=== PATIENT | male | born 1955 | race Caucasian/White ===

== ENCOUNTER 2020-11-08 10:17 | Inpatient (IN) | payer OTHER, SELFPAY ==
[2020-11-08] VITALS (14 sets, daily range): BP systolic 139–180; BP diastolic 88–128; PULSE 15–156; RESP 18–48; TEMP 36.2–36.9; O2SAT 95–97; BMI 33.9
--- NOTE | ~2020-11-08 | XR_ITS ---
EXAMINATION: XR ANKLE, LEFT CLINICAL INFORMATION: Unable to ambulate. COMPARISON: None TECHNIQUE: AP, lateral, and mortise views of the left ankle. FINDINGS: The ankle joint and mortise are intact. There is no acute fracture or dislocation. Tiny corticated osseous densities are seen subjacent to the lateral malleolus. There is mild soft tissue swelling. XR/XR ankle LT 2V IMPRESSION: Mild soft tissue swelling without acute fracture or significant degenerative changes. Tiny osseous density subjacent to the lateral malleolus does not appear acute and could be degenerative in nature or could represent ossification centers.
--- NOTE | ~2020-11-08 | XR_ITS ---
EXAMINATION: XR CHEST CLINICAL INFORMATION: Shortness of breath COMPARISON: None TECHNIQUE: Frontal view of the chest was obtained. FINDINGS: The cardiac silhouette is enlarged. There is pulmonary venous redistribution and increased perihilar markings. Findings are questionable for mild CHF. The lungs are otherwise clear. There is no significant pleural effusion. There is no pneumothorax. There are degenerative changes of the spine. XR/XR chest 1V IMPRESSION: Enlarged cardiac silhouette and question mild CHF.
--- NOTE | 2020-11-08 10:36 | ECG_ITS ---
Test Reason : SOB Blood Pressure : / mmHG Vent. Rate : 148 BPM Atrial Rate : 187 BPM P-R Int : 000 ms QRS Dur : 128 ms QT Int : 352 ms P-R-T Axes : 000 -64 088 degrees QTc Int : 552 ms Atrial fibrillation with rapid ventricular response Left axis deviation Right bundle branch block Minimal voltage criteria for LVH, may be normal variant Abnormal ECG No previous ECGs available Referred By: Leia Melgar Electronically Signed By:FRANSICO BABCOCK
[2020-11-08] MEDS: dilTIAZem HCL 50 MG/10 ML VIAL 10 MG IVPUSH ×2 (10:48→11:26)
--- NOTE | 2020-11-08 10:54 | ED.GENADULT ---
HPI - General Adult General Chief complaint: Dyspnea Stated complaint: DIFF BREATHING HEART ISSUES Time Seen by Provider: 11/08/20 10:35 Source: patient Mode of arrival: ambulatory Limitations: no limitations History of Present Illness HPI narrative: 65-year-old male is coming here today for shortness of breath. Patient reports that he started 1 week ago feeling short of breath and his symptoms worsen. 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 His symptoms were getting worse and he went to urgent care on Sunday. He was given Lasix and Z-Anthony. Patient was encouraged to go seek emergency care, however he chose not to as he thought that he had infection in his lungs. He was not aware that he had anything wrong with his heart however he was told that his heart is enlarged. Patient used to take medication for blood pressure, however due to insurance he stopped taking that. Patient reports that he took dose of Lasix and had no changes. Patient reports SOB with and without exertion, PND. He reports that he does not feel any palpitations, no chest pain. Reports edema in bilateral lower extremities. Patient denies syncope or presyncope. Onset (ago): day(s) Location: chest Related Data Home Medications Medication Instructions Recorded Confirmed azithromycin 250 mg tablet 250 mg PO DAILY 11/08/20 11/08/20 furosemide 20 mg tablet 1 tab PO BID 11/08/20 11/08/20 Allergies Allergy/AdvReac Type Severity Reaction Status Date / Time No Known Allergies Allergy Verified 11/08/20 10:36 Review of Systems Review of Systems: Constitutional : No Weight loss, No Fever, No Chills, No Night Sweats, No Fatigue, No Malaise ENT/Mouth : No Hearing loss, No Ear Pain, No Nasal Congestion, No Sinus Pain, No Hoarseness, No sore throat, No Rhinorrhea, No Swallowing Difficulty Eyes: No Eye Pain, No Swelling, No Redness, No Foreign Body, No Discharge, No Vision Changes Cardiovascular : No Chest Pain, SOB, Dyspnea on Exertion, No Orthopnea, No Edema, Palpitations Respiratory : Cough, No Sputum, No Wheezing, No Smoke Exposure, Dyspnea Gastrointestinal : No Nausea, No Vomiting, No Diarrhea, No Constipation, No abdominal Pain, No Hematochezia, No Melena Genitourinary : no irregular bleeding, No Dysuria, No Urinary Frequency, No Hematuria, No Urinary Incontinence, No Urgency, No Flank Pain, No Urinary Flow Changes, No Hesitancy Musculoskeletal : No joint pain, No Myalgias, No Joint Swelling Skin : No Skin Lesions, No rash Neuro : No Weakness, No Numbness, No Paresthesias, No Loss of Consciousness, No Dizziness, No Headache Psych : No Anxiety/Panic, No Depression, No SI/HI/AH/VH, No Social Issues, Heme/Lymph: No Bruising, No Bleeding,No Lymphadenopathy Endocrine : No Polyuria, No Polydipsia, No Temperature Intolerance Yes all other systems are reviewed and are negative [facility] Past Medical History Medical History HTN (hypertension) Social History Social History Alcohol intake: current Alcohol intake frequency: a few times a month Patient Tobacco Use Status: Never used Tobacco Use of substances other than those prescribed or required for medical reasons: No Advance Directives: No Advance Directives Information Provided: No Physical Exam Vital Signs: Vital Signs: Last Vital Signs Temp 98.4 F 11/08/20 15:55 Pulse 95 11/08/20 15:55 Resp 20 11/08/20 15:55 BP 159/99 H 11/08/20 15:55 Pulse Ox 97 11/08/20 15:55 Body Mass Index 33.9 Const: General: healthy appearing, no acute distress and well developed Nutritional Appearance: well nourished Orientation/consciousness: patient oriented x3 HENMT: Head: Yes normal to inspection, Yes normocephalic and Yes atraumatic Ears: hearing grossly normal bilaterally General nose exam: Normal external nose present Face and sinus: Yes normal facial exam Mouth: Normal oral and palatal mucosa present Throat: Yes posterior oropharynx normal Eyes: General: appearance normal, both eyes and all related structures Neck: Neck: Yes normal visual inspection, Yes full ROM and Yes trachea midline Thyroid: Thyroid normal Resp: Auscultation: clear to auscultation bilaterally Cardio: Jugular venous distension: JVD Rate: Other (Irregular) Rhythm: abnormal rhythm (AFib with RVR) GI: Inspection: Yes normal to inspection and No distended Palpation (GI): No hepatosplenomegaly present Auscultation: normal bowel sounds Skin: General skin exam: elasticity normal, turgor normal and dry skin Neuro: General: patient oriented x3 Course Course Course Narrative: 65-year-old male with previous history of hypertension. Patient was taking antihypertensive medication for sometimes, however due to insurance stop taking it. Patient does not currently have primary care provider as his provider retired. He works full-time 12 hour shifts at night. Denies smoking or alcohol. His symptoms started Sunday and progressively got worse to the point that on Sunday he went to urgent care. He was told to seek emergency services, however he thought that he had pneumonia and was going to recover. His symptoms are shortness of breath with or without exertion, PND, bilateral lower extremity swelling. Denies chest pain, presyncope or syncope. He was given dose of Lasix for 3 days. Patient reports that he had no change in symptoms. Upon exam patient is in a fib with RVR rate 130-155. Will order CBC BMP, troponin, BNP. Will give him diltiazem. Reevaluation(s) Reevaluation #1: Troponin 37.8. Patient's heart rate 120-138 occasionally up to 150. Will give him 2nd dose of diltiazem, awaiting BNP, patient might need to get dose of Lasix if his blood pressure is stable Reevaluation #2: BNP 3919, will medicate him with Lasix 40 mg IV. Consult to Cardiology. Reevaluation #3: Patient continues to be in AFib with RVR heart rate 120-140. Will give him digoxin to dig. load , pressures continue to be high 160/110: will start hydralazine and nitro paste that will help him decrease the blood pressure and diurese him. Cardiology is aware. Additional Reevaluation(s): Hospitalist aware of admission. Patient diuresed 2 L. [place] [facility] [place] Decision Making Lab Data Result diagrams: 11/08/20 10:51 11/08/20 10:51 Labs: Lab Results 11/08/20 11/08/20 11/08/20 Range/Units 10:51 10:51 10:51 WBC 5.8 (4.8-10.8) X10*3/uL RBC 4.52 L (4.60-5.80) X10*6/uL Hgb 14.1 (14.0-18.0) g/dl Hct 43.1 (42-52) % MCV 95.4 (80-98) fL MCH 31.2 (27.0-33.0) pg MCHC 32.7 (31.0-36.0) g/dl RDW 15.5 (11.0-16.0) % Plt Count 189 (160-400) X10*3/uL MPV 11.9 (9.4-12.4) fL Immature Gran % (Auto) 0.2 (0.0-0.4) % Neut % (Auto) 60.9 (45-73) % Lymph % (Auto) 30.1 (20-40) % [place] % (Auto) 7.4 (2-11) % Eos % (Auto) 0.7 (0-4) % Baso % (Auto) 0.7 (0-2) % Lymph # (Auto) 1.8 (1.2-4.9) X10*3/uL [place] # (Auto) 0.4 (0.1-1.2) X10*3/uL Eos # (Auto) 0.0 (0.0-0.4) X10*3/uL Baso # (Auto) 0.0 (0.0-0.2) X10*3/uL Abs Immat Gran (auto) 0.01 (0.00-0.03) X10*3/uL Absolute Neuts (auto) 3.6 (2.0-8.3) X10*3/uL Absolute Nucleated RBC 0.000 (0.0-0.012) X10*3/uL Nucleated RBC % (auto) 0.0 (0.0-0.2) /100WBC PT (9.9-13.0) SEC INR (0.9-1.1) Sodium 142 (135-145) mmol/L Potassium 4.7 (3.3-5.1) mmol/L Chloride 108 (96-108) mmol/L Carbon Dioxide 22 (22-29) mmol/L Anion Gap 17 (12-20) BUN 20 H (9-16) mg/dL Creatinine 1.35 (0.5-1.4) mg/dL Estim Creat Clear Calc 71.8 Estimated GFR 53 Random Glucose 119 H (60-115) mg/dL Calcium 8.7 (8.4-10.2) mg/dL Total Bilirubin 1.5 H (0.0-1.0) mg/dL Direct Bilirubin 0.4 (0.0-0.5) mg/dL AST 56 H (5-37) U/L ALT 55 H (0-40) U/L Alkaline Phosphatase 69 (39-117) U/L Troponin I High Sens 37.8 H* (<3.5-35.0) ng/L B-Natriuretic Peptide 3919 H (<100) pg/mL Total Protein 6.3 L (6.5-8.0) g/dL Albumin 3.8 (3.5-5.0) g/dL Coronavirus (PCR) (Negative) Influenza Type A (PCR) (Negative) Influenza Type B (PCR) (Negative) RSV RNA Qual (PCR) (Negative) 11/08/20 11/08/20 Range/Units 10:56 10:56 WBC (4.8-10.8) X10*3/uL RBC (4.60-5.80) X10*6/uL Hgb (14.0-18.0) g/dl Hct (42-52) % MCV (80-98) fL MCH (27.0-33.0) pg MCHC (31.0-36.0) g/dl RDW (11.0-16.0) % Plt Count (160-400) X10*3/uL MPV (9.4-12.4) fL Immature Gran % (Auto) (0.0-0.4) % Neut % (Auto) (45-73) % Lymph % (Auto) (20-40) % [place] % (Auto) (2-11) % Eos % (Auto) (0-4) % Baso % (Auto) (0-2) % Lymph # (Auto) (1.2-4.9) X10*3/uL [place] # (Auto) (0.1-1.2) X10*3/uL Eos # (Auto) (0.0-0.4) X10*3/uL Baso # (Auto) (0.0-0.2) X10*3/uL Abs Immat Gran (auto) (0.00-0.03) X10*3/uL Absolute Neuts (auto) (2.0-8.3) X10*3/uL Absolute Nucleated RBC (0.0-0.012) X10*3/uL Nucleated RBC % (auto) (0.0-0.2) /100WBC PT 13.8 H (9.9-13.0) SEC INR 1.2 H (0.9-1.1) Sodium (135-145) mmol/L Potassium (3.3-5.1) mmol/L Chloride (96-108) mmol/L Carbon Dioxide (22-29) mmol/L Anion Gap (12-20) BUN (9-16) mg/dL Creatinine (0.5-1.4) mg/dL Estim Creat Clear Calc Estimated GFR Random Glucose (60-115) mg/dL Calcium (8.4-10.2) mg/dL Total Bilirubin (0.0-1.0) mg/dL Direct Bilirubin (0.0-0.5) mg/dL AST (5-37) U/L ALT (0-40) U/L Alkaline Phosphatase (39-117) U/L Troponin I High Sens (<3.5-35.0) ng/L B-Natriuretic Peptide (<100) pg/mL Total Protein (6.5-8.0) g/dL Albumin (3.5-5.0) g/dL Coronavirus (PCR) NEGATIVE (Negative) Influenza Type A (PCR) NEGATIVE (Negative) Influenza Type B (PCR) NEGATIVE (Negative) RSV RNA Qual (PCR) NEGATIVE (Negative) Discharge Plan Discharge Clinical Impression: Atrial fibrillation with RVR, Elevated troponin, Shortness of breath at rest Congestive heart failure Qualifiers: Heart failure type: unspecified Heart failure chronicity: acute Qualified Code(s): I50.9 - Heart failure, unspecified Patient Disposition: Admitted As Inpatient
[2020-11-08 10:56] LABS: MANUAL DIFF FLAG NO
[2020-11-08 11:02] LABS: Basophils Percent Auto 0.7 % (0-2); Eosinophils Percent Auto 0.7 % (0-4); Hematocrit 43.1 % (42-52); Hemoglobin 14.1 g/dl (14.0-18.0); Imm Gran Abs Auto 0.01 X10*3/uL (0.00-0.03); Imm Gran Pct Auto 0.2 % (0.0-0.4); Lymphocytes Absolute Auto 1.8 X10*3/uL (1.2-4.9); Lymphocytes Percent Auto 30.1 % (20-40); Mean Corpuscular HGB Conc 32.7 g/dl (31.0-36.0); Mean Corpuscular Hemoglobin 31.2 pg (27.0-33.0); Mean Corpuscular Volume 95.4 fL (80-98); Mean Platelet Volume 11.9 fL (9.4-12.4); Monocytes Absolute Auto 0.4 X10*3/uL (0.1-1.2); Monocytes Percent Auto 7.4 % (2-11); Neutrophils Absolute Auto 3.6 X10*3/uL (2.0-8.3); Neutrophils Percent Auto 60.9 % (45-73); Platelet Count 189 X10*3/uL (160-400); Red Blood Count 4.52 X10*6/uL (4.60-5.80); Red Cell Distribution Width 15.5 % (11.0-16.0); White Blood Count 5.8 X10*3/uL (4.8-10.8)
[2020-11-08 11:07] LABS: INTERNATIONAL NORM RATIO 1.2 (0.9-1.1); Prothrombin Time 13.8 SEC (9.9-13.0)
[2020-11-08 11:16] LABS: Anion Gap 17 (12-20); Blood Urea Nitrogen 20 mg/dL (9-16); Calcium 8.7 mg/dL (8.4-10.2); Carbon Dioxide 22 mmol/L (22-29); Chloride 108 mmol/L (96-108); Creatinine Clr Calc Pharmacy 71.8; Estimated Glomerular Filt Rate 53; Glucose Random 119 mg/dL (60-115); Potassium 4.7 mmol/L (3.3-5.1); Sodium 142 mmol/L (135-145)
[2020-11-08 11:26] LABS: B Type Natriuretic Peptide 3919 pg/mL (<100); Troponin-I High Sensitivity 37.8 ng/L (<3.5-35.0)
[2020-11-08] MEDS: dilTIAZem HCL 125 MG in 0.9 % Sodium Chloride 100 ML 10 MG IVCONT (11:55)
[2020-11-08] MEDS: Furosemide 40 MG/4 ML VIAL IVPUSH (11:56)
--- NOTE | 2020-11-08 11:59 | PC.NURSE ---
HR remains elevated even after 2 boluses cardizwm. Cardizen drip started and IV lasix given. Pt educated on urination after lasix. Urinal provided. BP remains strong. Continuous monitoring of BP taking place at this time.
[2020-11-08 12:30] LABS: Influenza A PCR NEGATIVE (Negative); Influenza B PCR NEGATIVE (Negative); Resp Syncy Virus RNA Qual PCR NEGATIVE (Negative); SARS COV2 PCR INHOUSE NEGATIVE (Negative)
[2020-11-08 12:33] LABS: Alanine Aminotransferase 55 U/L (0-40); Albumin Level 3.8 g/dL (3.5-5.0); Alkaline Phosphatase 69 U/L (39-117); Aspartate Amino Transferase 56 U/L (5-37); Bilirubin Direct 0.4 mg/dL (0.0-0.5); Bilirubin Total 1.5 mg/dL (0.0-1.0); Total Protein 6.3 g/dL (6.5-8.0)
--- NOTE | 2020-11-08 13:09 | PC.NURSE ---
HR remains elevated in 120s a-fib on monitor. Drip titrated to 12.5mg/hr. BP remains stable. Pt diuresed 1 liter after 40mg of lasix.
--- NOTE | 2020-11-08 13:24 | PM.CNCAR ---
History of Present Illness History of Present Illness Date of Service: 11/08/20 Requesting physician: Leia Melgar Consult reason: atrial fibrillation and congestive heart failure Chief complaint: DIFF BREATHING HEART ISSUES Narrative: I was requested to see Michael in cardiology consultation today for progressive shortness of breath. He is a 65-year-old man with prior history of hypertension, not been taking his antihypertensive for at least 1 year because of insurance issues. He said he was in usual state of health till last Sunday. 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 On Sunday continued to feel worse and felt that he was getting pneumonia. Also notice increasing leg swelling. He went to urgent care on Sunday and he had a chest x-ray there was told that he did not have pneumonia however on his request was given antibiotics, he did not improve and but continued to get progressively short of breath. He also complains of symptoms of orthopnea that he could not lay flat and would get very short of breath. He had to sit up. He did not notice any irregular or rapid heart rate or palpitations. Did not notice any chest pain. No lightheadedness, loss of consciousness. He decided to come to the emergency room because he had not improved. In the Emergency was noted to be in heart failure along with atrial fibrillation rapid ventricular response and marked hypertension. He has been given IV Lasix appropriately and has had about a L of urine output but still says that he short of breath. He is also persistently hypertensive and tachycardic. He is currently on IV Cardizem drip at 10 mg an hour. Review of Systems Constitutional: Constitutional: Denies chills, Denies fever(s) and Reports lethargy Eyes: Eyes: Reports no additional eye complaints ENT: Reports system reviewed and no additional complaints, except as documented Cardiovascular: Cardiovascular: Denies chest pain, Denies syncope, Denies rapid heart rate, Reports leg edema, Denies lightheadedness, Denies Loss of Consciousness, Denies palpitations, Reports dyspnea, Reports dyspnea on exertion and Reports orthopnea Respiratory: Respiratory: Reports no additional respiratory complaints, Reports dyspnea and Reports dyspnea on exertion Gastrointestinal: Gastrointestinal: Reports no additional gastrointestinal complaints Genitourinary: Genitourinary: Reports no additional male genitourinary complaints Musculoskeletal: Musculoskeletal: Reports no additional musculoskeletal complaints Integumentary/Breasts: Skin/Breast: Reports system reviewed and no additional complaints, except as docu Neurologic: Reports system reviewed and no additional complaints, except as documented and Denies syncope Psychiatric: Psychiatric: Reports no additional psychiatric complaints Endocrine: Endocrine: Reports no additional endocrine complaints and Denies palpitations Allergic/Immunologic: Allergic/Immunologic: Reports no additional allergic/immunologic complaints [facility] Past Medical History Medical History HTN (hypertension) Social History Social History Alcohol intake: current Alcohol intake frequency: a few times a month Patient Tobacco Use Status: Never used Tobacco Use of substances other than those prescribed or required for medical reasons: No Advance Directives: No Advance Directives Information Provided: No Meds Allergies Allergy/AdvReac Type Severity Reaction Status Date / Time No Known Allergies Allergy Verified 11/08/20 10:36 Active Medications: Current Medications Generic Name Dose Route Start Last Admin Trade Name Freq PRN Reason Stop Dose Admin Diltiazem HCl 125 mg/ Sodium 125 mls @ 0 mls/hr 11/08/20 12:00 11/08/20 13:07 Chloride IVCONT 12.5 mg/hr .Q0M NAZ 12.5 mls/hr Titration Protocol Per Protocol Physical Exam Vital Signs: Vital Signs: Last Vital Signs Temp 98.1 F 11/08/20 10:38 Pulse 112 H 11/08/20 13:08 Resp 18 11/08/20 13:08 BP 169/118 H 11/08/20 13:08 Pulse Ox 95 11/08/20 13:08 Body Mass Index 33.9 Const: General: cooperative, comfortable, alert, awake and in distress moderate and respiratory Nutritional Appearance: obese Orientation/consciousness: patient oriented x3 HENMT: Head: Yes normocephalic and Yes atraumatic Neck: Neck: Yes trachea midline, Yes supple and Yes JVD Resp: Effort & Inspection: normal respiratory effort Auscultation: rales bilateral at the base and no wheezes Cardio: Jugular venous distension: JVD Palpation: abnormal PMI displaced PMI Rate: tachycardic Rhythm: abnormal rhythm irregularly irregular Heart sounds: S1 normal heart sound present, S2 normal heart sound present, no click, no gallops, no murmurs and no rubs GI: Auscultation: normal bowel sounds Skin: General skin exam: no rashes or lesions noted Neuro: General: patient oriented x3 and no focal motor deficits Extrem: General: No clubbing, No cyanosis and Yes edema Psych: Appearance: grossly normal Results Labs and Meds Result diagrams: 11/08/20 10:51 11/08/20 10:51 Lab results: Laboratory Results - last 24 hr 11/08/20 11/08/20 11/08/20 10:51 10:51 10:51 WBC 5.8 RBC 4.52 L Hgb 14.1 Hct 43.1 MCV 95.4 MCH 31.2 MCHC 32.7 RDW 15.5 Plt Count 189 MPV 11.9 Immature Gran % (Auto) 0.2 Neut % (Auto) 60.9 Lymph % (Auto) 30.1 [place] % (Auto) 7.4 Eos % (Auto) 0.7 Baso % (Auto) 0.7 Lymph # (Auto) 1.8 [place] # (Auto) 0.4 Eos # (Auto) 0.0 Baso # (Auto) 0.0 Abs Immat Gran (auto) 0.01 Absolute Neuts (auto) 3.6 Absolute Nucleated RBC 0.000 Nucleated RBC % (auto) 0.0 PT INR Sodium 142 Potassium 4.7 Chloride 108 Carbon Dioxide 22 Anion Gap 17 BUN 20 H Creatinine 1.35 Estim Creat Clear Calc 71.8 Estimated GFR 53 Random Glucose 119 H Calcium 8.7 Total Bilirubin 1.5 H Direct Bilirubin 0.4 AST 56 H ALT 55 H Alkaline Phosphatase 69 Troponin I High Sens 37.8 H* B-Natriuretic Peptide 3919 H Total Protein 6.3 L Albumin 3.8 Coronavirus (PCR) Influenza Type A (PCR) Influenza Type B (PCR) RSV RNA Qual (PCR) 11/08/20 11/08/20 10:56 10:56 WBC RBC Hgb Hct MCV MCH MCHC RDW Plt Count MPV Immature Gran % (Auto) Neut % (Auto) Lymph % (Auto) [place] % (Auto) Eos % (Auto) Baso % (Auto) Lymph # (Auto) [place] # (Auto) Eos # (Auto) Baso # (Auto) Abs Immat Gran (auto) Absolute Neuts (auto) Absolute Nucleated RBC Nucleated RBC % (auto) PT 13.8 H INR 1.2 H Sodium Potassium Chloride Carbon Dioxide Anion Gap BUN Creatinine Estim Creat Clear Calc Estimated GFR Random Glucose Calcium Total Bilirubin Direct Bilirubin AST ALT Alkaline Phosphatase Troponin I High Sens B-Natriuretic Peptide Total Protein Albumin Coronavirus (PCR) NEGATIVE Influenza Type A (PCR) NEGATIVE Influenza Type B (PCR) NEGATIVE RSV RNA Qual (PCR) NEGATIVE EKG shows atrial fibrillation rapid ventricular response with right bundle-branch block and left axis deviation Imaging Radiologist's impression: Impressions Chest X-Ray 11/08/20 10:36 IMPRESSION: Enlarged cardiac silhouette and question mild CHF. 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 Continue IV diuresis. Start him on Lasix drip at 5 mg an hour. Strict intake and output chart needs to be pursued. Continue to trend electrolytes and BMP. Heart failure management and diagnosis was discussed. Will need an echocardiogram to evaluate LV systolic and diastolic function eventually better control of atrial fibrillation. This was discussed with him. He understands agrees. Importance of controlling blood pressure was also discussed. Start him on Diovan 40 mg b.i.d.. Rate control as below. Also p.r.n. hydralazine 10 mg as needed for systolic blood pressure greater than 160. Also start him on nitro paste 2 in q.6 hours for better blood pressure control. Depending on his LV ejection fraction, will further optimize his treatment (2) Atrial fibrillation with RVR: Status: Acute Atrial fibrillation rapid ventricular response of unknown duration. There is likelihood of underlying on LV systolic dysfunction, however remains tachycardic. Currently on IV Cardizem drip, will continue for short term for better rate control. Also digitalize him with 0.25 mg IV push Q 6 hours x3 doses. Once his fluid status is improved, started on oral metoprolol therapy. Also start him on full anticoagulation, can start with Lovenox 1 milligram/kg subQ q.12 hours. Echocardiogram as above. Eventually may need rhythm control once his heart failure syndrome is better controlled. If his heart rate remains difficult control may require CHRIS guided cardioversion. (3) Hypertensive urgency: Status: Acute Hypertensive urgency, with longstanding hypertension currently not on any home treatment due to insurance issues. Management as above. Start Diovan 40 mg b.i.d.. P.r.n. hydralazine. Start him on nitro paste. Further treatment optimization based on his response. May have underlying sleep apnea and probably pursue sleep study as outpatient. Importance of compliance with medication and follow-up was discussed. He understands agrees. Will continue to follow with the patient. Procedures Date of Service Date of Service: 11/08/20
--- NOTE | 2020-11-08 14:21 | P.HPHOSP_ITS ---
History of Present Illness Date of Service: 11/08/20 Chief Complaint: Shortness of breath 65-year-old male with a history of hypertension has been off his medications for about 1 year due to insurance issues. Presented with shortness of breath. Patient states the symptoms started 1 week prior to presentation. 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 then began to have sob, worse on exertion, orthopnea, lower extremity edema. came to ED, found to be in rapid afib, CXR with pulmonary edema. Review of Systems Review of Systems: Constitutional: Denies fever, denies Chills Eyes: denies blurry vision ENT: denies sore throat CVS: denies chest pain Respiratory:dyspnea GI: no abdominal pain : denies dysuria MSK: denies neck pain Skin: denies rash Neuro: denies specific motor weakness Psych: denies suicidal ideation Endocrine: denies heat/cold intolerance Hematologic: denies easy bleeding Allergy: denies hives [facility] Medical History HTN (hypertension) Family history: reviewed and not pertinent Social History Alcohol intake: current Alcohol intake frequency: a few times a month Patient Tobacco Use Status: Never used Tobacco Use of substances other than those prescribed or required for medical reasons: No Advance Directives: No Advance Directives Information Provided: No Meds Allergies Allergy/AdvReac Type Severity Reaction Status Date / Time No Known Allergies Allergy Verified 11/08/20 10:36 Active Medications: Current Medications Generic Name Dose Route Start Last Admin Trade Name Freq PRN Reason Stop Dose Admin Digoxin 0.25 mg 11/08/20 20:00 Digoxin 0.5 Mg/2 Ml Ampul IVPUSH 11/09/20 02:01 Q6H NAZ Enoxaparin Sodium 115 mg 11/08/20 14:30 Enoxaparin Sodium 100 Mg/Ml Syringe 1 mg/kg (115 mg) SUBCUT Q12H NAZ Hydralazine HCl 10 mg 11/08/20 14:18 Hydralazine Hcl 20 Mg/Ml Vial IVPUSH Q4H PRN SBP > 160 Protocol Diltiazem HCl 125 mg/ Sodium 125 mls @ 0 mls/hr 11/08/20 12:00 11/08/20 13:07 Chloride IVCONT 12.5 mg/hr .Q0M NAZ 12.5 mls/hr Titration Protocol Per Protocol Furosemide 200 mg/ Sodium 100 mls @ 2.5 mls/hr 11/08/20 14:30 Chloride IVCONT .Q24H NAZ 5 MG/HR Nitroglycerin 1 inch 11/08/20 14:16 Nitroglycerin 2 % Oint 1 Gm Packet TRANSDERMA 11/08/20 14:17 ONCE ONE Valsartan 40 mg 11/08/20 21:00 Valsartan 40 Mg Tablet PO BID NAZ Protocol Physical Exam Vital Signs and Narrative: Vital Signs: Last Vital Signs Temp 98.1 F 11/08/20 10:38 Pulse 112 H 11/08/20 13:08 Resp 18 11/08/20 13:08 BP 169/118 H 11/08/20 13:08 Pulse Ox 95 11/08/20 13:08 Body Mass Index 33.9 General: no acute distress HEENT: atraumatic Neck: normal to visual inspection CVS: S1, S2, Rapid irregular Resp: Crackles Chest: non tender GI: soft, non tender, non distended : no CVA tenderness Skin: no rashes Extremities: 2-3+ edema Neuro: Oriented X3, grossly intact Psych: cooperative Results Labs CBC and Chem 7: 11/08/20 10:51 11/08/20 10:51 Labs: Laboratory Results - last 24 hr 11/08/20 11/08/20 11/08/20 10:51 10:51 10:51 MCV 95.4 MCH 31.2 MCHC 32.7 RDW 15.5 Plt Count 189 MPV 11.9 Immature Gran % (Auto) 0.2 Neut % (Auto) 60.9 Lymph % (Auto) 30.1 [place] % (Auto) 7.4 Eos % (Auto) 0.7 Baso % (Auto) 0.7 Lymph # (Auto) 1.8 [place] # (Auto) 0.4 Eos # (Auto) 0.0 Baso # (Auto) 0.0 Abs Immat Gran (auto) 0.01 Absolute Neuts (auto) 3.6 Absolute Nucleated RBC 0.000 Nucleated RBC % (auto) 0.0 PT INR Anion Gap 17 Estim Creat Clear Calc 71.8 Estimated GFR 53 Random Glucose 119 H Calcium 8.7 Total Bilirubin 1.5 H Direct Bilirubin 0.4 AST 56 H ALT 55 H Alkaline Phosphatase 69 Troponin I High Sens 37.8 H* B-Natriuretic Peptide 3919 H Total Protein 6.3 L Albumin 3.8 Coronavirus (PCR) Influenza Type A (PCR) Influenza Type B (PCR) RSV RNA Qual (PCR) 11/08/20 11/08/20 10:56 10:56 MCV MCH MCHC RDW Plt Count MPV Immature Gran % (Auto) Neut % (Auto) Lymph % (Auto) [place] % (Auto) Eos % (Auto) Baso % (Auto) Lymph # (Auto) [place] # (Auto) Eos # (Auto) Baso # (Auto) Abs Immat Gran (auto) Absolute Neuts (auto) Absolute Nucleated RBC Nucleated RBC % (auto) PT 13.8 H INR 1.2 H Anion Gap Estim Creat Clear Calc Estimated GFR Random Glucose Calcium Total Bilirubin Direct Bilirubin AST ALT Alkaline Phosphatase Troponin I High Sens B-Natriuretic Peptide Total Protein Albumin Coronavirus (PCR) NEGATIVE Influenza Type A (PCR) NEGATIVE Influenza Type B (PCR) NEGATIVE RSV RNA Qual (PCR) NEGATIVE Imaging Radiologist's Impressions: Impressions Chest X-Ray 11/08/20 10:36 IMPRESSION: Enlarged cardiac silhouette and question mild CHF. Assessment and Plan (1) Hypertensive urgency: Status: Acute (2) Acute congestive heart failure: Status: Acute (3) Congestive heart failure: Qualifiers: Heart failure chronicity: acute Heart failure type: unspecified Qualified Code(s): I50.9 - Heart failure, unspecified Status: Acute (4) Atrial fibrillation with RVR: Status: Acute (5) Elevated troponin: Status: Acute (6) Shortness of breath at rest: Status: Acute 65M presented with sob Acute CHF unspecified Lasix 5 milligrams/hour Monitor ins and outs Monitor electrolytes Check echo Hypertensive urgency Diovan Hydralazine Nitropaste Atrial fibrillation with rapid ventricular response Cardizem infusion NPO after midnight for possible cardioversion Therapeutic Lovenox Morbid obesity Weight loss Transaminases Suspect nonalcoholic fatty liver Check A1c, lipids, viral hepatitis panel Quality Stroke Does the patient have a stroke diagnosis?: No VTE Prior VTE?: No VTE Risk Level:: Medical - moderate - high VTE Device Contraindication: Treatment Not Indicated VTE Drug Contraindication: N/A - Med Ordered
[2020-11-08] MEDS: Nitroglycerin 2 % Oint 1 GM Packet 1 INCH TRANSDERMA (14:52)
[2020-11-08] MEDS: hydrALAZINE HCl 20 MG/ML VIAL 10 MG IVPUSH (14:56)
[2020-11-08] MEDS: Digoxin 0.5 MG/2 ML AMPUL 0.25 MG IVPUSH ×2 (14:58→20:30)
--- NOTE | 2020-11-08 15:03 | PC.NURSE ---
Nitro paste, IV hydralizine, and iv digoxin given.Pt remains on cdz gtt at 12.5mg/hr. Will continue to monitor BP before po admin of valsartin.
[2020-11-08] MEDS: Furosemide 200 MG in 0.9 % Sodium Chloride 80 ML IVCONT (15:34)
[2020-11-08] MEDS: Enoxaparin Sodium 100 MG/ML SYRINGE 115 MG SUBCUT (15:36)
[2020-11-08] MEDS: Valsartan 40 MG TABLET PO ×2 (15:44→21:34)
[2020-11-08] MEDS: 0.9 % Sodium Chloride Flush 3 ML SYRINGE IVFLUSH (15:45)
[2020-11-08 16:07] LABS: Glucose Urine UA NEG (NEG); Leukocyte Esterase Urine NEG (NEG); Nitrite Urine NEG (NEG); PH 6.5 (5.0-8.0); Urine Blood NEG (NEG); Urine Ketones NEG (NEG); Urine Protein NEG (NEG-TRACE)
[2020-11-08 16:08] LABS: Appearance Urine CLEAR; Color Urine STRAW
--- NOTE | 2020-11-08 18:38 | PC.NURSE ---
Pt's HR mostly remaining 90s-1teens. At times in 130s but very brief. BP 150s-160s up to 180s at times- also very labile. Cardizem drip increased to 15mg/hr. Pt remains on lasix gtt. Diuresing well. Output documented in chart.
--- NOTE | 2020-11-08 20:29 | PC.NURSE ---
assumed care of pt. pt resting in stretcher awaiting for room assignment. Pt alert and watching tv. Pt remains on monitor in NAD. VS obtained.
[2020-11-08] MEDS: dilTIAZem HCL 125 MG in 0.9 % Sodium Chloride 100 ML 15 MG IVCONT (21:25)
--- NOTE | 2020-11-08 23:53 | PC.NURSE ---
icu unable to take report will return call.
[2020-11-09] VITALS (11 sets, daily range): BP systolic 126–169; BP diastolic 68–102; PULSE 94–120; RESP 16–33; TEMP 36.1–36.8; O2SAT 90–95; BMI 33.0
[2020-11-09] MEDS: Enoxaparin Sodium 100 MG/ML SYRINGE 115 MG SUBCUT ×2 (02:21→14:35)
[2020-11-09] MEDS: Digoxin 0.5 MG/2 ML AMPUL 0.25 MG IVPUSH (02:21)
[2020-11-09] MEDS: dilTIAZem HCL 125 MG in 0.9 % Sodium Chloride 100 ML 10 MG IVCONT (04:30)
--- NOTE | 2020-11-09 04:57 | PC.NURSE ---
ADMIT TO 261-1 C OVERFLOW....ALERT..ORIENTED X3...MONITOR ATRIAL FIB RBBB...CARDIZEM DRIP 15 MG/HR & LASIX 5 MG/HR...REPORTS INCREASED SOB/ORTHOPNEA/LEG SWELLING/APPROX 30LB WEIGHT GAIN OVER PAST WEEK....VOIDING LARGE AMOUNTS YELLOW URINE...INITIALLY WITH ORTHOPNEA..REQUIRED HOB 40-60 DEGREES...OVERNIGHT ABLE TO SLEEP HOB 30 DEGREES....IV DIGOXIN PER MAY & LOVENOX...O2 3 L/M...SAO2 92-94% AT REST..DENIES/OFFERS NO COMPLAINTS...NPO AFTER MIDNIGHT PER CPOE...DENIES PAIN
[2020-11-09 05:29] LABS: Hematocrit 40.9 % (42-52); Hemoglobin 13.5 g/dl (14.0-18.0); Mean Corpuscular Volume 93.8 fL (80-98); Mean Platelet Volume 11.2 fL (9.4-12.4); Platelet Count 167 X10*3/uL (160-400); Red Blood Count 4.36 X10*6/uL (4.60-5.80)
[2020-11-09 05:54] LABS: Anion Gap 15 (12-20); Blood Urea Nitrogen 20 mg/dL (9-16); Calcium 8.6 mg/dL (8.4-10.2); Carbon Dioxide 27 mmol/L (22-29); Chloride 104 mmol/L (96-108); Cholesterol 137 mg/dL; Estimated Glomerular Filt Rate > 60; Glucose Fasting 96 mg/dL (60-99); HDL Cholesterol 28 mg/dL; LDL Cholesterol Calculated 92 mg/dl; Magnesium 1.7 mg/dL (1.6-2.6); Potassium 3.2 mmol/L (3.3-5.1); Sodium 143 mmol/L (135-145); Triglycerides 86 mg/dL
[2020-11-09 05:55] LABS: Estimated Average Glucose 91 mg/dL; Hemoglobin A1c % 4.8 %
[2020-11-09 06:11] LABS: HBS Num1 0.39 mIU/mL (0-7.99); ~HepC Num1 0.13 S/CO (0.00-0.79); ~Hepatitis B Surface Antibody NONREACTIVE (Nonreactive); ~Hepatitis C Antibody Nonreactive (Nonreactive)
[2020-11-09 06:20] LABS: HBc Num1 0.08 S/CO (0.00-0.79); HBsAGNum1 0.24 S/CO (0.00-0.99); Hepatitis B Core Antibody Nonreactive (Nonreactive); Hepatitis B Surface Antigen Negative (Negative)
--- NOTE | 2020-11-09 08:02 | P.PNIM_ITS ---
Subjective Subjective Date of Service: 11/09/20 Interval History: chf , afib Review of Systems Heart rate running around 100-110 range, shortness of breath seems improving Denies any chest pain or abdominal pain or fever chills Physical Exam Vital Signs: Vital Signs: Last Vital Signs Temp 97.8 F 11/09/20 00:00 Pulse 97 11/09/20 04:00 Resp 28 H 11/09/20 04:00 BP 157/79 H 11/09/20 04:00 Pulse Ox 93 11/09/20 04:00 Body Mass Index 33.0 Physical exam: Cvs: rrr, [id number] , no murmur res: Grossly air entry improving, slightly diminished at bases, no rales. abd: no rebound or guarding ,nt, bs present. ext pulses present , no cyanosis neuro: axo3 , nonfocal. Objective Data Active Medications Enoxaparin Sodium (Enoxaparin Sodium 100 Mg/Ml Syringe) 115 mg 1 mg/kg (115 mg) SUBCUT Q12H [facility] Last Admin: 11/09/20 02:21 Dose: 115 mg Documented by: MARY Hydralazine HCl (Hydralazine Hcl 20 Mg/Ml Vial) 10 mg IVPUSH Q4H PRN; Protocol PRN Reason: SBP > 160 Diltiazem HCl 125 mg/ Sodium (Chloride) 125 mls @ 0 mls/hr IVCONT .Q0M NAZ; Protocol Last Admin: 11/09/20 04:30 Dose: 10 mg/hr, 10 mls/hr Documented by: MARY Furosemide 200 mg/ Sodium (Chloride) 100 mls @ 2.5 mls/hr IVCONT .Q24H NAZ Last Admin: 11/08/20 15:34 Dose: 5 mg/hr, 2.5 mls/hr Documented by: PATRICIA Sodium Chloride (0.9 % Sodium Chloride Flush 3 Ml Syringe) 3 ml IVFLUSH QSHIFT [facility] Last Admin: 11/09/20 01:03 Dose: Not Given Documented by: MARY Non-Admin Reason: IV Running Valsartan (Valsartan 40 Mg Tablet) 40 mg PO BID [facility]; Protocol Last Admin: 11/08/20 21:34 Dose: 40 mg Documented by: JJ Labs CBC & Chem 7: 11/09/20 05:10 11/09/20 05:10 Labs: Laboratory Results - last 24 hr 11/08/20 11/08/20 11/08/20 10:51 10:51 10:51 MCV 95.4 MCH 31.2 MCHC 32.7 RDW 15.5 Plt Count 189 MPV 11.9 Immature Gran % (Auto) 0.2 Neut % (Auto) 60.9 Lymph % (Auto) 30.1 [place] % (Auto) 7.4 Eos % (Auto) 0.7 Baso % (Auto) 0.7 Lymph # (Auto) 1.8 [place] # (Auto) 0.4 Eos # (Auto) 0.0 Baso # (Auto) 0.0 Abs Immat Gran (auto) 0.01 Absolute Neuts (auto) 3.6 Absolute Nucleated RBC 0.000 Nucleated RBC % (auto) 0.0 PT INR Anion Gap 17 Estim Creat Clear Calc 71.8 Estimated GFR 53 Random Glucose 119 H Fasting Glucose Estimat Average Glucose Hemoglobin A1c % Calcium 8.7 Magnesium Total Bilirubin 1.5 H Direct Bilirubin 0.4 AST 56 H ALT 55 H Alkaline Phosphatase 69 Troponin I High Sens 37.8 H* B-Natriuretic Peptide 3919 H Total Protein 6.3 L Albumin 3.8 Triglycerides Cholesterol LDL Cholesterol, Calc HDL Cholesterol Urine Color Urine Appearance Urine pH Ur Specific [place] Urine Protein Urine Glucose (UA) Urine Ketones Urine Blood Urine Nitrite Ur Leukocyte Esterase Coronavirus (PCR) Hep Bs Antigen Hep Bs Antibody Hep B Core Total Ab Hepatitis C Ab (EIA) Influenza Type A (PCR) Influenza Type B (PCR) RSV RNA Qual (PCR) 11/08/20 11/08/20 11/08/20 10:56 10:56 15:11 MCV MCH MCHC RDW Plt Count MPV Immature Gran % (Auto) Neut % (Auto) Lymph % (Auto) [place] % (Auto) Eos % (Auto) Baso % (Auto) Lymph # (Auto) [place] # (Auto) Eos # (Auto) Baso # (Auto) Abs Immat Gran (auto) Absolute Neuts (auto) Absolute Nucleated RBC Nucleated RBC % (auto) PT 13.8 H INR 1.2 H Anion Gap Estim Creat Clear Calc Estimated GFR Random Glucose Fasting Glucose Estimat Average Glucose Hemoglobin A1c % Calcium Magnesium Total Bilirubin Direct Bilirubin AST ALT Alkaline Phosphatase Troponin I High Sens 41.0 H* B-Natriuretic Peptide Total Protein Albumin Triglycerides Cholesterol LDL Cholesterol, Calc HDL Cholesterol Urine Color Urine Appearance Urine pH Ur Specific [place] Urine Protein Urine Glucose (UA) Urine Ketones Urine Blood Urine Nitrite Ur Leukocyte Esterase Coronavirus (PCR) NEGATIVE Hep Bs Antigen Hep Bs Antibody Hep B Core Total Ab Hepatitis C Ab (EIA) Influenza Type A (PCR) NEGATIVE Influenza Type B (PCR) NEGATIVE RSV RNA Qual (PCR) NEGATIVE 11/08/20 11/09/20 11/09/20 15:54 05:10 05:10 MCV 93.8 MCH 31.0 MCHC 33.0 RDW 15.0 Plt Count 167 MPV 11.2 Immature Gran % (Auto) Neut % (Auto) Lymph % (Auto) [place] % (Auto) Eos % (Auto) Baso % (Auto) Lymph # (Auto) [place] # (Auto) Eos # (Auto) Baso # (Auto) Abs Immat Gran (auto) Absolute Neuts (auto) Absolute Nucleated RBC 0.000 Nucleated RBC % (auto) 0.0 PT INR Anion Gap 15 Estim Creat Clear Calc 84.0 Estimated GFR > 60 Random Glucose Fasting Glucose 96 Estimat Average Glucose Hemoglobin A1c % Calcium 8.6 Magnesium 1.7 Total Bilirubin Direct Bilirubin AST ALT Alkaline Phosphatase Troponin I High Sens B-Natriuretic Peptide Total Protein Albumin Triglycerides 86 Cholesterol 137 LDL Cholesterol, Calc 92 HDL Cholesterol 28 Urine Color STRAW Urine Appearance CLEAR Urine pH 6.5 Ur Specific [place] 1.010 Urine Protein NEG Urine Glucose (UA) NEG Urine Ketones NEG Urine Blood NEG Urine Nitrite NEG Ur Leukocyte Esterase NEG Coronavirus (PCR) Hep Bs Antigen Hep Bs Antibody Hep B Core Total Ab Hepatitis C Ab (EIA) Influenza Type A (PCR) Influenza Type B (PCR) RSV RNA Qual (PCR) 11/09/20 11/09/20 05:10 05:10 MCV MCH MCHC RDW Plt Count MPV Immature Gran % (Auto) Neut % (Auto) Lymph % (Auto) [place] % (Auto) Eos % (Auto) Baso % (Auto) Lymph # (Auto) [place] # (Auto) Eos # (Auto) Baso # (Auto) Abs Immat Gran (auto) Absolute Neuts (auto) Absolute Nucleated RBC Nucleated RBC % (auto) PT INR Anion Gap Estim Creat Clear Calc Estimated GFR Random Glucose Fasting Glucose Estimat Average Glucose 91 Hemoglobin A1c % 4.8 Calcium Magnesium Total Bilirubin Direct Bilirubin AST ALT Alkaline Phosphatase Troponin I High Sens B-Natriuretic Peptide Total Protein Albumin Triglycerides Cholesterol LDL Cholesterol, Calc HDL Cholesterol Urine Color Urine Appearance Urine pH Ur Specific [place] Urine Protein Urine Glucose (UA) Urine Ketones Urine Blood Urine Nitrite Ur Leukocyte Esterase Coronavirus (PCR) Hep Bs Antigen Negative Hep Bs Antibody NONREACTIVE Hep B Core Total Ab Nonreactive Hepatitis C Ab (EIA) Nonreactive Influenza Type A (PCR) Influenza Type B (PCR) RSV RNA Qual (PCR) Assessment and Plan (1) Congestive heart failure: Status: Acute (2) Atrial fibrillation with RVR: Status: Acute Assessment and Plan: 65M presented with sob 1. Acute CHF unspecified Lasix 5 milligrams/hour-diuresed well almost 8 L Will hold Lasix drip, monitor and if needed start IV Lasix in the morning. Echo pending. Monitor ins and outs Monitor electrolytes Cardio evaluation noted-off Lasix drip, taper down Cardizem for AFib. Hypertensive urgency Diovan Hydralazine Nitropaste Atrial fibrillation with rapid ventricular response Cardizem infusion-taper down. Therapeutic Lovenox Morbid obesity Weight loss Transaminases Suspect nonalcoholic fatty liver Check A1c, lipids, viral hepatitis panel Quality Stroke Does the patient have a stroke diagnosis?: No VTE Prior VTE?: No VTE Risk Level:: Medical - moderate - high VTE Device Contraindication: Treatment Not Indicated VTE Drug Contraindication: N/A - Med Ordered
[2020-11-09 08:25] LABS: Alanine Aminotransferase 48 U/L (0-40); Albumin Level 3.6 g/dL (3.5-5.0); Alkaline Phosphatase 73 U/L (39-117); Aspartate Amino Transferase 44 U/L (5-37); Bilirubin Direct 0.6 mg/dL (0.0-0.5); Bilirubin Total 1.3 mg/dL (0.0-1.0); Total Protein 5.8 g/dL (6.5-8.0)
[2020-11-09 08:37] LABS: B Type Natriuretic Peptide 1850 pg/mL (<100)
--- NOTE | 2020-11-09 10:52 | P.PNCA_ITS ---
Subjective Subjective Date of Service: 11/09/20 Interval history: He states that he feels okay. Shortness of breath is improved. Review of Systems Review of Systems Yes all other systems are reviewed and are negative Cardiovascular: Reports as per HPI, Reports no additional cardiovascular complaints, Denies acrocyanosis, Denies cool extremities, Denies painful fingertips, Denies chest pain, Denies chest pain at rest, Denies diaphoresis, Denies syncope, Denies irregular heart rhythm, Denies claudication, Denies leg edema, Denies lightheadedness, Denies palpitations and Reports dyspnea Respiratory: Reports dyspnea Denies syncope Endocrine: Denies palpitations Physical Exam Vital Signs: Last Vital Signs Temp 97.6 F 11/09/20 08:00 Pulse 107 H 11/09/20 08:00 Resp 16 11/09/20 08:00 BP 126/68 11/09/20 08:00 Pulse Ox 90 L 11/09/20 08:00 Body Mass Index 33.0 Results Labs and Meds Result diagrams: 11/09/20 05:10 11/09/20 05:10 Lab results: Laboratory Results - last 24 hr 11/08/20 11/08/20 11/08/20 10:51 10:51 10:51 WBC 5.8 RBC 4.52 L Hgb 14.1 Hct 43.1 MCV 95.4 MCH 31.2 MCHC 32.7 RDW 15.5 Plt Count 189 MPV 11.9 Immature Gran % (Auto) 0.2 Neut % (Auto) 60.9 Lymph % (Auto) 30.1 [place] % (Auto) 7.4 Eos % (Auto) 0.7 Baso % (Auto) 0.7 Lymph # (Auto) 1.8 [place] # (Auto) 0.4 Eos # (Auto) 0.0 Baso # (Auto) 0.0 Abs Immat Gran (auto) 0.01 Absolute Neuts (auto) 3.6 Absolute Nucleated RBC 0.000 Nucleated RBC % (auto) 0.0 PT INR Sodium 142 Potassium 4.7 Chloride 108 Carbon Dioxide 22 Anion Gap 17 BUN 20 H Creatinine 1.35 Estim Creat Clear Calc 71.8 Estimated GFR 53 Random Glucose 119 H Fasting Glucose Estimat Average Glucose Hemoglobin A1c % Calcium 8.7 Magnesium Total Bilirubin 1.5 H Direct Bilirubin 0.4 AST 56 H ALT 55 H Alkaline Phosphatase 69 Troponin I High Sens 37.8 H* B-Natriuretic Peptide 3919 H Total Protein 6.3 L Albumin 3.8 Triglycerides Cholesterol LDL Cholesterol, Calc HDL Cholesterol Urine Color Urine Appearance Urine pH Ur Specific [place] Urine Protein Urine Glucose (UA) Urine Ketones Urine Blood Urine Nitrite Ur Leukocyte Esterase Coronavirus (PCR) Hep Bs Antigen Hep Bs Antibody Hep B Core Total Ab Hepatitis C Ab (EIA) Influenza Type A (PCR) Influenza Type B (PCR) RSV RNA Qual (PCR) 11/08/20 11/08/20 11/08/20 10:56 10:56 15:11 WBC RBC Hgb Hct MCV MCH MCHC RDW Plt Count MPV Immature Gran % (Auto) Neut % (Auto) Lymph % (Auto) [place] % (Auto) Eos % (Auto) Baso % (Auto) Lymph # (Auto) [place] # (Auto) Eos # (Auto) Baso # (Auto) Abs Immat Gran (auto) Absolute Neuts (auto) Absolute Nucleated RBC Nucleated RBC % (auto) PT 13.8 H INR 1.2 H Sodium Potassium Chloride Carbon Dioxide Anion Gap BUN Creatinine Estim Creat Clear Calc Estimated GFR Random Glucose Fasting Glucose Estimat Average Glucose Hemoglobin A1c % Calcium Magnesium Total Bilirubin Direct Bilirubin AST ALT Alkaline Phosphatase Troponin I High Sens 41.0 H* B-Natriuretic Peptide Total Protein Albumin Triglycerides Cholesterol LDL Cholesterol, Calc HDL Cholesterol Urine Color Urine Appearance Urine pH Ur Specific [place] Urine Protein Urine Glucose (UA) Urine Ketones Urine Blood Urine Nitrite Ur Leukocyte Esterase Coronavirus (PCR) NEGATIVE Hep Bs Antigen Hep Bs Antibody Hep B Core Total Ab Hepatitis C Ab (EIA) Influenza Type A (PCR) NEGATIVE Influenza Type B (PCR) NEGATIVE RSV RNA Qual (PCR) NEGATIVE 11/08/20 11/09/20 11/09/20 15:54 05:10 05:10 WBC 5.0 RBC 4.36 L Hgb 13.5 L Hct 40.9 L MCV 93.8 MCH 31.0 MCHC 33.0 RDW 15.0 Plt Count 167 MPV 11.2 Immature Gran % (Auto) Neut % (Auto) Lymph % (Auto) [place] % (Auto) Eos % (Auto) Baso % (Auto) Lymph # (Auto) [place] # (Auto) Eos # (Auto) Baso # (Auto) Abs Immat Gran (auto) Absolute Neuts (auto) Absolute Nucleated RBC 0.000 Nucleated RBC % (auto) 0.0 PT INR Sodium 143 Potassium 3.2 L D Chloride 104 Carbon Dioxide 27 Anion Gap 15 BUN 20 H Creatinine 1.14 Estim Creat Clear Calc 84.0 Estimated GFR > 60 Random Glucose Fasting Glucose 96 Estimat Average Glucose Hemoglobin A1c % Calcium 8.6 Magnesium 1.7 Total Bilirubin 1.3 H Direct Bilirubin 0.6 H AST 44 H ALT 48 H Alkaline Phosphatase 73 Troponin I High Sens B-Natriuretic Peptide Total Protein 5.8 L Albumin 3.6 Triglycerides 86 Cholesterol 137 LDL Cholesterol, Calc 92 HDL Cholesterol 28 Urine Color STRAW Urine Appearance CLEAR Urine pH 6.5 Ur Specific [place] 1.010 Urine Protein NEG Urine Glucose (UA) NEG Urine Ketones NEG Urine Blood NEG Urine Nitrite NEG Ur Leukocyte Esterase NEG Coronavirus (PCR) Hep Bs Antigen Hep Bs Antibody Hep B Core Total Ab Hepatitis C Ab (EIA) Influenza Type A (PCR) Influenza Type B (PCR) RSV RNA Qual (PCR) 11/09/20 11/09/20 11/09/20 05:10 05:10 05:10 WBC RBC Hgb Hct MCV MCH MCHC RDW Plt Count MPV Immature Gran % (Auto) Neut % (Auto) Lymph % (Auto) [place] % (Auto) Eos % (Auto) Baso % (Auto) Lymph # (Auto) [place] # (Auto) Eos # (Auto) Baso # (Auto) Abs Immat Gran (auto) Absolute Neuts (auto) Absolute Nucleated RBC Nucleated RBC % (auto) PT INR Sodium Potassium Chloride Carbon Dioxide Anion Gap BUN Creatinine Estim Creat Clear Calc Estimated GFR Random Glucose Fasting Glucose Estimat Average Glucose 91 Hemoglobin A1c % 4.8 Calcium Magnesium Total Bilirubin Direct Bilirubin AST ALT Alkaline Phosphatase Troponin I High Sens B-Natriuretic Peptide 1850 H Total Protein Albumin Triglycerides Cholesterol LDL Cholesterol, Calc HDL Cholesterol Urine Color Urine Appearance Urine pH Ur Specific [place] Urine Protein Urine Glucose (UA) Urine Ketones Urine Blood Urine Nitrite Ur Leukocyte Esterase Coronavirus (PCR) Hep Bs Antigen Negative Hep Bs Antibody NONREACTIVE Hep B Core Total Ab Nonreactive Hepatitis C Ab (EIA) Nonreactive Influenza Type A (PCR) Influenza Type B (PCR) RSV RNA Qual (PCR) ECG Interpretation: Telemetry shows atrial fibrillation with rate of about 100/Min. Imaging Radiologist's impression: Impressions Chest X-Ray 11/08/20 10:36 IMPRESSION: Enlarged cardiac silhouette and question mild CHF. Progress Note: A&P Assessment and plan (1) Acute congestive heart failure: Status: Acute (2) Hypertensive urgency: Status: Acute (3) Atrial fibrillation with RVR: Status: Acute Assessment and Plan: Possibly acute congestive heart failure due to uncontrolled atrial fibrillation of uncertain duration; hypertension may also have played a role as he does not take meds. Still on Cardizem drip. May add some beta blockers. As he is diuresed more than 8 L, will stop the Lasix drip and probably start him on IV Lasix from tomorrow. Continue with Lovenox that has been started for anticoagulation. Coumadin versus directly acting agents to be decided based on insurance coverage and what he can afford. On valsartan for blood pressure. Will follow up with you. Fall Risk Details Current Medications: Current Medications Generic Name Dose Route Start Last Admin Trade Name Freq PRN Reason Stop Dose Admin Enoxaparin Sodium 115 mg 11/08/20 14:30 11/09/20 02:21 Enoxaparin Sodium 100 Mg/Ml Syringe 1 mg/kg (115 mg) 115 mg SUBCUT Administration Q12H NAZ Hydralazine HCl 10 mg 11/08/20 14:18 Hydralazine Hcl 20 Mg/Ml Vial IVPUSH Q4H PRN SBP > 160 Protocol Diltiazem HCl 125 mg/ Sodium 125 mls @ 0 mls/hr 11/08/20 12:00 11/09/20 04:30 Chloride IVCONT 10 mg/hr .Q0M NAZ 10 mls/hr Administration Protocol Per Protocol Furosemide 200 mg/ Sodium 100 mls @ 2.5 mls/hr 11/08/20 14:30 11/08/20 15:34 Chloride IVCONT 5 mg/hr .Q24H NAZ 2.5 mls/hr Administration 5 MG/HR Sodium Chloride 3 ml 11/08/20 16:00 11/09/20 01:03 0.9 % Sodium Chloride Flush 3 Ml Syringe IVFLUSH Not Given QSHIFT NAZ Valsartan 40 mg 11/08/20 21:00 11/08/20 21:34 Valsartan 40 Mg Tablet PO 40 mg BID NAZ Administration Protocol Time Spent With Patient Time: Total time spent is greater than 50% in coordination of care (as documented) at patient's floor/unit and/or counseling patient: Time with patient: less than 15 minutes Progress Note: Quality Stroke Does the patient have a stroke diagnosis?: No Procedures Date of Service Date of Service: 11/09/20
[2020-11-09] MEDS: Potassium Chloride Packet 20 MEQ PACKET 40 MEQ PO (11:02)
[2020-11-09] MEDS: Valsartan 40 MG TABLET PO ×2 (11:02→20:19)
[2020-11-09] MEDS: Metoprolol Succinate ER 50 MG TAB.ER.24H PO ×2 (11:12→16:56)
--- NOTE | 2020-11-09 13:34 | CA_ITS ---
Transthoracic Echocardiogram Patient (Last, First, Middle): Michael Mccullough, Gender: Male Date of : 1955 Age: 65 Procedure Date: 11/09/2020 Procedure Type: Transthoracic Echocardiogram Location: ICU Height: 182.88 cm Weight: 110.22 kg BSA: 2.31 m2 Heart Rate: bpm BP: 169 / 99 mmHg Scenery Builder: Referring MD: Antoine Rowley MD Symptoms: CHF, atrial fibrillation Study Quality: Fair ECG Rhythm: Atrial Fibrillation Conclusions: - The left ventricular systolic function is severely decreased. The calculated ejection fraction is 30% by biplane method. - Moderately increased right ventricular cavity size. - Moderate biatrial enlargement. - There is mild mitral valve regurgitation. - There is mild dilatation of the sino tubular ridge measuring 4.20 cm and mild dilatation of the ascending aorta measuring 4.10 cm. Findings Procedure Information Contrast agent, definity, is being given per protocol with complications as noted. Left Ventricle Normal left ventricular cavity size. There is severely increased left ventricular wall thickness. The left ventricular systolic function is severely decreased. The calculated ejection fraction is 30% by biplane method. Diastolic function is indeterminate on the basis of available data. E/E prime ratio is between 8 and 15 consistent with indeterminate filling pressures. Right Ventricle Moderately increased right ventricular cavity size. There is low normal right ventricular systolic function. RV basal diameter 4.9cm. TAPSE 1.75cm. Atria Moderate biatrial enlargement. Interatrial shunt cannot be excluded. Aortic Valve There is a normal trileaflet aortic valve. There is no aortic valve stenosis. There is no aortic valve regurgitation. Mitral Valve The mitral valve appears normal. There is mild mitral valve regurgitation. There is no mitral valve stenosis. Pulmonic Valve The pulmonic valve was not well visualized. There is mild pulmonic valve regurgitation. Tricuspid Valve There is trace tricuspid valve regurgitation. The pulmonary artery systolic pressure is normal. Great Vessels There is mild dilatation of the sino tubular ridge measuring 4.20 cm and mild dilatation of the ascending aorta measuring 4.10 cm. Venous The inferior vena cava is mildly dilated and collapses greater than 50% with inspiration. Pericardium/Pleural There is a trivial pericardial effusion. Prior Study Comparison No prior study available for comparison. Measurements 2D Linear Measurements IVSd: 1.92 0.6-0.9/0.6-1.0 cm LVIDd: 4.78 3.9-5.3/4.2-5.9 cm LVIDd Index: 2.07 2.4-3.2/2.2-3.1 cm/m2 LVIDs: 4.04 2.0-3.6 cm LVPWd: 1.71 0.7-1.1 cm Ao Root: 4.20 2.1-3.5 cm LA Diam: 5.70 2.7-3.8/3.0-4.0 cm LAIDs Index: 2.47 1.5-2.3 cm/m2 LV Mass: 505.03 67-162/88-224 g LV Mass Index: 218.63 43-95/49-115 g/m2 LVOT Diam: 2.70 3.0+(-)1.3 cm 2D Systolic Function EF 4C: 6.21 >55% EF 2C: 41.20 >55% EF BiP: 29.60 >55% Mitral Valve MV Pk E: 1.08 MV Decel Time: 197.00 E'Lateral: 10.80 E'Medial: 6.74 E/E' Med: 16.00 E/E' Lat: 10.00 PHT: 58.00 MVA PHT: 3.79 Decel [place]: 5.49 Aortic Valve AoV Pk Lukasz: 1.17 AoV Mn Lukasz: 0.69 AoV VTI: 0.19 AoV Pk Grad: 5.00 Aov Mn Grad: 2.00 SMITA Cont.VTI: 5.51 LVOT LVOT Pk Lukasz: 0.92 LVOT Mn Lukasz: 0.59 LVOT VTI: 0.18 LVOT Pk Grad: 3.00 LVOT Mn Grad: 2.00 LVOT Diam: 2.70 LVOT Area: 5.73 Diastolic Function MV Pk E: 1.08 E'Medial: 6.74 E/E' Med: 16.00 E' Laterial: 10.80 E/E' Lat: 10.00 Right Ventricle TAPSE (mm): 17.00 TVS' Lukasz: 12.00 Tricuspid Valve TR Pk Lukasz: 2.32 TR Pk Grad: 22.00 RA Press: 8.00 Great Vessels Aorta Ao Root-2D: 4.20 2.0-3.[address] Ridge: 4.20 1.7-3.4 cm Ao Asc: 4.10 2.1-3.4 cm Pulmonary Valve PV Pk Lukasz: 0.76 Peak PV Grad: 2.00 Updated in Other Vendor System with Status of Final David Walker MD electronically signed on 11/09/2020 4:37:11 PM with status of Final
--- NOTE | 2020-11-09 15:38 | PC.NURSE ---
Lasix drip off at 1100 per cardiology, pt is -8L fluid deficit, K 3.2 replaced 40mEq PO. 50mg PO lopressor given, diltiazem titrated off at 1525. HR AFIB 88-112bpm. BP stable. Echo completed, results pending. Pt continues to be NPO until decision to cardiovert is made, on lovenox 115mg.
--- NOTE | 2020-11-09 15:43 | MHC.CM.PN ---
Met with pt to discuss d/c planning: Pt is bilingual - Portuguese and Upper Sorbian: resides alone in an apt: works, has a friend who assists with transportation. Pt notes that his new PCP is Dr. Montiel from [facility] in [place]. He uses a cane on occassion but has no services. Pt will call his neighbor for a ride home: HCP completion offered but declined: pt has a working cell phone in room - no other needs identified at this time.
[2020-11-10] VITALS (12 sets, daily range): BP systolic 124–185; BP diastolic 79–111; PULSE 80–135; RESP 16–24; TEMP 36.4–37.3; O2SAT 94–98
[2020-11-10] MEDS: Enoxaparin Sodium 100 MG/ML SYRINGE 115 MG SUBCUT ×2 (03:48→17:01)
[2020-11-10] MEDS: hydrALAZINE HCl 20 MG/ML VIAL 10 MG IVPUSH ×2 (04:30→22:31)
[2020-11-10 07:02] LABS: Anion Gap 14 (12-20); Blood Urea Nitrogen 20 mg/dL (9-16); Calcium 8.6 mg/dL (8.4-10.2); Carbon Dioxide 28 mmol/L (22-29); Chloride 105 mmol/L (96-108); Creatinine Clr Calc Pharmacy 84.8; Estimated Glomerular Filt Rate > 60; Glucose Random 100 mg/dL (60-115); Potassium 3.7 mmol/L (3.3-5.1); Sodium 143 mmol/L (135-145)
[2020-11-10] MEDS: Valsartan 40 MG TABLET PO ×2 (09:37→22:31)
[2020-11-10] MEDS: Lidocaine 4 % Patch ADH..PATCH 1 PATCH TRANSDERMA (09:37)
[2020-11-10] MEDS: 0.9 % Sodium Chloride Flush 3 ML SYRINGE IVFLUSH ×3 (09:37→22:32)
[2020-11-10] MEDS: Metoprolol Succinate ER 50 MG TAB.ER.24H PO ×2 (09:37→17:00)
[2020-11-10] MEDS: Digoxin 0.5 MG/2 ML AMPUL 0.25 MG IVPUSH (11:51)
[2020-11-10] MEDS: Omeprazole 20 MG CAPSULE.DR PO (11:52)
[2020-11-10] MEDS: predniSONE 20 MG TABLET PO (11:52)
--- NOTE | 2020-11-10 12:01 | P.PNCA_ITS ---
Subjective Subjective Date of Service: 11/10/20 Interval history: Shortness of breath improved. Left foot discomfort. Review of Systems Review of Systems Yes all other systems are reviewed and are negative Cardiovascular: Reports as per HPI, Reports no additional cardiovascular complaints, Denies acrocyanosis, Denies cool extremities, Denies painful fingertips, Denies chest pain, Denies chest pain at rest, Denies diaphoresis, Denies syncope, Denies irregular heart rhythm, Denies claudication, Denies leg edema, Denies lightheadedness, Denies palpitations and Reports dyspnea Respiratory: Reports dyspnea Comments: left foot pain Denies syncope Endocrine: Denies palpitations Physical Exam Vital Signs: Last Vital Signs Temp 97.9 F 11/10/20 11:23 Pulse 132 H 11/10/20 11:23 Resp 18 11/10/20 11:23 BP 124/79 11/10/20 11:23 Pulse Ox 98 11/10/20 11:23 Body Mass Index 33.0 Const General: cooperative and no acute distress [place] Other: Unremarkable Neck Neck: Yes normal visual inspection Chest Chest palpation & inspection: normal inspection of the chest Resp Auscultation: clear to auscultation bilaterally, no crackles and no wheezes Cardio Jugular venous distension: no JVD Palpation: normal PMI Heart sounds: S1 normal heart sound present, S2 normal heart sound present, no gallops, no murmurs and no rubs GI Palpation (GI): Soft to palpation Back/Spine/Pelvis Other: unremarkable Skin General skin exam: no rashes or lesions noted Neuro Cranial nerves: Yes Other cranial nerve findings present Extrem Other: b/l 1+ edema Psych Mental Status: other Results Labs and Meds Result diagrams: 11/09/20 05:10 11/10/20 05:46 Lab results: Laboratory Results - last 24 hr 11/10/20 05:46 Sodium 143 Potassium 3.7 Chloride 105 Carbon Dioxide 28 Anion Gap 14 BUN 20 H Creatinine 1.13 Estim Creat Clear Calc 84.8 Estimated GFR > 60 Random Glucose 100 Calcium 8.6 Imaging Radiologist's impression: Impressions Ankle X-Ray 11/09/20 20:59 IMPRESSION: Mild soft tissue swelling without acute fracture or significant degenerative changes. Tiny osseous density subjacent to the lateral malleolus does not appear acute and could be degenerative in nature or could represent ossification centers. Progress Note: A&P Assessment and plan (1) Acute congestive heart failure: Status: Acute (2) Hypertensive urgency: Status: Acute (3) Atrial fibrillation with RVR: Status: Acute Assessment and Plan: Acute congestive heart failure due to uncontrolled atrial fibrillation of uncertain duration; hypertension may also have played a role as he does not take meds. Uptitrate beta blockers; digoxin load; gentle diuresis due to possibility of gout; check with case management about his insurance; possible CHRIS/CV sunday. Fall Risk Details Current Medications: Current Medications Generic Name Dose Route Start Last Admin Trade Name Freq PRN Reason Stop Dose Admin Acetaminophen 650 mg 11/09/20 21:39 Acetaminophen 325 Mg Tablet PO Q6H PRN Pain, Mild (Pain Scale 1-3) Enoxaparin Sodium 115 mg 11/08/20 14:30 11/10/20 03:48 Enoxaparin Sodium 100 Mg/Ml Syringe 1 mg/kg (115 mg) 115 mg SUBCUT Administration Q12H [facility] Furosemide 20 mg 11/10/20 18:00 Furosemide 20 Mg/2 Ml Vial IVPUSH BID@0900,1800 [facility] Protocol Hydralazine HCl 10 mg 11/08/20 14:18 11/10/20 04:30 Hydralazine Hcl 20 Mg/Ml Vial IVPUSH 10 mg Q4H PRN Administration SBP > 160 Protocol Diltiazem HCl 125 mg/ Sodium 125 mls @ 0 mls/hr 11/08/20 12:00 11/09/20 15:25 Chloride IVCONT 0 mg/hr .Q0M [facility] 0 mls/hr Titration Protocol Per Protocol Lidocaine 1 patch 11/10/20 09:00 11/10/20 09:37 Lidocaine 4 % Patch Adh..Patch TRANSDERMA 1 patch DAILY NAZ Administration Metoprolol Succinate 50 mg 11/09/20 17:00 11/10/20 09:37 Metoprolol Succinate Er 50 Mg Tab.Er.24h PO 50 mg BID@0800,1700 [facility] Administration Protocol Omeprazole 20 mg 11/10/20 10:30 11/10/20 11:52 Omeprazole 20 Mg Capsule.Dr PO 20 mg DAILY@0630 [facility] Administration Oxycodone HCl 5 mg 11/10/20 10:23 Oxycodone Hcl Immed Release 5 Mg Tablet PO Q6H PRN ankle pain Prednisone 20 mg 11/10/20 10:30 11/10/20 11:52 Prednisone 20 Mg Tablet PO 20 mg DAILY NAZ Administration Sodium Chloride 3 ml 11/08/20 16:00 11/10/20 09:37 0.9 % Sodium Chloride Flush 3 Ml Syringe IVFLUSH 3 ml QSHIFT NAZ Administration Valsartan 40 mg 11/08/20 21:00 11/10/20 09:37 Valsartan 40 Mg Tablet PO 40 mg BID NAZ Administration Protocol Time Spent With Patient Time: Total time spent is greater than 50% in coordination of care (as documented) at patient's floor/unit and/or counseling patient: Time with patient: less than 15 minutes Progress Note: Quality Stroke Does the patient have a stroke diagnosis?: No Procedures Date of Service Date of Service: 11/10/20
--- NOTE | 2020-11-10 13:09 | MHC.CM.PN ---
Male 65 DX HF AFIB DP home no services private transportation. Pt not ready to discharge. At discharge the patient will need AC therapy. A coupon for Eliquis will be provided. CM will follow.
--- NOTE | 2020-11-10 16:47 | P.PNIM_ITS ---
Subjective Subjective Date of Service: 11/10/20 Interval History: chf, afib , uncontrolled htn. Review of Systems Patient shortness of breath seems to be improving as well as heart rate is improving, has left ankle pain. Of Cardizem drip Denies any new complaint of chest pain or abdominal pain or fever or chills or nausea or vomiting Denies any cough Denies any weakness or numbness. Physical Exam Vital Signs: Vital Signs: Last Vital Signs Temp 97.6 F 11/10/20 15:15 Pulse 80 11/10/20 15:15 Resp 20 11/10/20 15:15 BP 165/111 H 11/10/20 15:15 Pulse Ox 96 11/10/20 15:15 Body Mass Index 33.0 Physical exam: Cvs: irregular rhythm, [id number] , no murmur res: Fair air entry, slightly diminished at bases. abd: no rebound or guarding ,nt, bs present. ext pulses present , no cyanosis Left ankle pain , no swelling neuro: axo3 , nonfocal. Objective Data Active Medications Acetaminophen (Acetaminophen 325 Mg Tablet) 650 mg PO Q6H PRN PRN Reason: Pain, Mild (Pain Scale 1-3) Enoxaparin Sodium (Enoxaparin Sodium 100 Mg/Ml Syringe) 115 mg 1 mg/kg (115 mg) SUBCUT Q12H [facility] Last Admin: 11/10/20 03:48 Dose: 115 mg Documented by: LAKISHA Furosemide (Furosemide 20 Mg/2 Ml Vial) 20 mg IVPUSH BID@0900,1800 [facility]; Protocol Hydralazine HCl (Hydralazine Hcl 20 Mg/Ml Vial) 10 mg IVPUSH Q4H PRN; Protocol PRN Reason: SBP > 160 Last Admin: 11/10/20 04:30 Dose: 10 mg Documented by: LAKISHA Lidocaine (Lidocaine 4 % Patch Adh..Patch) 1 patch TRANSDERMA DAILY [facility] Last Admin: 11/10/20 09:37 Dose: 1 patch Documented by: SAUL Metoprolol Succinate (Metoprolol Succinate Er 50 Mg Tab.Er.24h) 50 mg PO BID@0800,1700 [facility]; Protocol Last Admin: 11/10/20 09:37 Dose: 50 mg Documented by: SAUL Omeprazole (Omeprazole 20 Mg Capsule.) 20 mg PO DAILY@0630 [facility] Last Admin: 11/10/20 11:52 Dose: 20 mg Documented by: SAUL Oxycodone HCl (Oxycodone Hcl Immed Release 5 Mg Tablet) 5 mg PO Q6H PRN PRN Reason: ankle pain Prednisone (Prednisone 20 Mg Tablet) 20 mg PO DAILY [facility] Last Admin: 11/10/20 11:52 Dose: 20 mg Documented by: SAUL Sodium Chloride (0.9 % Sodium Chloride Flush 3 Ml Syringe) 3 ml IVFLUSH QSHIFT [facility] Last Admin: 11/10/20 09:37 Dose: 3 ml Documented by: SAUL Valsartan (Valsartan 40 Mg Tablet) 40 mg PO BID [facility]; Protocol Last Admin: 11/10/20 09:37 Dose: 40 mg Documented by: SAUL Labs CBC & Chem 7: 11/09/20 05:10 11/10/20 05:46 Labs: Laboratory Results - last 24 hr 11/10/20 05:46 Anion Gap 14 Estim Creat Clear Calc 84.8 Estimated GFR > 60 Random Glucose 100 Calcium 8.6 Assessment and Plan (1) Acute congestive heart failure: Status: Acute (2) Atrial fibrillation with RVR: Status: Acute Assessment and Plan: 65M presented with sob 1. Acute CHF unspecified Lasix 5 milligrams/hour-diuresed well almost 8 L Will hold Lasix drip, monitor and if needed start IV Lasix in the morning.? Echo: The left ventricular systolic function is severely decreased.? The calculated ejection fraction is 30% by biplane method. ? ? ? - Moderately increased right ventricular cavity size.? - Moderate biatrial enlargement. ? - There is mild mitral valve regurgitation.?. Monitor ins and outs Monitor electrolytes Cardio evaluation noted-off Lasix drip, taper down Cardizem for AFib. 2.Hypertensive uncontrolled continue Diovan, metoprolol dosing is adjusted 50 mg q.6, hydralazine p.r.n. 3.Atrial fibrillation with rapid ventricular response: Seems heart rate controlled Of Cardizem , completed digoxin load(3 doses in past 2 days and in addition another dose today given), continue metoprolol as above. Therapeutic Lovenox 4.Morbid obesity Weight loss 5.Transaminases Suspect nonalcoholic fatty liver, repeat LFTs pending Check A1c: 4.8, lipids total chol 137, ldl:92, hdl:28, viral hepatitis panel- nonrecative 6. possible gout of left ankle: emperic prednisone will check uric acid levels Quality Stroke Does the patient have a stroke diagnosis?: No VTE Prior VTE?: No VTE Risk Level:: Medical - moderate - high VTE Device Contraindication: Treatment Not Indicated VTE Drug Contraindication: N/A - Med Ordered
[2020-11-10] MEDS: Furosemide 20 MG/2 ML VIAL IVPUSH (17:01)
[2020-11-10 18:06] LABS: Alanine Aminotransferase 38 U/L (0-40); Albumin Level 3.6 g/dL (3.5-5.0); Alkaline Phosphatase 70 U/L (39-117); Aspartate Amino Transferase 36 U/L (5-37); Bilirubin Direct 0.5 mg/dL (0.0-0.5); Bilirubin Total 1.4 mg/dL (0.0-1.0); Total Protein 5.8 g/dL (6.5-8.0); Uric Acid 11.7 mg/dL (3.4-7.0)
[2020-11-11] VITALS (15 sets, daily range): BP systolic 110–172; BP diastolic 55–116; PULSE 73–97; RESP 14–18; TEMP 36.1–37.1; O2SAT 95–100; BMI 31.6
[2020-11-11] MEDS: hydrALAZINE HCl 20 MG/ML VIAL 10 MG IVPUSH (04:26)
[2020-11-11] MEDS: Enoxaparin Sodium 100 MG/ML SYRINGE 115 MG SUBCUT (04:27)
[2020-11-11] MEDS: Omeprazole 20 MG CAPSULE.DR PO (05:27)
[2020-11-11] MEDS: oxyCODONE HCl Immed Release 5 MG TABLET PO (05:27)
[2020-11-11 07:21] LABS: Anion Gap 15 (12-20); Blood Urea Nitrogen 21 mg/dL (9-16); Calcium 9.1 mg/dL (8.4-10.2); Carbon Dioxide 26 mmol/L (22-29); Chloride 105 mmol/L (96-108); Creatinine Clr Calc Pharmacy 83.8; Estimated Glomerular Filt Rate > 60; Glucose Random 107 mg/dL (60-115); Potassium 3.4 mmol/L (3.3-5.1); Sodium 143 mmol/L (135-145)
[2020-11-11] MEDS: Furosemide 20 MG/2 ML VIAL IVPUSH ×2 (08:07→16:58)
[2020-11-11] MEDS: 0.9 % Sodium Chloride Flush 3 ML SYRINGE IVFLUSH ×3 (08:07→21:04)
[2020-11-11] MEDS: Lidocaine 4 % Patch ADH..PATCH 1 PATCH TRANSDERMA (08:07)
[2020-11-11] MEDS: Valsartan 40 MG TABLET PO ×2 (08:07→21:06)
[2020-11-11] MEDS: predniSONE 20 MG TABLET PO ×2 (08:07→10:17)
[2020-11-11] MEDS: Potassium Chloride Packet 20 MEQ PACKET PO ×2 (08:07→21:02)
[2020-11-11] MEDS: amLODIPine Besylate 2.5 MG TABLET PO ×2 (08:08→16:57)
[2020-11-11] MEDS: Metoprolol Succinate ER 50 MG TAB.ER.24H PO (08:08)
[2020-11-11] MEDS: Morphine Sulfate 2 MG/ML CARTRIDGE 1 MG IVPUSH (10:18)
--- NOTE | 2020-11-11 10:55 | PM.PNCARD ---
Subjective Subjective Date of Service: 11/11/20 Interval history: Feels about the same. Rates are still fast. Left foot pain, possibly from gout. Review of Systems Review of Systems Yes all other systems are reviewed and are negative Cardiovascular: Reports as per HPI, Reports no additional cardiovascular complaints, Denies acrocyanosis, Denies cool extremities, Denies painful fingertips, Denies chest pain, Denies chest pain at rest, Denies diaphoresis, Denies syncope, Denies irregular heart rhythm, Denies claudication, Denies leg edema, Denies lightheadedness, Denies palpitations and Reports dyspnea Respiratory: Reports dyspnea Denies syncope Endocrine: Denies palpitations Physical Exam Vital Signs: Last Vital Signs Temp 97.0 F 11/11/20 08:00 Pulse 79 11/11/20 08:08 Resp 18 11/11/20 08:00 BP 152/78 H 11/11/20 08:08 Pulse Ox 97 11/11/20 08:00 Body Mass Index 31.6 Const General: cooperative and no acute distress [facility] Other: Unremarkable Neck Neck: Yes normal visual inspection Chest Chest palpation & inspection: normal inspection of the chest Resp Auscultation: clear to auscultation bilaterally, no crackles and no wheezes Cardio Jugular venous distension: no JVD Palpation: normal PMI Heart sounds: S1 normal heart sound present, S2 normal heart sound present, no gallops, no murmurs and no rubs GI Palpation (GI): Soft to palpation Back/Spine/Pelvis Other: unremarkable Skin General skin exam: no rashes or lesions noted Neuro Cranial nerves: Yes Other cranial nerve findings present Extrem Other: b/l 1+ edema Psych Mental Status: other Results Labs and Meds Result diagrams: 11/09/20 05:10 11/11/20 05:38 Lab results: Laboratory Results - last 24 hr 11/10/20 11/11/20 05:46 05:38 Sodium 143 Potassium 3.4 Chloride 105 Carbon Dioxide 26 Anion Gap 15 BUN 21 H Creatinine 1.12 Estim Creat Clear Calc 83.8 Estimated GFR > 60 Random Glucose 107 Uric Acid 11.7 H Calcium 9.1 Total Bilirubin 1.4 H Direct Bilirubin 0.5 AST 36 ALT 38 Alkaline Phosphatase 70 Total Protein 5.8 L Albumin 3.6 Progress Note: A&P Assessment and plan (1) Acute congestive heart failure: Status: Acute (2) Hypertensive urgency: Status: Acute (3) Atrial fibrillation with RVR: Status: Acute Assessment and Plan: Due to difficulty in controlling atrial fibrillation, we will plan on CHRIS/cardioversion tomorrow. Discussed about this with the patient and he understands and agrees. Post cardioversion, possibly amiodarone. Stop Lovenox and start Eliquis. Continue beta blockers. Will follow. Fall Risk Details Current Medications: Current Medications Generic Name Dose Route Start Last Admin Trade Name Baljeet PRN Reason Stop Dose Admin Acetaminophen 650 mg 11/09/20 21:39 Acetaminophen 325 Mg Tablet PO Q6H PRN Pain, Mild (Pain Scale 1-3) Enoxaparin Sodium 115 mg 11/08/20 14:30 11/11/20 04:27 Enoxaparin Sodium 100 Mg/Ml Syringe 1 mg/kg (115 mg) 115 mg SUBCUT Administration Q12H [facility] Furosemide 20 mg 11/10/20 18:00 11/11/20 08:07 Furosemide 20 Mg/2 Ml Vial IVPUSH 20 mg BID@0900,1800 [facility] Administration Protocol Hydralazine HCl 10 mg 11/08/20 14:18 11/11/20 04:26 Hydralazine Hcl 20 Mg/Ml Vial IVPUSH 10 mg Q4H PRN Administration SBP > 160 Protocol Lidocaine 1 patch 11/10/20 09:00 11/11/20 08:07 Lidocaine 4 % Patch Adh..Patch TRANSDERMA 1 patch DAILY [facility] Administration Metoprolol Tartrate 50 mg 11/11/20 09:15 11/11/20 09:41 Metoprolol Tartrate 50 Mg Tablet PO Not Given QID [facility] Protocol Morphine Sulfate 1 mg 11/11/20 08:35 11/11/20 10:18 Morphine Sulfate 2 Mg/Ml Cartridge IVPUSH 1 mg Q4H PRN Administration Pain, Moderate (Pain Scale 4-6 Protocol Omeprazole 20 mg 11/10/20 10:30 11/11/20 05:27 Omeprazole 20 Mg Capsule.Dr PO 20 mg DAILY@0630 [facility] Administration Oxycodone HCl 5 mg 11/10/20 10:23 11/11/20 05:27 Oxycodone Hcl Immed Release 5 Mg Tablet PO 5 mg Q6H PRN Administration ankle pain Prednisone 40 mg 11/11/20 09:00 11/11/20 10:17 Prednisone 20 Mg Tablet PO Not Given DAILY NAZ Sodium Chloride 3 ml 11/08/20 16:00 11/11/20 08:07 0.9 % Sodium Chloride Flush 3 Ml Syringe IVFLUSH 3 ml QSHIFT NAZ Administration Valsartan 40 mg 11/08/20 21:00 11/11/20 08:07 Valsartan 40 Mg Tablet PO 40 mg BID NAZ Administration Protocol Time Spent With Patient Time: Total time spent is greater than 50% in coordination of care (as documented) at patient's floor/unit and/or counseling patient: Time with patient: 15 - 24 minutes Progress Note: Quality Stroke Does the patient have a stroke diagnosis?: No Procedures Date of Service Date of Service: 11/11/20
--- NOTE | 2020-11-11 11:02 | P.CDIC_ITS ---
CDI Concurrent Query Documentation Clarification: PHYSICIAN'S DOCUMENTATION REQUEST Date of Query: 11/11/20 1103 Patient Name: Michael Mccullough Admit Date: 11/08/20 Dear Doctor, A review of the medical record indicates additional documentation may be needed. Clinical Indicators: Risk Factors/Clinical Indicators/Treatments MD HERNANDEZ 11/10/20: Acute CHF unspecified. jacky Sahu. ECHO completed, left ventricular systolic function is severely decreased Please provide further specificity regarding the most likely type and acuity of CHF you are evaluating, treating, or monitoring. Examples include: Type: * Systolic * Diastolic * Combined Systolic/Diastolic * Other ? please specify * Unable to determine Acuity: * Acute * Chronic * Acute on chronic * Unable to determine Use of terms such as suspected, likely, concern for, or probable (associated with a specific diagnosis that is being evaluated, monitored, or treated as if it exists) are acceptable and can be coded in the inpatient setting, when documented at the time of discharge. Thank you, Yancy Bautista RN Extension: [phone] Please use your independent medical judgment in providing your response. THIS QUERY IS PART OF THE PERMANENT MEDICAL RECORD Provider Response: Other Other Diagnosis: acute systolic chf
[2020-11-11] MEDS: Apixaban 5 MG TABLET PO ×2 (13:02→21:03)
[2020-11-11] MEDS: Metoprolol Tartrate 50 MG TABLET PO ×3 (13:03→21:07)
--- NOTE | 2020-11-11 15:19 | P.PNIM_ITS ---
Subjective Subjective Date of Service: 11/11/20 Interval History: acute chf Review of Systems Denies any new complaint of chest pain or abdominal pain or fever or chills or nausea or vomiting sob seems to be improved Denies any cough Denies any weakness or numbness. has left ankle pain Physical Exam Vital Signs: Vital Signs: Last Vital Signs Temp 98.8 F 11/11/20 11:05 Pulse 86 11/11/20 13:03 Resp 17 11/11/20 11:05 BP 155/116 H 11/11/20 13:03 Pulse Ox 98 11/11/20 11:05 Body Mass Index 31.6 Cvs:? irregular rhythm, [id number] , no murmur res:? Fair air entry, slightly diminished at bases. abd: no rebound or guarding ,nt, bs present. ext pulses present , no cyanosis Left ankle pain , no swelling neuro: axo3 , nonfocal. Objective Data Active Medications Acetaminophen (Acetaminophen 325 Mg Tablet) 650 mg PO Q6H PRN PRN Reason: Pain, Mild (Pain Scale 1-3) Apixaban (Apixaban 5 Mg Tablet) 5 mg PO BID [facility] Last Admin: 11/11/20 13:02 Dose: 5 mg Documented by: SAUL Furosemide (Furosemide 20 Mg/2 Ml Vial) 20 mg IVPUSH BID@0900,1800 [facility]; Protocol Last Admin: 11/11/20 08:07 Dose: 20 mg Documented by: SAUL Hydralazine HCl (Hydralazine Hcl 20 Mg/Ml Vial) 10 mg IVPUSH Q4H PRN; Protocol PRN Reason: SBP > 160 Last Admin: 11/11/20 04:26 Dose: 10 mg Documented by: DOC Lidocaine (Lidocaine 4 % Patch Adh..Patch) 1 patch TRANSDERMA DAILY [facility] Last Admin: 11/11/20 08:07 Dose: 1 patch Documented by: SAUL Metoprolol Tartrate (Metoprolol Tartrate 50 Mg Tablet) 50 mg PO QID [facility]; Protocol Last Admin: 11/11/20 13:03 Dose: 50 mg Documented by: SAUL Morphine Sulfate (Morphine Sulfate 2 Mg/Ml Cartridge) 1 mg IVPUSH Q4H PRN; Protocol PRN Reason: Pain, Moderate (Pain Scale 4-6 Last Admin: 11/11/20 10:18 Dose: 1 mg Documented by: SAUL Omeprazole (Omeprazole 20 Mg Capsule.Dr) 20 mg PO DAILY@0630 [facility] Last Admin: 11/11/20 05:27 Dose: 20 mg Documented by: DOC Oxycodone HCl (Oxycodone Hcl Immed Release 5 Mg Tablet) 5 mg PO Q6H PRN PRN Reason: ankle pain Last Admin: 11/11/20 05:27 Dose: 5 mg Documented by: DOC Prednisone (Prednisone 20 Mg Tablet) 40 mg PO DAILY [facility] Last Admin: 11/11/20 10:17 Dose: Not Given Documented by: SAUL Non-Admin Reason: Duplicate Order Sodium Chloride (0.9 % Sodium Chloride Flush 3 Ml Syringe) 3 ml IVFLUSH QSHIFT [facility] Last Admin: 11/11/20 08:07 Dose: 3 ml Documented by: SAUL Valsartan (Valsartan 40 Mg Tablet) 40 mg PO BID [facility]; Protocol Last Admin: 11/11/20 08:07 Dose: 40 mg Documented by: SAUL Labs CBC & Chem 7: 11/09/20 05:10 11/11/20 05:38 Labs: Laboratory Results - last 24 hr 11/10/20 11/11/20 05:46 05:38 Anion Gap 15 Estim Creat Clear Calc 83.8 Estimated GFR > 60 Random Glucose 107 Uric Acid 11.7 H Calcium 9.1 Total Bilirubin 1.4 H Direct Bilirubin 0.5 AST 36 ALT 38 Alkaline Phosphatase 70 Total Protein 5.8 L Albumin 3.6 Assessment and Plan (1) Acute congestive heart failure: Status: Acute (2) Atrial fibrillation with RVR: Status: Acute Assessment and Plan: 65M presented with sob 1. Acute CHF probable systolic ? Echo: The left ventricular systolic function is severely decreased.? The calculated ejection fraction is 30% by biplane method. ? ? ? - Moderately increased right ventricular cavity size.? - Moderate biatrial enlargement. ? - There is mild mitral valve regurgitation.?. ntially Lasix 5 milligrams/hour-diuresed well off Lasix drip, monitor and if needed start IV Lasix . around 11liter diursed. Monitor ins and outs Monitor electrolytes Cardio evaluation noted-off Lasix drip, taper down Cardizem for AFib. 2.Hypertensive uncontrolled continue Diovan, metoprolol dosing is adjusted 50 mg q.6, will add amlodpine if blood pessure still not controlled,hydralazine p.r.n. 3.Atrial fibrillation with rapid ventricular response:? hr still flactuating Of Cardizem , completed digoxin load(3 doses in past 2 days and in addition another dose today given), continue metoprolol as above. switched to Eliquis npo past midnight in anticipation of cardioversion in am. 4.Morbid obesity Weight loss 5.Transaminases Suspect nonalcoholic fatty liver, repeat LFTs pending Check A1c: 4.8, lipids total chol 137, ldl:92, hdl:28, viral hepatitis panel- nonrecative 6. possible gout of left ankle: Uric acid elevated 11 Continue prednisone, added morphine for pain control. Quality Stroke Does the patient have a stroke diagnosis?: No VTE Prior VTE?: No VTE Risk Level:: Medical - moderate - high VTE Device Contraindication: Treatment Not Indicated VTE Drug Contraindication: N/A - Med Ordered
[2020-11-12] VITALS (16 sets, daily range): BP systolic 135–160; BP diastolic 77–98; PULSE 56–117; RESP 16–21; TEMP 35.8–36.8; O2SAT 96–100
[2020-11-12] MEDS: Omeprazole 20 MG CAPSULE.DR PO (05:14)
[2020-11-12 07:43] LABS: Anion Gap 15 (12-20); Blood Urea Nitrogen 38 mg/dL (9-16); Calcium 9.9 mg/dL (8.4-10.2); Carbon Dioxide 23 mmol/L (22-29); Chloride 107 mmol/L (96-108); Creatinine Clr Calc Pharmacy 73.3; Estimated Glomerular Filt Rate 57; Glucose Random 102 mg/dL (60-115); Potassium 4.2 mmol/L (3.3-5.1); Sodium 141 mmol/L (135-145)
[2020-11-12] MEDS: Apixaban 5 MG TABLET PO ×2 (09:41→21:11)
[2020-11-12] MEDS: 0.9 % Sodium Chloride Flush 3 ML SYRINGE IVFLUSH ×3 (09:41→21:22)
[2020-11-12] MEDS: Valsartan 40 MG TABLET PO ×2 (09:41→21:10)
[2020-11-12] MEDS: Metoprolol Tartrate 50 MG TABLET PO ×2 (09:42→21:21)
[2020-11-12] MEDS: predniSONE 20 MG TABLET 40 MG PO (09:42)
[2020-11-12] MEDS: Furosemide 20 MG/2 ML VIAL IVPUSH (09:42)
--- NOTE | 2020-11-12 10:37 | CA_ITS ---
Transesophageal Echocardiogram Patient (Last, First, Middle): Michael Mccullough, Gender: Male Date of : 1955 Age: 65 Procedure Date: 11/12/2020 Procedure Type: Transesophageal Echocardiogram [place] [facility] [place]: 182.88 cm Weight: 105.69 kg BSA: 2.27 m2 Heart Rate: bpm Chief Mechanical Engineer: KELLIE Referring MD: David Walker MD Symptoms: Atrial fibrillation Conclusion: ??? The left ventricular systolic function is severely decreased. The visually estimated ejection fraction is between 25-30%. ??? There is no evidence of a thrombus in the left atrial appendage. Findings Procedure Information Consent was obtained prior to the procedure. The adult 3D probe was passed with no difficulty. This was a technically good study. Atrial fibrillation noted at rest. Left Ventricle Normal left ventricular cavity size. The left ventricular systolic function is severely decreased. The visually estimated ejection fraction is between 25-30%. There is severe global hypokinesis. Right Ventricle Moderately increased right ventricular cavity size. Right ventricular systolic function appears diminished. Atria The left atrial appendage is normal in size and flow. There is no evidence of a thrombus in the left atrial appendage. There is no evidence of interatrial shunt by color Doppler. Aortic Valve There is a normal trileaflet aortic valve. There is no aortic valve stenosis. There is trace (trivial) aortic valve regurgitation. Mitral Valve The mitral valve appears normal. There is mild to moderate mitral valve regurgitation. There is no mitral valve stenosis. Pulmonic Valve The pulmonic valve was not well visualized. Tricuspid Valve Normal tricuspid valve structure. There is mild tricuspid valve regurgitation. Great Vessels The aortic annulus, sinuses of valsalva, and asc aorta are normal in size. Small plaque is seen in the arch. Pericardium/Pleural There is no evidence of pericardial effusion. Prior Study Comparison No significant change compared to prior study dated: 11/09/2020. Updated by David Walker on 03:21 PM with Status of Final David Walker MD electronically signed on 11/12/2020 3:21:16 PM with status of Final
--- NOTE | 2020-11-12 10:41 | HO.ANESPROP2 ---
HPI - Anesthesia Eval Consult details Narrative: Atrial Fibrillation [facility] Active Problems Active Problems: All Active Problems (Updated 11/08/20 @ 13:31 by Antoine Rowley MD) Hypertensive urgency (Acute) Acute congestive heart failure (Acute) Congestive heart failure (Acute) Atrial fibrillation with RVR (Acute) Elevated troponin (Acute) Shortness of breath at rest (Acute) Past Medical History Medical History HTN (hypertension) Family History Family history of problems with anesthesia: No Surgical History History of Problems with Anesthesia: No Social History Social History Household Members: None Housing: Apartment Do you presently have visiting nurse or other home services: No Alcohol intake: current Alcohol intake frequency: holidays/special occasions only Patient Tobacco Use Status: Never used Tobacco Use of substances other than those prescribed or required for medical reasons: No Currently Displaying Signs/Symptoms of Drug Intoxication Withdrawal: No Have you been hit, kicked, punched, or otherwise hurt by someone within the past year? If so, by whom?: No Do you feel safe in your current relationship?: Yes Is there a partner from a previous relationship who is making you feel unsafe now?: No Are you made to feel afraid or neglected: No Are you DNR?: No Advance Directives: No Advance Directives Information Provided: No Do you have thoughts of harming others: None Do you have a plan to hurt others: No Plan Recently lost weight without trying: No Nutrition Risks: No Nutritional Risk service: No Current occupational status: employed Meds Allergies Allergy/AdvReac Type Severity Reaction Status Date / Time No Known Allergies Allergy Verified 11/08/20 10:36 Active Medications: Current Medications Generic Name Dose Route Start Last Admin Trade Name Freq PRN Reason Stop Dose Admin Acetaminophen 650 mg 11/09/20 21:39 Acetaminophen 325 Mg Tablet PO Q6H PRN Pain, Mild (Pain Scale 1-3) Apixaban 5 mg 11/11/20 12:20 11/12/20 09:41 Apixaban 5 Mg Tablet PO 5 mg BID NAZ Administration Colchicine 0.6 mg 11/12/20 10:00 Colchicine 0.6 Mg Tablet PO DAILY NAZ Furosemide 20 mg 11/10/20 18:00 11/12/20 09:42 Furosemide 20 Mg/2 Ml Vial IVPUSH 20 mg BID@0900,1800 NAZ Administration Protocol Hydralazine HCl 10 mg 11/08/20 14:18 11/11/20 04:26 Hydralazine Hcl 20 Mg/Ml Vial IVPUSH 10 mg Q4H PRN Administration SBP > 160 Protocol Lidocaine 1 patch 11/10/20 09:00 11/11/20 08:07 Lidocaine 4 % Patch Adh..Patch TRANSDERMA 1 patch DAILY NAZ Administration Metoprolol Tartrate 50 mg 11/11/20 09:15 11/12/20 09:42 Metoprolol Tartrate 50 Mg Tablet PO 50 mg QID NAZ Administration Protocol Morphine Sulfate 2 mg 11/12/20 09:53 Morphine Sulfate 2 Mg/Ml Cartridge IVPUSH Q4H PRN Pain, Moderate (Pain Scale 4-6 Protocol Omeprazole 20 mg 11/10/20 10:30 11/12/20 05:14 Omeprazole 20 Mg Capsule. PO 20 mg DAILY@0630 NAZ Administration Oxycodone HCl 5 mg 11/10/20 10:23 11/11/20 05:27 Oxycodone Hcl Immed Release 5 Mg Tablet PO 5 mg Q6H PRN Administration ankle pain Prednisone 40 mg 11/11/20 09:00 11/12/20 09:42 Prednisone 20 Mg Tablet PO 40 mg DAILY NAZ Administration Sodium Chloride 3 ml 11/08/20 16:00 11/12/20 09:41 0.9 % Sodium Chloride Flush 3 Ml Syringe IVFLUSH 3 ml QSHIFT NAZ Administration Valsartan 40 mg 11/08/20 21:00 11/12/20 09:41 Valsartan 40 Mg Tablet PO 40 mg BID NAZ Administration Protocol Home Medications Medication Instructions Recorded Confirmed Last Taken Type azithromycin 250 mg tablet 250 mg PO DAILY 11/08/20 11/08/20 Unknown History furosemide 20 mg tablet 1 tab PO BID 11/08/20 11/08/20 Unknown History Exam Exam Date and Time: November 12, 2020 1041 Height,Weight and Vital Signs: Height 6 ft Weight 106 kg Last Vital Signs Temp 97.7 F 11/12/20 10:29 Pulse 117 H 11/12/20 10:29 Resp 20 11/12/20 10:29 BP 149/95 H 11/12/20 10:29 Pulse Ox 98 11/12/20 10:29 Pertinent Lab Results Pertinent Lab Results: Laboratory Tests 11/08/20 11/08/20 11/08/20 10:51 10:51 10:51 WBC 5.8 RBC 4.52 L Hgb 14.1 Hct 43.1 MCV 95.4 MCH 31.2 MCHC 32.7 RDW 15.5 Plt Count 189 MPV 11.9 Immature Gran % (Auto) 0.2 Neut % (Auto) 60.9 Lymph % (Auto) 30.1 [place] % (Auto) 7.4 Eos % (Auto) 0.7 Baso % (Auto) 0.7 Lymph # (Auto) 1.8 [place] # (Auto) 0.4 Eos # (Auto) 0.0 Baso # (Auto) 0.0 Abs Immat Gran (auto) 0.01 Absolute Neuts (auto) 3.6 Absolute Nucleated RBC 0.000 Nucleated RBC % (auto) 0.0 PT INR Sodium 142 Potassium 4.7 Chloride 108 Carbon Dioxide 22 Anion Gap 17 BUN 20 H Creatinine 1.35 Estim Creat Clear Calc 71.8 Estimated GFR 53 Random Glucose 119 H Fasting Glucose Estimat Average Glucose Hemoglobin A1c % Uric Acid Calcium 8.7 Magnesium Total Bilirubin 1.5 H Direct Bilirubin 0.4 AST 56 H ALT 55 H Alkaline Phosphatase 69 Troponin I High Sens 37.8 H* B-Natriuretic Peptide 3919 H Total Protein 6.3 L Albumin 3.8 Triglycerides Cholesterol LDL Cholesterol, Calc HDL Cholesterol Urine Color Urine Appearance Urine pH Ur Specific [place] Urine Protein Urine Glucose (UA) Urine Ketones Urine Blood Urine Nitrite Ur Leukocyte Esterase Coronavirus (PCR) Hep Bs Antigen Hep Bs Antibody Hep B Core Total Ab Hepatitis C Ab (EIA) Influenza Type A (PCR) Influenza Type B (PCR) RSV RNA Qual (PCR) 11/08/20 11/08/20 11/08/20 10:56 10:56 15:11 WBC RBC Hgb Hct MCV MCH MCHC RDW Plt Count MPV Immature Gran % (Auto) Neut % (Auto) Lymph % (Auto) [place] % (Auto) Eos % (Auto) Baso % (Auto) Lymph # (Auto) [place] # (Auto) Eos # (Auto) Baso # (Auto) Abs Immat Gran (auto) Absolute Neuts (auto) Absolute Nucleated RBC Nucleated RBC % (auto) PT 13.8 H INR 1.2 H Sodium Potassium Chloride Carbon Dioxide Anion Gap BUN Creatinine Estim Creat Clear Calc Estimated GFR Random Glucose Fasting Glucose Estimat Average Glucose Hemoglobin A1c % Uric Acid Calcium Magnesium Total Bilirubin Direct Bilirubin AST ALT Alkaline Phosphatase Troponin I High Sens 41.0 H* B-Natriuretic Peptide Total Protein Albumin Triglycerides Cholesterol LDL Cholesterol, Calc HDL Cholesterol Urine Color Urine Appearance Urine pH Ur Specific [place] Urine Protein Urine Glucose (UA) Urine Ketones Urine Blood Urine Nitrite Ur Leukocyte Esterase Coronavirus (PCR) NEGATIVE Hep Bs Antigen Hep Bs Antibody Hep B Core Total Ab Hepatitis C Ab (EIA) Influenza Type A (PCR) NEGATIVE Influenza Type B (PCR) NEGATIVE RSV RNA Qual (PCR) NEGATIVE 11/08/20 11/09/20 11/09/20 15:54 05:10 05:10 WBC 5.0 RBC 4.36 L Hgb 13.5 L Hct 40.9 L MCV 93.8 MCH 31.0 MCHC 33.0 RDW 15.0 Plt Count 167 MPV 11.2 Immature Gran % (Auto) Neut % (Auto) Lymph % (Auto) [place] % (Auto) Eos % (Auto) Baso % (Auto) Lymph # (Auto) [place] # (Auto) Eos # (Auto) Baso # (Auto) Abs Immat Gran (auto) Absolute Neuts (auto) Absolute Nucleated RBC 0.000 Nucleated RBC % (auto) 0.0 PT INR Sodium 143 Potassium 3.2 L D Chloride 104 Carbon Dioxide 27 Anion Gap 15 BUN 20 H Creatinine 1.14 Estim Creat Clear Calc 84.0 Estimated GFR > 60 Random Glucose Fasting Glucose 96 Estimat Average Glucose Hemoglobin A1c % Uric Acid Calcium 8.6 Magnesium 1.7 Total Bilirubin 1.3 H Direct Bilirubin 0.6 H AST 44 H ALT 48 H Alkaline Phosphatase 73 Troponin I High Sens B-Natriuretic Peptide Total Protein 5.8 L Albumin 3.6 Triglycerides 86 Cholesterol 137 LDL Cholesterol, Calc 92 HDL Cholesterol 28 Urine Color STRAW Urine Appearance CLEAR Urine pH 6.5 Ur Specific [place] 1.010 Urine Protein NEG Urine Glucose (UA) NEG Urine Ketones NEG Urine Blood NEG Urine Nitrite NEG Ur Leukocyte Esterase NEG Coronavirus (PCR) Hep Bs Antigen Hep Bs Antibody Hep B Core Total Ab Hepatitis C Ab (EIA) Influenza Type A (PCR) Influenza Type B (PCR) RSV RNA Qual (PCR) 11/09/20 11/09/20 11/09/20 05:10 05:10 05:10 WBC RBC Hgb Hct MCV MCH MCHC RDW Plt Count MPV Immature Gran % (Auto) Neut % (Auto) Lymph % (Auto) [place] % (Auto) Eos % (Auto) Baso % (Auto) Lymph # (Auto) [place] # (Auto) Eos # (Auto) Baso # (Auto) Abs Immat Gran (auto) Absolute Neuts (auto) Absolute Nucleated RBC Nucleated RBC % (auto) PT INR Sodium Potassium Chloride Carbon Dioxide Anion Gap BUN Creatinine Estim Creat Clear Calc Estimated GFR Random Glucose Fasting Glucose Estimat Average Glucose 91 Hemoglobin A1c % 4.8 Uric Acid Calcium Magnesium Total Bilirubin Direct Bilirubin AST ALT Alkaline Phosphatase Troponin I High Sens B-Natriuretic Peptide 1850 H Total Protein Albumin Triglycerides Cholesterol LDL Cholesterol, Calc HDL Cholesterol Urine Color Urine Appearance Urine pH Ur Specific [place] Urine Protein Urine Glucose (UA) Urine Ketones Urine Blood Urine Nitrite Ur Leukocyte Esterase Coronavirus (PCR) Hep Bs Antigen Negative Hep Bs Antibody NONREACTIVE Hep B Core Total Ab Nonreactive Hepatitis C Ab (EIA) Nonreactive Influenza Type A (PCR) Influenza Type B (PCR) RSV RNA Qual (PCR) 11/10/20 11/11/20 11/12/20 05:46 05:38 05:56 WBC RBC Hgb Hct MCV MCH MCHC RDW Plt Count MPV Immature Gran % (Auto) Neut % (Auto) Lymph % (Auto) [place] % (Auto) Eos % (Auto) Baso % (Auto) Lymph # (Auto) [place] # (Auto) Eos # (Auto) Baso # (Auto) Abs Immat Gran (auto) Absolute Neuts (auto) Absolute Nucleated RBC Nucleated RBC % (auto) PT INR Sodium 143 143 141 Potassium 3.7 3.4 4.2 D Chloride 105 105 107 Carbon Dioxide 28 26 23 Anion Gap 14 15 15 BUN 20 H 21 H 38 H D Creatinine 1.13 1.12 1.28 Estim Creat Clear Calc 84.8 83.8 73.3 Estimated GFR > 60 > 60 57 Random Glucose 100 107 102 Fasting Glucose Estimat Average Glucose Hemoglobin A1c % Uric Acid 11.7 H Calcium 8.6 9.1 9.9 D Magnesium Total Bilirubin 1.4 H Direct Bilirubin 0.5 AST 36 ALT 38 Alkaline Phosphatase 70 Troponin I High Sens B-Natriuretic Peptide Total Protein 5.8 L Albumin 3.6 Triglycerides Cholesterol LDL Cholesterol, Calc HDL Cholesterol Urine Color Urine Appearance Urine pH Ur Specific [place] Urine Protein Urine Glucose (UA) Urine Ketones Urine Blood Urine Nitrite Ur Leukocyte Esterase Coronavirus (PCR) Hep Bs Antigen Hep Bs Antibody Hep B Core Total Ab Hepatitis C Ab (EIA) Influenza Type A (PCR) Influenza Type B (PCR) RSV RNA Qual (PCR) Airway Mallampati Class: III TM Dist: >3cm Neck ROM: Full Loose/Missing/Broken Teeth: No (poor dentition) Heart: irreg irreg s1s2 Lungs: +b/s bilaterally Assessment and Plan Assessment Anesthesia Assessment: Anesthesia Plan Discussed and Chart Reviewed Final Anesthetic Review Family History of Problems with Anesthesia: No History of Problems with Anesthesia: No NPO: Yes ASA Class: III Final Preanesthetic Review: No Changes in Pt Med Stat, Meds/Allgs Chart Reviewed, Consent Obtained/Reviewed and Anes Risks/Benef Reviewed Patient Risk: Intermediate Procedure Risk: Intermediate Assessment/Block/Sedation in SS: Assess/Block/Sedation-SS Anesthetic Plan Anesthetic Plan: MAC: and Agree w/ Assess. and Plan Disposition: Standard PACU
--- NOTE | 2020-11-12 11:05 | MHC.SHP ---
Pre-Procedural Eval Section A Date of Service: 11/12/20 Section B Chief Complaint: CHF Afib Allergies: Allergies Allergy/AdvReac Type Severity Reaction Status Date / Time No Known Allergies Allergy Verified 11/08/20 10:36 Plan I have reviewed the history and physical and performed a pertinent physical examination on my patient. No changes have occurred unless specified.
--- NOTE | 2020-11-12 11:46 | ECG_ITS ---
Test Reason : S/P CARDIOVERSION Blood Pressure : / mmHG Vent. Rate : 059 BPM Atrial Rate : 059 BPM P-R Int : 182 ms QRS Dur : 152 ms QT Int : 474 ms P-R-T Axes : 115 -60 141 degrees QTc Int : 469 ms Sinus bradycardia Right bundle branch block Left anterior fascicular block Bifascicular block Left ventricular hypertrophy with repolarization abnormality ( R in aVL , Romhilt-Mclain ) Abnormal ECG When compared with ECG of 08-NOV-2020 10:39, Sinus rhythm has replaced Atrial fibrillation Vent. rate has decreased BY 89 BPM QRS duration has increased T wave inversion more evident in Lateral leads Referred By: David Walker Electronically Signed By:FRANSICO BABCOCK
--- NOTE | 2020-11-12 12:07 | P.PNCA_ITS ---
Subjective Subjective Date of Service: 11/12/20 Interval history: Feels about the same. No new complaints. Review of Systems Review of Systems Yes all other systems are reviewed and are negative Cardiovascular: Reports as per HPI, Reports no additional cardiovascular complaints, Denies acrocyanosis, Denies cool extremities, Denies painful fingertips, Denies chest pain, Denies chest pain at rest, Denies diaphoresis, Denies syncope, Denies irregular heart rhythm, Denies claudication, Denies leg edema, Denies lightheadedness, Denies palpitations and Reports dyspnea Respiratory: Reports dyspnea Denies syncope Endocrine: Denies palpitations Physical Exam Vital Signs: Last Vital Signs Temp 98.3 F 11/12/20 11:49 Pulse 56 11/12/20 11:49 Resp 16 11/12/20 11:49 BP 136/84 11/12/20 11:49 Pulse Ox 96 11/12/20 11:49 Body Mass Index 31.6 Const General: cooperative and no acute distress HENAR Other: Unremarkable Neck Neck: Yes normal visual inspection Chest Chest palpation & inspection: normal inspection of the chest Resp Auscultation: clear to auscultation bilaterally, no crackles and no wheezes Cardio Jugular venous distension: no JVD Palpation: normal PMI Heart sounds: S1 normal heart sound present, S2 normal heart sound present, no gallops, no murmurs and no rubs GI Palpation (GI): Soft to palpation Back/Spine/Pelvis Other: unremarkable Skin General skin exam: no rashes or lesions noted Neuro Cranial nerves: Yes Other cranial nerve findings present Extrem Other: b/l 1+ edema Psych Mental Status: other Results Labs and Meds Result diagrams: 11/09/20 05:10 11/12/20 05:56 Lab results: Laboratory Results - last 24 hr 11/12/20 05:56 Sodium 141 Potassium 4.2 D Chloride 107 Carbon Dioxide 23 Anion Gap 15 BUN 38 H D Creatinine 1.28 Estim Creat Clear Calc 73.3 Estimated GFR 57 Random Glucose 102 Calcium 9.9 D Progress Note: A&P Assessment and plan (1) Acute congestive heart failure: Status: Acute (2) Hypertensive urgency: Status: Acute (3) Atrial fibrillation with RVR: Status: Acute Assessment and Plan: We performed a transesophageal echocardiogram today that showed no evidence of any left atrial appendage thrombus. Subsequently, cardioverted with 120 joules of synchronized shock. He converted to sinus rhythm but had some PACs and short runs of the same. EKG shows sinus rhythm with a bifascicular block type pattern. Rate is 59/min. Start amiodarone 400 mg b.i.d.. Can decrease beta- christina dosing. Continue Eliquis. May change to oral diuretics. Monitor on telemetry for now. Will follow with you tomorrow. Fall Risk Details Current Medications: Current Medications Generic Name Dose Route Start Last Admin Trade Name Baljeet PRN Reason Stop Dose Admin Acetaminophen 650 mg 11/09/20 21:39 Acetaminophen 325 Mg Tablet PO Q6H PRN Pain, Mild (Pain Scale 1-3) Acetaminophen 650 mg 11/12/20 10:43 Acetaminophen 325 Mg Tablet PO ONCE PRN Pain, Mild (Pain Scale 1-3) Amiodarone HCl 400 mg 11/12/20 11:50 Amiodarone Hcl 200 Mg Tablet PO BID NAZ Apixaban 5 mg 11/11/20 12:20 11/12/20 09:41 Apixaban 5 Mg Tablet PO 5 mg BID NAZ Administration Colchicine 0.6 mg 11/12/20 10:00 Colchicine 0.6 Mg Tablet PO DAILY NAZ Furosemide 20 mg 11/10/20 18:00 11/12/20 09:42 Furosemide 20 Mg/2 Ml Vial IVPUSH 20 mg BID@0900,1800 NAZ Administration Protocol Hydralazine HCl 10 mg 11/08/20 14:18 11/11/20 04:26 Hydralazine Hcl 20 Mg/Ml Vial IVPUSH 10 mg Q4H PRN Administration SBP > 160 Protocol Lidocaine 1 patch 11/10/20 09:00 11/11/20 08:07 Lidocaine 4 % Patch Adh..Patch TRANSDERMA 1 patch DAILY NAZ Administration Morphine Sulfate 2 mg 11/12/20 09:53 Morphine Sulfate 2 Mg/Ml Cartridge IVPUSH Q4H PRN Pain, Moderate (Pain Scale 4-6 Protocol Omeprazole 20 mg 11/10/20 10:30 11/12/20 05:14 Omeprazole 20 Mg Capsule.Dr PO 20 mg DAILY@0630 NAZ Administration Ondansetron HCl 4 mg 11/12/20 10:43 Ondansetron Hcl 4 Mg/2 Ml Vial IVPUSH ONCE PRN Nausea and Vomiting Oxycodone HCl 5 mg 11/10/20 10:23 11/11/20 05:27 Oxycodone Hcl Immed Release 5 Mg Tablet PO 5 mg Q6H PRN Administration ankle pain Oxycodone HCl 10 mg 11/12/20 10:43 Oxycodone Hcl Immed Release 5 Mg Tablet PO ONCE PRN Pain, Severe (Pain Scale 7-10) Prednisone 40 mg 11/11/20 09:00 11/12/20 09:42 Prednisone 20 Mg Tablet PO 40 mg DAILY NAZ Administration Sodium Chloride 3 ml 11/08/20 16:00 11/12/20 09:41 0.9 % Sodium Chloride Flush 3 Ml Syringe IVFLUSH 3 ml QSHIFT NAZ Administration Valsartan 40 mg 11/08/20 21:00 11/12/20 09:41 Valsartan 40 Mg Tablet PO 40 mg BID NAZ Administration Protocol Time Spent With Patient Time: Total time spent is greater than 50% in coordination of care (as documented) at patient's floor/unit and/or counseling patient: Time with patient: less than 15 minutes Progress Note: Quality Stroke Does the patient have a stroke diagnosis?: No Procedures Date of Service Date of Service: 11/12/20
--- NOTE | 2020-11-12 12:11 | HO.CARDIVERS ---
Cardioversion Procedure Note Cardioversion Date of Procedure: 11/12/2020 Ordering Provider: . Performing Provider: Dr. Walker Indication for Procedure: Atrial fibrillation with rapid ventricular rate Pre-Op Diagnosis: Atrial fibrillation with rapid ventricular rate Post-Op Diagnosis: Sinus rhythm CHRIS findings (if CHRIS Performed): Dictated separately. No evidence of left atrial appendage thrombus. History: 65-year-old male with acute heart failure and uncontrolled atrial fibrillation. Consent: Informed consent obtained. Procedure: After informed consent was obtained, patient was taken to the OR. The patient was then positioned appropriately. The cardioversion pads were placed in anteroposterior position. CHRIS was performed initially. There was no evidence of left atrial appendage thrombus. Subsequently, 120 joules of synchronized shock was administered. The rhythm converted from atrial fibrillation to sinus rhythm. Complications: None Impression: Successful cardioversion from atrial fibrillation with rapid rate to sinus rhythm. Recommendations: Start amiodarone. Decrease beta-blockers. Eliquis.
[2020-11-12] MEDS: Amiodarone HCL 200 MG TABLET 400 MG PO ×2 (12:12→21:11)
[2020-11-12] MEDS: Colchicine 0.6 MG TABLET PO (12:50)
[2020-11-12] MEDS: Lidocaine 4 % Patch ADH..PATCH 1 PATCH TRANSDERMA (12:50)
--- NOTE | 2020-11-12 16:41 | W.PM.IDCN ---
History of Present Illness Data of Consult Service Date: 11/12/20 Requesting physician: Lynne Lopez Primary Care Provider: Storm Isbell MD [facility] Reason for consult: left foot redness He comes in with shortness of breath for a week He also has left foot discomfort and some redness after applying ice to area He has no fever or chills He has had elevated uric acid Review of Systems Review of Systems: Yes all other systems are reviewed and are negative [facility] Past Medical History Medical History Ankle swelling Atrial fibrillation Gout HTN (hypertension) Systolic CHF Family History Family history: reviewed and not pertinent Social History Social History Household Members: None Housing: Apartment Do you presently have visiting nurse or other home services: No Alcohol intake: unknown Patient Tobacco Use Status: Never used Tobacco service: No Current occupational status: employed Meds Allergies Allergy/AdvReac Type Severity Reaction Status Date / Time No Known Allergies Allergy Verified 11/22/20 13:04 Active Medications: Current Medications Generic Name Dose Route Start Last Admin Trade Name Freq PRN Reason Stop Dose Admin Acetaminophen 650 mg 11/09/20 21:39 Acetaminophen 325 Mg Tablet PO Q6H PRN Pain, Mild (Pain Scale 1-3) Acetaminophen 650 mg 11/12/20 10:43 Acetaminophen 325 Mg Tablet PO ONCE PRN Pain, Mild (Pain Scale 1-3) Amiodarone HCl 400 mg 11/12/20 11:50 11/12/20 12:12 Amiodarone Hcl 200 Mg Tablet PO 400 mg BID NAZ Administration Apixaban 5 mg 11/11/20 12:20 11/12/20 09:41 Apixaban 5 Mg Tablet PO 5 mg BID NAZ Administration Colchicine 0.6 mg 11/12/20 10:00 11/12/20 12:50 Colchicine 0.6 Mg Tablet PO 0.6 mg DAILY NAZ Administration Furosemide 40 mg 11/13/20 09:00 Furosemide 40 Mg Tablet PO DAILY NAZ Protocol Hydralazine HCl 10 mg 11/08/20 14:18 11/11/20 04:26 Hydralazine Hcl 20 Mg/Ml Vial IVPUSH 10 mg Q4H PRN Administration SBP > 160 Protocol Lidocaine 1 patch 11/10/20 09:00 11/12/20 12:50 Lidocaine 4 % Patch Adh..Patch TRANSDERMA 1 patch DAILY NAZ Administration Metoprolol Tartrate 50 mg 11/12/20 21:00 Metoprolol Tartrate 50 Mg Tablet PO BID [facility] Protocol Morphine Sulfate 2 mg 11/12/20 09:53 Morphine Sulfate 2 Mg/Ml Cartridge IVPUSH Q4H PRN Pain, Moderate (Pain Scale 4-6 Protocol Omeprazole 20 mg 11/10/20 10:30 11/12/20 05:14 Omeprazole 20 Mg Capsule.Dr PO 20 mg DAILY@0630 NAZ Administration Ondansetron HCl 4 mg 11/12/20 10:43 Ondansetron Hcl 4 Mg/2 Ml Vial IVPUSH ONCE PRN Nausea and Vomiting Oxycodone HCl 5 mg 11/10/20 10:23 11/11/20 05:27 Oxycodone Hcl Immed Release 5 Mg Tablet PO 5 mg Q6H PRN Administration ankle pain Oxycodone HCl 10 mg 11/12/20 10:43 Oxycodone Hcl Immed Release 5 Mg Tablet PO ONCE PRN Pain, Severe (Pain Scale 7-10) Prednisone 40 mg 11/11/20 09:00 11/12/20 09:42 Prednisone 20 Mg Tablet PO 40 mg DAILY NAZ Administration Sodium Chloride 3 ml 11/08/20 16:00 11/12/20 09:41 0.9 % Sodium Chloride Flush 3 Ml Syringe IVFLUSH 3 ml QSHIFT NAZ Administration Valsartan 40 mg 11/08/20 21:00 11/12/20 09:41 Valsartan 40 Mg Tablet PO 40 mg BID NAZ Administration Protocol Home Medications Medication Instructions Recorded Confirmed Last Taken Type amlodipine 5 mg tablet 7.5 mg PO DAILY 11/18/20 11/18/20 Unknown History Physical Exam Vital Signs: Vital Signs: Last Vital Signs Temp 97.3 F 11/12/20 15:19 Pulse 61 11/12/20 15:19 Resp 20 11/12/20 15:19 BP 135/85 11/12/20 15:19 Pulse Ox 98 11/12/20 15:19 Body Mass Index 31.6 Const: General: cooperative HENMT: Head: Yes normal to inspection Mouth: Normal oral and palatal mucosa present Resp: Effort & Inspection: normal respiratory effort Cardio: Rate: regular rate Rhythm: regular rhythm GI: Palpation (GI): Soft to palpation and nontender Extrem: Other: left foot slight red and swelling ankle Results Labs CBC & Chem 7: 11/09/20 05:10 11/12/20 05:56 Labs: BMP 11/12/20 05:56 Sodium 141 Potassium 4.2 D Chloride 107 Carbon Dioxide 23 BUN 38 H D Creatinine 1.28 Calcium 9.9 D Assessment and Plan (1) Ankle swelling: Status: Acute He has ankle swelling and doesnt have streaking redness It appears to look like gout and has had elevated uric acid Treat gout Hold antibiotics
--- NOTE | 2020-11-12 18:51 | P.PNIM_ITS ---
Subjective Subjective Date of Service: 11/12/20 Interval History: afib, gout Review of Systems Denies any new complaint of chest pain or shortness of breath or abdominal pain or fever or chills or nausea or vomiting Denies any cough Denies any weakness or numbness. still has pain foot Physical Exam Vital Signs: Vital Signs: Last Vital Signs Temp 97.3 F 11/12/20 15:19 Pulse 61 11/12/20 15:19 Resp 20 11/12/20 15:19 BP 135/85 11/12/20 15:19 Pulse Ox 98 11/12/20 15:19 Body Mass Index 31.6 Cvs:? irregular rhythm, [id number] , no murmur res:? Fair air entry, slightly diminished at bases. abd: no rebound or guarding ,nt, bs present. ext pulses present , no cyanosis Left ankle pain , no swelling neuro: axo3 , nonfocal. Objective Data Active Medications Acetaminophen (Acetaminophen 325 Mg Tablet) 650 mg PO Q6H PRN PRN Reason: Pain, Mild (Pain Scale 1-3) Acetaminophen (Acetaminophen 325 Mg Tablet) 650 mg PO ONCE PRN PRN Reason: Pain, Mild (Pain Scale 1-3) Amiodarone HCl (Amiodarone Hcl 200 Mg Tablet) 400 mg PO BID [facility] Last Admin: 11/12/20 12:12 Dose: 400 mg Documented by: JENELLE Apixaban (Apixaban 5 Mg Tablet) 5 mg PO BID [facility] Last Admin: 11/12/20 09:41 Dose: 5 mg Documented by: FRANCISCA Colchicine (Colchicine 0.6 Mg Tablet) 0.6 mg PO DAILY [facility] Last Admin: 11/12/20 12:50 Dose: 0.6 mg Documented by: FRANCISCA Furosemide (Furosemide 40 Mg Tablet) 40 mg PO DAILY [facility]; Protocol Hydralazine HCl (Hydralazine Hcl 20 Mg/Ml Vial) 10 mg IVPUSH Q4H PRN; Protocol PRN Reason: SBP > 160 Last Admin: 11/11/20 04:26 Dose: 10 mg Documented by: DOC Lidocaine (Lidocaine 4 % Patch Adh..Patch) 1 patch TRANSDERMA DAILY [facility] Last Admin: 11/12/20 12:50 Dose: 1 patch Documented by: FRANCISCA Metoprolol Tartrate (Metoprolol Tartrate 50 Mg Tablet) 50 mg PO BID [facility]; Prot ocol Morphine Sulfate (Morphine Sulfate 2 Mg/Ml Cartridge) 2 mg IVPUSH Q4H PRN; Protocol PRN Reason: Pain, Moderate (Pain Scale 4-6 Omeprazole (Omeprazole 20 Mg Capsule.Dr) 20 mg PO DAILY@0630 [facility] Last Admin: 11/12/20 05:14 Dose: 20 mg Documented by: JOSEPH Ondansetron HCl (Ondansetron Hcl 4 Mg/2 Ml Vial) 4 mg IVPUSH ONCE PRN PRN Reason: Nausea and Vomiting Oxycodone HCl (Oxycodone Hcl Immed Release 5 Mg Tablet) 5 mg PO Q6H PRN PRN Reason: ankle pain Last Admin: 11/11/20 05:27 Dose: 5 mg Documented by: DOC Oxycodone HCl (Oxycodone Hcl Immed Release 5 Mg Tablet) 10 mg PO ONCE PRN PRN Reason: Pain, Severe (Pain Scale 7-10) Prednisone (Prednisone 20 Mg Tablet) 40 mg PO DAILY [facility] Last Admin: 11/12/20 09:42 Dose: 40 mg Documented by: FRANCISCA Sodium Chloride (0.9 % Sodium Chloride Flush 3 Ml Syringe) 3 ml IVFLUSH QSHIFT [facility] Last Admin: 11/12/20 18:11 Dose: 3 ml Documented by: FRANCISCA Valsartan (Valsartan 40 Mg Tablet) 40 mg PO BID [facility]; Protocol Last Admin: 11/12/20 09:41 Dose: 40 mg Documented by: FRANCISCA Labs CBC & Chem 7: 11/09/20 05:10 11/12/20 05:56 Labs: Laboratory Results - last 24 hr 11/12/20 05:56 Anion Gap 15 Estim Creat Clear Calc 73.3 Estimated GFR 57 Random Glucose 102 Calcium 9.9 D Assessment and Plan (1) Acute congestive heart failure: Status: Acute (2) Atrial fibrillation with RVR: Status: Acute Assessment and Plan: 65M presented with sob 1. Acute CHF probable systolic ? Echo: The left ventricular systolic function is severely decreased.? The calculated ejection fraction is 30% by biplane method. ? ? ? - Moderately increased right ventricular cavity size.? - Moderate biatrial enlargement. ? - There is mild mitral valve regurgitation.?. ntially Lasix 5 milligrams/hour-diuresed well off Lasix drip, monitor and if needed start IV Lasix . around 11liter diursed. Monitor ins and outs Monitor electrolytes Cardio evaluation noted-off Lasix drip, taper down Cardizem for AFib. 2.Hypertensive uncontrolled continue Diovan, metoprolol dosing is adjusted 50 mg bid , amiodarone 400 mg bid,hydralazine p.r.n. 3.Atrial fibrillation with rapid ventricular response:? hr still flactuating Of Cardizem , completed digoxin load(3 doses in past 2 days and in addition another dose today given), continue metoprolol as above. switched to Eliquis s/p cardioversion 4.Morbid obesity Weight loss 5.Transaminases Suspect nonalcoholic fatty liver, repeat LFTs pending Check A1c: 4.8, lipids total chol 137, ldl:92, hdl:28, viral hepatitis panel- nonrecative 6. possible gout of left ankle: Uric acid elevated 11 Continue prednisone, added morphine for pain control.colchicine added Quality Stroke Does the patient have a stroke diagnosis?: No VTE Prior VTE?: No VTE Risk Level:: Medical - moderate - high VTE Device Contraindication: Treatment Not Indicated VTE Drug Contraindication: N/A - Med Ordered
[2020-11-13] VITALS (13 sets, daily range): BP systolic 139–178; BP diastolic 74–96; PULSE 54–62; RESP 18–20; TEMP 36.1–36.6; O2SAT 96–98; BMI 31.4
[2020-11-13] MEDS: Omeprazole 20 MG CAPSULE.DR PO (06:13)
[2020-11-13] MEDS: 0.9 % Sodium Chloride Flush 3 ML SYRINGE IVFLUSH ×3 (08:58→20:08)
[2020-11-13] MEDS: predniSONE 20 MG TABLET 40 MG PO (08:58)
[2020-11-13] MEDS: Colchicine 0.6 MG TABLET PO ×2 (08:58→17:02)
[2020-11-13] MEDS: Valsartan 40 MG TABLET PO ×2 (08:59→20:07)
[2020-11-13] MEDS: Apixaban 5 MG TABLET PO ×2 (08:59→20:06)
[2020-11-13] MEDS: Amiodarone HCL 200 MG TABLET 400 MG PO ×2 (08:59→20:06)
[2020-11-13] MEDS: Furosemide 40 MG TABLET PO (08:59)
[2020-11-13] MEDS: Metoprolol Tartrate 50 MG TABLET PO ×2 (09:00→20:07)
[2020-11-13] MEDS: Lidocaine 4 % Patch ADH..PATCH 1 PATCH TRANSDERMA (09:02)
[2020-11-13] MEDS: amLODIPine Besylate 2.5 MG TABLET PO (10:35)
--- NOTE | 2020-11-13 11:15 | PM.PNCARD ---
Subjective Subjective Date of Service: 11/13/20 Interval history: He feels Ok. No new symptoms. Review of Systems Review of Systems Yes all other systems are reviewed and are negative Cardiovascular: Reports as per HPI, Reports no additional cardiovascular complaints, Denies acrocyanosis, Denies cool extremities, Denies painful fingertips, Denies chest pain, Denies chest pain at rest, Denies diaphoresis, Denies syncope, Denies irregular heart rhythm, Denies claudication, Denies leg edema, Denies lightheadedness, Denies palpitations and Reports dyspnea Respiratory: Reports dyspnea Denies syncope Endocrine: Denies palpitations Physical Exam Vital Signs: Last Vital Signs Temp 97.2 F 11/13/20 10:43 Pulse 55 11/13/20 10:43 Resp 19 11/13/20 10:43 BP 173/91 H 11/13/20 10:43 Pulse Ox 97 11/13/20 10:43 Body Mass Index 31.4 Const General: cooperative and no acute distress HENIN Other: Unremarkable Neck Neck: Yes normal visual inspection Chest Chest palpation & inspection: normal inspection of the chest Resp Auscultation: clear to auscultation bilaterally, no crackles and no wheezes Cardio Jugular venous distension: no JVD Palpation: normal PMI Heart sounds: S1 normal heart sound present, S2 normal heart sound present, no gallops, no murmurs and no rubs GI Palpation (GI): Soft to palpation Back/Spine/Pelvis Other: unremarkable Skin General skin exam: no rashes or lesions noted Neuro Cranial nerves: Yes Other cranial nerve findings present Extrem Other: b/l 1+ edema Psych Mental Status: other Results Labs and Meds Result diagrams: 11/09/20 05:10 11/12/20 05:56 Progress Note: A&P Assessment and plan (1) Acute congestive heart failure: Status: Acute (2) Hypertensive urgency: Status: Acute (3) Atrial fibrillation with RVR: Status: Acute Assessment and Plan: He remains in sinus rhythm post cardioversion. Continue amiodarone 400 mg b.i.d. for 2 weeks followed by 200 mg daily. Continue beta-blockers but may change to Toprol-XL 50 mg daily. Continue Diovan and we could switch this to Entresto as an outpatient. Continue Eliquis. Blood pressure is still high and hands add amlodipine 5 mg daily. Hold diuretics. Short-term colchicine for possible gout in the foot along with steroids. Discharge planning. Follow-up will be arranged. Basic metabolic panel in 1 week. Fall Risk Details Current Medications: Current Medications Generic Name Dose Route Start Last Admin Trade Name Freq PRN Reason Stop Dose Admin Acetaminophen 650 mg 11/09/20 21:39 Acetaminophen 325 Mg Tablet PO Q6H PRN Pain, Mild (Pain Scale 1-3) Acetaminophen 650 mg 11/12/20 10:43 Acetaminophen 325 Mg Tablet PO ONCE PRN Pain, Mild (Pain Scale 1-3) Amiodarone HCl 400 mg 11/12/20 11:50 11/13/20 08:59 Amiodarone Hcl 200 Mg Tablet PO 400 mg BID NAZ Administration Apixaban 5 mg 11/11/20 12:20 11/13/20 08:59 Apixaban 5 Mg Tablet PO 5 mg BID NAZ Administration Colchicine 0.6 mg 11/13/20 08:30 11/13/20 08:58 Colchicine 0.6 Mg Tablet PO 0.6 mg BIDPC NAZ Administration Furosemide 40 mg 11/13/20 09:00 11/13/20 08:59 Furosemide 40 Mg Tablet PO 40 mg DAILY NAZ Administration Protocol Hydralazine HCl 10 mg 11/08/20 14:18 11/11/20 04:26 Hydralazine Hcl 20 Mg/Ml Vial IVPUSH 10 mg Q4H PRN Administration SBP > 160 Protocol Lidocaine 1 patch 11/10/20 09:00 11/13/20 09:02 Lidocaine 4 % Patch Adh..Patch TRANSDERMA 1 patch DAILY NAZ Administration Metoprolol Tartrate 50 mg 11/12/20 21:00 11/13/20 09:00 Metoprolol Tartrate 50 Mg Tablet PO 50 mg BID NAZ Administration Protocol Morphine Sulfate 2 mg 11/12/20 09:53 Morphine Sulfate 2 Mg/Ml Cartridge IVPUSH Q4H PRN Pain, Moderate (Pain Scale 4-6 Protocol Omeprazole 20 mg 11/10/20 10:30 11/13/20 06:13 Omeprazole 20 Mg Capsule.Dr PO 20 mg DAILY@0630 NAZ Administration Ondansetron HCl 4 mg 11/12/20 10:43 Ondansetron Hcl 4 Mg/2 Ml Vial IVPUSH ONCE PRN Nausea and Vomiting Oxycodone HCl 5 mg 11/10/20 10:23 11/11/20 05:27 Oxycodone Hcl Immed Release 5 Mg Tablet PO 5 mg Q6H PRN Administration ankle pain Oxycodone HCl 10 mg 11/12/20 10:43 Oxycodone Hcl Immed Release 5 Mg Tablet PO ONCE PRN Pain, Severe (Pain Scale 7-10) Prednisone 40 mg 11/11/20 09:00 11/13/20 08:58 Prednisone 20 Mg Tablet PO 40 mg DAILY NAZ Administration Sodium Chloride 3 ml 11/08/20 16:00 11/13/20 08:58 0.9 % Sodium Chloride Flush 3 Ml Syringe IVFLUSH 3 ml QSHIFT NAZ Administration Valsartan 40 mg 11/08/20 21:00 11/13/20 08:59 Valsartan 40 Mg Tablet PO 40 mg BID NAZ Administration Protocol Time Spent With Patient Time: Total time spent is greater than 50% in coordination of care (as documented) at patient's floor/unit and/or counseling patient: Time with patient: less than 15 minutes Progress Note: Quality Stroke Does the patient have a stroke diagnosis?: No Procedures Date of Service Date of Service: 11/13/20
--- NOTE | 2020-11-13 11:43 | PM.DS ---
DS: Providers Provider Date of Service: 11/13/20 Date of admission: 11/08/20 14:38 Date of discharge: 11/13/20 Primary care physician: Storm Isbell MD Consults: 11/08/20 12:04 Consult to Cardiology Stat Consulting Provider: Antoine Rowley Reason for consultation: New onset AFib with RVR Has provider been notified: Yes 11/12/20 09:55 Consult to Infectious Diseases Routine Consulting Provider: Avelina Campuzano Reason for consultation: left foot cellulitis Has provider been notified: No DS: Diagnosis Discharge Diagnosis (1) Acute congestive heart failure: Status: Acute (2) Hypertensive urgency: Status: Acute (3) Atrial fibrillation with RVR: Status: Acute DS: Summary Hospital Course Hospital Course: 65-year-old male with a history of hypertension has been off his medications for about 1 year due to insurance issues.? Presented with shortness of breath.? Patient states the symptoms started 1 week prior to presentation.? 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 then began to have sob, worse on exertion, orthopnea, lower extremity edema. came to ED, found to be in rapid afib, CXR with pulmonary edema. Hospital course: patient came to the hospital because of afib with rvr, chf excerebation: patient was started on parenteral diuretics, heart control medication - heart failure seems to be improved with IV diuresis also the heart rate was difficult to control with rate control medications so patient did require cardioversion - patient is will be on metoprolol, amiodarone for heart rate control as well as on Eliquis for stroke prevention. In addition Diovan was added for better blood pressure control. during the hospital course patient also had gout flare of left foot : started on prednisone and colchicine- seems improving, added oxycodone also for pain control. Upon discharge limited supply of prednisone, colchicine and oxycodone given, patient is advised to start allopurinol in a week once gout flare improves. Patient was given CHF education as well as gout information was given. patient was advised to follow-up renal function and electrolytes with PCP and also follow up with PCP. Cardiology will arrange their own appointment if needed. Above management discussed with the patient in detail length including chf excerebation,afib,gout- he understand and in agreement with the above plan, time spent 50 minutes and 50% time spent on counseling. Significant findings: As above. Procedures performed: None. Treatment and response: As above. Complications: None. Time Spent with Patient Time attestation: Total time spent providing and/or coordinating discharge services: Discharge coordination time: Greater than 30 minutes Quality: Stroke Does the patient have a stroke diagnosis?: No Physical Exam Vital Signs: Vital Signs: Last Vital Signs Temp 97.2 F 11/13/20 10:43 Pulse 55 11/13/20 10:43 Resp 19 11/13/20 10:43 BP 173/91 H 11/13/20 10:43 Pulse Ox 97 11/13/20 10:43 Body Mass Index 31.4 Appearance: Alert.? Oriented X3.? not in distress.? Eyes: Pupils equal, round and reactive to light.? Sclera nonicteric.? ENT: Pharynx normal.? Moist mucous membranes. cvs: rrr, [id number] , no murmur res: clear to auscultation ,no rhonchii or wheezing abd: no rebound or guarding ,nt, bs present. ext pulses present , no cyanosis ,left foot sweeling and foot pain improving Gait well balanced well coordinated. neuro: axo3 , nonfocal. Discharge Plan Discharge Patient Disposition: Home, Self-Care Discharge Diagnosis: chf excerebation, afib , gout Referrals: Storm Isbell MD [Primary Care Provider] - 1 Week Discharge Medications: New furosemide 40 mg Tablet 40 mg PO DAILY Qty: 30 RF: 0 acetaminophen 325 mg Tablet 650 mg PO Q6H PRN (Reason: Pain, Mild (Pain Scale 1-3)) Qty: 30 RF: 0 amiodarone 200 mg Tablet 400 mg PO BID Qty: 52 RF: 0 metoprolol tartrate 50 mg Tablet 50 mg PO BID Qty: 60 RF: 0 oxycodone 5 mg Tablet 5 mg PO Q6H PRN (Reason: ankle pain) Qty: 10 RF: 0 valsartan 40 mg Tablet 40 mg PO BID Qty: 30 RF: 0 Eliquis 5 mg Tablet 5 mg PO BID Qty: 60 RF: 0 prednisone 20 mg Tablet 20 mg PO DAILY Qty: 5 RF: 0 colchicine [Colcrys] 0.6 mg Tablet 0.6 mg PO DAILY Qty: 5 RF: 0 allopurinol 100 mg tablet 100 mg PO DAILY Qty: 7 RF: 0 docusate sodium [Colace] 100 mg capsule 100 mg PO DAILY Qty: 30 RF: 0 amiodarone 200 mg tablet 200 mg PO DAILY Qty: 30 RF: 0 Discontinued azithromycin 250 mg tablet 250 mg PO DAILY RF: 0 furosemide 20 mg tablet 1 tab PO BID RF: 0 Discharge Orders: Discharge Order (Routine); Ordered 11/13/20 Ordered By: Lynne Lopez Diet: advance to usual diet, low fat, low cholesterol and low salt diet Activity on Discharge: As tolerated Stand Alone Forms: Patient Portal Discharge page Care Plan Goals: patient came to the hospital because of irregular heartbeat, heart failure: patient was started on parenteral diuretics, heart control medication - heart failure seems to be improved with IV diuresis also the heart rate was difficult to control with rate control medications so patient did require cardioversion - patient is will be on metoprolol, amiodarone for heart rate control as well as on Eliquis for stroke prevention. In addition Diovan was added for better blood pressure control. during the hospital course patient also had gout flare of left foot : started on prednisone and colchicine- seems improving, added oxycodone also for pain control. Upon discharge limited supply of prednisone, colchicine and oxycodone given, patient is advised to start allopurinol in a week once gout flare improves. Patient was given CHF education as well as gout information was given. patient was advised to follow-up renal function and electrolytes with PCP and also follow up with PCP. Cardiology will arrange their own appointment if needed. Health Concerns: as above. Plan of Treatment: As above. Assessment: As above.
--- NOTE | 2020-11-13 12:39 | MHC.CM.PN ---
Male 65 DX HF Afib He is discharged today home with [facility]. PCP is [facility]. T/W called and confirmed, homecare orders will be signed. Patient has been provided a coupon for Prot[facility]. Patient has arranged for transportation home.
--- NOTE | 2020-11-13 12:43 | W.MHC.F2F ---
Service Date Service Date: 11/13/20 Encounter Date of encounter: 11/13/20 Encounter: chf, afib , gout Reasons for Services MD Overseeing Care: Storm Isbell Homebound: Leaving the home is medically contraindicated at this time without the asist of a device and/or another person due th the listed conditions above and below. Homebound supporting statement: Patient is generalized weak and also need help with blood draws and appointments. Certification: Based on the above findings, I certify that this patient is confined to the home and needs intermittent nursing home care, physical therapy and/or speech therapy, or continues to need occupational therapy. The patient is under my care, and I have initiated the establishment of the plan of care. The patient will be followed by a physician who will periodically review the plan of care.
--- NOTE | 2020-11-13 14:57 | MHC.CM.PN ---
Male 65 DX Afib RVR The patient is refusing to leave. Referrals have been sent . He will need a PT eval. Order placed after 2:30 11/13/20.
--- NOTE | 2020-11-13 15:10 | HO.POSTANES ---
Post Anesthesia Evaluation Post Anesthesia Evaluation Vital Signs: Vital Signs Temp Pulse Resp BP Pulse Ox 11/13/20 14:57 96.9 F 54 20 155/96 H 97 11/13/20 12:00 55 11/13/20 10:43 97.2 F 55 19 173/91 H 96 11/13/20 10:35 146/74 H 11/13/20 09:00 160/94 H 11/13/20 08:59 160/94 H 11/13/20 07:03 98 F 54 18 160/94 H 98 11/13/20 03:53 97.0 F 58 18 139/85 98 Anesthesia: Monitored Mental Status: Awake Pain Control: Satisfactory Nausea/Vomiting: None Hydration: Adequate Anesthesia-Related Issues: No Anes. Related Issues
--- NOTE | 2020-11-13 15:49 | MHC.CM.PN ---
Per PT eval Pt could benefit from STR. [facility] is offering a bed, on Sunday pending Authorization of STR. The Patient states that he does not want to go to STR. It was explained by T/W his discharge options. Home with [facility] VS STR @ [facility] once auth has been obtained from his insurance company. CM will follow.
--- NOTE | 2020-11-13 16:35 | HO.PM.IMPN ---
Subjective Subjective Date of Service: 11/14/20 Interval History: afib, gout Review of Systems ` Denies any new complaint of chest pain or shortness of breath or abdominal pain or fever or chills or nausea or vomiting Denies any cough Denies any weakness or numbness. Physical Exam Vital Signs: Vital Signs: Last Vital Signs Temp 96.9 F 11/13/20 14:57 Pulse 54 11/13/20 15:58 Resp 20 11/13/20 14:57 BP 155/96 H 11/13/20 15:58 Pulse Ox 97 11/13/20 15:58 Body Mass Index 31.4 Appearance: Alert.? Oriented X3.? not in distress.? Eyes: Pupils equal, round and reactive to light.? Sclera nonicteric.? ENT: Pharynx normal.? Moist mucous membranes. cvs: rrr, [id number] , no murmur res: clear to auscultation ,no rhonchii or wheezing abd: no rebound or guarding ,nt, bs present. ext pulses present , no cyanosis ,left foot sweeling and foot pain improving Gait well balanced well coordinated. neuro: axo3 , nonfocal. Objective Data Active Medications Acetaminophen (Acetaminophen 325 Mg Tablet) 650 mg PO Q6H PRN PRN Reason: Pain, Mild (Pain Scale 1-3) Acetaminophen (Acetaminophen 325 Mg Tablet) 650 mg PO ONCE PRN PRN Reason: Pain, Mild (Pain Scale 1-3) Amiodarone HCl (Amiodarone Hcl 200 Mg Tablet) 400 mg PO BID [facility] Last Admin: 11/13/20 08:59 Dose: 400 mg Documented by: JOE Apixaban (Apixaban 5 Mg Tablet) 5 mg PO BID [facility] Last Admin: 11/13/20 08:59 Dose: 5 mg Documented by: JOE Colchicine ([facility] 0.6 Mg [facility]t) [facility] Last Admin: 11/13/20 08:58 Dose: 0.6 mg Documented by: JOE Docusate Sodium (Docusate Sodium 100 Mg Capsule) 100 mg PO BEDTIME [facility] Furosemide (Furosemide 40 Mg Tablet) 40 mg PO DAILY [facility]; Protocol Last Admin: 11/13/20 08:59 Dose: 40 mg Documented by: JOE Hydralazine HCl (Hydralazine Hcl 20 Mg/Ml Vial) 10 mg IVPUSH Q4H PRN; Protocol PRN Reason: SBP > 160 Last Admin: 11/11/20 04:26 Dose: 10 mg Documented by: DOC Lidocaine (Lidocaine 4 % Patch Adh..Patch) 1 patch TRANSDERMA DAILY [facility] Last Admin: 11/13/20 09:02 Dose: 1 patch Documented by: JOE Metoprolol Tartrate (Metoprolol Tartrate 50 Mg Tablet) 50 mg PO BID [facility]; Protocol Last Admin: 11/13/20 09:00 Dose: 50 mg Documented by: JOE Morphine Sulfate (Morphine Sulfate 2 Mg/Ml Cartridge) 2 mg IVPUSH Q4H PRN; Protocol PRN Reason: Pain, Moderate (Pain Scale 4-6 Omeprazole (Omeprazole 20 Mg Capsule.Dr) 20 mg PO DAILY@0630 [facility] Last Admin: 11/13/20 06:13 Dose: 20 mg Documented by: LAKISHA Ondansetron HCl (Ondansetron Hcl 4 Mg/2 Ml Vial) 4 mg IVPUSH ONCE PRN PRN Reason: Nausea and Vomiting Oxycodone HCl (Oxycodone Hcl Immed Release 5 Mg Tablet) 5 mg PO Q6H PRN PRN Reason: ankle pain Last Admin: 11/11/20 05:27 Dose: 5 mg Documented by: DOC Oxycodone HCl (Oxycodone Hcl Immed Release 5 Mg Tablet) 10 mg PO ONCE PRN PRN Reason: Pain, Severe (Pain Scale 7-10) Oxycodone HCl (Oxycodone Hcl Immed Release 5 Mg Tablet) 10 mg PO Q6H PRN PRN Reason: Pain, Mild (Pain Scale 1-3) Polyethylene Glycol (Polyethylene Glycol 3350 17 Gm Powd.Pack) 17 gm PO DAILY [facility] Prednisone (Prednisone 20 Mg Tablet) 40 mg PO DAILY [facility] Last Admin: 11/13/20 08:58 Dose: 40 mg Documented by: JOE Sodium Chloride (0.9 % Sodium Chloride Flush 3 Ml Syringe) 3 ml IVFLUSH QSHIFT [facility] Last Admin: 11/13/20 08:58 Dose: 3 ml Documented by: JOE Valsartan (Valsartan 40 Mg Tablet) 40 mg PO BID [facility]; Protocol Last Admin: 11/13/20 08:59 Dose: 40 mg Documented by: JOE Labs CBC & Chem 7: 11/09/20 05:10 11/12/20 05:56 Assessment and Plan (1) Ankle swelling: Status: Acute (2) Congestive heart failure: Status: Acute Assessment and Plan: patient came to the hospital because of afib with rvr, chf excerebation:? patient was started on ? parenteral diuretics, heart control medication - heart failure seems to be improved with IV diuresis also the heart rate was difficult to control with rate control medications so patient did require cardioversion - patient is will be on metoprolol, amiodarone for heart rate control as well as on Eliquis for stroke prevention. ? In addition Diovan was added for better blood pressure control. ?during the hospital course patient also had gout flare of left foot : started on prednisone and colchicine- seems improving, added oxycodone also for pain control. ? Upon discharge limited supply of prednisone, colchicine and oxycodone given,? patient is advised to start allopurinol in a week? once? gout flare improves. ? Patient was given CHF education as well as gout information was given. ?patient was advised to follow-up renal function and electrolytes with PCP and also follow up with PCP. ? Cardiology will arrange their own appointment if needed. Gout flare badillo: Patient says she is having trouble walking even though was pain was much better than before. seen by PT and recommended rehab Quality Stroke Does the patient have a stroke diagnosis?: No VTE Prior VTE?: No VTE Risk Level:: Medical - moderate - high VTE Device Contraindication: Treatment Not Indicated VTE Drug Contraindication: N/A - Med Ordered
[2020-11-13] MEDS: oxyCODONE HCl Immed Release 5 MG TABLET PO (17:02)
[2020-11-13] MEDS: polyethylene glycoL 3350 17 GM POWD.PACK PO (17:02)
[2020-11-14] VITALS (10 sets, daily range): BP systolic 137–172; BP diastolic 74–92; PULSE 51–60; RESP 18–21; TEMP 36.1–36.5; O2SAT 96–98; BMI 31.7
[2020-11-14] MEDS: Omeprazole 20 MG CAPSULE.DR PO (05:16)
[2020-11-14] MEDS: polyethylene glycoL 3350 17 GM POWD.PACK PO (09:03)
[2020-11-14] MEDS: Lidocaine 4 % Patch ADH..PATCH 1 PATCH TRANSDERMA (09:03)
[2020-11-14] MEDS: Colchicine 0.6 MG TABLET PO ×2 (09:04→17:39)
[2020-11-14] MEDS: 0.9 % Sodium Chloride Flush 3 ML SYRINGE IVFLUSH ×3 (09:04→19:51)
[2020-11-14] MEDS: Furosemide 40 MG TABLET PO (09:04)
[2020-11-14] MEDS: Amiodarone HCL 200 MG TABLET 400 MG PO ×2 (09:08→19:50)
[2020-11-14] MEDS: predniSONE 20 MG TABLET 40 MG PO (09:08)
[2020-11-14] MEDS: Metoprolol Tartrate 50 MG TABLET PO (09:08)
[2020-11-14] MEDS: Valsartan 40 MG TABLET PO ×2 (09:09→19:50)
[2020-11-14] MEDS: Apixaban 5 MG TABLET PO ×2 (09:09→19:50)
--- NOTE | 2020-11-14 09:51 | HO.PM.IMPN ---
Subjective Subjective Date of Service: 11/14/20 Interval History: gout flare Review of Systems Patient still complaining that he can and able to walk, pain medication as in adjusted. Does not want more pain medication Denies any new complaint of chest pain or shortness of breath or abdominal pain or fever or chills or nausea or vomiting Denies any cough Denies any weakness or numbness. Physical Exam Vital Signs: Vital Signs: Last Vital Signs Temp 97.6 F 11/14/20 08:00 Pulse 60 11/14/20 09:09 Resp 18 11/14/20 08:00 BP 158/81 H 11/14/20 09:09 Pulse Ox 96 11/14/20 08:00 Body Mass Index 31.7 Appearance: Alert.? Oriented X3.? not in distress.? cvs: rrr, [id number] , no murmur res: clear to auscultation ,no rhonchii or wheezing abd: no rebound or guarding ,nt, bs present. ext pulses present , no cyanosis ,left foot sweeling and foot pain improving Gait well balanced well coordinated. neuro: axo3 , nonfocal. Objective Data Active Medications Acetaminophen (Acetaminophen 325 Mg Tablet) 650 mg PO Q6H PRN PRN Reason: Pain, Mild (Pain Scale 1-3) Acetaminophen (Acetaminophen 325 Mg Tablet) 650 mg PO ONCE PRN PRN Reason: Pain, Mild (Pain Scale 1-3) Amiodarone HCl (Amiodarone Hcl 200 Mg Tablet) 400 mg PO BID [facility] Last Admin: 11/14/20 09:08 Dose: 400 mg Documented by: JOE Apixaban (Apixaban 5 Mg Tablet) 5 mg PO BID [facility] Last Admin: 11/14/20 09:09 Dose: 5 mg Documented by: JOE Colchicine (Colchicine 0.6 Mg Tablet) 0.6 mg PO BIDPC [facility] Last Admin: 11/14/20 09:04 Dose: 0.6 mg Documented by: JOE Docusate Sodium (Docusate Sodium 100 Mg Capsule) 100 mg PO BEDTIME [facility] Last Admin: 11/13/20 20:09 Dose: Not Given Documented by: LAKISHA Non-Admin Reason: Patient Refused Furosemide (Furosemide 40 Mg Tablet) 40 mg PO DAILY [facility]; Protocol Last Admin: 11/14/20 09:04 Dose: 40 mg Documented by: JOE Hydralazine HCl (Hydralazine Hcl 20 Mg/Ml Vial) 10 mg IVPUSH Q4H PRN; Protocol PRN Reason: SBP > 160 Last Admin: 11/11/20 04:26 Dose: 10 mg Documented by: DOC Lidocaine (Lidocaine 4 % Patch Adh..Patch) 1 patch TRANSDERMA DAILY [facility] Last Admin: 11/14/20 09:03 Dose: 1 patch Documented by: JOE Metoprolol Tartrate (Metoprolol Tartrate 50 Mg Tablet) 50 mg PO BID [facility]; Protocol Last Admin: 11/14/20 09:08 Dose: 50 mg Documented by: JOE Morphine Sulfate (Morphine Sulfate 2 Mg/Ml Cartridge) 2 mg IVPUSH Q4H PRN; Protocol PRN Reason: Pain, Moderate (Pain Scale 4-6 Omeprazole (Omeprazole 20 Mg Capsule.Dr) 20 mg PO DAILY@0630 [facility] Last Admin: 11/14/20 05:16 Dose: 20 mg Documented by: LAKISHA Ondansetron HCl (Ondansetron Hcl 4 Mg/2 Ml Vial) 4 mg IVPUSH ONCE PRN PRN Reason: Nausea and Vomiting Oxycodone HCl (Oxycodone Hcl Immed Release 5 Mg Tablet) 5 mg PO Q6H PRN PRN Reason: ankle pain Last Admin: 11/13/20 17:02 Dose: 5 mg Documented by: JOE Oxycodone HCl (Oxycodone Hcl Immed Release 5 Mg Tablet) 10 mg PO ONCE PRN PRN Reason: Pain, Severe (Pain Scale 7-10) Oxycodone HCl (Oxycodone Hcl Immed Release 5 Mg Tablet) 10 mg PO Q6H PRN PRN Reason: Pain, Mild (Pain Scale 1-3) Polyethylene Glycol (Polyethylene Glycol 3350 17 Gm Powd.Pack) 17 gm PO DAILY [facility] Last Admin: 11/14/20 09:03 Dose: 17 gm Documented by: JOE Prednisone (Prednisone 20 Mg Tablet) 40 mg PO DAILY [facility] Last Admin: 11/14/20 09:08 Dose: 40 mg Documented by: JOE Sodium Chloride (0.9 % Sodium Chloride Flush 3 Ml Syringe) 3 ml IVFLUSH QSHIFT [facility] Last Admin: 11/14/20 09:04 Dose: 3 ml Documented by: JOE Valsartan (Valsartan 40 Mg Tablet) 40 mg PO BID [facility]; Protocol Last Admin: 11/14/20 09:09 Dose: 40 mg Documented by: JOE Labs CBC & Chem 7: 11/09/20 05:10 11/12/20 05:56 Assessment and Plan (1) Ankle swelling: Status: Acute (2) Congestive heart failure: Status: Acute Assessment and Plan: patient came to the hospital because of afib with rvr, chf excerebation:? patient was started on ? parenteral diuretics, heart control medication - heart failure seems to be improved with IV diuresis also the heart rate was difficult to control with rate control medications so patient did require cardioversion - patient is will be on metoprolol, amiodarone for heart rate control as well as on Eliquis for stroke prevention. ? In addition Diovan was added for better blood pressure control. ?during the hospital course patient also had gout flare of left foot : started on prednisone and colchicine- seems improving, added oxycodone also for pain control. ? Upon discharge limited supply of prednisone, colchicine and oxycodone adjusted ,? patient is advised to start allopurinol in a week? once? gout flare improves. ? Patient was given CHF education as well as gout information was given. ?patient was advised to follow-up renal function and electrolytes with PCP and also follow up with PCP. ? Cardiology will arrange their own appointment if needed. Gout flare badillo: Patient says she is having trouble walking even though was pain was much better than before. seen by PT and recommended rehab-seems improving foot pain , still c/o could not walk , advised that we can arrange the pain medication but does not seem to be interested in increasing it Will continue to monitor. Quality Stroke Does the patient have a stroke diagnosis?: No VTE Prior VTE?: No VTE Risk Level:: Medical - moderate - high VTE Device Contraindication: Treatment Not Indicated VTE Drug Contraindication: N/A - Med Ordered
--- NOTE | 2020-11-14 10:44 | MHC.CM.PN ---
MD order home, self-care. All pertinent referrals notified.
--- NOTE | 2020-11-14 13:38 | MHC.CM.PN ---
CM MET WITH PT WHO REPORTS HE INITIALLY WAS GOING TO DE HOME WITH SERVICES HOWEVER WAS IN TOO MUCH PAIN ON SUNDAY. PT THEN HAD A PT EVAL THAT SUGGESTED HE SHOULD GO TO STR. PT CONTINUES TO REPORT HE DOES NOT WANT TO GO TO STR. PT STATES TODAY HE HAS DONE SOME WALKING AND FEELS LIKE IT IS GETTING BETTER. PT STATES HE WILL KNOW TOMORROW MORNING IF HE IS ABLE TO GO HOME AND UNDERSTANDS IF HE CANNOT HE WILL NEED TO CHOOSE A STR FACILITY.
--- NOTE | 2020-11-14 19:43 | PC.NURSE ---
call placed to Dr. Hernandez, pt asymptomatic with sbrady hr 50-52 in guidance for bp meds. to give amiodorone 400mg, diovan 40mg po but hold lopressor 50mg po. held as ordered, pt updated.
[2020-11-15] VITALS (10 sets, daily range): BP systolic 155–198; BP diastolic 78–109; PULSE 54–64; RESP 16–20; TEMP 35.8–36.7; O2SAT 95–99; BMI 32.0
[2020-11-15] MEDS: Omeprazole 20 MG CAPSULE.DR PO (05:51)
[2020-11-15] MEDS: Lidocaine 4 % Patch ADH..PATCH 1 PATCH TRANSDERMA (10:11)
[2020-11-15] MEDS: Metoprolol Tartrate 50 MG TABLET PO (10:14)
[2020-11-15] MEDS: Furosemide 40 MG TABLET PO (10:14)
[2020-11-15] MEDS: predniSONE 20 MG TABLET 40 MG PO (10:14)
[2020-11-15] MEDS: Colchicine 0.6 MG TABLET PO ×2 (10:14→17:45)
[2020-11-15] MEDS: Valsartan 40 MG TABLET PO (10:14)
[2020-11-15] MEDS: Amiodarone HCL 200 MG TABLET 400 MG PO (10:14)
[2020-11-15] MEDS: Apixaban 5 MG TABLET PO (10:14)
[2020-11-15] MEDS: amLODIPine Besylate 2.5 MG TABLET PO (10:15)
[2020-11-15] MEDS: 0.9 % Sodium Chloride Flush 3 ML SYRINGE IVFLUSH ×2 (10:17→17:46)
--- NOTE | 2020-11-15 11:23 | MHC.CM.PN ---
Patient has been medically cleared for dc to home today, with services. A referral had been made to [facility], who has been notified of today's dc.
[2020-11-15] MEDS: amLODIPine Besylate 2.5 MG TABLET 5 MG PO (13:54)
== END 2020-11-15 18:00 | disposition home health service (06) | DRG 194 ==
LOC: HO.ED 13:24 → HO.EDOVER 14:42 → HO.ICU 22:56 → HO.IMC 11-10 03:19
PROVIDERS: Internal Medicine; Nurse Practitioner Family; Admitting Provider Internal Medicine; Emergency Provider Emergency Medicine; PCP Internal Medicine; Visit Provider Internal Medicine
PROC: 5A2204Z Restoration of Cardiac Rhythm, Single (ICD-10-PCS; principal; 2020-11-12 10:30)
DX: I11.0 Hypertensive heart disease with heart failure (principal); E66.01 Morbid (severe) obesity due to excess calories; K76.0 Fatty (change of) liver, not elsewhere classified; I50.21 Acute systolic (congestive) heart failure; I16.0 Hypertensive urgency; T46.5X6A Underdosing of other antihypertensive drugs, initial encounter; Z68.32 Body mass index [BMI] 32.0-32.9, adult; M10.9 Gout, unspecified; I48.91 Unspecified atrial fibrillation; Z20.822 Contact with and (suspected) exposure to COVID-19; Z91.120 Patient's intentional underdosing of medication regimen due to financial hardship; Z79.899 Other long term (current) drug therapy
CPT/HCPCS: 0241U; 36415; 71045; 73600; 80048; 80061; 80076; 81003; 83036; 83735; 83880; 84484; 84550; 85025; 85027; 85610; 86704; 86706; 86803; 87340; 92960; 93005; 93306; 93312; 96365; 96366; 96375; 96376; 97162; 99285; J0461; J1160; J1650; J1940; J2250; J2270; J2370

== ENCOUNTER 2020-11-18 12:53 | Inpatient (IN) | payer OTHER, SELFPAY ==
[2020-11-18] VITALS (8 sets, daily range): BP systolic 113–153; BP diastolic 66–79; PULSE 42–46; RESP 16–19; TEMP 36–36.1; O2SAT 93–99; BMI 32.1
--- NOTE | 2020-11-18 | ECG_ITS ---
Test Reason : ABD PAIN Blood Pressure : / mmHG Vent. Rate : 040 BPM Atrial Rate : 040 BPM P-R Int : 180 ms QRS Dur : 152 ms QT Int : 660 ms P-R-T Axes : 023 -60 -66 degrees QTc Int : 537 ms Marked sinus bradycardia Right bundle branch block Left anterior fascicular block Bifascicular block Voltage criteria for left ventricular hypertrophy T wave abnormality, consider inferolateral ischemia Abnormal ECG When compared with ECG of 12-NOV-2020 11:50, Vent. rate has decreased BY 19 BPM T wave inversion now evident in Inferior leads T wave inversion less evident in Lateral leads QT has lengthened Referred By: Generic ED Physician Electronically Signed By:FRANSICO BABCOCK
--- NOTE | ~2020-11-18 | XR_ITS ---
EXAMINATION: XR ABDOMEN KUB CLINICAL INDICATION: Abdominal pain/distention COMPARISON: CT abdomen from 11/18/2020 TECHNIQUE: AP view of the abdomen. FINDINGS: Visualized bowel gas pattern is nonobstructive. No dilated loops of bowel visualized. Mild fecal loading the ascending colon. Radiopaque calcification overlying the left renal shadow measuring 1.0 cm. Degenerative changes of the thoracolumbar spine. Soft tissues are unremarkable. XR/XR KUB IMPRESSION: 1. Visualized bowel gas pattern is nonobstructive. No dilated loops of bowel visualized. 2. Mild fecal loading the ascending colon. 3. Radiopaque calcification overlying the left renal shadow measuring 1.0 cm.
--- NOTE | ~2020-11-18 | CT_ITS ---
EXAMINATION: CT ABDOMEN AND PELVIS WITH CONTRAST CLINICAL INFORMATION: Epigastric pain COMPARISON: None TECHNIQUE: Multidetector volumetric images were obtained from the superior aspect of the liver through the pubic symphysis following administration 85 mL of Omnipaque 350 intravenous contrast. Sagittal and coronal reformatted images were obtained on the technologist's workstation. Oral contrast: No This CT examination was performed using dose optimization techniques as appropriate, variously including the following: *Automated exposure control *Adjustment of mA and/or kV according to patient size (this includes techniques or standardized protocols for targeted exams where dose is matched to indication/reason for exam; i.e. extremities or head) *Use of iterative reconstruction technique DLP: 765 mGy-cm FINDINGS: LUNG BASES: There is minimal atelectatic changes left lung base. The right lung bases clear.. LIVER, GALLBLADDER, AND BILIARY TREE: The liver is normal in size, shape, and attenuation. No focal hepatic lesion or biliary ductal dilatation is present. Multiple radiopaque gallstones in a contracted gallbladder. There is a trace the right perihepatic fluid collection. PANCREAS: Unremarkable. SPLEEN: The spleen is normal size. There is a punctate 2 mm calcification adjacent to the inferior border of the spleen likely granuloma. ADRENAL GLANDS: Unremarkable. KIDNEYS AND URETERS: The kidneys are normal in size, shape, and attenuation. There is 5 mm nonobstructive radiopaque calculi mid pole right kidney and a nonobstructive 8 mm calculi lower pole calyx left kidney. There is bilateral nonenhancing renal cysts and bilateral perinephric stranding. BLADDER: There is mild posterior bladder wall thickening. No radiopaque calculi seen. GASTROINTESTINAL TRACT: There is scattered stool and gas seen throughout the colon without any significant distention. The small bowel loops are unremarkable. The stomach is nondistended and appears unremarkable. No free air or free fluid seen. ABDOMINAL WALL: There is a small lumbar canal hernia containing fat. LYMPH NODES: Normal. VASCULAR: Unremarkable. PELVIC VISCERA: No free fluid or free air. OSSEOUS STRUCTURES: There is grade 1 anterolisthesis L5 over S1. There are degenerative disc changes with vacuum disc phenomena at L3-L4 and L5-S1 disc levels. CT/CT abdomen pelvis w con IMPRESSION: Bilateral nonobstructive radiopaque renal calculi without hydronephrosis. Bilateral renal cysts and perinephric stranding. No acute intra-abdominal process seen. Especially no abnormality seen in the epigastric region. Trace perihepatic fluid collection. Gallstones without wall thickening.
--- NOTE | 2020-11-18 13:19 | ED_ITS ---
HPI - Abdominal Pain General Chief Complaint: General Medical Stated Complaint: lump upper abd Time Seen by Provider: 11/18/20 13:08 Source: patient and old records reviewed Mode of arrival: ambulatory Limitations: no limitations History of Present Illness HPI narrative: patient does feel dizzy at times as well since going home MD elicited complaint: abdominal pain Onset (ago): day(s) (2) Pain Consistency: constant Location: epigastric Severity: moderate Quality: aching Radiation: none Migration to: no migration Exacerbating factors: nothing Relieving factors: nothing Context: other (admitted here 11/08 for HTN, dyspnea non compliance with medications s/p cardioversion on 11/12 on amio 400bid, eliquis, metoprolol 50mg BID - HR in 40s on arrival) Associated symptoms: denies other symptoms Related Data Home Medications Medication Instructions Recorded Confirmed amlodipine 5 mg tablet 7.5 mg PO DAILY 11/18/20 11/18/20 Previous Rx's Medication Instructions Recorded acetaminophen 325 mg tablet 650 mg PO Q6H PRN #30 tab 11/13/20 allopurinol 100 mg tablet 100 mg PO DAILY #7 tab 11/13/20 amiodarone 200 mg tablet 400 mg PO BID #52 tab 11/13/20 apixaban 5 mg tablet (Eliquis) 5 mg PO BID #60 tab 11/13/20 colchicine 0.6 mg tablet (Colcrys) 0.6 mg PO DAILY #5 tab 11/13/20 docusate sodium 100 mg capsule 100 mg PO DAILY #30 cap 11/13/20 (Colace) furosemide 40 mg tablet 40 mg PO DAILY #30 tab 11/13/20 metoprolol tartrate 50 mg tablet 50 mg PO BID #60 tab 11/13/20 valsartan 40 mg tablet 40 mg PO BID #30 tab 11/13/20 Allergies Allergy/AdvReac Type Severity Reaction Status Date / Time No Known Allergies Allergy Verified 11/08/20 10:36 Review of Systems Review of Systems Constitutional : No Weight loss, No Fever, No Chills ENT/Mouth : No sore throat, No Rhinorrhea Eyes: No Swelling, No Redness Cardiovascular : No Chest Pain, No SOB, NoEdema Respiratory : No Cough, No Sputum, No Wheezing Gastrointestinal : no Nausea, no Vomiting, no Diarrhea, positive abdominal Pain, No Hematochezia, No Melena Genitourinary : No Dysuria, No Urinary Frequency, No Hematuria, No Urgency Musculoskeletal : No joint pain, No Myalgias, No Joint Swelling Skin : No Skin Lesions, No rash Neuro : No Weakness, No Numbness, pos Dizziness, No Headache Psych : No Anxiety/Panic, No Depression Heme/Lymph: No Bruising, No Lymphadenopathy Endocrine : No Polyuria, No Polydipsia All other systems reviewed and are negative. Physical Exam Vital Signs: Vital Signs: Last Vital Signs Temp 96.8 F 11/18/20 13:23 Pulse 44 L 11/18/20 15:29 Resp 18 11/18/20 15:29 BP 113/79 11/18/20 15:29 Pulse Ox 99 11/18/20 15:29 Body Mass Index 32.1 Appearance: Alert. Oriented X3. No acute distress. Eyes: Pupils equal, round and reactive to light. ENT: Pharynx normal. Neck: Normal inspection. Neck supple. CVS: bradycardic heart rate and rhythm. Pulses normal. Respiratory: No respiratory distress. Breath sounds normal. Abdomen: Soft and mild epigastric and LLQ ttp no rebound or guarding Skin: Skin warm and dry. Normal skin color. Normal skin turgor. Extremities: No lower extremity edema. No calf ttp Neuro: Oriented X 3. No motor deficit. No sensory deficit. Course Course Course Narrative: patient profoundly bradycardic likely combination of medications BP stable, discussion with Dr. Gary will hold bblocker try glucagon admit and observe him he does have trace fluid around liver but H/H stable LFTs at baseline likely hepatic congestion MDM - Abdominal Pain MDM Narrative Medical decision making narrative: 65 yo male with hx of afib just started on amiodarone 400mg BID, metoprolol 50mg BID, eliquis was cardioverted on 11/12 for rate control, CHF, HTN comes in with 2 days of vague abdominal pain denies n/v/d and has been having normal BMs, at this time labs, CT scan ordered, his HR is quite low which could be related to his symptoms. Lab Data Result diagrams: 11/18/20 13:44 11/18/20 13:44 Labs: Lab Results 11/18/20 11/18/20 11/18/20 Range/Units 13:44 13:44 13:44 WBC 12.8 H (4.8-10.8) X10*3/uL RBC 5.06 (4.60-5.80) X10*6/uL Hgb 15.8 (14.0-18.0) g/dl Hct 46.5 (42-52) % MCV 91.9 (80-98) fL MCH 31.2 (27.0-33.0) pg MCHC 34.0 (31.0-36.0) g/dl RDW 14.4 (11.0-16.0) % Plt Count 251 D (160-400) X10*3/uL MPV 10.9 (9.4-12.4) fL Immature Gran % (Auto) 0.5 H (0.0-0.4) % Neut % (Auto) 83.9 H (45-73) % Lymph % (Auto) 7.2 L (20-40) % Jackson % (Auto) 8.1 (2-11) % Eos % (Auto) 0.1 (0-4) % Baso % (Auto) 0.2 (0-2) % Lymph # (Auto) 0.9 L (1.2-4.9) X10*3/uL Jackson # (Auto) 1.0 (0.1-1.2) X10*3/uL Eos # (Auto) 0.0 (0.0-0.4) X10*3/uL Baso # (Auto) 0.0 (0.0-0.2) X10*3/uL Abs Immat Gran (auto) 0.07 H (0.00-0.03) X10*3/uL Absolute Neuts (auto) 10.7 H (2.0-8.3) X10*3/uL Absolute Nucleated RBC 0.000 (0.0-0.012) X10*3/uL Nucleated RBC % (auto) 0.0 (0.0-0.2) /100WBC Sodium 135 (135-145) mmol/L Potassium 4.3 (3.3-5.1) mmol/L Chloride 103 (96-108) mmol/L Carbon Dioxide 23 (22-29) mmol/L Anion Gap 13 (12-20) BUN 30 H (9-16) mg/dL Creatinine 1.08 (0.5-1.4) mg/dL Estim Creat Clear Calc 84.9 Estimated GFR > 60 Random Glucose 130 H (60-115) mg/dL Calcium 9.5 (8.4-10.2) mg/dL Magnesium (1.6-2.6) mg/dL Total Bilirubin (0.0-1.0) mg/dL Direct Bilirubin (0.0-0.5) mg/dL AST (5-37) U/L ALT (0-40) U/L Alkaline Phosphatase (39-117) U/L Troponin I High Sens (<3.5-35.0) ng/L B-Natriuretic Peptide 981 H (<100) pg/mL Total Protein (6.5-8.0) g/dL Albumin (3.5-5.0) g/dL Lipase (8-78) U/L Urine Color Urine Appearance Urine pH (5.0-8.0) Ur Specific Jeremiah (1.005-1.025) Urine Protein (NEG-TRACE) MG/DL Urine Glucose (UA) (NEG) MG/DL Urine Ketones (NEG) MG/DL Urine Blood (NEG) Urine Nitrite (NEG) Ur Leukocyte Esterase (NEG) COVID-19 (BRANDI) (Negative) COVID-19 Clin Com 11/18/20 11/18/20 11/18/20 Range/Units 13:44 13:44 13:44 WBC (4.8-10.8) X10*3/uL RBC (4.60-5.80) X10*6/uL Hgb (14.0-18.0) g/dl Hct (42-52) % MCV (80-98) fL MCH (27.0-33.0) pg MCHC (31.0-36.0) g/dl RDW (11.0-16.0) % Plt Count (160-400) X10*3/uL MPV (9.4-12.4) fL Immature Gran % (Auto) (0.0-0.4) % Neut % (Auto) (45-73) % Lymph % (Auto) (20-40) % Jackson % (Auto) (2-11) % Eos % (Auto) (0-4) % Baso % (Auto) (0-2) % Lymph # (Auto) (1.2-4.9) X10*3/uL Jackson # (Auto) (0.1-1.2) X10*3/uL Eos # (Auto) (0.0-0.4) X10*3/uL Baso # (Auto) (0.0-0.2) X10*3/uL Abs Immat Gran (auto) (0.00-0.03) X10*3/uL Absolute Neuts (auto) (2.0-8.3) X10*3/uL Absolute Nucleated RBC (0.0-0.012) X10*3/uL Nucleated RBC % (auto) (0.0-0.2) /100WBC Sodium (135-145) mmol/L Potassium (3.3-5.1) mmol/L Chloride (96-108) mmol/L Carbon Dioxide (22-29) mmol/L Anion Gap (12-20) BUN (9-16) mg/dL Creatinine (0.5-1.4) mg/dL Estim Creat Clear Calc Estimated GFR Random Glucose (60-115) mg/dL Calcium (8.4-10.2) mg/dL Magnesium 1.9 (1.6-2.6) mg/dL Total Bilirubin 1.2 H (0.0-1.0) mg/dL Direct Bilirubin 0.3 (0.0-0.5) mg/dL AST 49 H (5-37) U/L ALT 131 H (0-40) U/L Alkaline Phosphatase 75 (39-117) U/L Troponin I High Sens 39.3 H* (<3.5-35.0) ng/L B-Natriuretic Peptide (<100) pg/mL Total Protein 6.3 L (6.5-8.0) g/dL Albumin 3.8 (3.5-5.0) g/dL Lipase 35 (8-78) U/L Urine Color Urine Appearance Urine pH (5.0-8.0) Ur Specific Jeremiah (1.005-1.025) Urine Protein (NEG-TRACE) MG/DL Urine Glucose (UA) (NEG) MG/DL Urine Ketones (NEG) MG/DL Urine Blood (NEG) Urine Nitrite (NEG) Ur Leukocyte Esterase (NEG) COVID-19 (BRANDI) Negative (Negative) COVID-19 Clin Com See Note 11/18/20 Range/Units 13:45 WBC (4.8-10.8) X10*3/uL RBC (4.60-5.80) X10*6/uL Hgb (14.0-18.0) g/dl Hct (42-52) % MCV (80-98) fL MCH (27.0-33.0) pg MCHC (31.0-36.0) g/dl RDW (11.0-16.0) % Plt Count (160-400) X10*3/uL MPV (9.4-12.4) fL Immature Gran % (Auto) (0.0-0.4) % Neut % (Auto) (45-73) % Lymph % (Auto) (20-40) % Jackson % (Auto) (2-11) % Eos % (Auto) (0-4) % Baso % (Auto) (0-2) % Lymph # (Auto) (1.2-4.9) X10*3/uL Jackson # (Auto) (0.1-1.2) X10*3/uL Eos # (Auto) (0.0-0.4) X10*3/uL Baso # (Auto) (0.0-0.2) X10*3/uL Abs Immat Gran (auto) (0.00-0.03) X10*3/uL Absolute Neuts (auto) (2.0-8.3) X10*3/uL Absolute Nucleated RBC (0.0-0.012) X10*3/uL Nucleated RBC % (auto) (0.0-0.2) /100WBC Sodium (135-145) mmol/L Potassium (3.3-5.1) mmol/L Chloride (96-108) mmol/L Carbon Dioxide (22-29) mmol/L Anion Gap (12-20) BUN (9-16) mg/dL Creatinine (0.5-1.4) mg/dL Estim Creat Clear Calc Estimated GFR Random Glucose (60-115) mg/dL Calcium (8.4-10.2) mg/dL Magnesium (1.6-2.6) mg/dL Total Bilirubin (0.0-1.0) mg/dL Direct Bilirubin (0.0-0.5) mg/dL AST (5-37) U/L ALT (0-40) U/L Alkaline Phosphatase (39-117) U/L Troponin I High Sens (<3.5-35.0) ng/L B-Natriuretic Peptide (<100) pg/mL Total Protein (6.5-8.0) g/dL Albumin (3.5-5.0) g/dL Lipase (8-78) U/L Urine Color STRAW Urine Appearance CLEAR Urine pH 5.5 (5.0-8.0) Ur Specific Jeremiah 1.015 (1.005-1.025) Urine Protein NEG (NEG-TRACE) MG/DL Urine Glucose (UA) NEG (NEG) MG/DL Urine Ketones NEG (NEG) MG/DL Urine Blood NEG (NEG) Urine Nitrite NEG (NEG) Ur Leukocyte Esterase NEG (NEG) COVID-19 (BRANDI) (Negative) COVID-19 Clin Com ECG Data Attestation: I personally reviewed and interpreted this ECG as follows: ECG interpretation date: 11/18/20 ECG interpretation time: 13:34 Interpretation: Rate: 40 Rhythm: sinus bradycardia [place]: left Normal P waves. Normal STEPHEN. RBBB ST T wave : no JEWEL, diffuse inverted t waves qTC: prolonged prior studies: no sig change but rate decreased The study has been interpreted contemporaneously by me. . Discharge Plan Discharge Clinical Impression: Elevated LFTs, Bradycardia Congestive heart failure Qualifiers: Heart failure type: unspecified Heart failure chronicity: chronic Qualified Code(s): I50.9 - Heart failure, unspecified Abdominal pain Qualifiers: Abdominal location: epigastric Qualified Code(s): R10.13 - Epigastric pain Patient Disposition: Admitted As Inpatient [facility] Past Medical History Attestation statement: The following information was validated with the patient. Medical History Ankle swelling HTN (hypertension) Social History Social History Household Members: None Housing: Apartment Do you presently have visiting nurse or other home services: No Alcohol intake: unknown Patient Tobacco Use Status: Never used Tobacco Advance Directives: No Advance Directives Information Provided: No service: No Current occupational status: employed
--- NOTE | 2020-11-18 13:40 | PHA.MEDREC ---
Pharmacy Consult ? Medication Reconciliation Pharmacy has completed the medication reconciliation. [place] [facility] [place] The directions on the Amiodarone was 400 mg BID until 11/25/20 and on 11/26/20 switch to 200 mg daily. The Allopurinol was scheduled to start 100 mg daily on 11/19/20. Angi Stephenson, PharmD [phone]
[2020-11-18 13:54] LABS: MANUAL DIFF FLAG NO
[2020-11-18 13:58] LABS: Appearance Urine CLEAR; Color Urine STRAW; Glucose Urine UA NEG (NEG); Leukocyte Esterase Urine NEG (NEG); Nitrite Urine NEG (NEG); PH 5.5 (5.0-8.0); Specific Gravity - Urine 1.015 (1.005-1.025); Urine Blood NEG (NEG); Urine Ketones NEG (NEG); Urine Protein NEG (NEG-TRACE)
[2020-11-18 14:09] LABS: COVID-19 Test Negative (Negative); IDNOW Serial# 9DD0AD1C
[2020-11-18 14:15] LABS: Basophils Percent Auto 0.2 % (0-2); Eosinophils Percent Auto 0.1 % (0-4); Hematocrit 46.5 % (42-52); Hemoglobin 15.8 g/dl (14.0-18.0); Imm Gran Abs Auto 0.07 X10*3/uL (0.00-0.03); Imm Gran Pct Auto 0.5 % (0.0-0.4); Lymphocytes Absolute Auto 0.9 X10*3/uL (1.2-4.9); Lymphocytes Percent Auto 7.2 % (20-40); Mean Corpuscular Hemoglobin 31.2 pg (27.0-33.0); Mean Corpuscular Volume 91.9 fL (80-98); Mean Platelet Volume 10.9 fL (9.4-12.4); Monocytes Percent Auto 8.1 % (2-11); Neutrophils Absolute Auto 10.7 X10*3/uL (2.0-8.3); Neutrophils Percent Auto 83.9 % (45-73); Platelet Count 251 X10*3/uL (160-400); Red Blood Count 5.06 X10*6/uL (4.60-5.80); Red Cell Distribution Width 14.4 % (11.0-16.0); White Blood Count 12.8 X10*3/uL (4.8-10.8)
[2020-11-18 14:24] LABS: Anion Gap 13 (12-20); B Type Natriuretic Peptide 981 pg/mL (<100); Blood Urea Nitrogen 30 mg/dL (9-16); Calcium 9.5 mg/dL (8.4-10.2); Carbon Dioxide 23 mmol/L (22-29); Chloride 103 mmol/L (96-108); Creatinine Clr Calc Pharmacy 84.9; Estimated Glomerular Filt Rate > 60; Glucose Random 130 mg/dL (60-115); Potassium 4.3 mmol/L (3.3-5.1); Sodium 135 mmol/L (135-145)
[2020-11-18 14:39] LABS: Alanine Aminotransferase 131 U/L (0-40); Albumin Level 3.8 g/dL (3.5-5.0); Alkaline Phosphatase 75 U/L (39-117); Aspartate Amino Transferase 49 U/L (5-37); Bilirubin Direct 0.3 mg/dL (0.0-0.5); Bilirubin Total 1.2 mg/dL (0.0-1.0); Lipase 35 U/L (8-78); Magnesium 1.9 mg/dL (1.6-2.6); Total Protein 6.3 g/dL (6.5-8.0)
[2020-11-18 14:41] LABS: Troponin-I High Sensitivity 39.3 ng/L (<3.5-35.0)
[2020-11-18] MEDS: iohexoL 350 MG/ML 100 ML INFUS..BTL IV (15:17)
[2020-11-18] MEDS: Lidocaine HCl Viscous 2 % 15 ML SOLUTION MUCOUS MEM (15:51)
[2020-11-18] MEDS: Magnesium Hydrox/Alum Hydrox 30 ML ORAL.SUSP 15 ML PO (15:51)
--- NOTE | 2020-11-18 17:01 | PM.IMHP ---
History of Present Illness Date of Service: 11/18/20 <URIAH Saul - Last Filed: 11/18/20 17:21> Chief Complaint: Epigastric abdominal pain <URIAH Saul Last Filed: 11/18/20 17:21> This is a 65-year-old male with a history of hypertension, atrial fibrillation, CHF, recent admission for rapid AFib, hypertensive urgency and acute CHF. During that admission he was cardioverted. He was discharged home with immune metoprolol. Since discharge he reports that when he walks around he feels tired. Since yesterday he has had epigastric abdominal pain which has been constant since onset. It is worse when he walks around and also when he eats food. IT is not associated with any nausea, vomiting, diarrhea. He has not noticed any dark or bloody stools. He denies a history of acid reflux and has never had this pain before. He underwent a CT scan of the abdomen which showed no acute intra-abdominal process. It did show bilateral renal cysts with perinephric stranding. Patient denies any back pain or urinary symptoms. Urinalysis was unremarkable. Lab work was at the patient's baseline. Initial highly sensitive troponin was elevated at 39.3. While he was in the emergency department he was noted to be bradycardic. showed sinus bradycardia with a heart rate of 40 with T-wave inversions which appear unchanged from previous. He did report intermittent dizziness. He denies any chest pain or palpitations. He was given a dose of glucagon and given his bradycardia the decision was made to admit him to the hospital for further management. <URIAH Saul - Last Filed: 11/18/20 17:21> Review of Systems Review of Systems: Intermittent dizziness, does not seem to follow a pattern <URIAH Saul Last Filed: 11/18/20 17:21> Yes all other systems are reviewed and are negative <URIAH Saul Last Filed: 11/18/20 17:21> Constitutional: Constitutional: Denies chills and Denies fever(s) <URIAH Saul Last Filed: 11/18/20 17:21> Cardiovascular: Cardiovascular: Denies chest pain <URIAH Saul - Last Filed: 11/18/20 17:21> Respiratory: Respiratory: Denies cough <URIAH Saul - Last Filed: 11/18/20 17:21> [facility] Medical History: Medical History Ankle swelling Atrial fibrillation Gout HTN (hypertension) Systolic CHF <URIAH Saul - Last Filed: 11/18/20 17:21> Functional capacity: independent ambulation <URIAH Saul - Last Filed: 11/18/20 17:21> Pertinent family history: no heart disease <URIAH Saul - Last Filed: 11/18/20 17:21> Family history: reviewed and not pertinent <URIAH Saul - Last Filed: 11/18/20 17:21> Social History: Social History Household Members: None Housing: Apartment Do you presently have visiting nurse or other home services: No Alcohol intake: unknown Patient Tobacco Use Status: Never used Tobacco Advance Directives: No Advance Directives Information Provided: No service: No Current occupational status: employed <URIAH Saul - Last Filed: 11/18/20 17:21> Meds Allergies/Adverse reactions: Allergies Allergy/AdvReac Type Severity Reaction Status Date / Time No Known Allergies Allergy Verified 11/08/20 10:36 <URIAH Saul - Last Filed: 11/18/20 17:21> Active Medications: Current Medications Generic Name Dose Route Start Last Admin Trade Name Freq PRN Reason Stop Dose Admin Acetaminophen 650 mg 11/18/20 16:55 Acetaminophen 325 Mg Tablet PO Q6H PRN Pain, Mild (Pain Scale 1-3) Al Hydroxide/Mg Hydroxide 15 ml 11/18/20 16:55 Magnesium Hydrox/Alum Hydrox 30 Ml Oral.Susp PO Q6H PRN Dyspepsia Docusate Sodium 100 mg 11/18/20 16:55 Docusate Sodium 100 Mg Capsule PO DAILY PRN Constipation Famotidine 20 mg 11/18/20 17:00 Famotidine/Pf 20 Mg/2 Ml Vial IVPUSH DAILY NAZ Ondansetron HCl 4 mg 11/18/20 16:55 Ondansetron Hcl 4 Mg/2 Ml Vial IVPUSH Q8H PRN Nausea and Vomiting Pharmacy Consult 1 each 11/18/20 13:27 Consult Rx Perform Med Rec MISCELLANE ONCE PRN Consult order Sodium Chloride 3 ml 11/19/20 00:00 0.9 % Sodium Chloride Flush 3 Ml Syringe IVFLUSH QSHIFT NAZ <URIAH Saul Last Filed: 11/18/20 17:21> Home medications: Home Medications Medication Instructions Recorded Confirmed Last Taken Type amlodipine 5 mg tablet 7.5 mg PO DAILY 11/18/20 11/18/20 Unknown History <URIAH Saul Last Filed: 11/18/20 17:21> Physical Exam Vital Signs and Narrative: Vital Signs: Last Vital Signs Temp 96.8 F 11/18/20 13:23 Pulse 43 L 11/18/20 16:53 Resp 18 11/18/20 16:53 BP 139/70 11/18/20 16:53 Pulse Ox 98 11/18/20 16:53 Body Mass Index 32.1 <URIAH Saul Last Filed: 11/18/20 17:21> Const: General: comfortable, no acute distress, alert and awake <URIAH Saul Last Filed: 11/18/20 17:21> Nutritional Appearance: well nourished <URIAH Saul Last Filed: 11/18/20 17:21> Orientation/consciousness: patient oriented x3 <URIAH Saul Last Filed: 11/18/20 17:21> HENMT: Head: Yes normocephalic and Yes atraumatic <URIAH Saul Last Filed: 11/18/20 17:21> Eyes: Sclerae: sclerae normal <URIAH Saul Last Filed: 11/18/20 17:21> Resp: Effort & Inspection: normal respiratory effort and no respiratory distress <URIAH Saul Last Filed: 11/18/20 17:21> Cardio: Rhythm: regular rhythm <URIAH Saul Last Filed: 11/18/20 17:21> GI: Other: Abdomen is soft, tenderness to palpation in the epigastric region, nondistended, positive bowel sounds <URIAH Saul - Last Filed: 11/18/20 17:21> Neuro: General: patient oriented x3 <URIAH Saul - Last Filed: 11/18/20 17:21> Cranial nerves: Yes CN's II-XII intact bilaterally and Yes Bilaterally intact EOM present <URIAH Saul - Last Filed: 11/18/20 17:21> Extrem: Other: No lower extremity edema <URIAH Saul - Last Filed: 11/18/20 17:21> Results Labs CBC and Chem 7: : 11/19/20 05:56 11/19/20 05:56 <URIAH Saul - Last Filed: 11/18/20 17:21> Labs: Laboratory Results - last 24 hr 11/18/20 11/18/20 11/18/20 13:44 13:44 13:44 MCV 91.9 MCH 31.2 MCHC 34.0 RDW 14.4 Plt Count 251 D MPV 10.9 Immature Gran % (Auto) 0.5 H Neut % (Auto) 83.9 H Lymph % (Auto) 7.2 L [place] % (Auto) 8.1 Eos % (Auto) 0.1 Baso % (Auto) 0.2 Lymph # (Auto) 0.9 L [place] # (Auto) 1.0 Eos # (Auto) 0.0 Baso # (Auto) 0.0 Abs Immat Gran (auto) 0.07 H Absolute Neuts (auto) 10.7 H Absolute Nucleated RBC 0.000 Nucleated RBC % (auto) 0.0 Anion Gap 13 Estim Creat Clear Calc 84.9 Estimated GFR > 60 Random Glucose 130 H Calcium 9.5 Magnesium Total Bilirubin Direct Bilirubin AST ALT Alkaline Phosphatase Troponin I High Sens B-Natriuretic Peptide 981 H Total Protein Albumin Lipase Urine Color Urine Appearance Urine pH Ur Specific [place] Urine Protein Urine Glucose (UA) Urine Ketones Urine Blood Urine Nitrite Ur Leukocyte Esterase COVID-19 (BR[facility]I) COVID-19 Clin Com 11/18/20 11/18/20 11/18/20 13:44 13:44 13:44 MCV MCH MCHC RDW Plt Count MPV Immature Gran % (Auto) Neut % (Auto) Lymph % (Auto) [place] % (Auto) Eos % (Auto) Baso % (Auto) Lymph # (Auto) [place] # (Auto) Eos # (Auto) Baso # (Auto) Abs Immat Gran (auto) Absolute Neuts (auto) Absolute Nucleated RBC Nucleated RBC % (auto) Anion Gap Estim Creat Clear Calc Estimated GFR Random Glucose Calcium Magnesium 1.9 Total Bilirubin 1.2 H Direct Bilirubin 0.3 AST 49 H ALT 131 H Alkaline Phosphatase 75 Troponin I High Sens 39.3 H* B-Natriuretic Peptide Total Protein 6.3 L Albumin 3.8 Lipase 35 Urine Color Urine Appearance Urine pH Ur Specific [place] Urine Protein Urine Glucose (UA) Urine Ketones Urine Blood Urine Nitrite Ur Leukocyte Esterase COVID-19 (BRANDI) Negative COVID-19 Clin Com See Note 11/18/20 13:45 MCV MCH MCHC RDW Plt Count MPV Immature Gran % (Auto) Neut % (Auto) Lymph % (Auto) [place] % (Auto) Eos % (Auto) Baso % (Auto) Lymph # (Auto) [place] # (Auto) Eos # (Auto) Baso # (Auto) Abs Immat Gran (auto) Absolute Neuts (auto) Absolute Nucleated RBC Nucleated RBC % (auto) Anion Gap Estim Creat Clear Calc Estimated GFR Random Glucose Calcium Magnesium Total Bilirubin Direct Bilirubin AST ALT Alkaline Phosphatase Troponin I High Sens B-Natriuretic Peptide Total Protein Albumin Lipase Urine Color STRAW Urine Appearance CLEAR Urine pH 5.5 Ur Specific [place] 1.015 Urine Protein NEG Urine Glucose (UA) NEG Urine Ketones NEG Urine Blood NEG Urine Nitrite NEG Ur Leukocyte Esterase NEG COVID-19 (BRANDI) COVID-19 Clin Com <URIAH Saul - Last Filed: 11/18/20 17:21> Imaging Radiologist's Impressions: Impressions Abdomen/Pelvis CT 11/18/20 13:27 IMPRESSION: Bilateral nonobstructive radiopaque renal calculi without hydronephrosis. Bilateral renal cysts and perinephric stranding. No acute intra-abdominal process seen. Especially no abnormality seen in the epigastric region. Trace perihepatic fluid collection. Gallstones without wall thickening. <URIAH Saul - Last Filed: 11/18/20 17:21> Assessment and Plan (1) Bradycardia: Status: Acute <URIAH Saul - Last Filed: 11/18/20 17:21> (2) Abdominal pain: Qualifiers: Abdominal location: epigastric Qualified Code(s): R10.13 - Epigastric pain <URIAH Saul - Last Filed: 11/18/20 17:21> Status: Acute <URIAH Saul - Last Filed: 11/18/20 17:21> This is a 65-year-old male with history of atrial fibrillation on Eliquis status post recent cardioversion,HFrEF with LVEF 25-30%, HTN, gout and recent admission for hypertensive urgency, atrial fibrillation with rapid ventricular response and acute heart failure presents to the emergency department with epigastric abdominal pain found to have bradycardia with intermittent episodes of dizziness Bradycardia EKG showing sinus bradycardia, no high-degree heart block Intermittent episodes of dizziness, unclear if related to bradycardia Treated with glucagon in the ED Will hold amiodarone, metoprolol tele monitoring Pacer pads at bedside Cardiology consult Epigastric abdominal pain No history of acid reflux CT scan of abdomen shows no obvious etiology for pain IV Pepcid, symptomatic treatment Rule out cardiac cause, Trend troponin If pain persists will consider GI evaluation Afib s/p CV 11/12 Amiodarone, metoprolol on hold for bradycardia Continue anticoagulation with Eliquis HFrEF, LVEF 25-30% BNP lower than on previous admission Does not appear to be in overt heart failure Continue home dose of Lasix Hypertension Blood pressure controlled Continue valsartan Hold Norvasc, metoprolol Monitor blood pressure closely Gout recent treatment for gout flare continue colchicine, allopurinol Perinephric stranding seen on CT no flank pain, UA negative mild transaminitis follow LFTs Leukocytosis no obvious infectious process noted trend CBC DVT prophylaxis-Eliquis line code status-full code Attending physician - Dr. Jernigan <URIAH Saul - Last Filed: 11/18/20 17:21> This is a 65-year-old male with history of atrial fibrillation on Eliquis status post recent cardioversion,HFrEF with LVEF 25-30%, HTN, gout and recent admission for hypertensive urgency, atrial fibrillation with rapid ventricular response and acute heart failure presents to the emergency department with epigastric abdominal pain found to have bradycardia with intermittent episodes of dizziness Bradycardia EKG showing sinus bradycardia, no high-degree heart block Intermittent episodes of dizziness, unclear if related to bradycardia Treated with glucagon in the ED Will hold amiodarone, metoprolol tele monitoring Pacer pads at bedside Cardiology consult Epigastric abdominal pain No history of acid reflux CT scan of abdomen shows no obvious etiology for pain IV Pepcid, symptomatic treatment Rule out cardiac cause, Trend troponin If pain persists will consider GI evaluation Afib s/p CV 11/12 Amiodarone, metoprolol on hold for bradycardia Continue anticoagulation with Eliquis HFrEF, LVEF 25-30% BNP lower than on previous admission Does not appear to be in overt heart failure Continue home dose of Lasix Hypertension Blood pressure controlled Continue valsartan Hold Norvasc, metoprolol Monitor blood pressure closely Gout recent treatment for gout flare continue colchicine, allopurinol Perinephric stranding seen on CT no flank pain, UA negative mild transaminitis follow LFTs Leukocytosis no obvious infectious process noted trend CBC DVT prophylaxis-Eliquis line code status-full code Attending physician - Dr. Jernigan Patient seen and examined, plan of care discussed with mid level, I and agree with findings, assesment and plan as above <Fredi Jernigan MD - Last Filed: 11/19/20 16:45> Quality Stroke Does the patient have a stroke diagnosis?: No <URIAH Saul - Last Filed: 11/18/20 17:21> VTE Prior VTE?: No <URIAH Saul - Last Filed: 11/18/20 17:21> VTE Risk Level:: Medical - moderate - high <URIAH Saul - Last Filed: 11/18/20 17:21> VTE Device Contraindication: Treatment Not Indicated <URIAH Saul - Last Filed: 11/18/20 17:21> VTE Drug Contraindication: N/A - Med Ordered <URIAH Saul - Last Filed: 11/18/20 17:21>
[2020-11-18] MEDS: Famotidine/PF 20 MG/2 ML VIAL IVPUSH (17:22)
[2020-11-18] MEDS: Apixaban 5 MG TABLET PO (20:48)
[2020-11-18] MEDS: Valsartan 40 MG TABLET PO (20:48)
--- NOTE | 2020-11-18 23:50 | PC.NURSE ---
Pt ringing dumas multiple times. Pt requesting PO intake. Pt aware that he is NPO @ 0000 as he is having a procedure tomorrow. Pt extremely rude to this RN, expressing frustration @ lack of attention provided to him while in the ED. This RN apologizing to pt, explaining to him how the ER functions differently then while admitted. This RN providing pt with food/drink per request. Curtain closed for privacy.
[2020-11-19] VITALS (8 sets, daily range): BP systolic 117–177; BP diastolic 75–94; PULSE 52–60; RESP 16–19; TEMP 36.6–37.2; O2SAT 94–98; BMI 32.3
[2020-11-19 06:31] LABS: Hematocrit 46.3 % (42-52); Hemoglobin 15.6 g/dl (14.0-18.0); Mean Corpuscular HGB Conc 33.7 g/dl (31.0-36.0); Mean Corpuscular Hemoglobin 31.3 pg (27.0-33.0); Mean Corpuscular Volume 92.8 fL (80-98); Mean Platelet Volume 10.7 fL (9.4-12.4); Platelet Count 190 X10*3/uL (160-400); Red Blood Count 4.99 X10*6/uL (4.60-5.80); Red Cell Distribution Width 14.6 % (11.0-16.0); White Blood Count 12.1 X10*3/uL (4.8-10.8)
[2020-11-19 07:10] LABS: Alanine Aminotransferase 92 U/L (0-40); Albumin Level 3.6 g/dL (3.5-5.0); Alkaline Phosphatase 86 U/L (39-117); Anion Gap 11 (12-20); Aspartate Amino Transferase 23 U/L (5-37); Bilirubin Direct 0.3 mg/dL (0.0-0.5); Bilirubin Total 0.8 mg/dL (0.0-1.0); Blood Urea Nitrogen 37 mg/dL (9-16); Calcium 9.1 mg/dL (8.4-10.2); Carbon Dioxide 29 mmol/L (22-29); Chloride 104 mmol/L (96-108); Creatinine Clr Calc Pharmacy 83.3; Estimated Glomerular Filt Rate > 60; Glucose Random 95 mg/dL (60-115); Potassium 3.9 mmol/L (3.3-5.1); Sodium 140 mmol/L (135-145); Total Protein 5.6 g/dL (6.5-8.0)
[2020-11-19] MEDS: Famotidine/PF 20 MG/2 ML VIAL IVPUSH (08:39)
[2020-11-19] MEDS: Valsartan 40 MG TABLET PO ×2 (08:39→20:33)
[2020-11-19] MEDS: Docusate Sodium 100 MG CAPSULE PO (08:40)
[2020-11-19] MEDS: allopurinoL 100 MG TABLET PO (08:40)
[2020-11-19] MEDS: Apixaban 5 MG TABLET PO ×2 (08:40→20:34)
[2020-11-19] MEDS: Furosemide 40 MG TABLET PO (08:40)
[2020-11-19] MEDS: 0.9 % Sodium Chloride Flush 3 ML SYRINGE IVFLUSH ×3 (08:41→20:34)
--- NOTE | 2020-11-19 08:58 | PC.NURSE ---
A fib on tele, rate 50s. Pt denies any associated sx but does report ongoing upper abd discomfort and bloating, per pt worse than yesterday. Denies dizziness, alert/oriented x4. Vitals stable. SBP 117. Skin pink warm and dry. aware of NPO status pending GI consult
--- NOTE | 2020-11-19 09:35 | MHC.CM.PN ---
Attempted to meet with patient in regards to discharge planning. Nursing care currently being provided. Will attempt to meet again. Continue to monitor for d/c needs.
--- NOTE | 2020-11-19 09:48 | PC.NURSE ---
Cardiology at bedside
[2020-11-19] MEDS: Colchicine 0.6 MG TABLET PO (10:12)
--- NOTE | 2020-11-19 10:30 | PM.CNCAR ---
History of Present Illness History of Present Illness Date of Service: 11/19/20 Requesting physician: Piper Varma Chief complaint: abdominal pain, bradycardia Narrative: [age] year gentleman was recently seen at [facility] for congestive heart failure, cardiomyopathy and AFib with RVR for which she underwent cardioversion and was started on amiodarone and beta-christina and sent home. He is presenting with epigastric discomfort and tenderness. His blood workup has shown a normal lipase level with mildly abnormal AST and ALT levels. Alkaline phosphorus level is normal. Troponins are 39 and 36. BNP 981. He has also noticed to be bradycardic with heart rate in 40s at admission. There was no clear heart block and he had sinus bradycardia. He has been taking amiodarone 400 mg twice a day and metoprolol tartrate 50 mg twice a day. His amiodarone and metoprolol were held. His heart rate today morning is in 50s. He is denying any dizziness or lightheadedness. He said he was feeling somewhat tired after the discharge from hospital. Denying any shortness of breath. [facility] Past Medical History Medical History Ankle swelling Atrial fibrillation Gout HTN (hypertension) Systolic CHF Functional capacity: independent ambulation Family History Family history: reviewed and not pertinent Social History Social History Household Members: None Housing: Apartment Do you presently have visiting nurse or other home services: No Alcohol intake: unknown Patient Tobacco Use Status: Never used Tobacco Advance Directives: No Advance Directives Information Provided: No service: No Current occupational status: employed Meds Allergies Allergy/AdvReac Type Severity Reaction Status Date / Time No Known Allergies Allergy Verified 11/08/20 10:36 Active Medications: Current Medications Acetaminophen (Acetaminophen 325 Mg Tablet) 650 mg PO Q6H PRN PRN Reason: Pain, Mild (Pain Scale 1-3) Al Hydroxide/Mg Hydroxide (Magnesium Hydrox/Alum Hydrox 30 Ml Oral.Susp) 15 ml PO Q6H PRN PRN Reason: Dyspepsia Allopurinol (Allopurinol 100 Mg Tablet) 100 mg PO DAILY [facility] Last Admin: 11/19/20 08:40 Dose: 100 mg Documented by: Apixaban (Apixaban 5 Mg Tablet) 5 mg PO BID [facility] Last Admin: 11/19/20 08:40 Dose: 5 mg Documented by: Colchicine (Colchicine 0.6 Mg Tablet) 0.6 mg PO DAILY [facility] Last Admin: 11/19/20 10:12 Dose: 0.6 mg Documented by: Docusate Sodium (Docusate Sodium 100 Mg Capsule) 100 mg PO DAILY PRN PRN Reason: Constipation Docusate Sodium (Docusate Sodium 100 Mg Capsule) 100 mg PO DAILY [facility] Last Admin: 11/19/20 08:40 Dose: 100 mg Documented by: Famotidine (Famotidine/Pf 20 Mg/2 Ml Vial) 20 mg IVPUSH DAILY [facility] Last Admin: 11/19/20 08:39 Dose: 20 mg Documented by: Furosemide (Furosemide 40 Mg Tablet) 40 mg PO DAILY [facility]; Protocol Last Admin: 11/19/20 08:40 Dose: 40 mg Documented by: Ondansetron HCl (Ondansetron Hcl 4 Mg/2 Ml Vial) 4 mg IVPUSH Q8H PRN PRN Reason: Nausea and Vomiting Pharmacy Consult (Consult Rx Perform Med Rec) 1 each MISCELLANE ONCE PRN PRN Reason: Consult order Sodium Chloride (0.9 % Sodium Chloride Flush 3 Ml Syringe) 3 ml IVFLUSH QSHIFT [facility] Last Admin: 11/19/20 08:41 Dose: 3 ml Documented by: Valsartan (Valsartan 40 Mg Tablet) 40 mg PO BID [facility]; Protocol Last Admin: 11/19/20 08:39 Dose: 40 mg Documented by: Home Medications Medication Instructions Recorded Confirmed Last Taken Type amlodipine 5 mg tablet 7.5 mg PO DAILY 11/18/20 11/18/20 Unknown History Physical Exam Vital Signs: Vital Signs: Last Vital Signs Temp 96.8 F 11/18/20 13:23 Pulse 57 11/19/20 08:39 Resp 16 11/19/20 08:28 BP 117/75 11/19/20 08:39 Pulse Ox 96 11/19/20 08:28 Body Mass Index 32.1 GENERAL APPEARANCE: in no acute distress, pleasant. NECK: no carotid bruit, no jugular venous distention. SKIN: no suspicious lesions, warm and dry. HEART: no murmurs, regular rate and rhythm. Bradycardic. LUNGS: clear to auscultation bilaterally. ABDOMEN: Epigastric tenderness. EXTREMITIES: no edema. PERIPHERAL PULSES: equal. NEUROLOGIC: No gross deficits, AAO X 3 Results Labs and Meds Result diagrams: 11/19/20 05:56 11/19/20 05:56 Lab results: Laboratory Results - last 24 hr 11/18/20 11/18/20 11/18/20 13:44 13:44 13:44 WBC 12.8 H RBC 5.06 Hgb 15.8 Hct 46.5 MCV 91.9 MCH 31.2 MCHC 34.0 RDW 14.4 Plt Count 251 D MPV 10.9 Immature Gran % (Auto) 0.5 H Neut % (Auto) 83.9 H Lymph % (Auto) 7.2 L [place] % (Auto) 8.1 Eos % (Auto) 0.1 Baso % (Auto) 0.2 Lymph # (Auto) 0.9 L [place] # (Auto) 1.0 Eos # (Auto) 0.0 Baso # (Auto) 0.0 Abs Immat Gran (auto) 0.07 H Absolute Neuts (auto) 10.7 H Absolute Nucleated RBC 0.000 Nucleated RBC % (auto) 0.0 Sodium 135 Potassium 4.3 Chloride 103 Carbon Dioxide 23 Anion Gap 13 BUN 30 H Creatinine 1.08 Estim Creat Clear Calc 84.9 Estimated GFR > 60 Random Glucose 130 H Calcium 9.5 Magnesium Total Bilirubin Direct Bilirubin AST ALT Alkaline Phosphatase Troponin I High Sens B-Natriuretic Peptide 981 H Total Protein Albumin Lipase Urine Color Urine Appearance Urine pH Ur Specific [place] Urine Protein Urine Glucose (UA) Urine Ketones Urine Blood Urine Nitrite Ur Leukocyte Esterase COVID-19 ([facility]I) COVID-19 Clin Com 11/18/20 11/18/20 11/18/20 13:44 13:44 13:44 WBC RBC Hgb Hct MCV MCH MCHC RDW Plt Count MPV Immature Gran % (Auto) Neut % (Auto) Lymph % (Auto) [place] % (Auto) Eos % (Auto) Baso % (Auto) Lymph # (Auto) [place] # (Auto) Eos # (Auto) Baso # (Auto) Abs Immat Gran (auto) Absolute Neuts (auto) Absolute Nucleated RBC Nucleated RBC % (auto) Sodium Potassium Chloride Carbon Dioxide Anion Gap BUN Creatinine Estim Creat Clear Calc Estimated GFR Random Glucose Calcium Magnesium 1.9 Total Bilirubin 1.2 H Direct Bilirubin 0.3 AST 49 H ALT 131 H Alkaline Phosphatase 75 Troponin I High Sens 39.3 H* B-Natriuretic Peptide Total Protein 6.3 L Albumin 3.8 Lipase 35 Urine Color Urine Appearance Urine pH Ur Specific [place] Urine Protein Urine Glucose (UA) Urine Ketones Urine Blood Urine Nitrite Ur Leukocyte Esterase COVID-19 (BRANDI) Negative COVID-19 Clin Com See Note 11/18/20 11/18/20 11/19/20 13:45 17:20 05:56 WBC RBC Hgb Hct MCV MCH MCHC RDW Plt Count MPV Immature Gran % (Auto) Neut % (Auto) Lymph % (Auto) [place] % (Auto) Eos % (Auto) Baso % (Auto) Lymph # (Auto) [place] # (Auto) Eos # (Auto) Baso # (Auto) Abs Immat Gran (auto) Absolute Neuts (auto) Absolute Nucleated RBC Nucleated RBC % (auto) Sodium 140 Potassium 3.9 Chloride 104 Carbon Dioxide 29 Anion Gap 11 L BUN 37 H Creatinine 1.10 Estim Creat Clear Calc 83.3 Estimated GFR > 60 Random Glucose 95 Calcium 9.1 Magnesium Total Bilirubin 0.8 Direct Bilirubin 0.3 AST 23 D ALT 92 H Alkaline Phosphatase 86 Troponin I High Sens 36.0 H* B-Natriuretic Peptide Total Protein 5.6 L Albumin 3.6 Lipase Urine Color STRAW Urine Appearance CLEAR Urine pH 5.5 Ur Specific [place] 1.015 Urine Protein NEG Urine Glucose (UA) NEG Urine Ketones NEG Urine Blood NEG Urine Nitrite NEG Ur Leukocyte Esterase NEG COVID-19 ([facility]ANDI) COVID-19 Clin Com 11/19/20 05:56 WBC 12.1 H RBC 4.99 Hgb 15.6 Hct 46.3 MCV 92.8 MCH 31.3 MCHC 33.7 RDW 14.6 Plt Count 190 MPV 10.7 Immature Gran % (Auto) Neut % (Auto) Lymph % (Auto) [place] % (Auto) Eos % (Auto) Baso % (Auto) Lymph # (Auto) [place] # (Auto) Eos # (Auto) Baso # (Auto) Abs Immat Gran (auto) Absolute Neuts (auto) Absolute Nucleated RBC 0.000 Nucleated RBC % (auto) 0.0 Sodium Potassium Chloride Carbon Dioxide Anion Gap BUN Creatinine Estim Creat Clear Calc Estimated GFR Random Glucose Calcium Magnesium Total Bilirubin Direct Bilirubin AST ALT Alkaline Phosphatase Troponin I High Sens B-Natriuretic Peptide Total Protein Albumin Lipase Urine Color Urine Appearance Urine pH Ur Specific [place] Urine Protein Urine Glucose (UA) Urine Ketones Urine Blood Urine Nitrite Ur Leukocyte Esterase COVID-19 (BRANDI) COVID-19 Clin Com Imaging Radiologist's impression: Impressions Abdomen/Pelvis CT 11/18/20 13:27 IMPRESSION: Bilateral nonobstructive radiopaque renal calculi without hydronephrosis. Bilateral renal cysts and perinephric stranding. No acute intra-abdominal process seen. Especially no abnormality seen in the epigastric region. Trace perihepatic fluid collection. Gallstones without wall thickening. KUB X-Ray 11/19/20 09:39 IMPRESSION: 1. Visualized bowel gas pattern is nonobstructive. No dilated loops of bowel visualized. 2. Mild fecal loading the ascending colon. 3. Radiopaque calcification overlying the left renal shadow measuring 1.0 cm. Assessment and Plan (1) Abdominal pain: Qualifiers: Abdominal location: epigastric Qualified Code(s): R10.13 - Epigastric pain Status: Acute (2) Bradycardia: Status: Acute [age] gentleman presenting with epigastric pain and bradycardia. Labs and EKGs reviewed. EKG on admission showed sinus bradycardia at 40 beats per minute, right bundle-branch block, left anterior fascicular block, QTC of 437 milliseconds. He had a bifascicular block with diffuse T-wave inversions on his previous EKGs also. Epigastric tenderness is present and there is likely some gastritis or GI issue going on. This can be related to amiodarone use also. Amiodarone is reported with pancreatitis but his lipase levels are normal. I think amiodarone should be held right now. He was bradycardic in 40s and after stopping his amiodarone and metoprolol his heart rate is better. I think we decrease his metoprolol to 25 mg of Toprol-XL. 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 He may need pacemaker placement. This decision can be a little complex because he has low EF and bradycardia and likely will pace more and he may need Bi V pacemaker placement in that regard. I think we tried to treat him with medications for few months to see if his LV improves because if it does not improve then we may consider Bi V AICD on him. Thank you for allowing me to participate in the care of your patient. Please feel free to contact me if you have any questions. Procedures Date of Service Date of Service: 11/19/20
[2020-11-19] MEDS: polyethylene glycoL 3350 17 GM POWD.PACK PO (10:50)
--- NOTE | 2020-11-19 14:12 | HO.PM.IMPN ---
Subjective Subjective Date of Service: 11/19/20 Interval History: Seen and examined this morning Follow-up for bradycardia epigastric pain No chest pain, dizziness, shortness of breath. Continues to epigastric abdominal pain. Review of Systems Review of Systems: Yes all other systems are reviewed and are negative Constitutional Constitutional: Denies chills and Denies fever(s) Cardiovascular Cardiovascular: Denies chest pain Respiratory Respiratory: Denies cough Physical Exam Vital Signs: Vital Signs: Last Vital Signs Temp 96.8 F 11/18/20 13:23 Pulse 57 11/19/20 08:39 Resp 16 11/19/20 08:28 BP 117/75 11/19/20 08:39 Pulse Ox 96 11/19/20 08:28 Body Mass Index 32.1 Const: General: comfortable, no acute distress, alert and awake Nutritional Appearance: well nourished Orientation/consciousness: patient oriented x3 HENMT: Head: Yes normocephalic and Yes atraumatic Eyes: Sclerae: sclerae normal Resp: Effort & Inspection: normal respiratory effort and no respiratory distress Cardio: Rhythm: regular rhythm GI: Other: Abdomen is soft, tenderness to palpation in the epigastric region, nondistended, positive bowel sounds Neuro: General: patient oriented x3 Cranial nerves: Yes CN's II-XII intact bilaterally and Yes Bilaterally intact EOM present Extrem: Other: No lower extremity edema Objective Data Active Medications Acetaminophen (Acetaminophen 325 Mg Tablet) 650 mg PO Q6H PRN PRN Reason: Pain, Mild (Pain Scale 1-3) Al Hydroxide/Mg Hydroxide (Magnesium Hydrox/Alum Hydrox 30 Ml Oral.Susp) 15 ml PO Q6H PRN PRN Reason: Dyspepsia Allopurinol (Allopurinol 100 Mg Tablet) 100 mg PO DAILY [facility] Last Admin: 11/19/20 08:40 Dose: 100 mg Documented by: ARACELIS Apixaban (Apixaban 5 Mg Tablet) 5 mg PO BID [facility] Last Admin: 11/19/20 08:40 Dose: 5 mg Documented by: ARACELIS Colchicine (Colchicine 0.6 Mg Tablet) 0.6 mg PO DAILY [facility] Last Admin: 11/19/20 10:12 Dose: 0.6 mg Documented by: ARACELIS Docusate Sodium (Docusate Sodium 100 Mg Capsule) 100 mg PO DAILY PRN PRN Reason: Constipation Docusate Sodium (Docusate Sodium 100 Mg Capsule) 100 mg PO DAILY [facility] Last Admin: 11/19/20 08:40 Dose: 100 mg Documented by: ARACELIS Famotidine (Famotidine/Pf 20 Mg/2 Ml Vial) 20 mg IVPUSH DAILY [facility] Last Admin: 11/19/20 08:39 Dose: 20 mg Documented by: ARACELIS Furosemide (Furosemide 40 Mg Tablet) 40 mg PO DAILY [facility]; Protocol Last Admin: 11/19/20 08:40 Dose: 40 mg Documented by: ARACELIS Ondansetron HCl (Ondansetron Hcl 4 Mg/2 Ml Vial) 4 mg IVPUSH Q8H PRN PRN Reason: Nausea and Vomiting Pharmacy Consult (Consult Rx Perform Med Rec) 1 each MISCELLANE ONCE PRN PRN Reason: Consult order Sodium Chloride (0.9 % Sodium Chloride Flush 3 Ml Syringe) 3 ml IVFLUSH QSHIFT [facility] Last Admin: 11/19/20 08:41 Dose: 3 ml Documented by: ARACELIS Valsartan (Valsartan 40 Mg Tablet) 40 mg PO BID [facility]; Protocol Last Admin: 11/19/20 08:39 Dose: 40 mg Documented by: ARACELIS Labs CBC & Chem 7: 11/19/20 05:56 11/19/20 05:56 Labs: Laboratory Results - last 24 hr 11/18/20 11/18/20 11/18/20 13:44 13:44 13:44 MCV 91.9 MCH 31.2 MCHC 34.0 RDW 14.4 Plt Count 251 D MPV 10.9 Immature Gran % (Auto) 0.5 H Neut % (Auto) 83.9 H Lymph % (Auto) 7.2 L [place] % (Auto) 8.1 Eos % (Auto) 0.1 Baso % (Auto) 0.2 Lymph # (Auto) 0.9 L [place] # (Auto) 1.0 Eos # (Auto) 0.0 Baso # (Auto) 0.0 Abs Immat Gran (auto) 0.07 H Absolute Neuts (auto) 10.7 H Absolute Nucleated RBC 0.000 Nucleated RBC % (auto) 0.0 Anion Gap 13 Estim Creat Clear Calc 84.9 Estimated GFR > 60 Random Glucose 130 H Calcium 9.5 Magnesium Total Bilirubin Direct Bilirubin AST ALT Alkaline Phosphatase Troponin I High Sens B-Natriuretic Peptide 981 H Total Protein Albumin Lipase 11/18/20 11/18/20 11/18/20 13:44 13:44 17:20 MCV MCH MCHC RDW Plt Count MPV Immature Gran % (Auto) Neut % (Auto) Lymph % (Auto) [place] % (Auto) Eos % (Auto) Baso % (Auto) Lymph # (Auto) [place] # (Auto) Eos # (Auto) Baso # (Auto) Abs Immat Gran (auto) Absolute Neuts (auto) Absolute Nucleated RBC Nucleated RBC % (auto) Anion Gap Estim Creat Clear Calc Estimated GFR Random Glucose Calcium Magnesium 1.9 Total Bilirubin 1.2 H Direct Bilirubin 0.3 AST 49 H ALT 131 H Alkaline Phosphatase 75 Troponin I High Sens 39.3 H* 36.0 H* B-Natriuretic Peptide Total Protein 6.3 L Albumin 3.8 Lipase 35 11/19/20 11/19/20 05:56 05:56 MCV 92.8 MCH 31.3 MCHC 33.7 RDW 14.6 Plt Count 190 MPV 10.7 Immature Gran % (Auto) Neut % (Auto) Lymph % (Auto) [place] % (Auto) Eos % (Auto) Baso % (Auto) Lymph # (Auto) [place] # (Auto) Eos # (Auto) Baso # (Auto) Abs Immat Gran (auto) Absolute Neuts (auto) Absolute Nucleated RBC 0.000 Nucleated RBC % (auto) 0.0 Anion Gap 11 L Estim Creat Clear Calc 83.3 Estimated GFR > 60 Random Glucose 95 Calcium 9.1 Magnesium Total Bilirubin 0.8 Direct Bilirubin 0.3 AST 23 D ALT 92 H Alkaline Phosphatase 86 Troponin I High Sens B-Natriuretic Peptide Total Protein 5.6 L Albumin 3.6 Lipase Assessment and Plan (1) Abdominal pain: Status: Acute (2) Bradycardia: Status: Acute Assessment and Plan: This is a 65-year-old male with history of atrial fibrillation on Eliquis status post recent cardioversion,HFrEF with LVEF 25-30%, HTN, gout and recent admission for hypertensive urgency, atrial fibrillation with rapid ventricular response and acute heart failure presents to the emergency department with epigastric abdominal pain found to have bradycardia with intermittent episodes of dizziness Bradycardia EKG showing sinus bradycardia, no high-degree heart block Intermittent episodes of dizziness, unclear if related to bradycardia Treated with glucagon in the ED Stop amiodorone metoprolol initially held. Will restart at lower dose per Cardiology recommendation tele monitoring Seen by cardiology Epigastric abdominal pain No history of acid reflux CT scan of abdomen shows no obvious etiology for pain IV PPI, symptomatic treatment troponin flat KUB non-obstructive pattern ?constipation contributing. Will add bowel regimen Amiodarone can sometimes cause stomach upset. Will DC (discussed with cardiology) Afib s/p CV 11/12 Amiodarone d/c Resume lower dose metoprolol Continue anticoagulation with Eliquis HFrEF, LVEF 25-30% BNP lower than on previous admission Does not appear to be in overt heart failure Continue home dose of Lasix Monitor fluid status Hypertension Blood pressure controlled Continue valsartan Metoprolol resumed at lower dose as above Hold Norvasc, BP on lower side today Monitor blood pressure closely Gout recent treatment for gout flare continue colchicine, allopurinol Perinephric stranding seen on CT no flank pain, UA negative mild transaminitis follow LFTs Leukocytosis no obvious infectious process noted trend CBC DVT prophylaxis-Eliquis line code status-full code Attending physician - Dr. Jernigan Quality Stroke Does the patient have a stroke diagnosis?: No VTE Prior VTE?: No VTE Risk Level:: Medical - moderate - high VTE Device Contraindication: Treatment Not Indicated VTE Drug Contraindication: N/A - Med Ordered
--- NOTE | 2020-11-19 14:33 | MHC.CM.PN ---
Addendum entered by Candice Damon 11/19/20 14:46: Patient only received 1 Moderna vaccine on 08/03. Original Note: Met with patient in regards to discharge planning. Patient speaks Taiwanese and Mohawk. Patient rents a room, and ambulates independently. Patient was d/c'd from [facility] on 11/15. [facility]. However, patient has not had not established care with Dr Isbell at [facility] in [place] yet. Therefore, [facility] was unable to admit the patient to their service. Patient has not yet had a follow up appointment with Dr Isbell. Anticipate patient will be discharged home without additional services. Patient has a friend that will tranpsort him home when medically stable. Continue to monitor for d/c needs.
[2020-11-19] MEDS: Metoprolol Succinate ER 25 MG TAB.ER.24H PO (15:49)
--- NOTE | 2020-11-19 15:51 | PC.NURSE ---
Pt given Metoprolol as ordered, HR at 60, occasional dips into high 50s, Piper KRUSE aware, okay to give to assess ability to tolerate. Pt remains alert/oriented. Reports having bowel movement after Miralax, unchanged abd pain 10/12
--- NOTE | 2020-11-19 17:37 | PC.NURSE ---
HR sitting at 53 s/p Piper Vargas notified.
[2020-11-20] VITALS (9 sets, daily range): BP systolic 145–168; BP diastolic 81–91; PULSE 50–58; RESP 14–20; TEMP 36.1–37.1; O2SAT 95–100
[2020-11-20] MEDS: Pantoprazole Sodium 40 MG/10 ML VIAL IVPUSH ×2 (06:18→16:35)
[2020-11-20] MEDS: Metoprolol Succinate ER 25 MG TAB.ER.24H PO (08:55)
[2020-11-20] MEDS: Furosemide 40 MG TABLET PO (08:56)
[2020-11-20] MEDS: Colchicine 0.6 MG TABLET PO (08:56)
[2020-11-20] MEDS: Apixaban 5 MG TABLET PO (08:56)
[2020-11-20] MEDS: Valsartan 40 MG TABLET PO ×2 (08:56→21:30)
[2020-11-20] MEDS: allopurinoL 100 MG TABLET PO (08:56)
[2020-11-20] MEDS: 0.9 % Sodium Chloride Flush 3 ML SYRINGE IVFLUSH ×3 (08:56→21:31)
[2020-11-20] MEDS: Docusate Sodium 100 MG CAPSULE PO (09:10)
--- NOTE | 2020-11-20 12:41 | PM.PNCARD ---
Subjective Subjective Date of Service: 11/20/20 Physical Exam Vital Signs: Last Vital Signs Temp 98.2 F 11/20/20 11:17 Pulse 58 11/20/20 11:17 Resp 20 11/20/20 11:17 BP 145/91 H 11/20/20 11:17 Pulse Ox 97 11/20/20 11:17 Body Mass Index 32.3 Results Labs and Meds Result diagrams: 11/19/20 05:56 11/19/20 05:56 Progress Note: A&P Fall Risk Details Current Medications: Current Medications Acetaminophen (Acetaminophen 325 Mg Tablet) 650 mg PO Q6H PRN PRN Reason: Pain, Mild (Pain Scale 1-3) Al Hydroxide/Mg Hydroxide (Magnesium Hydrox/Alum Hydrox 30 Ml Oral.Susp) 15 ml PO Q6H PRN PRN Reason: Dyspepsia Allopurinol (Allopurinol 100 Mg Tablet) 100 mg PO DAILY [facility] Last Admin: 11/20/20 08:56 Dose: 100 mg Documented by: Apixaban (Apixaban 5 Mg Tablet) 5 mg PO BID [facility] Last Admin: 11/20/20 08:56 Dose: 5 mg Documented by: Colchicine (Colchicine 0.6 Mg Tablet) 0.6 mg PO DAILY [facility] Last Admin: 11/20/20 08:56 Dose: 0.6 mg Documented by: Docusate Sodium (Docusate Sodium 100 Mg Capsule) 100 mg PO DAILY PRN PRN Reason: Constipation Docusate Sodium (Docusate Sodium 100 Mg Capsule) 100 mg PO DAILY [facility] Last Admin: 11/20/20 09:10 Dose: 100 mg Documented by: Furosemide (Furosemide 40 Mg Tablet) 40 mg PO DAILY [facility]; Protocol Last Admin: 11/20/20 08:56 Dose: 40 mg Documented by: Metoprolol Succinate (Metoprolol Succinate Er 25 Mg Tab.Er.24h) 25 mg PO DAILY [facility]; Protocol Last Admin: 11/20/20 08:55 Dose: 25 mg Documented by: Omeprazole (Omeprazole 20 Mg Capsule.Dr) 20 mg PO BID@0630,1630 [facility] Ondansetron HCl (Ondansetron Hcl 4 Mg/2 Ml Vial) 4 mg IVPUSH Q8H PRN PRN Reason: Nausea and Vomiting Pharmacy Consult (Consult Rx Perform Med Rec) 1 each MISCELLANE ONCE PRN PRN Reason: Consult order Polyethylene Glycol (Polyethylene Glycol 3350 17 Gm Powd.Pack) 17 gm PO DAILY PRN PRN Reason: Constipation Sodium Chloride (0.9 % Sodium Chloride Flush 3 Ml Syringe) 3 ml IVFLUSH QSHIFT [facility] Last Admin: 11/20/20 08:56 Dose: 3 ml Documented by: Valsartan (Valsartan 40 Mg Tablet) 40 mg PO BID [facility]; Protocol Last Admin: 11/20/20 08:56 Dose: 40 mg Documented by: Time Spent With Patient Time: Total time spent is greater than 50% in coordination of care (as documented) at patient's floor/unit and/or counseling patient: Progress Note: Quality Stroke Does the patient have a stroke diagnosis?: No
--- NOTE | 2020-11-20 12:55 | PM.IMPN ---
Progress Note: A&P (1) Abdominal pain: Status: Acute (2) Bradycardia: Status: Acute (3) Atrial fibrillation with RVR: Status: Acute (4) HFrEF (heart failure with reduced ejection fraction): Status: Acute Assessment and Plan: This is a 65-year-old male with history of atrial fibrillation on Eliquis status post recent cardioversion,HFrEF with LVEF 25-30%, HTN, gout and recent admission for hypertensive urgency, atrial fibrillation with rapid ventricular response and acute heart failure presents to the emergency department with epigastric abdominal pain found to have bradycardia with intermittent episodes of dizziness Bradycardia EKG showing sinus bradycardia, no high-degree heart block Intermittent episodes of dizziness, unclear if related to bradycardia Treated with glucagon in the ED Stop amiodorone metoprolol initially held.?Restarted at lower dose as per Cardiology tele monitoring Seen by cardiology Epigastric abdominal pain. Especially after eating. Question gastritis versus ulcer CT scan of abdomen shows no obvious etiology for pain, constipation on KUB IV PPI GI consultation, will likely need EGD Hold Eliquis due to dark stools Dark stool Hold Eliquis Check Stool for blood GI consult Afib s/p CV 11/12 Amiodarone d/c Resume lower dose metoprolol hold Eliquis for now due to dark stools HFrEF, LVEF 25-30% BNP lower than on previous admission Does not appear to be in overt heart failure Continue home dose of Lasix Monitor fluid status Hypertension Blood pressure controlled Continue valsartan, Norvasc Metoprolol resumed at lower dose as above Gout recent treatment for gout flare continue colchicine, allopurinol Perinephric stranding seen on CT no flank pain, UA negative mild transaminitis follow LFTs Leukocytosis no obvious infectious process noted trend CBC DVT prophylaxis- Eliquis on hold due to dark stools Attending physician - Dr. Jernigan Subjective Subjective Date of Service: 11/20/20 Review of Systems Follow-up bradycardia, epigastric pain Denies chest pain, shortness of breath, nausea, vomiting, diarrhea Reported worsening epigastric pain after food Physical Exam Vital Signs: Vital Signs: Last Vital Signs Temp 98.2 F 11/20/20 11:17 Pulse 58 11/20/20 11:17 Resp 20 11/20/20 11:17 BP 145/91 H 11/20/20 11:17 Pulse Ox 97 11/20/20 11:17 Body Mass Index 32.3 Appearing in no acute distress lung sounds are clear to auscultation heart regular rate rhythm, clear S1, S2 positive bowel sounds, epigastric tenderness, diffuse abdominal pain neuro patient is alert x3, no focal deficits Objective Data Current Medications Acetaminophen (Acetaminophen 325 Mg Tablet) 650 mg PO Q6H PRN PRN Reason: Pain, Mild (Pain Scale 1-3) Al Hydroxide/Mg Hydroxide (Magnesium Hydrox/Alum Hydrox 30 Ml Oral.Susp) 15 ml PO Q6H PRN PRN Reason: Dyspepsia Allopurinol (Allopurinol 100 Mg Tablet) 100 mg PO DAILY [facility] Last Admin: 11/20/20 08:56 Dose: 100 mg Documented by: Apixaban (Apixaban 5 Mg Tablet) 5 mg PO BID [facility] Last Admin: 11/20/20 08:56 Dose: 5 mg Documented by: Colchicine (Colchicine 0.6 Mg Tablet) 0.6 mg PO DAILY [facility] Last Admin: 11/20/20 08:56 Dose: 0.6 mg Documented by: Docusate Sodium (Docusate Sodium 100 Mg Capsule) 100 mg PO DAILY PRN PRN Reason: Constipation Docusate Sodium (Docusate Sodium 100 Mg Capsule) 100 mg PO DAILY [facility] Last Admin: 11/20/20 09:10 Dose: 100 mg Documented by: Furosemide (Furosemide 40 Mg Tablet) 40 mg PO DAILY [facility]; Protocol Last Admin: 11/20/20 08:56 Dose: 40 mg Documented by: Metoprolol Succinate (Metoprolol Succinate Er 25 Mg Tab.Er.24h) 25 mg PO DAILY [facility]; Protocol Last Admin: 11/20/20 08:55 Dose: 25 mg Documented by: Omeprazole (Omeprazole 20 Mg Capsule.) 20 mg PO BID@0630,1630 [facility] Ondansetron HCl (Ondansetron Hcl 4 Mg/2 Ml Vial) 4 mg IVPUSH Q8H PRN PRN Reason: Nausea and Vomiting Pharmacy Consult (Consult Rx Perform Med Rec) 1 each MISCELLANE ONCE PRN PRN Reason: Consult order Polyethylene Glycol (Polyethylene Glycol 3350 17 Gm Powd.Pack) 17 gm PO DAILY PRN PRN Reason: Constipation Sodium Chloride (0.9 % Sodium Chloride Flush 3 Ml Syringe) [facility] Admin: 11/20/20 08:56 Dose: 3 ml Documented by: Valsartan (Valsartan 40 Mg Tablet) 40 mg PO BID [facility]; Protocol Last Admin: 11/20/20 08:56 Dose: 40 mg Documented by: Labs CBC & Chem 7: 11/19/20 05:56 11/19/20 05:56 Quality Stroke Does the patient have a stroke diagnosis?: No VTE Prior VTE?: No VTE Risk Level:: Medical - moderate - high VTE Device Contraindication: Treatment Not Indicated VTE Drug Contraindication: N/A - Med Ordered
[2020-11-20 15:25] LABS: OBS Int Ctl Valid YES; OBS1 POSITIVE (NEGATIVE)
[2020-11-21] VITALS (8 sets, daily range): BP systolic 124–152; BP diastolic 75–86; PULSE 54–96; RESP 16–20; TEMP 36.1–36.7; O2SAT 98–99
[2020-11-21] MEDS: Pantoprazole Sodium 40 MG/10 ML VIAL IVPUSH ×2 (06:09→16:44)
[2020-11-21 07:14] LABS: Hematocrit 49.5 % (42-52); Hemoglobin 16.6 g/dl (14.0-18.0); Mean Corpuscular HGB Conc 33.5 g/dl (31.0-36.0); Mean Corpuscular Hemoglobin 31.3 pg (27.0-33.0); Mean Corpuscular Volume 93.4 fL (80-98); Mean Platelet Volume 11.7 fL (9.4-12.4); Platelet Count 162 X10*3/uL (160-400); Red Cell Distribution Width 14.5 % (11.0-16.0); White Blood Count 8.2 X10*3/uL (4.8-10.8)
[2020-11-21 07:24] LABS: Anion Gap 14 (12-20); Blood Urea Nitrogen 32 mg/dL (9-16); Carbon Dioxide 25 mmol/L (22-29); Chloride 104 mmol/L (96-108); Creatinine Clr Calc Pharmacy 84.4; Estimated Glomerular Filt Rate > 60; Glucose Random 96 mg/dL (60-115); Potassium 4.3 mmol/L (3.3-5.1); Sodium 139 mmol/L (135-145)
[2020-11-21] MEDS: Valsartan 40 MG TABLET PO ×2 (09:16→20:51)
[2020-11-21] MEDS: allopurinoL 100 MG TABLET PO (09:16)
[2020-11-21] MEDS: Colchicine 0.6 MG TABLET PO (09:16)
[2020-11-21] MEDS: amLODIPine Besylate 2.5 MG TABLET 7.5 MG PO (09:16)
[2020-11-21] MEDS: Furosemide 40 MG TABLET PO (09:17)
[2020-11-21] MEDS: 0.9 % Sodium Chloride Flush 3 ML SYRINGE IVFLUSH ×3 (09:17→20:51)
[2020-11-21] MEDS: Docusate Sodium 100 MG CAPSULE PO (09:17)
[2020-11-21] MEDS: Metoprolol Succinate ER 25 MG TAB.ER.24H PO (09:17)
--- NOTE | 2020-11-21 11:30 | PM.EVENT ---
Event Note Date of Service: 11/21/20 Event Note: GI consult dictated EGD planned for 11/22 for evaluation of abdominal pain. Patient understands risks and benefits and agrees to proceed.
--- NOTE | 2020-11-21 11:33 | MHC.SHP ---
Pre-Procedural Eval Section A Date of Service: 11/21/20 The patient is an INPATIENT: Yes Changes since office visit: No Cold of Flu in the past 2 weeks, No New Medical Problems, No Changes in Medication and No Patient answered all questions The History & Physical has been completed within 30 days and I have reviewed it.: Yes Section B Chief Complaint: abdominal pain, bradycardia Allergies: Allergies Allergy/AdvReac Type Severity Reaction Status Date / Time No Known Allergies Allergy Verified 11/08/20 10:36 Plan I have reviewed the history and physical and performed a pertinent physical examination on my patient. No changes have occurred unless specified.
--- NOTE | 2020-11-21 11:54 | PM.PNCARD ---
Subjective Subjective Date of Service: 11/21/20 Interval history: c/o epigastric pain. Seen by GI. Bradycardic in 50s. asymptomatic. Physical Exam Vital Signs: Last Vital Signs Temp 97.7 F 11/21/20 11:04 Pulse 54 11/21/20 11:04 Resp 18 11/21/20 11:04 BP 134/79 11/21/20 11:04 Pulse Ox 98 11/21/20 11:04 Body Mass Index 32.3 GENERAL APPEARANCE: in no acute distress, pleasant. NECK: no carotid bruit, no jugular venous distention. SKIN: no suspicious lesions, warm and dry. HEART: no murmurs, regular rate and rhythm.? Bradycardic. LUNGS: clear to auscultation bilaterally. ABDOMEN:? Epigastric tenderness.? EXTREMITIES: no edema. PERIPHERAL PULSES: equal. NEUROLOGIC: No gross deficits, AAO X 3 Results Labs and Meds Result diagrams: 11/21/20 06:28 11/21/20 06:28 Lab results: Laboratory Results - last 24 hr 11/20/20 11/21/20 11/21/20 Unknown 06:28 06:28 WBC 8.2 RBC 5.30 Hgb 16.6 Hct 49.5 MCV 93.4 MCH 31.3 MCHC 33.5 RDW 14.5 Plt Count 162 MPV 11.7 Absolute Nucleated RBC 0.000 Nucleated RBC % (auto) 0.0 Sodium 139 Potassium 4.3 Chloride 104 Carbon Dioxide 25 Anion Gap 14 BUN 32 H Creatinine 1.09 Estim Creat Clear Calc 84.4 Estimated GFR > 60 Random Glucose 96 Calcium 9.0 Stool Occult Blood POSITIVE Progress Note: A&P Assessment and plan (1) HFrEF (heart failure with reduced ejection fraction): Status: Acute (2) Bradycardia: Status: Acute Assessment and Plan: 65-year-old male with cardiomyopathy and CHRIS/cardioversion recently for Afib. Came with epigastric pain and bradycardia. Amio has been stopped. GI planning endoscopy but he had cardioversion 9 days ago and usually 4 weeks post CV are high risk for inerrupting the anticoagulation due to atrial stunning and stroke risk. I think best strategy would be to avoid interruption unless it is felt that he needs endoscopy urgently. Stop the amiodarone. c/w Toprol 25 mg. Thank you for allowing me to participate in his care. Fall Risk Details Current Medications: Current Medications Acetaminophen (Acetaminophen 325 Mg Tablet) 650 mg PO Q6H PRN PRN Reason: Pain, Mild (Pain Scale 1-3) Al Hydroxide/Mg Hydroxide (Magnesium Hydrox/Alum Hydrox 30 Ml Oral.Susp) 15 ml PO Q6H PRN PRN Reason: Dyspepsia Allopurinol (Allopurinol 100 Mg Tablet) 100 mg PO DAILY [facility] Last Admin: 11/21/20 09:16 Dose: 100 mg Documented by: Amlodipine Besylate (Amlodipine Besylate 2.5 Mg Tablet) 7.5 mg PO DAILY [facility]; Protocol Last Admin: 11/21/20 09:16 Dose: 7.5 mg Documented by: Apixaban (Apixaban 5 Mg Tablet) 5 mg PO BID [facility] Last Admin: 11/20/20 08:56 Dose: 5 mg Documented by: Colchicine (Colchicine 0.6 Mg Tablet) 0.6 mg PO DAILY [facility] Last Admin: 11/21/20 09:16 Dose: 0.6 mg Documented by: Docusate Sodium (Docusate Sodium 100 Mg Capsule) 100 mg PO DAILY PRN PRN Reason: Constipation Docusate Sodium (Docusate Sodium 100 Mg Capsule) 100 mg PO DAILY [facility] Last Admin: 11/21/20 09:17 Dose: 100 mg Documented by: Furosemide (Furosemide 40 Mg Tablet) 40 mg PO DAILY [facility]; Protocol Last Admin: 11/21/20 09:17 Dose: 40 mg Documented by: Metoprolol Succinate (Metoprolol Succinate Er 25 Mg Tab.Er.24h) 25 mg PO DAILY [facility]; Protocol Last Admin: 11/21/20 09:17 Dose: 25 mg Documented by: Ondansetron HCl (Ondansetron Hcl 4 Mg/2 Ml Vial) 4 mg IVPUSH Q8H PRN PRN Reason: Nausea and Vomiting Pantoprazole Sodium (Pantoprazole Sodium 40 Mg/10 Ml Vial) 40 mg IVPUSH BID@0630,1630 [facility] Last Admin: 11/21/20 06:09 Dose: 40 mg Documented by: Pharmacy Consult (Consult Rx Perform Med Rec) 1 each MISCELLANE ONCE PRN PRN Reason: Consult order Polyethylene Glycol (Polyethylene Glycol 3350 17 Gm Powd.Pack) 17 gm PO DAILY PRN PRN Reason: Constipation Sodium Chloride (0.9 % Sodium Chloride Flush 3 Ml Syringe) 3 ml IVFLUSH QSHIFT [facility] Last Admin: 11/21/20 09:17 Dose: 3 ml Documented by: Valsartan (Valsartan 40 Mg Tablet) 40 mg PO BID [facility]; Protocol Last Admin: 11/21/20 09:16 Dose: 40 mg Documented by: Time Spent With Patient Time: Total time spent is greater than 50% in coordination of care (as documented) at patient's floor/unit and/or counseling patient: Time with patient: 15 - 24 minutes Progress Note: Quality Stroke Does the patient have a stroke diagnosis?: No Procedures Date of Service Date of Service: 11/21/20
--- NOTE | 2020-11-21 12:12 | PM.IMPN ---
Progress Note: A&P (1) Bradycardia: Status: Acute (2) Atrial fibrillation with RVR: Status: Acute (3) GI bleed: Status: Acute (4) HFrEF (heart failure with reduced ejection fraction): Status: Acute Assessment and Plan: This is a 65-year-old male with history of atrial fibrillation on Eliquis status post recent cardioversion,HFrEF with LVEF 25-30%, HTN, gout and recent admission for hypertensive urgency, atrial fibrillation with rapid ventricular response and acute heart failure presents to the emergency department with epigastric abdominal pain found to have bradycardia with intermittent episodes of dizziness Epigastric abdominal pain.? Especially after eating.? Question gastritis versus ulcer CT scan of abdomen shows no obvious etiology for pain, constipation on KUB IV PPI EGD tomorrow, NPO tonight Hold Eliquis due to dark stools Bradycardia EKG showing sinus bradycardia, no high-degree heart block Intermittent episodes of dizziness, unclear if related to bradycardia Treated with glucagon in the ED Stop amiodorone metoprolol initially held.?Restarted at lower dose as per Cardiology tele monitoring Seen by cardiology Dark stool Hold Eliquis Check Stool for blood GI consult Will obtain EGD tomorrow joy 4 weeks after cardioversion. Afib. Recent cardioversion on 11/12, there is a risk of stroke within those 4 weeks of cardioversion and Eliquis was held due to GI bleed however discussed with GI and ok to continue eliquis for now Amiodarone d/c Resume lower dose metoprolol HFrEF, LVEF 25-30% BNP lower than on previous admission Does not appear to be in overt heart failure Continue home dose of Lasix Monitor fluid status Hypertension Blood pressure controlled Continue valsartan, Norvasc Metoprolol resumed at lower dose as above Gout recent treatment for gout flare continue colchicine, allopurinol Perinephric stranding seen on CT no flank pain, UA negative mild transaminitis follow LFTs Leukocytosis no obvious infectious process noted trend CBC DVT prophylaxis- Ivaniaquis Attendin Dr. Jernigan Subjective Subjective Date of Service: 11/21/20 Review of Systems Follow bradycardia, epigastric pain Still with some epigastric pain especially after food Denies chest pain, shortness of breath, nausea, vomiting, diarrhea Physical Exam Vital Signs: Vital Signs: Last Vital Signs Temp 97.7 F 11/21/20 11:04 Pulse 54 11/21/20 11:04 Resp 18 11/21/20 11:04 BP 134/79 11/21/20 11:04 Pulse Ox 98 11/21/20 11:04 Body Mass Index 32.3 Appearing in no acute distress lung sounds are clear to auscultation heart regular rate rhythm, clear S1, S2 positive bowel sounds, abdomen is soft, epigastric pain neuro patient is alert x3, no focal deficits Objective Data Current Medications Acetaminophen (Acetaminophen 325 Mg Tablet) 650 mg PO Q6H PRN PRN Reason: Pain, Mild (Pain Scale 1-3) Al Hydroxide/Mg Hydroxide (Magnesium Hydrox/Alum Hydrox 30 Ml Oral.Susp) 15 ml PO Q6H PRN PRN Reason: Dyspepsia Allopurinol (Allopurinol 100 Mg Tablet) 100 mg PO DAILY [facility] Last Admin: 11/21/20 09:16 Dose: 100 mg Documented by: Amlodipine Besylate (Amlodipine Besylate 2.5 Mg Tablet) 7.5 mg PO DAILY [facility]; Protocol Last Admin: 11/21/20 09:16 Dose: 7.5 mg Documented by: Apixaban (Apixaban 5 Mg Tablet) 5 mg PO BID [facility] Last Admin: 11/20/20 08:56 Dose: 5 mg Documented by: Colchicine (Colchicine 0.6 Mg Tablet) 0.6 mg PO DAILY [facility] Last Admin: 11/21/20 09:16 Dose: 0.6 mg Documented by: Docusate Sodium (Docusate Sodium 100 Mg Capsule) 100 mg PO DAILY PRN PRN Reason: Constipation Docusate Sodium (Docusate Sodium 100 Mg Capsule) 100 mg PO DAILY [facility] Last Admin: 11/21/20 09:17 Dose: 100 mg Documented by: Furosemide (Furosemide 40 Mg Tablet) 40 mg PO DAILY [facility]; Protocol Last Admin: 11/21/20 09:17 Dose: 40 mg Documented by: Metoprolol Succinate (Metoprolol Succinate Er 25 Mg Tab.Er.24h) 25 mg PO DAILY [facility]; Protocol Last Admin: 11/21/20 09:17 Dose: 25 mg Documented by: Ondansetron HCl (Ondansetron Hcl 4 Mg/2 Ml Vial) 4 mg IVPUSH Q8H PRN PRN Reason: Nausea and Vomiting Pantoprazole Sodium (Pantoprazole Sodium 40 Mg/10 Ml Vial) 40 mg IVPUSH BID@0630,1630 [facility] Last Admin: 11/21/20 06:09 Dose: 40 mg Documented by: Pharmacy Consult (Consult Rx Perform Med Rec) 1 each MISCELLANE ONCE PRN PRN Reason: Consult order Polyethylene Glycol (Polyethylene Glycol 3350 17 Gm Powd.Pack) 17 gm PO DAILY PRN PRN Reason: Constipation Sodium Chloride (0.9 % Sodium Chloride Flush 3 Ml Syringe) 3 ml IVFLUSH QSHIFT [facility] Last Admin: 11/21/20 09:17 Dose: 3 ml Documented by: Valsartan (Valsartan 40 Mg Tablet) 40 mg PO BID [facility]; Protocol Last Admin: 11/21/20 09:16 Dose: 40 mg Documented by: Labs CBC & Chem 7: 11/21/20 06:28 11/21/20 06:28 Labs: Laboratory Results - last 24 hr 11/20/20 11/21/20 11/21/20 Unknown 06:28 06:28 MCV 93.4 MCH 31.3 MCHC 33.5 RDW 14.5 Plt Count 162 MPV 11.7 Absolute Nucleated RBC 0.000 Nucleated RBC % (auto) 0.0 Anion Gap 14 Estim Creat Clear Calc 84.4 Estimated GFR > 60 Random Glucose 96 Calcium 9.0 Stool Occult Blood POSITIVE Quality Stroke Does the patient have a stroke diagnosis?: No VTE Prior VTE?: No VTE Risk Level:: Medical - moderate - high VTE Device Contraindication: Treatment Not Indicated VTE Drug Contraindication: N/A - Med Ordered
[2020-11-21] MEDS: Apixaban 5 MG TABLET PO (20:51)
--- NOTE | 2020-11-21 22:01 | CONS_ITS ---
DATE OF SERVICE: 11/21/2020 REFERRING PHYSICIAN: Aida Dougherty NP REASON FOR CONSULTATION: Epigastric pain. HISTORY OF PRESENT ILLNESS: The patient is a pleasant 65-year-old man, who was admitted to the hospital with complaints of epigastric pain. This has been present since admission on November 18 and began several days previous. He was recently hospitalized with atrial fibrillation and CHF as well as hypertensive urgency and underwent cardioversion. He denies any prior history of peptic ulcer disease. He has no complaints of dysphagia, hematemesis, or melena. Symptoms have been worse when he eats. Stool occult blood testing was positive. He denies use of chronic NSAIDs or significant alcohol intake. He does not smoke. There is no family history of esophageal or stomach cancer. He denies a prior history of undergoing colonoscopy. PAST MEDICAL HISTORY: 1. Atrial fibrillation as above. 2. Hypertension. 3. Congestive heart failure. CURRENT MEDICATIONS: His current medication list is reviewed in the chart. ALLERGIES: THERE ARE NONE REPORTED. FAMILY HISTORY: As above. SOCIAL HISTORY: He does not smoke. Alcohol use is occasional. REVIEW OF SYSTEMS: SKIN: No pruritus. HEENT: Negative. CARDIOPULMONARY: No shortness of breath or chest pain. GASTROINTESTINAL: As above. GENITOURINARY: Negative. NEUROPSYCHIATRIC: Negative. PHYSICAL EXAMINATION: GENERAL: Shows a pleasant male, lying comfortably in a chair. VITAL SIGNS: Stable. SKIN: Anicteric. HEENT: Shows no scleral icterus. NECK: Without lymphadenopathy or thyromegaly. LUNGS: Clear. HEART: Shows a regular rate and rhythm. S1, S2. No murmur. ABDOMEN: Soft without focal masses or tenderness. Bowel sounds are present. No organomegaly is noted. EXTREMITIES: Without edema. LABORATORY DATA: Reviewed. IMPRESSION: Abdominal pain. The differential diagnosis for this includes peptic ulcer disease, gastritis, malignancy, and functional GI pain. I discussed endoscopy with him including risks and benefits of the procedure. He understands these and agrees to proceed. This will be scheduled for tomorrow. In the interim, I agree with treating him with a proton pump inhibitor and following him clinically. We did review that his CT scan of the abdomen and pelvis on admission showed no acute intraabdominal process. He did have gallstones. MD DIANNE Echevarria/ALBERTO / [id number]
[2020-11-22] VITALS (11 sets, daily range): BP systolic 80–140; BP diastolic 48–84; PULSE 52–67; RESP 16–20; TEMP 36–37.2; O2SAT 94–99; BMI 32.1
[2020-11-22 05:47] LABS: Hematocrit 46.7 % (42-52); Hemoglobin 15.4 g/dl (14.0-18.0); Mean Corpuscular Hemoglobin 30.9 pg (27.0-33.0); Mean Corpuscular Volume 93.6 fL (80-98); Mean Platelet Volume 10.4 fL (9.4-12.4); Platelet Count 168 X10*3/uL (160-400); Red Blood Count 4.99 X10*6/uL (4.60-5.80); Red Cell Distribution Width 14.2 % (11.0-16.0); White Blood Count 6.8 X10*3/uL (4.8-10.8)
[2020-11-22 06:02] LABS: Anion Gap 10 (12-20); Blood Urea Nitrogen 30 mg/dL (9-16); Calcium 8.8 mg/dL (8.4-10.2); Carbon Dioxide 29 mmol/L (22-29); Chloride 104 mmol/L (96-108); Creatinine Clr Calc Pharmacy 78.6; Estimated Glomerular Filt Rate > 60; Glucose Random 105 mg/dL (60-115); Potassium 4.4 mmol/L (3.3-5.1); Sodium 139 mmol/L (135-145)
[2020-11-22] MEDS: Pantoprazole Sodium 40 MG/10 ML VIAL IVPUSH ×2 (06:14→16:28)
[2020-11-22] MEDS: Apixaban 5 MG TABLET PO (08:44)
[2020-11-22] MEDS: Metoprolol Succinate ER 25 MG TAB.ER.24H PO (08:44)
[2020-11-22] MEDS: allopurinoL 100 MG TABLET PO (08:44)
[2020-11-22] MEDS: Valsartan 40 MG TABLET PO (08:44)
[2020-11-22] MEDS: amLODIPine Besylate 2.5 MG TABLET 7.5 MG PO (08:45)
[2020-11-22] MEDS: Furosemide 40 MG TABLET PO (08:45)
[2020-11-22] MEDS: 0.9 % Sodium Chloride Flush 3 ML SYRINGE IVFLUSH ×2 (08:45→16:28)
[2020-11-22] MEDS: Colchicine 0.6 MG TABLET PO (08:45)
[2020-11-22] MEDS: Docusate Sodium 100 MG CAPSULE PO (08:45)
--- NOTE | 2020-11-22 12:08 | P.CONAN_ITS ---
[facility] Active Problems Active Problems: All Active Problems (Updated 11/21/20 @ 15:50 by Aida mejia NP) GI bleed (Acute) HFrEF (heart failure with reduced ejection fraction) (Acute) Abdominal pain (Acute) Elevated LFTs (Acute) Bradycardia (Acute) Ankle swelling (Acute) Hypertensive urgency (Acute) Acute congestive heart failure (Acute) Congestive heart failure (Acute) Atrial fibrillation with RVR (Acute) Elevated troponin (Acute) Shortness of breath at rest (Acute) Past Medical History Medical History Ankle swelling Atrial fibrillation Gout HTN (hypertension) Systolic CHF Functional capacity: independent ambulation Family History Family history of problems with anesthesia: No Surgical History History of Problems with Anesthesia: No Social History Social History Household Members: None Housing: Apartment Do you presently have visiting nurse or other home services: No Alcohol intake: unknown Patient Tobacco Use Status: Never used Tobacco service: No Current occupational status: employed Meds Allergies Allergy/AdvReac Type Severity Reaction Status Date / Time No Known Allergies Allergy Verified 11/08/20 10:36 Active Medications: Current Medications Acetaminophen (Acetaminophen 325 Mg Tablet) 650 mg PO Q6H PRN PRN Reason: Pain, Mild (Pain Scale 1-3) Al Hydroxide/Mg Hydroxide (Magnesium Hydrox/Alum Hydrox 30 Ml Oral.Susp) 15 ml PO Q6H PRN PRN Reason: Dyspepsia Allopurinol (Allopurinol 100 Mg Tablet) 100 mg PO DAILY [facility] Last Admin: 11/22/20 08:44 Dose: 100 mg Documented by: Amlodipine Besylate (Amlodipine Besylate 2.5 Mg Tablet) 7.5 mg PO DAILY [facility]; Protocol Last Admin: 11/22/20 08:45 Dose: 7.5 mg Documented by: Apixaban (Apixaban 5 Mg Tablet) 5 mg PO BID [facility] Last Admin: 11/22/20 08:44 Dose: 5 mg Documented by: Colchicine (Colchicine 0.6 Mg Tablet) 0.6 mg PO DAILY [facility] Last Admin: 11/22/20 08:45 Dose: 0.6 mg Documented by: Docusate Sodium (Docusate Sodium 100 Mg Capsule) 100 mg PO DAILY PRN PRN Reason: Constipation Docusate Sodium (Docusate Sodium 100 Mg Capsule) 100 mg PO DAILY [facility] Last Admin: 11/22/20 08:45 Dose: 100 mg Documented by: Furosemide (Furosemide 40 Mg Tablet) 40 mg PO DAILY [facility]; Protocol Last Admin: 11/22/20 08:45 Dose: 40 mg Documented by: Metoprolol Succinate (Metoprolol Succinate Er 25 Mg Tab.Er.24h) 25 mg PO DAILY [facility]; Protocol Last Admin: 11/22/20 08:44 Dose: 25 mg Documented by: Ondansetron HCl (Ondansetron Hcl 4 Mg/2 Ml Vial) 4 mg IVPUSH Q8H PRN PRN Reason: Nausea and Vomiting Pantoprazole Sodium (Pantoprazole Sodium 40 Mg/10 Ml Vial) 40 mg IVPUSH BID@0630,1630 [facility] Last Admin: 11/22/20 06:14 Dose: 40 mg Documented by: Pharmacy Consult (Consult Rx Perform Med Rec) 1 each MISCELLANE ONCE PRN PRN Reason: Consult order Polyethylene Glycol (Polyethylene Glycol 3350 17 Gm Powd.Pack) 17 gm PO DAILY PRN PRN Reason: Constipation Sodium Chloride (0.9 % Sodium Chloride Flush 3 Ml Syringe) 3 ml IVFLUSH QSHIFT [facility] Last Admin: 11/22/20 08:45 Dose: 3 ml Documented by: Valsartan (Valsartan 40 Mg Tablet) 40 mg PO BID [facility]; Protocol Last Admin: 11/22/20 08:44 Dose: 40 mg Documented by: Home Medications Medication Instructions Recorded Confirmed Last Taken Type amlodipine 5 mg tablet 7.5 mg PO DAILY 11/18/20 11/18/20 Unknown History Exam Exam Date and Time: November 22, 2020 1208 Height,Weight and Vital Signs: Height 5 ft 11 in Weight 105.1 kg Last Vital Signs Temp 96.8 F 11/22/20 11:03 Pulse 64 11/22/20 11:03 Resp 18 11/22/20 11:03 BP 124/84 11/22/20 11:03 Pulse Ox 97 11/22/20 11:03 Pertinent Lab Results Pertinent Lab Results: Laboratory Tests 11/18/20 11/18/20 11/18/20 13:44 13:44 13:44 WBC 12.8 H RBC 5.06 Hgb 15.8 Hct 46.5 MCV 91.9 MCH 31.2 MCHC 34.0 RDW 14.4 Plt Count 251 D MPV 10.9 Immature Gran % (Auto) 0.5 H Neut % (Auto) 83.9 H Lymph % (Auto) 7.2 L Dougherty % (Auto) 8.1 Eos % (Auto) 0.1 Baso % (Auto) 0.2 Lymph # (Auto) 0.9 L Dougherty # (Auto) 1.0 Eos # (Auto) 0.0 Baso # (Auto) 0.0 Abs Immat Gran (auto) 0.07 H Absolute Neuts (auto) 10.7 H Absolute Nucleated RBC 0.000 Nucleated RBC % (auto) 0.0 Sodium 135 Potassium 4.3 Chloride 103 Carbon Dioxide 23 Anion Gap 13 BUN 30 H Creatinine 1.08 Estim Creat Clear Calc 84.9 Estimated GFR > 60 Random Glucose 130 H Calcium 9.5 Magnesium Total Bilirubin Direct Bilirubin AST ALT Alkaline Phosphatase Troponin I High Sens B-Natriuretic Peptide 981 H Total Protein Albumin Lipase Urine Color Urine Appearance Urine pH Ur Specific [place] Urine Protein Urine Glucose (UA) Urine Ketones Urine Blood Urine Nitrite Ur Leukocyte Esterase Stool Occult Blood COVID-19 (BRANDI) COVID-Pharnext 11/18/20 11/18/20 11/18/20 13:44 13:44 13:44 WBC RBC Hgb Hct MCV MCH MCHC RDW Plt Count MPV Immature Gran % (Auto) Neut % (Auto) Lymph % (Auto) Dougherty % (Auto) Eos % (Auto) Baso % (Auto) Lymph # (Auto) Dougherty # (Auto) Eos # (Auto) Baso # (Auto) Abs Immat Gran (auto) Absolute Neuts (auto) Absolute Nucleated RBC Nucleated RBC % (auto) Sodium Potassium Chloride Carbon Dioxide Anion Gap BUN Creatinine Estim Creat Clear Calc Estimated GFR Random Glucose Calcium Magnesium 1.9 Total Bilirubin 1.2 H Direct Bilirubin 0.3 AST 49 H ALT 131 H Alkaline Phosphatase 75 Troponin I High Sens 39.3 H* B-Natriuretic Peptide Total Protein 6.3 L Albumin 3.8 Lipase 35 Urine Color Urine Appearance Urine pH Ur Specific [place] Urine Protein Urine Glucose (UA) Urine Ketones Urine Blood Urine Nitrite Ur Leukocyte Esterase Stool Occult Blood COVID-19 (BRANDI) Negative COVID-19 [employer] See Note 11/18/20 11/18/20 11/19/20 13:45 17:20 05:56 WBC RBC Hgb Hct MCV MCH MCHC RDW Plt Count MPV Immature Gran % (Auto) Neut % (Auto) Lymph % (Auto) Dougherty % (Auto) Eos % (Auto) Baso % (Auto) Lymph # (Auto) Dougherty # (Auto) Eos # (Auto) Baso # (Auto) Abs Immat Gran (auto) Absolute Neuts (auto) Absolute Nucleated RBC Nucleated RBC % (auto) Sodium 140 Potassium 3.9 Chloride 104 Carbon Dioxide 29 Anion Gap 11 L BUN 37 H Creatinine 1.10 Estim Creat Clear Calc 83.3 Estimated GFR > 60 Random Glucose 95 Calcium 9.1 Magnesium Total Bilirubin 0.8 Direct Bilirubin 0.3 AST 23 D ALT 92 H Alkaline Phosphatase 86 Troponin I High Sens 36.0 H* B-Natriuretic Peptide Total Protein 5.6 L Albumin 3.6 Lipase Urine Color STRAW Urine Appearance CLEAR Urine pH 5.5 Ur Specific [place] 1.015 Urine Protein NEG Urine Glucose (UA) NEG Urine Ketones NEG Urine Blood NEG Urine Nitrite NEG Ur Leukocyte Esterase NEG Stool Occult Blood COVID-19 (BRANDI) COVID-19 [employer] 11/19/20 11/20/20 11/21/20 05:56 Unknown 06:28 WBC 12.1 H 8.2 RBC 4.99 5.30 Hgb 15.6 16.6 Hct 46.3 49.5 MCV 92.8 93.4 MCH 31.3 31.3 MCHC 33.7 33.5 RDW 14.6 14.5 Plt Count 190 162 MPV 10.7 11.7 Immature Gran % (Auto) Neut % (Auto) Lymph % (Auto) Dougherty % (Auto) Eos % (Auto) Baso % (Auto) Lymph # (Auto) Dougherty # (Auto) Eos # (Auto) Baso # (Auto) Abs Immat Gran (auto) Absolute Neuts (auto) Absolute Nucleated RBC 0.000 0.000 Nucleated RBC % (auto) 0.0 0.0 Sodium Potassium Chloride Carbon Dioxide Anion Gap BUN Creatinine Estim Creat Clear Calc Estimated GFR Random Glucose Calcium Magnesium Total Bilirubin Direct Bilirubin AST ALT Alkaline Phosphatase Troponin I High Sens B-Natriuretic Peptide Total Protein Albumin Lipase Urine Color Urine Appearance Urine pH Ur Specific [place] Urine Protein Urine Glucose (UA) Urine Ketones Urine Blood Urine Nitrite Ur Leukocyte Esterase Stool Occult Blood POSITIVE COVID-19 (BRANDI) COVID-19 [employer] 11/21/20 11/22/20 11/22/20 06:28 05:19 05:19 WBC 6.8 RBC 4.99 Hgb 15.4 Hct 46.7 MCV 93.6 MCH 30.9 MCHC 33.0 RDW 14.2 Plt Count 168 MPV 10.4 Immature Gran % (Auto) Neut % (Auto) Lymph % (Auto) Dougherty % (Auto) Eos % (Auto) Baso % (Auto) Lymph # (Auto) Dougherty # (Auto) Eos # (Auto) Baso # (Auto) Abs Immat Gran (auto) Absolute Neuts (auto) Absolute Nucleated RBC 0.000 Nucleated RBC % (auto) 0.0 Sodium 139 139 Potassium 4.3 4.4 Chloride 104 104 Carbon Dioxide 25 29 Anion Gap 14 10 L BUN 32 H 30 H Creatinine 1.09 1.17 Estim Creat Clear Calc 84.4 78.6 Estimated GFR > 60 > 60 Random Glucose 96 105 Calcium 9.0 8.8 Magnesium Total Bilirubin Direct Bilirubin AST ALT Alkaline Phosphatase Troponin I High Sens B-Natriuretic Peptide Total Protein Albumin Lipase Urine Color Urine Appearance Urine pH Ur Specific [place] Urine Protein Urine Glucose (UA) Urine Ketones Urine Blood Urine Nitrite Ur Leukocyte Esterase Stool Occult Blood COVID-19 (BRANDI) COVID-19 Clin Com Airway Mallampati Class: III TM Dist: >3cm Neck ROM: Full Loose/Missing/Broken Teeth: No Heart: RRR Lungs: CTA Assessment and Plan Assessment Anesthesia Assessment: Anesthesia Plan Discussed and Chart Reviewed Final Anesthetic Review Family History of Problems with Anesthesia: No History of Problems with Anesthesia: No NPO: Yes ASA Class: III Final Preanesthetic Review: Meds/Allgs Chart Reviewed, Consent Obtained/Reviewed and Anes Risks/Benef Reviewed Patient Risk: Intermediate Procedure Risk: Intermediate Anesthetic Plan Anesthetic Plan: MAC: Disposition: Standard PACU
--- NOTE | 2020-11-22 13:21 | MHC.CM.PN ---
per rounds dc may be for today plan remains home no servceis
[2020-11-22] MEDS: Lactated Ringers 1,000 ML 50 ML IVCONT (13:26)
--- NOTE | 2020-11-22 13:45 | P.BOP_ITS ---
Brief Operative Note Date of Service: 11/22/20 Pre-op diagnosis: epigastric pain Post-op diagnosis: same (gastritis) Procedure: EGD Surgeon: Chris Gamble Anesthesia: MAC Was an Director Of Social Media Marketing used for this Procedure?: No Estimated blood loss (mL): 2 Pathology: other (bxs antrum, egj) Condition: stable Disposition: PACU
--- NOTE | 2020-11-22 13:46 | PM.EVENT ---
Event Note Date of Service: 11/22/20 Event Note: EGD note dictated EGD shows mild gastritis, biopsied no ulcer or gi bleeding rec advance diet oral ppi f/u bx results
--- NOTE | 2020-11-22 14:26 | PM.DS ---
DS: Providers Provider Date of Service: 11/22/20 <Aida Dougherty NP - Last Filed: 12/21/20 14:34> Date of admission: 11/18/20 16:56 <Aida Dougherty NP - Last Filed: 12/21/20 14:34> Primary care physician: Storm Isbell MD <Aida Dougherty NP - Last Filed: 12/21/20 14:34> Consults: 11/18/20 16:55 Consult to Cardiology Routine Consulting Provider: Farooq Gary Reason for consultation: bradycardia Has provider been notified: No 11/20/20 12:51 Consult to Gastroenterology Routine Consulting Provider: Chris Gamble Reason for consultation: epigastric pain especially after food, dark stool Has provider been notified: No <Aida Dougherty NP - Last Filed: 12/21/20 14:34> Attending physician on discharge: Nura Dunbar <Aida Dougherty NP - Last Filed: 12/21/20 14:34> Discharging clinician: Aida Dougherty <Aida Dougherty NP - Last Filed: 12/21/20 14:34> DS: Diagnosis Discharge Diagnosis (1) Bradycardia: Status: Acute <Aida Dougherty NP - Last Filed: 12/21/20 14:34> (2) Atrial fibrillation with RVR: Status: Acute <Aida Dougherty NP - Last Filed: 12/21/20 14:34> (3) GI bleed: Status: Resolved <Aida Dougheryt NP - Last Filed: 12/21/20 14:34> DS: Summary Hospital Course Hospital Course: 65-year-old male with a history of hypertension, atrial fibrillation, CHF, recent admission for rapid AFib, hypertensive urgency and acute CHF.? During that admission he was cardioverted.? He was discharged home with immune metoprolol.? Since discharge he reports that when he walks around he feels tired.? Since yesterday he has had epigastric abdominal pain which has been constant since onset.? It is worse when he walks around and also when he eats food. IT? is not associated with any nausea, vomiting, diarrhea.? He has not noticed any dark or bloody stools.? He denies a history of acid reflux and has never had this pain before.? He underwent a CT scan of the abdomen which showed no acute intra-abdominal process.? It did show bilateral renal cysts with perinephric stranding.? Patient denies any back pain or urinary symptoms.? Urinalysis was unremarkable.? Lab work was at the patient's baseline.? Initial highly sensitive troponin was elevated at 39.3.? While he was in the emergency department he was noted to be bradycardic.? showed sinus bradycardia with a heart rate of 40 with T-wave inversions which appear unchanged from previous.? He did report intermittent dizziness.? He denies any chest pain or palpitations.? He was given a dose of glucagon and given his bradycardia the decision was made to admit him to the hospital for further management. Epigastric abdominal pain.? Especially after eating.? Question gastritis versus ulcer. Underwent EGD and found to have mild gastritis with no ulcer or GI bleeding. constipation on KUB. He was treated with IV PPI and his eliquis was held initially but restarted prior to discharge. Bradycardia. EKG showing sinus bradycardia, no high-degree heart block. Intermittent episodes of dizziness, unclear if related to bradycardia. Treated with glucagon in the ED. His amiodorone was stopped. metoprolol initially held.?Restarted at lower dose as per Cardiology. Afib.? Recent cardioversion on 11/12, there is a risk of stroke within those 4 weeks? of cardioversion and Eliquis was held due to GI bleed however discussed with GI and ok to continue eliquis for now. <Aida Dougherty NP - Last Filed: 12/21/20 14:34> Time Spent with Patient Time attestation: Total time spent providing and/or coordinating discharge services: <Aida Dougherty NP - Last Filed: 12/21/20 14:34> Discharge coordination time: Greater than 30 minutes <Aida Dougherty NP - Last Filed: 12/21/20 14:34> Quality: Stroke Does the patient have a stroke diagnosis?: No <Aida Dougherty NP - Last Filed: 12/21/20 14:34> Physical Exam Vital Signs: Vital Signs: Last Vital Signs Temp 98.9 F 11/22/20 15:18 Pulse 62 11/22/20 15:18 Resp 18 11/22/20 15:18 BP 116/69 11/22/20 15:18 Pulse Ox 96 11/22/20 15:18 Body Mass Index 32.1 <Aida Dougherty NP - Last Filed: 12/21/20 14:34> Appearing in no acute distress head is normocephalic atraumatic eyes pupils are PERRLA sclera is anicteric mouth throat mucous membranes are intact and moist neck is supple no lymphadenopathy, no JVD noted lung sounds are clear to auscultation heart regular rate rhythm, clear S1, S2 positive bowel sounds, abdomen is soft, nontender neuro patient is alert x3, no focal deficits <Aida Dougherty NP - Last Filed: 12/21/20 14:34> DS: Data Data Completed and Pending Completed studies during hospitalization [Text1]: Pending at discharge 11/22/20 13:42 Surgical [PTH] Routine Procedures Excision of Esophagogastric Junction, Via Natural or Artificial Opening Endoscopic, Diagnostic (11/18/20) Excision of Stomach, Pylorus, Via Natural or Artificial Opening Endoscopic, Diagnostic (11/18/20) Shinto of Cardiac Rhythm, Single (11/08/20) <Aida Dougherty NP - Last Filed: 12/21/20 14:34> Discharge Plan Discharge Anticipated Discharge Date/Time: 11/22/20 15:08 <Aida Dougherty NP - Last Filed: 12/21/20 14:34> Patient Disposition: Home, Self-Care <Aida Dougherty NP - Last Filed: 12/21/20 14:34> Discharge Diagnosis: Bradycardia Gastritis <Aida Dougherty NP - Last Filed: 12/21/20 14:34> Bradycardia Gastritis <Nura Dunbar MD - Last Filed: 12/21/20 14:36> Referrals: Chris Gamble [Physician] - 1 Month ( gastritis) David Walker MD [Physician] - None Storm Isbell MD [Primary Care Provider] - 1 Week <Aida Dougherty NP - Last Filed: 12/21/20 14:34> Discharge Medications: New Prilosec 10 mg susp,delayed release for recon 20 mg PO BID Qty: 60 RF: 0 Continued acetaminophen 325 mg Tablet 650 mg PO Q6H PRN (Reason: Pain, Mild (Pain Scale 1-3)) Qty: 30 RF: 0 valsartan 40 mg Tablet 40 mg PO BID Qty: 30 RF: 0 Eliquis 5 mg Tablet 5 mg PO BID Qty: 60 RF: 0 colchicine [Colcrys] 0.6 mg Tablet 0.6 mg PO DAILY Qty: 5 RF: 0 allopurinol 100 mg tablet 100 mg PO DAILY Qty: 7 RF: 0 docusate sodium [Colace] 100 mg capsule 100 mg PO DAILY Qty: 30 RF: 0 amlodipine 5 mg tablet 7.5 mg PO DAILY RF: 0 Discontinued amiodarone 200 mg Tablet 400 mg PO BID Qty: 52 RF: 0 metoprolol tartrate 50 mg Tablet 50 mg PO BID Qty: 60 RF: 0 No Action metoprolol succinate 25 mg tablet extended release 24 hr 25 mg PO DAILY 90 Days Qty: 90 RF: 1 <Aida Dougherty NP - Last Filed: 12/21/20 14:34> Discharge Orders: Discharge Order (Routine); Ordered 11/22/20 Ordered By: Aida Dougherty <Aida Dougherty NP - Last Filed: 12/21/20 14:34> Diet: advance to usual diet <Aida Dougherty NP - Last Filed: 12/21/20 14:34> advance to usual diet <Nura Dunabr MD - Last Filed: 12/21/20 14:36> Activity on Discharge: As tolerated <Aida Dougherty NP - Last Filed: 12/21/20 14:34> As tolerated <Nura Dunbar MD - Last Filed: 12/21/20 14:36> Stand Alone Forms: Patient Portal Discharge page <Aida Dougherty NP - Last Filed: 12/21/20 14:34> Care Plan Goals: No further abdominal pain noted <Aida Dougherty NP - Last Filed: 12/21/20 14:34> Health Concerns: Bradycardia Gastritis <Aida Dougherty NP - Last Filed: 12/21/20 14:34> Plan of Treatment: Follow-up with children's counselor in 1-2 months for management gastritis and PPI Follow-up with information systems audit manager regarding your anticoagulation <Aida Dougherty NP - Last Filed: 12/21/20 14:34> Assessment: see discharge summary <Aida Dougherty NP - Last Filed: 12/21/20 14:34> Discharge Date/Time: 11/22/20 17:10 <Aida Dougherty NP - Last Filed: 12/21/20 14:34>
--- NOTE | 2020-11-23 11:25 | OP_ITS ---
SURGEON: Chris Gamble MD INDICATIONS: Epigastric pain. PREOPERATIVE DIAGNOSIS: POSTOPERATIVE DIAGNOSIS: PROCEDURE PERFORMED: Upper endoscopy with biopsy. ESTIMATED BLOOD LOSS: COMPLICATIONS: ANESTHESIA: ASSISTANTS: SPECIMENS: MEDICATIONS: Monitored anesthesia care. DESCRIPTION OF PROCEDURE: History and physical performed. The risks and benefits of the procedure were explained to the patient. Informed consent was obtained. The patient was placed in left lateral decubitus position. The Olympus video gastroscope was introduced into the esophagus, stomach, and duodenum. Examination was performed and the scope was removed. He tolerated the procedure well and was returned to recovery area in stable condition. FINDINGS: Esophagus: The esophagus showed an irregular EG junction. There was no esophagitis. Biopsies were obtained from the EG junction. Stomach: Stomach showed focal areas of erythema in the body and antrum consistent with gastritis. No ulcer was identified. Biopsies were obtained from the antrum. Duodenum: The bulb and second portion were normal. IMPRESSION: Gastritis. RECOMMENDATIONS: 1. Follow up the biopsy results. 2. Continue proton pump inhibitor. MD DIANNE Echevarria/MODL / [id number]
== END 2020-11-22 17:10 | disposition home or self-care (01) | DRG 241 ==
LOC: HO.ED 16:17 → HO.EDOVER 18:12 → HO.IMC 11-19 18:33
PROVIDERS: Internal Medicine Gastroenterology; Admitting Provider Physician Assistant Medical; Emergency Provider Emergency Medicine; PCP Internal Medicine; Visit Provider Nurse Practitioner Acute Care
PROC: 0DJ08ZZ Inspection of Upper Intestinal Tract, Via Natural or Artificial Opening Endoscopic (ICD-10-PCS; CPT 43235; principal; 2020-11-22 13:00)
DX: K29.70 Gastritis, unspecified, without bleeding (principal); I11.0 Hypertensive heart disease with heart failure; I50.22 Chronic systolic (congestive) heart failure; Z79.01 Long term (current) use of anticoagulants; I48.91 Unspecified atrial fibrillation; R00.1 Bradycardia, unspecified; M10.9 Gout, unspecified; R74.01 Elevation of levels of liver transaminase levels; D72.829 Elevated white blood cell count, unspecified; Z20.822 Contact with and (suspected) exposure to COVID-19; Z79.899 Other long term (current) drug therapy
CPT/HCPCS: 36415; 74018; 74177; 80048; 80076; 81003; 82272; 83690; 83735; 83880; 84484; 85025; 85027; 87635; 88305; 88342; 93005; 96374; 96375; 99285; J1610; J3010; Q9967

== ENCOUNTER → 2020-12-16 14:21 | Outpatient (BNVA) | payer OTHER, SELFPAY | PROVIDERS: PCP Internal Medicine; Visit Provider Nurse Practitioner Family | DX: I48.91 Unspecified atrial fibrillation (principal); I11.0 Hypertensive heart disease with heart failure; I50.23 Acute on chronic systolic (congestive) heart failure; I42.9 Cardiomyopathy, unspecified; R00.1 Bradycardia, unspecified; Z79.899 Other long term (current) drug therapy | CPT/HCPCS: 93005; 99212 ==

== ENCOUNTER → 2020-12-27 09:44 | Outpatient (REF) | payer OTHER, SELFPAY ==
--- NOTE | ~2020-12-27 | NM_ITS ---
Myocardial perfusion study Indication: Atrial fibrillation, cardiomyopathy to evaluate for myocardial ischemia Technique: The patient was brought in for a Lexiscan perfusion study on 12/27/2020. Patient performed low-level exercise and was injected 0.4 mg of Lexiscan intravenously. Within a minute of injection, 40 mCi of sestamibi was given intravenously. Images were obtained using the SPECT gamma camera interlaced with the gating device. Images were obtained in supine position. Resting perfusion study was performed on 12/30/2020. Patient was administered 40 mCi of sestamibi intravenously at rest. Images were then obtained in supine position. Images obtained with and without CT attenuation. Total DLP 128 mGy-cm. Images were processed with the software and compared side to side in short axis, horizontal long axis and vertical long axis views. Findings: The stress perfusion study showed nonattenuated images show moderately reduced uptake in the basal inferior and mildly reduced uptake in the mid inferior and inferoapical wall of the LV myocardium. There is also mildly reduced uptake in the basal and mid inferolateral and basal lateral wall of the LV myocardium. Attenuated corrected images show normalized uptake in the inferior wall with mildly reduced uptake in the apex of the LV myocardium.. The gated study shows reduced LV systolic function with calculated LVEF of 41%. LV cavity is mildly to moderately dilated size. The gated study shows diffuse wall thickening and contraction of segments. Resting study shows nonattenuated images show improved uptake in the inferoapical as well as basal lateral wall of the LV myocardium. Remainder of the LV myocardium is normally perfused. Attenuation corrected images show mildly reduced uptake in the apex of the LV myocardium. Gating at rest reveals diffuse hypokinesis with ejection fraction at 40%. The findings are consistent with equivocal findings of possible inferoapical and basal lateral ischemia.. NM/NM ester perf SPECT rest & str Impression: 1. Myocardial perfusion imaging study shows equivocal mild intensity inferoapical and basal lateral ischemia. This can also be seen in patient with cardiomyopathy. 2. Gated LVEF is 41% 3. Transient ischemic dilatation not present but LV cavity is dilated EKG is nondiagnostic for ischemia
--- NOTE | 2020-12-27 09:49 | CA_ITS ---
Acquisition Time: 2020-12-27 09:47:56 Total Exercise Time: 00:02:00 Test Indications: SOB, AFIB, BRADYCARDIA Medications: SEE CHART Protocol: LEXISCAN Max HR: 080 BPM 51% of Pred: 156 BPM Max BP: 154/086 mmHG Max Work Load: 1.0 METS Pharmacological stress test with Lexiscan injection, while sitting and kicking his legs, without anginal symptoms, with isolated PAC, with normotensive respoonse to injection, with nondiagnostic EKG for ischemia. Nuclear images pending. Test reviewed with Dr Gary. Referred By: Lucille Mena Overread By: LUCILLE MENA
== END ==
LOC: HO.CARD 09:44
PROVIDERS: PCP Internal Medicine; Visit Provider Nurse Practitioner Family
DX: I42.9 Cardiomyopathy, unspecified (principal); I50.9 Heart failure, unspecified
CPT/HCPCS: 78452; 93017; A9500; J0280; J2785

== ENCOUNTER 2021-03-10 01:14 | Inpatient (IN) | payer OTHER, SELFPAY ==
[2021-03-10] VITALS (10 sets, daily range): BP systolic 109–150; BP diastolic 53–81; PULSE 58–75; RESP 16–20; TEMP 36.4–37.2; O2SAT 96–100; BMI 34.5
--- NOTE | ~2021-03-10 | CT_ITS ---
EXAMINATION: CT HEAD WITHOUT CONTRAST CT CERVICAL SPINE WITHOUT CONTRAST CLINICAL INFORMATION: Fall COMPARISON: None. TECHNIQUE: Multidetector CT imaging of the head and cervical spine was performed without the use of intravenous contrast. Multiplanar reformats are reviewed. This CT examination was performed using dose optimization techniques as appropriate, variously including the following: *Automated exposure control *Adjustment of mA and/or kV according to patient size (this includes techniques or standardized protocols for targeted exams where dose is matched to indication/reason for exam; i.e. extremities or head) *Use of iterative reconstruction technique DLP: 1677 mGy-cm. FINDINGS: There is no evidence of acute intracranial hemorrhage or territorial infarction. No abnormal mass effect or midline shift is seen. Veras to white matter differentiation is well preserved. No extra-axial fluid collections are identified. The ventricles are normal in size. Mild patchy subcortical and periventricular white matter low-attenuation changes The osseous structures and soft tissues are normal. The mastoid air cells and visualized portions of the paranasal sinuses are well-aerated. Atlantooccipital alignment is maintained. The vertebral bodies and posterior elements align normally. Mild cervical kyphosis and extra convex cervical curvature. No acute fracture or subluxation. Vertebral body heights are maintained.Endplate osteophytes present from C4 through C7, with accompanying uncovertebral arthrosis.. The paraspinal soft tissues are unremarkable. The imaged lung apices are clear CT/CT cervical spine wo con IMPRESSION: No acute intracranial pathology. No cervical spine fracture or malalignment.
--- NOTE | ~2021-03-10 | CT_ITS ---
EXAMINATION: CT HEAD WITHOUT CONTRAST CT CERVICAL SPINE WITHOUT CONTRAST CLINICAL INFORMATION: Fall COMPARISON: None. TECHNIQUE: Multidetector CT imaging of the head and cervical spine was performed without the use of intravenous contrast. Multiplanar reformats are reviewed. This CT examination was performed using dose optimization techniques as appropriate, variously including the following: *Automated exposure control *Adjustment of mA and/or kV according to patient size (this includes techniques or standardized protocols for targeted exams where dose is matched to indication/reason for exam; i.e. extremities or head) *Use of iterative reconstruction technique DLP: 1677 mGy-cm. FINDINGS: There is no evidence of acute intracranial hemorrhage or territorial infarction. No abnormal mass effect or midline shift is seen. Veras to white matter differentiation is well preserved. No extra-axial fluid collections are identified. The ventricles are normal in size. Mild patchy subcortical and periventricular white matter low-attenuation changes The osseous structures and soft tissues are normal. The mastoid air cells and visualized portions of the paranasal sinuses are well-aerated. Atlantooccipital alignment is maintained. The vertebral bodies and posterior elements align normally. Mild cervical kyphosis and extra convex cervical curvature. No acute fracture or subluxation. Vertebral body heights are maintained.Endplate osteophytes present from C4 through C7, with accompanying uncovertebral arthrosis.. The paraspinal soft tissues are unremarkable. The imaged lung apices are clear CT/CT head/brain wo con IMPRESSION: No acute intracranial pathology. No cervical spine fracture or malalignment.
--- NOTE | ~2021-03-10 | CT_ITS ---
EXAMINATION CT CHEST, ABDOMEN AND PELVIS WITH CONTRAST CLINICAL INFORMATION: Fall. COMPARISON: None. TECHNIQUE: Multidetector volumetric CT imaging of the chest, abdomen and pelvis was obtained after the administration of 100 mL of intravenous Omnipaque 350 without immediate adverse reactions. Coronal and sagittal reformats were reviewed. This CT examination was performed using dose optimization techniques as appropriate, variously including the following: *Automated exposure control *Adjustment of mA and/or kV according to patient size (this includes techniques or standardized protocols for targeted exams where dose is matched to indication/reason for exam; i.e. extremities or head) *Use of iterative reconstruction technique DLP: 1332 mGy-cm. FINDINGS: CHEST LUNGS/PLEURA: The lungs are clear with no evidence of inflammation or nodules. There is no pleural effusion. No pleural mass or thickening. MEDIASTINUM/COREY: Mild cardiomegaly. Triple vessel coronary calcifications. No pericardial effusion. No mediastinal or hilar adenopathy. CHEST WALL/AXILLA: Unremarkable. ABDOMEN/PELVIS HEPATOBILIARY: Liver normal in size, contour and morphology. No suspicious lesions. No intra or extrahepatic biliary dilation. Cholelithiasis. PANCREAS: Unremarkable. SPLEEN: Unremarkable. ADRENAL GLANDS: Unremarkable. KIDNEYS, URETERS AND BLADDER: Kidneys normal in size, axis and morphology demonstrating symmetric enhancement. No hydronephrosis. Nonobstructive 4 mm calculus, midpole right kidney. Nonobstructive 6 mm calculus, lower pole left kidney. Bilateral simple renal cysts are benign and require no further follow-up. Ureters normal in course and caliber. Bladder grossly unremarkable.. GASTROINTESTINAL TRACT: Small sliding-type hernia. Otherwise, no bowel related abnormalities. PELVIC VISCERA: Unremarkable. LYMPH NODES: No lymphadenopathy. PERITONEUM/BODY WALL: No hemoperitoneum or intraperitoneal free fluid. No hernias. There is a large subcutaneous hematoma along the medial right gluteus damien extending over the sacrum, superficial to the erector spinae musculature measuring approximately 11 x 5 cm transaxially and 15 cm craniocaudally. There is surrounding fat stranding within the subcutaneous fat of the right buttock as well as additional subcutaneous hematoma along the lower back. VASCULAR STRUCTURES: Aorta is atherosclerotic. Patent venous structures. c OSSEOUS STRUCTURES No acute or suspicious osseous abnormalities. Degenerative changes present throughout the thoracic and lumbar spine. Grade 1 anterolisthesis of L5 on S1 related to bilateral L5 spondylolysis. Moderate bilateral hip arthrosis. CT/CT abdomen pelvis w con IMPRESSION: * No evidence of acute traumatic injury within the chest, abdomen or pelvis. * No fractures. * Large hematoma within the fat overlying the right buttock and within the subcutaneous fat over the lower back.
--- NOTE | 2021-03-10 01:43 | ECG_ITS ---
Test Reason : fall Blood Pressure : / mmHG Vent. Rate : 067 BPM Atrial Rate : 067 BPM P-R Int : 174 ms QRS Dur : 162 ms QT Int : 482 ms P-R-T Axes : 033 -58 105 degrees QTc Int : 509 ms Sinus rhythm with Premature atrial complexes in a pattern of bigeminy Right bundle branch block Left anterior fascicular block Bifascicular block Septal infarct , age undetermined T wave abnormality, consider lateral ischemia Abnormal ECG When compared with ECG of 18-NOV-2020 13:16, Premature atrial complexes are now Present Referred By: Lora Eubanks Electronically Signed By:QUENTIN SALGADO MD
--- NOTE | 2021-03-10 01:45 | ED.FALL ---
HPI - Fall General Chief Complaint: Fall Stated Complaint: FALL ON ICE T-1,LOW R BACK PAIN/SWELLING Time Seen by Provider: 03/10/21 01:31 Source: patient Mode of arrival: EMS History of Present Illness HPI Narrative: 65-year-old male who presents via EMS, currently taking Eliquis and sustained a fall earlier in the morning where he slipped down for concrete stairs but denies head strike or loss of consciousness. Patient states that he experience increased pain/swelling/bruising throughout the day on his buttocks and now presents with a large area of bruising right greater than left. Related Data Home Medications Medication Instructions Recorded Confirmed amlodipine 5 mg tablet 5 mg PO DAILY 03/10/21 apixaban 5 mg tablet (Eliquis) 5 mg PO BID 03/10/21 03/10/21 metoprolol succinate 25 mg 25 mg PO DAILY 03/10/21 03/10/21 tablet,extended release 24 hr valsartan 40 mg tablet 40 mg PO DAILY 03/10/21 Allergies Allergy/AdvReac Type Severity Reaction Status Date / Time No Known Allergies Allergy Verified 03/10/21 01:31 Review of Systems Review of Systems: Pertinent positives and negatives as stated in HPI and 10 point review of systems is otherwise negative. [facility] Past Medical History Source: nursing notes reviewed Medical History Ankle swelling Atrial fibrillation Bradycardia Congestive heart failure Gout HFrEF (heart failure with reduced ejection fraction) HTN (hypertension) Systolic CHF Surgical History No pertinent past surgical history Family History Family History Father No problems noted. Mother Heart disease Social History Social History Household Members: None Housing: Apartment Do you presently have visiting nurse or other home services: No Alcohol intake: unknown Patient Tobacco Use Status: Never used Tobacco Advance Directives: No Advance Directives Information Provided: No service: No Current occupational status: employed Physical Exam Vital Signs: Vital Signs: Last Vital Signs Temp 98.9 F 03/10/21 01:26 Pulse 67 03/10/21 01:26 Resp 16 03/10/21 01:26 BP 138/69 03/10/21 01:26 Pulse Ox 96 03/10/21 01:26 BMI result Body Mass Index 34.5 VITAL SIGNS: Reviewed. GENERAL: Well developed, well nourished, in no acute distress. HEAD: Normocephalic/atraumatic EYES: PERRLA, EOMI OROPHARYNX: no oral lesions noted, posterior pharynx clear LUNGS: Normal breath sounds. No adventitious sounds or accessory muscle use. SpO2<96> CARDIOVASCULAR: Regular rate and rhythm without noted murmurs ABDOMEN: Soft, non-tender, non-distended with bowel sounds. GLUTEUS: Roughly 12 cm ecchymotic area to the right buttock with obvious swelling as well as associated skin tear and noted vesicles there is also ecchymosis noted across midline and involving the superior/medial aspect of the left buttock MUSCULOSKELETAL: No tenderness, deformities, or effusions noted on gross inspection. EXTREMITIES: No cyanosis, clubbing or edema. SKIN: Inspection of the skin reveals no rashes, ulcerations, jaundice, pallor, or petechiae. NEUROLOGIC: Alert and oriented x 4. Strength and sensation to light touch were grossly intact x 4. Course Course Course Narrative: 65-year-old male with history and clinical presentation consistent with mechanical fall on anticoagulation with huge hematoma and suspect persistent bleeding into the gluteal area. Review of all investigations shows significant drop in hemoglobin, patient remains hemodynamically stable, and on review of all imaging although there is evidence of hematoma there is no indication that there is active extravasation at this time. Patient will be admitted for observation and this was discussed with the inpatient hospitalist who accepts admission. This time it is not felt that anticoagulation should be reversed, but any further medication will be held at this time. MDM - Fall Lab Data Result diagrams: 03/10/21 01:49 03/10/21 01:49 Labs: Lab Results 03/10/21 03/10/21 03/10/21 Range/Units 01:49 01:49 01:49 WBC 5.9 (4.8-10.8) X10*3/uL RBC 3.71 L (4.60-5.80) X10*6/uL Hgb 11.5 L (14.0-18.0) g/dl Hct 33.6 L (42.0-52.0) % MCV 90.6 (80.0-98.0) fL MCH 31.0 (27.0-33.0) pg MCHC 34.2 (31.0-36.0) g/dl RDW 12.7 (11.0-16.0) % Plt Count 107 L (160-400) X10*3/uL MPV 10.2 (9.4-12.4) fL Immature Gran % (Auto) 0.2 (0.0-0.4) % Neut % (Auto) 72.8 (45-73) % Lymph % (Auto) 19.1 L (20-40) % [place] % (Auto) 7.4 (2-11) % Eos % (Auto) 0.2 (0-4) % Baso % (Auto) 0.3 (0-2) % Lymph # (Auto) 1.1 L (1.2-4.9) X10*3/uL [place] # (Auto) 0.4 (0.1-1.2) X10*3/uL Eos # (Auto) 0.0 (0.0-0.4) X10*3/uL Baso # (Auto) 0.0 (0.0-0.2) X10*3/uL Abs Immat Gran (auto) 0.01 (0.00-0.03) X10*3/uL Absolute Neuts (auto) 4.3 (2.0-8.3) x10*3/uL Absolute Nucleated RBC 0.000 (0.0-0.012) X10*3/uL Nucleated RBC % (auto) 0.0 (0.0-0.2) /100WBC PT 16.0 H (9.9-13.0) SEC INR 1.4 H (0.9-1.1) Sodium (135-145) mmol/L Potassium (3.3-5.1) mmol/L Chloride (96-108) mmol/L Carbon Dioxide (22-29) mmol/L Anion Gap (12-20) BUN (9-16) mg/dL Creatinine (0.5-1.4) mg/dL Estim Creat Clear Calc Estimated GFR Random Glucose (60-115) mg/dL Calcium (8.4-10.2) mg/dL Total Bilirubin (0.0-1.0) mg/dL AST (5-37) U/L ALT (0-40) U/L Alkaline Phosphatase (39-117) U/L Total Protein (6.5-8.0) g/dL Albumin (3.5-5.0) g/dL COVID-19 (BRANDI) Negative (Negative) COVID-19 Clin Com See Note Blood Type Antibody Screen 03/10/21 03/10/21 Range/Units 01:49 02:01 WBC (4.8-10.8) X10*3/uL RBC (4.60-5.80) X10*6/uL Hgb (14.0-18.0) g/dl Hct (42.0-52.0) % MCV (80.0-98.0) fL MCH (27.0-33.0) pg MCHC (31.0-36.0) g/dl RDW (11.0-16.0) % Plt Count (160-400) X10*3/uL MPV (9.4-12.4) fL Immature Gran % (Auto) (0.0-0.4) % Neut % (Auto) (45-73) % Lymph % (Auto) (20-40) % [place] % (Auto) (2-11) % Eos % (Auto) (0-4) % Baso % (Auto) (0-2) % Lymph # (Auto) (1.2-4.9) X10*3/uL [place] # (Auto) (0.1-1.2) X10*3/uL Eos # (Auto) (0.0-0.4) X10*3/uL Baso # (Auto) (0.0-0.2) X10*3/uL Abs Immat Gran (auto) (0.00-0.03) X10*3/uL Absolute Neuts (auto) (2.0-8.3) x10*3/uL Absolute Nucleated RBC (0.0-0.012) X10*3/uL Nucleated RBC % (auto) (0.0-0.2) /100WBC PT (9.9-13.0) SEC INR (0.9-1.1) Sodium 140 (135-145) mmol/L Potassium 3.6 (3.3-5.1) mmol/L Chloride 110 H (96-108) mmol/L Carbon Dioxide 23 (22-29) mmol/L Anion Gap 11 L (12-20) BUN 22 H (9-16) mg/dL Creatinine 1.01 (0.5-1.4) mg/dL Estim Creat Clear Calc 97.0 Estimated GFR > 60 Random Glucose 132 H (60-115) mg/dL Calcium 8.9 (8.4-10.2) mg/dL Total Bilirubin 1.1 H (0.0-1.0) mg/dL AST 25 (5-37) U/L ALT 32 (0-40) U/L Alkaline Phosphatase 55 D (39-117) U/L Total Protein 6.0 L (6.5-8.0) g/dL Albumin 3.9 (3.5-5.0) g/dL COVID-19 (BRANDI) (Negative) COVID-19 Clin Com Blood Type B Negative Antibody Screen NEGATIVE ECG Data Attestation: I personally reviewed and interpreted this ECG as follows: Prior ECG tracings: available for review (11/18/2020) Interpretation: Sinus rhythm with PACs, HR -67, no STEMI, right bundle branch block, AR within normal limits Critical Care Time Critical Care Time Critical Care Time: Yes Total Critical Care Time: 30 Attestation: I personally attest to this time spent taking care of the patient. Discharge Plan Discharge Clinical Impression: Fall, Hematoma Patient Disposition: Admitted As Inpatient Prescriptions: No Action amlodipine 5 mg tablet 5 mg PO DAILY RF: 0 metoprolol succinate 25 mg tablet extended release 24 hr 25 mg PO DAILY RF: 0 valsartan 40 mg tablet 40 mg PO DAILY RF: 0 Eliquis 5 mg tablet 5 mg PO BID RF: 0
[2021-03-10 01:55] LABS: MANUAL DIFF FLAG NO
[2021-03-10 01:58] LABS: Basophils Percent Auto 0.3 % (0-2); Eosinophils Percent Auto 0.2 % (0-4); Hematocrit 33.6 % (42.0-52.0); Hemoglobin 11.5 g/dl (14.0-18.0); Imm Gran Abs Auto 0.01 X10*3/uL (0.00-0.03); Imm Gran Pct Auto 0.2 % (0.0-0.4); Lymphocytes Absolute Auto 1.1 X10*3/uL (1.2-4.9); Lymphocytes Percent Auto 19.1 % (20-40); Mean Corpuscular HGB Conc 34.2 g/dl (31.0-36.0); Mean Corpuscular Volume 90.6 fL (80.0-98.0); Mean Platelet Volume 10.2 fL (9.4-12.4); Monocytes Absolute Auto 0.4 X10*3/uL (0.1-1.2); Monocytes Percent Auto 7.4 % (2-11); Neutrophils Absolute Auto 4.3 x10*3/uL (2.0-8.3); Neutrophils Percent Auto 72.8 % (45-73); Platelet Count 107 X10*3/uL (160-400); Red Blood Count 3.71 X10*6/uL (4.60-5.80); Red Cell Distribution Width 12.7 % (11.0-16.0); White Blood Count 5.9 X10*3/uL (4.8-10.8)
[2021-03-10 02:03] LABS: INTERNATIONAL NORM RATIO 1.4 (0.9-1.1)
[2021-03-10 02:09] LABS: COVID-19 Test Negative (Negative); IDNOW Serial# 9DD0AD1C
--- NOTE | 2021-03-10 02:17 | PC.NURSE ---
IV established, labs and EKG obtained. Plan for CT. Pt refusing Tylenol @ this time. held Toradol and Lidocaine patch.
[2021-03-10 02:22] LABS: Alanine Aminotransferase 32 U/L (0-40); Albumin Level 3.9 g/dL (3.5-5.0); Alkaline Phosphatase 55 U/L (39-117); Anion Gap 11 (12-20); Aspartate Amino Transferase 25 U/L (5-37); Bilirubin Total 1.1 mg/dL (0.0-1.0); Blood Urea Nitrogen 22 mg/dL (9-16); Calcium 8.9 mg/dL (8.4-10.2); Carbon Dioxide 23 mmol/L (22-29); Chloride 110 mmol/L (96-108); Estimated Glomerular Filt Rate > 60; Glucose Random 132 mg/dL (60-115); Potassium 3.6 mmol/L (3.3-5.1); Sodium 140 mmol/L (135-145)
[2021-03-10] MEDS: iohexoL 350 MG/ML 100 ML INFUS..BTL 85 ML IV (03:04)
--- NOTE | 2021-03-10 04:05 | P.HPHOSP_ITS ---
History of Present Illness Date of Service: 03/10/21 Chief Complaint: fall 65-year-old male with a past medical history of hypertension, AFib on Eliquis, CHF presented to the hospital with a chief complaint of fall. Patient reported that yesterday he tripped and fell on ice; episode happened around 10:00 a.m. followed by continued to have pain in his right hip; and noted a gradual swelling of the right hip with increasing pain; subsequently came to the ER for further evaluation. He denies any numbness tingling or focal weakness. Denies any chest pain palpitations lightheadedness or dizziness. Denies any head strike or loss of consciousness. Denies any urinary symptoms. reports he last took Eliquis on 03/09/2019 2:00 a.m.. Review of all other systems is negative except mentioned above ER course: Per ER team patient musculoskeletal examination is benign; x-rays reveal no evidence of any fracture. CT head showed no acute findings. CT abdomen showed right gluteal hematoma. Soft tissues. Hemoglobin dropped from 15-11. Admitted to the hospital for observation. [facility] Medical History Ankle swelling Atrial fibrillation Bradycardia Congestive heart failure Gout HFrEF (heart failure with reduced ejection fraction) HTN (hypertension) Systolic CHF Family History Father No problems noted. Mother Heart disease Pertinent family history: as above Surgical History No pertinent past surgical history Social History Household Members: None Housing: Apartment Do you presently have visiting nurse or other home services: No Alcohol intake: unknown Patient Tobacco Use Status: Never used Tobacco Advance Directives: No Advance Directives Information Provided: No service: No Current occupational status: employed Meds Allergies Allergy/AdvReac Type Severity Reaction Status Date / Time No Known Allergies Allergy Verified 03/10/21 01:31 Home Medications Medication Instructions Recorded Confirmed Last Taken Type amlodipine 5 mg tablet 5 mg PO DAILY 03/10/21 Unknown History apixaban 5 mg tablet (Eliquis) 5 mg PO BID 03/10/21 03/10/21 03/09/21 09:00 History metoprolol succinate 25 mg 25 mg PO DAILY 03/10/21 03/10/21 Unknown History tablet,extended release 24 hr valsartan 40 mg tablet 40 mg PO DAILY 03/10/21 Unknown History Physical Exam Vital Signs and Narrative: Vital Signs: Last Vital Signs Temp 98.9 F 03/10/21 01:26 Pulse 67 03/10/21 01:26 Resp 16 03/10/21 01:26 BP 138/69 03/10/21 01:26 Pulse Ox 96 03/10/21 01:26 BMI result Body Mass Index 34.5 Gen: Appears be in no acute distress HEENT: NCAT, Moist mucosa. Pulmonary: Vesicular breath sounds, fair air entry CVS: Normal S1-S2 Abdomen: BS+, Soft, Nontender Extremities: Warm well perfused; right gluteal ecchymosis; soft tissues; Neuro: Alert and awake. Results Labs CBC and Chem 7: 03/10/21 01:49 03/10/21 01:49 Labs: Laboratory Results - last 24 hr 03/10/21 03/10/21 03/10/21 01:49 01:49 01:49 MCV 90.6 MCH 31.0 MCHC 34.2 RDW 12.7 Plt Count 107 L MPV 10.2 Immature Gran % (Auto) 0.2 Neut % (Auto) 72.8 Lymph % (Auto) 19.1 L [place] % (Auto) 7.4 Eos % (Auto) 0.2 Baso % (Auto) 0.3 Lymph # (Auto) 1.1 L [place] # (Auto) 0.4 Eos # (Auto) 0.0 Baso # (Auto) 0.0 Abs Immat Gran (auto) 0.01 Absolute Neuts (auto) 4.3 Absolute Nucleated RBC 0.000 Nucleated RBC % (auto) 0.0 PT 16.0 H INR 1.4 H Anion Gap Estim Creat Clear Calc Estimated GFR Random Glucose Calcium Total Bilirubin AST ALT Alkaline Phosphatase Total Protein Albumin COVID-19 (BRANDI) Negative COVID-19 Clin Com See Note Blood Type Antibody Screen 03/10/21 03/10/21 01:49 02:01 MCV MCH MCHC RDW Plt Count MPV Immature Gran % (Auto) Neut % (Auto) Lymph % (Auto) [place] % (Auto) Eos % (Auto) Baso % (Auto) Lymph # (Auto) [place] # (Auto) Eos # (Auto) Baso # (Auto) Abs Immat Gran (auto) Absolute Neuts (auto) Absolute Nucleated RBC Nucleated RBC % (auto) PT INR Anion Gap 11 L Estim Creat Clear Calc 97.0 Estimated GFR > 60 Random Glucose 132 H Calcium 8.9 Total Bilirubin 1.1 H AST 25 ALT 32 Alkaline Phosphatase 55 D Total Protein 6.0 L Albumin 3.9 COVID-19 (BRANDI) COVID-19 Clin Com Blood Type B Negative Antibody Screen NEGATIVE Imaging Radiologist's Impressions: Impressions Cervical Spine CT 03/10/21 02:43 IMPRESSION: No acute intracranial pathology. No cervical spine fracture or malalignment. Head CT 03/10/21 02:43 IMPRESSION: No acute intracranial pathology. No cervical spine fracture or malalignment. Abdomen/Pelvis CT 03/10/21 02:50 IMPRESSION: * No evidence of acute traumatic injury within the chest, abdomen or pelvis. * No fractures. * Large hematoma within the fat overlying the right buttock and within the subcutaneous fat over the lower back. Chest CT 03/10/21 02:50 IMPRESSION: * No evidence of acute traumatic injury within the chest, abdomen or pelvis. * No fractures. * Large hematoma within the fat overlying the right buttock and within the subcutaneous fat over the lower back. Assessment and Plan (1) Fall: Status: Acute (2) Hematoma: Status: Acute 65-year-old male with a past medical history of hypertension, AFib on Eliquis, CHF presented to the hospital with a chief complaint of fall. Fall: Mechanical in nature. No evidence of fracture. Nonfocal examination. PT/OT eventually Anemia/right gluteal hematoma: Hold home Eliquis. Serial H&H. general surgery follow-up history of AFib: Rate controlled. Hold home Eliquis. Hypertension: Continue home metoprolol. Hold home losartan / amlodipine. DVT prophylaxis: SCD boots Code status: Full code Quality Stroke Does the patient have a stroke diagnosis?: No VTE Prior VTE?: No VTE Risk Level:: Medical - moderate - high VTE Device Contraindication: N/A - Device Ordered VTE Drug Contraindication: Treatment Not Indicated
[2021-03-10] MEDS: Dextrose 5 % and 0.45 % NaCl 1,000 ML 50 ML IVCONT (05:34)
--- NOTE | 2021-03-10 07:44 | PC.NURSE ---
jayesh qureshi at bedside. bruising and deep purple. pt left side lying. fluids running. a fib on monitor
[2021-03-10 07:46] LABS: MANUAL DIFF FLAG NO
--- NOTE | 2021-03-10 07:55 | PM.CNGS ---
History of Present Illness Consult details Consult date: 03/10/21 Narrative: 65 year old male patient slipped down his icy cement outside stairway, striking his right buttock on the stairs. He immediately developed swelling and bruising in the buttock. He also noted blisters which eventually broke open, producing a clear fluid. He has a history of cardiomyopathy, CHF and is on Eliquis. He was able to ambulate after the fall without evidence of a fracture. In the ED, a large right buttock hematoma was identified. CT confirmed a subcutaneous hematoma above the glutteal muscles. He denies striking his head or upper extremities. Review of Systems Review of Systems: Yes all other systems are reviewed and are negative Constitutional: Constitutional: Reports body ache(s), Denies headache(s), Denies poor appetite and Denies weakness Eyes: Eyes: Reports no additional eye complaints ENT: Denies dizziness, Denies headache(s) and Denies epistaxis Cardiovascular: Cardiovascular: Denies chest pain Respiratory: Respiratory: Reports no additional respiratory complaints Gastrointestinal: Gastrointestinal: Reports no additional gastrointestinal complaints Musculoskeletal: Musculoskeletal: Reports as per HPI Integumentary/Breasts: Skin/Breast: Reports as per HPI Neurologic: Denies dizziness, Denies headache(s) and Denies weakness Hematologic/Lymphatic: Hematologic/Lymphatic: Reports easy bleeding and Reports easy bruising PMFSH Past Medical History Medical History Ankle swelling Atrial fibrillation Bradycardia Congestive heart failure Gout HFrEF (heart failure with reduced ejection fraction) HTN (hypertension) Systolic CHF Family History Family History Father No problems noted. Mother Heart disease Surgical History Surgical History No pertinent past surgical history Social History Social History Household Members: None Housing: Apartment Do you presently have visiting nurse or other home services: No Alcohol intake: unknown Patient Tobacco Use Status: Never used Tobacco Advance Directives: No Advance Directives Information Provided: No service: No Current occupational status: employed Meds Allergies Allergy/AdvReac Type Severity Reaction Status Date / Time No Known Allergies Allergy Verified 01/06/22 01:31 Active Medications: Current Medications Acetaminophen (Acetaminophen 325 Mg Tablet) 650 mg PO Q6H PRN PRN Reason: Pain, Mild (Pain Scale 1-3) Dextrose/Sodium Chloride (D51/2ns) 1,000 mls @ 50 mls/hr IVCONT .Q20H FOR[facility]LY [facility], 1928–1983 Last Admin: 03/10/21 05:34 Dose: 50 mls/hr Documented by: Melatonin (Melatonin 3 Mg Tablet) 6 mg PO BEDTIME PRN PRN Reason: Insomnia Metoprolol Succinate (Metoprolol Succinate Er 25 Mg Tab.Er.24h) 25 mg PO DAILY FOR[facility]LY [facility], 1928–1983; Protocol Oxycodone HCl (Oxycodone Hcl Immed Release 5 Mg Tablet) 5 mg PO Q6H PRN PRN Reason: Pain, Severe (Pain Scale 7-10) Senna (Sennosides 8.6 Mg Tablet) 17.2 mg PO BEDTIME PRN PRN Reason: Constipation Sodium Chloride (0.9 % Sodium Chloride Flush 3 Ml Syringe) 3 ml IVFLUSH QSHIFT [facility], 1928–1983 Last Admin: 03/10/21 07:43 Dose: Not Given Documented by: Home Medications Medication Instructions Recorded Confirmed Last Taken Type allopurinol 100 mg tablet 300 mg PO DAILY 03/10/21 03/10/21 03/09/21 History amlodipine 5 mg tablet 5 mg PO DAILY 03/10/21 Unknown History apixaban 5 mg tablet (Eliquis) 5 mg PO BID 03/10/21 03/10/21 03/09/21 09:00 History colchicine 0.6 mg tablet 0.6 mg PO BID PRN 03/10/21 03/10/21 Unknown History metoprolol succinate 25 mg 25 mg PO DAILY 03/10/21 03/10/21 Unknown History tablet,extended release 24 hr prednisone 10 mg tablet See Taper PO DAILY PRN 03/10/21 03/10/21 Unknown History valsartan 40 mg tablet 40 mg PO DAILY 03/10/21 Unknown History Physical Exam Vital Signs: Vital Signs: Last Vital Signs Temp 98.9 F 03/10/21 01:26 Pulse 64 03/10/21 07:44 Resp 18 03/10/21 07:44 BP 115/64 03/10/21 07:44 Pulse Ox 97 03/10/21 07:44 BMI result Body Mass Index 34.5 Const: General: cooperative, healthy appearing and no acute distress Nutritional Appearance: well nourished Orientation/consciousness: patient oriented x3 Limitations: no limitations HENMT: Head: Yes normocephalic and Yes atraumatic Ears: hearing grossly normal bilaterally Resp: Effort & Inspection: normal respiratory effort Back/Spine/Pelvis: Other: Right buttock with a large area of ecchymosis with an underlying subcutaneous hematoma. Several vesicles in the skin noted to be ruptured. No pulsation noted on palpation. No audible bruit. Back/spine/pelvis image: 1. Site of hematoma and ecchymosis. Skin: General skin exam: ecchymosis, no erythema and no jaundice Neuro: General: patient oriented x3 Extrem: Other: Hematoma as noted above Results Labs Result diagrams: 03/10/21 07:13 03/10/21 07:13 Labs: Abnormal lab results 03/10/21 03/10/21 03/10/21 Range/Units 01:49 01:49 01:49 RBC 3.71 L (4.60-5.80) X10*6/uL Hgb 11.5 L (14.0-18.0) g/dl Hct 33.6 L (42.0-52.0) % Plt Count 107 L (160-400) X10*3/uL Lymph % (Auto) 19.1 L (20-40) % Lymph # (Auto) 1.1 L (1.2-4.9) X10*3/uL PT 16.0 H (9.9-13.0) SEC INR 1.4 H (0.9-1.1) Chloride 110 H (96-108) mmol/L Anion Gap 11 L (12-20) BUN 22 H (9-16) mg/dL Random Glucose 132 H (60-115) mg/dL Total Bilirubin 1.1 H (0.0-1.0) mg/dL Total Protein 6.0 L (6.5-8.0) g/dL Short CBC 03/10/21 Range/Units 01:49 WBC 5.9 (4.8-10.8) X10*3/uL Hgb 11.5 L (14.0-18.0) g/dl Hct 33.6 L (42.0-52.0) % Plt Count 107 L (160-400) X10*3/uL BMP 03/10/21 01:49 Sodium 140 Potassium 3.6 Chloride 110 H Carbon Dioxide 23 BUN 22 H Creatinine 1.01 Calcium 8.9 Liver Function 03/10/21 Range/Units 01:49 Total Bilirubin 1.1 H (0.0-1.0) mg/dL AST 25 (5-37) U/L ALT 32 (0-40) U/L Alkaline Phosphatase 55 D (39-117) U/L Albumin 3.9 (3.5-5.0) g/dL All other labs normal. Assessment and Plan (1) Hematoma: Status: Acute (2) Fall: Status: Acute 65-year-old male patient status post fall down stairs due to ice resulting in a large hematoma of the right buttock. Hematoma appears stable at this time. Patient is currently on Eliquis, last taken last evening. Recommended ice to the right buttock and no strenuous activity. Will continue observation of the hematoma which appears to be contain and tamponaded at this point. Procedures Date of Service Date of Service: 03/10/21
[2021-03-10 08:04] LABS: Basophils Percent Auto 0.2 % (0-2); Eosinophils Percent Auto 0.2 % (0-4); Hematocrit 32.4 % (42.0-52.0); Hemoglobin 11.1 g/dl (14.0-18.0); Imm Gran Abs Auto 0.02 X10*3/uL (0.00-0.03); Imm Gran Pct Auto 0.3 % (0.0-0.4); Lymphocytes Absolute Auto 1.1 X10*3/uL (1.2-4.9); Lymphocytes Percent Auto 18.9 % (20-40); Mean Corpuscular HGB Conc 34.3 g/dl (31.0-36.0); Mean Corpuscular Hemoglobin 30.8 pg (27.0-33.0); Mean Platelet Volume 11.2 fL (9.4-12.4); Monocytes Absolute Auto 0.5 X10*3/uL (0.1-1.2); Monocytes Percent Auto 8.2 % (2-11); Neutrophils Absolute Auto 4.3 x10*3/uL (2.0-8.3); Neutrophils Percent Auto 72.2 % (45-73); Platelet Count 103 X10*3/uL (160-400); Red Cell Distribution Width 12.8 % (11.0-16.0)
[2021-03-10 08:05] LABS: Anion Gap 12 (12-20); Blood Urea Nitrogen 18 mg/dL (9-16); Calcium 8.8 mg/dL (8.4-10.2); Carbon Dioxide 22 mmol/L (22-29); Chloride 111 mmol/L (96-108); Creatinine Clr Calc Pharmacy 116.6; Estimated Glomerular Filt Rate > 60; Glucose Random 125 mg/dL (60-115); Potassium 3.5 mmol/L (3.3-5.1); Sodium 141 mmol/L (135-145)
--- NOTE | 2021-03-10 09:34 | PC.NURSE ---
large ice packs to buttocks
[2021-03-10] MEDS: Metoprolol Succinate ER 25 MG TAB.ER.24H PO (10:27)
--- NOTE | 2021-03-10 10:39 | PHA.MEDREC ---
Pharmacy Consult ? Medication Reconciliation Pharmacy has completed the medication reconciliation. Patient is very fustrated when discussing medications. Patient brought in a list from home. Karol Poon, MadisynD
--- NOTE | 2021-03-10 12:06 | MHC.CM.PN ---
CM MET WITH PT IN ED 21. 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 PT REPORTS HE WAS SUPPOSED TO SEE DR GARCIA AT [facility] IN [place] LAST YEAR. HE SAYS HE HAS MADE TWO MORE APPOINTMENTS SINCE THEN BUT KEEPS SEEING THE PA AND HAS NOT YET MET DR GARCIA. CURRENT DC PLAN IS HOME WITH NO SERVICES PT REPORTS HE CAN ARRANGE TRANSPORT
[2021-03-10] MEDS: allopurinoL 300 MG TABLET PO (12:32)
--- NOTE | 2021-03-10 12:32 | PC.NURSE ---
new ice applied
--- NOTE | 2021-03-10 16:10 | PC.NURSE ---
rn to jad apodaca on ed overflow unit.
--- NOTE | 2021-03-10 16:19 | PC.NURSE ---
Pt received from main ED: Pt AOX4 and c/o of mild pain to Rglut. Pt states to have falled down stairs yesterday morning. Large bruising and hematoma noted to R glut, extending to mid and L glut. Skin tear also noted to R glut. Surgeon consulted for pt. No surgery will be performed, and ice will be the biggest management at this time. Eliquis will be held for now. Heart sounds irregular and lungs clear. Pt able to ambulate with standby assist.
[2021-03-10] MEDS: Valsartan 40 MG TABLET PO ×2 (16:40→23:35)
[2021-03-10] MEDS: amLODIPine Besylate 2.5 MG TABLET 7.5 MG PO (16:40)
--- NOTE | 2021-03-10 16:40 | PC.NURSE ---
Ice applied at this time to R glut bruising.
[2021-03-11 04:00] VITALS: BP 106/54; PULSE 77; RESP 16; O2SAT 99
[2021-03-11 06:20] LABS: PLT CLUMP 1; Red Cell Distribution Width 12.9 % (11.0-16.0)
[2021-03-11 06:22] LABS: Hematocrit 28.2 % (42.0-52.0); Hemoglobin 9.5 g/dl (14.0-18.0); Mean Corpuscular HGB Conc 33.7 g/dl (31.0-36.0); Mean Corpuscular Hemoglobin 31.1 pg (27.0-33.0); Mean Corpuscular Volume 92.5 fL (80.0-98.0); Red Blood Count 3.05 X10*6/uL (4.60-5.80)
[2021-03-11 06:41] LABS: Platelet Count 101 X10*3/uL (160-400); White Blood Count 4.8 X10*3/uL (4.8-10.8)
[2021-03-11] MEDS: Metoprolol Succinate ER 25 MG TAB.ER.24H PO (10:35)
[2021-03-11] MEDS: allopurinoL 300 MG TABLET PO (10:35)
[2021-03-11] MEDS: Valsartan 40 MG TABLET PO ×2 (10:37→22:03)
[2021-03-11] MEDS: amLODIPine Besylate 2.5 MG TABLET 7.5 MG PO (10:38)
[2021-03-11] MEDS: 0.9 % Sodium Chloride Flush 3 ML SYRINGE IVFLUSH ×2 (10:44→22:09)
[2021-03-11 11:32] VITALS: BP 108/54; PULSE 70; RESP 18; O2SAT 96
--- NOTE | 2021-03-11 11:45 | HO.PM.IMPN ---
Subjective Subjective Date of Service: 03/11/21 Interval History: the patient was seen and evaluated this morning Laying in bed, complaining of pain in the buttock area Using ice to decrease the swelling No reported other overnight events. Systemic review: No fever, chills but reporting pain upon walking and movement in the bed No chest pain, palpitation No shortness of breath or coughing No abdominal pain, nausea or vomiting No urinary symptoms hematoma in place, not changing in size since yesterday Physical Exam Vital Signs: Vital Signs: Last Vital Signs Temp 97.6 F 03/10/21 21:01 Pulse 70 03/11/21 11:32 Resp 18 03/11/21 11:32 BP 108/54 L 03/11/21 11:32 Pulse Ox 96 03/11/21 11:32 BMI result Body Mass Index 34.5 Const: Other: Constitutional : Alert, oriented, not in distress Neck : Normal inspection, Supple Cardiovascular : RRR, S1 S2, no lower extremity edema Respiratory : Good bilateral air entry, no crackles, wheezes or rhonchi Gastrointestinal: soft, lax, Normal bowel sounds, Non tender Skin : Warm, Dry, right gluteal ecchymosis; no bleeding, no tenderness Neurological : Alert & oriented x3, No focal deficit Objective Data Active Medications Acetaminophen (Acetaminophen 325 Mg Tablet) 650 mg PO Q6H PRN PRN Reason: Pain, Mild (Pain Scale 1-3) Allopurinol (Allopurinol 300 Mg Tablet) 300 mg PO DAILY [facility] Last Admin: 03/11/21 10:35 Dose: 300 mg Documented by: JOCELYNE Amlodipine Besylate (Amlodipine Besylate 2.5 Mg Tablet) 7.5 mg PO DAILY [facility]; Protocol Last Admin: 03/11/21 10:38 Dose: 7.5 mg Documented by: JOCELYNE Melatonin (Melatonin 3 Mg Tablet) 6 mg PO BEDTIME PRN PRN Reason: Insomnia Metoprolol Succinate (Metoprolol Succinate Er 25 Mg Tab.Er.24h) 25 mg PO DAILY [facility]; Protocol Last Admin: 03/11/21 10:35 Dose: 25 mg Documented by: JOCELYNE Oxycodone HCl (Oxycodone Hcl Immed Release 5 Mg Tablet) 5 mg PO Q6H PRN PRN Reason: Pain, Severe (Pain Scale 7-10) Pharmacy Consult (Consult Rx Perform Med Rec) 1 each MISCELLANE ONCE PRN PRN Reason: Consult order Senna (Sennosides 8.6 Mg Tablet) 17.2 mg PO BEDTIME PRN PRN Reason: Constipation Sodium Chloride (0.9 % Sodium Chloride Flush 3 Ml Syringe) 3 ml IVFLUSH QSHIFT [facility] Last Admin: 03/11/21 10:44 Dose: 3 ml Documented by: JOCELYNE Valsartan (Valsartan 40 Mg Tablet) 40 mg PO BID [facility]; Protocol Last Admin: 03/11/21 10:37 Dose: 40 mg Documented by: JOCELYNE Labs CBC & Chem 7: 03/11/21 05:49 03/10/21 07:13 Labs: Laboratory Results - last 24 hr 03/11/21 05:49 MCV 92.5 MCH 31.1 MCHC 33.7 RDW 12.9 Plt Count 101 L MPV 11.0 Absolute Nucleated RBC 0.000 Nucleated RBC % (auto) 0.0 Assessment and Plan (1) Hematoma: Status: Acute (2) Fall: Status: Acute Assessment and Plan: 65-year-old male with a past medical history of hypertension, AFib on Eliquis, CHF presented to the hospital with a chief complaint of fall. Fall Mechanical in nature. No evidence of fracture. Nonfocal examination. PT/OT evaluation acute on chronic blood loss Anemia right gluteal hematoma hemoglobin dropped to 9.5 this morning from 11.5 at time of admission, baseline around 15 Hold home Eliquis. Follow H&H surgery input appreciated, ?Recommended ice to the right buttock and no strenuous activity history of AFib Rate controlled. Hold home Eliquis. Hypertension Continue home metoprolol Hold home losartan / amlodipine. DVT prophylaxis: SCD boots Code status: Full code Quality Stroke Does the patient have a stroke diagnosis?: No VTE Prior VTE?: No VTE Risk Level:: Medical - moderate - high VTE Device Contraindication: N/A - Device Ordered VTE Drug Contraindication: Treatment Not Indicated
[2021-03-11 12:23] VITALS: BP 108/54; PULSE 70; O2SAT 96
--- NOTE | 2021-03-11 15:46 | P.PNGS_ITS ---
Subjective Subjective Date of Service: 03/11/21 Interval history: Continued pain in the right buttock, no worse or better. Physical Exam Vital Signs: Vital Signs: Last Vital Signs Temp 97.6 F 03/10/21 21:01 Pulse 70 03/11/21 12:23 Resp 18 03/11/21 11:32 BP 108/54 L 03/11/21 12:23 Pulse Ox 96 03/11/21 12:23 BMI result Body Mass Index 34.5 Const: General: no acute distress Nutritional Appearance: well nourished Resp: Effort & Inspection: normal respiratory effort Back/Spine/Pelvis: Other: Buttock hematoma essentially unchanged, overlying skin with ecchymosis as expected. No skin necrosis noted. Skin: Other: Warm, dry, no rash; right buttock as noted above Objective Data Active Medications Acetaminophen (Acetaminophen 325 Mg Tablet) 650 mg PO Q6H PRN PRN Reason: Pain, Mild (Pain Scale 1-3) Allopurinol (Allopurinol 300 Mg Tablet) 300 mg PO DAILY [facility] Last Admin: 03/11/21 10:35 Dose: 300 mg Documented by: JOCELYNE Amlodipine Besylate (Amlodipine Besylate 2.5 Mg Tablet) 7.5 mg PO DAILY [facility]; Protocol Last Admin: 03/11/21 10:38 Dose: 7.5 mg Documented by: JOCELYNE Melatonin (Melatonin 3 Mg Tablet) 6 mg PO BEDTIME PRN PRN Reason: Insomnia Metoprolol Succinate (Metoprolol Succinate Er 25 Mg Tab.Er.24h) 25 mg PO DAILY [facility]; Protocol Last Admin: 03/11/21 10:35 Dose: 25 mg Documented by: JOCELYNE Oxycodone HCl (Oxycodone Hcl Immed Release 5 Mg Tablet) 5 mg PO Q6H PRN PRN Reason: Pain, Severe (Pain Scale 7-10) Pharmacy Consult (Consult Rx Perform Med Rec) 1 each MISCELLANE ONCE PRN PRN Reason: Consult order Senna (Sennosides 8.6 Mg Tablet) 17.2 mg PO BEDTIME PRN PRN Reason: Constipation Sodium Chloride (0.9 % Sodium Chloride Flush 3 Ml Syringe) 3 ml IVFLUSH QSHIFT [facility] Last Admin: 03/11/21 10:44 Dose: 3 ml Documented by: JOCELYNE Valsartan (Valsartan 40 Mg Tablet) 40 mg PO BID [facility]; Protocol Last Admin: 03/11/21 10:37 Dose: 40 mg Documented by: JOCELYNE Labs CBC & Chem 7: 03/11/21 05:49 03/10/21 07:13 Labs: Laboratory Results - last 24 hr 03/11/21 05:49 MCV 92.5 MCH 31.1 MCHC 33.7 RDW 12.9 Plt Count 101 L MPV 11.0 Absolute Nucleated RBC 0.000 Nucleated RBC % (auto) 0.0 Procedures Date of Service Date of Service: 03/11/21 Progress Note: A&P Assessment and plan (1) Hematoma: Status: Acute Assessment and Plan: 65-year-old male patient status post fall down stairs due to ice, now with large hematoma of right buttock. Hematoma appears stable with no evidence of ongoing bleeding. H&H has decreased as expected. Ideally Eliquis should be held for another day to assure stability of the hematoma. Should be able to restart tomorrow. Fall Risk Details Current Medications: Current Medications Acetaminophen (Acetaminophen 325 Mg Tablet) 650 mg PO Q6H PRN PRN Reason: Pain, Mild (Pain Scale 1-3) Allopurinol (Allopurinol 300 Mg Tablet) 300 mg PO DAILY [facility] Last Admin: 03/11/21 10:35 Dose: 300 mg Documented by: Amlodipine Besylate (Amlodipine Besylate 2.5 Mg Tablet) 7.5 mg PO DAILY [facility]; Protocol Last Admin: 03/11/21 10:38 Dose: 7.5 mg Documented by: Melatonin (Melatonin 3 Mg Tablet) 6 mg PO BEDTIME PRN PRN Reason: Insomnia Metoprolol Succinate (Metoprolol Succinate Er 25 Mg Tab.Er.24h) 25 mg PO DAILY [facility]; Protocol Last Admin: 03/11/21 10:35 Dose: 25 mg Documented by: Oxycodone HCl (Oxycodone Hcl Immed Release 5 Mg Tablet) 5 mg PO Q6H PRN PRN Reason: Pain, Severe (Pain Scale 7-10) Pharmacy Consult (Consult Rx Perform Med Rec) 1 each MISCELLANE ONCE PRN PRN Reason: Consult order Senna (Sennosides 8.6 Mg Tablet) 17.2 mg PO BEDTIME PRN PRN Reason: Constipation Sodium Chloride (0.9 % Sodium Chloride Flush 3 Ml Syringe) 3 ml IVFLUSH QSHIFT [facility] Last Admin: 03/11/21 10:44 Dose: 3 ml Documented by: Valsartan (Valsartan 40 Mg Tablet) 40 mg PO BID [facility]; Protocol Last Admin: 03/11/21 10:37 Dose: 40 mg Documented by: Time Spent With Patient Time: Total time spent is greater than 50% in coordination of care (as documented) at patient's floor/unit and/or counseling patient: Time with patient: less than 15 minutes Quality Stroke Does the patient have a stroke diagnosis?: No VTE Prior VTE?: No VTE Risk Level:: Medical - moderate - high VTE Device Contraindication: N/A - Device Ordered VTE Drug Contraindication: Treatment Not Indicated
[2021-03-11 16:00] LABS: Hematocrit 28.9 % (42.0-52.0); Hemoglobin 9.7 g/dl (14.0-18.0)
[2021-03-12 03:43] VITALS: BP 108/54; PULSE 61; RESP 16; TEMP 37; O2SAT 99
[2021-03-12 07:38] LABS: Hematocrit 28.9 % (42.0-52.0); Hemoglobin 9.7 g/dl (14.0-18.0); Mean Corpuscular HGB Conc 33.6 g/dl (31.0-36.0); Mean Corpuscular Hemoglobin 31.2 pg (27.0-33.0); Mean Corpuscular Volume 92.9 fL (80.0-98.0); Mean Platelet Volume 10.8 fL (9.4-12.4); Platelet Count 110 X10*3/uL (160-400); Red Blood Count 3.11 X10*6/uL (4.60-5.80); Red Cell Distribution Width 12.9 % (11.0-16.0); White Blood Count 5.6 X10*3/uL (4.8-10.8)
[2021-03-12 08:05] LABS: Anion Gap 11 (12-20); Blood Urea Nitrogen 16 mg/dL (9-16); Calcium 8.8 mg/dL (8.4-10.2); Carbon Dioxide 24 mmol/L (22-29); Chloride 108 mmol/L (96-108); Creatinine Clr Calc Pharmacy 111.3; Estimated Glomerular Filt Rate > 60; Glucose Random 104 mg/dL (60-115); Potassium 4.2 mmol/L (3.3-5.1); Sodium 139 mmol/L (135-145)
[2021-03-12] MEDS: Valsartan 40 MG TABLET PO (08:30)
[2021-03-12] MEDS: Metoprolol Succinate ER 25 MG TAB.ER.24H PO (08:31)
[2021-03-12] MEDS: allopurinoL 300 MG TABLET PO (08:31)
[2021-03-12] MEDS: amLODIPine Besylate 2.5 MG TABLET 7.5 MG PO (08:32)
[2021-03-12] MEDS: 0.9 % Sodium Chloride Flush 3 ML SYRINGE IVFLUSH ×2 (08:32→14:51)
[2021-03-12] MEDS: Apixaban 5 MG TABLET PO ×2 (08:35→20:49)
[2021-03-12 08:50] VITALS: BP 130/66; PULSE 84; RESP 18
--- NOTE | 2021-03-12 08:58 | HO.PM.IMPN ---
Subjective Subjective Date of Service: 03/12/21 Interval History: cc: fall, right buttock pain itnerval history: still with pain, difficulty walking, no worsening of hematoma Cardiovascular Cardiovascular: Reports no additional cardiovascular complaints Respiratory Respiratory: Reports no additional respiratory complaints Physical Exam Vital Signs: Vital Signs: Last Vital Signs Temp 98.6 F 03/12/21 03:43 Pulse 84 03/12/21 08:50 Resp 18 03/12/21 08:50 BP 130/66 03/12/21 08:50 Pulse Ox 99 03/12/21 03:43 BMI result Body Mass Index 34.5 General: AO X 3, no acute distress Resp: CTA bilateral, no accessory muscles used CVS: S1,S2,RRR GI: soft, non tender, non distended Neuro: motor grossly intact, alert Psych: appropriate affect, appropriate insight skin: right buttock diffuse hematoma Objective Data Active Medications Acetaminophen (Acetaminophen 325 Mg Tablet) 650 mg PO Q6H PRN PRN Reason: Pain, Mild (Pain Scale 1-3) Allopurinol (Allopurinol 300 Mg Tablet) 300 mg PO DAILY [facility] Last Admin: 03/12/21 08:31 Dose: 300 mg Documented by: SUZANNE Amlodipine Besylate (Amlodipine Besylate 2.5 Mg Tablet) 7.5 mg PO DAILY [facility]; Protocol Last Admin: 03/12/21 08:32 Dose: 7.5 mg Documented by: SUZANNE Apixaban (Apixaban 5 Mg Tablet) 5 mg PO BID [facility] Last Admin: 03/12/21 08:35 Dose: 5 mg Documented by: SUZANNE Melatonin (Melatonin 3 Mg Tablet) 6 mg PO BEDTIME PRN PRN Reason: Insomnia Metoprolol Succinate (Metoprolol Succinate Er 25 Mg Tab.Er.24h) 25 mg PO DAILY [facility]; Protocol Last Admin: 03/12/21 08:31 Dose: 25 mg Documented by: SUZANNE Oxycodone HCl (Oxycodone Hcl Immed Release 5 Mg Tablet) 5 mg PO Q6H PRN PRN Reason: Pain, Severe (Pain Scale 7-10) Pharmacy Consult (Consult Rx Perform Med Rec) 1 each MISCELLANE ONCE PRN PRN Reason: Consult order Senna (Sennosides 8.6 Mg Tablet) 17.2 mg PO BEDTIME PRN PRN Reason: Constipation Sodium Chloride (0.9 % Sodium Chloride Flush 3 Ml Syringe) 3 ml IVFLUSH QSHIFT [facility] Last Admin: 03/12/21 08:32 Dose: 3 ml Documented by: SUZANNE Valsartan (Valsartan 40 Mg Tablet) 40 mg PO BID [facility]; Protocol Last Admin: 03/12/21 08:30 Dose: 40 mg Documented by: SUZANNE Labs CBC & Chem 7: 03/12/21 07:06 03/12/21 07:06 Labs: Laboratory Results - last 24 hr 03/12/21 03/12/21 07:06 07:06 MCV 92.9 MCH 31.2 MCHC 33.6 RDW 12.9 Plt Count 110 L MPV 10.8 Absolute Nucleated RBC 0.000 Nucleated RBC % (auto) 0.0 Anion Gap 11 L Estim Creat Clear Calc 111.3 Estimated GFR > 60 Random Glucose 104 Calcium 8.8 Assessment and Plan (1) Hematoma: Status: Acute (2) Fall: Status: Acute Assessment and Plan: 65-year-old male with a past medical history of hypertension, AFib on Eliquis, CHF presented to the hospital with a chief complaint of fall. Fall Mechanical in nature. No evidence of fracture. Nonfocal examination. PT recommending STR at SNF, however, patient likely to choose to go home acute on chronic blood loss Anemia right gluteal hematoma hemoglobin dropped from baseline of 15.4 in nov 2020 to 11.5 on admission, now stable around 9.7. hematoma now stable, will rechallenge with eliquis and monitor surgery appreciated, will change to warm compress, no role for surgery at this time paroxysmal AFib toprol, restart Eliquis. Hypertension metoprolol losartan amlodipine. DVT prophylaxis: eliquis Code status: Full code Quality Stroke Does the patient have a stroke diagnosis?: No VTE Prior VTE?: No VTE Risk Level:: Medical - moderate - high VTE Device Contraindication: N/A - Device Ordered VTE Drug Contraindication: Treatment Not Indicated
--- NOTE | 2021-03-12 09:25 | PM.PNGS ---
Subjective Subjective Date of Service: 03/12/21 Interval history: Some pain in left buttock hematoma Was asking about course of treatment Physical Exam Vital Signs: Vital Signs: Last Vital Signs Temp 98.6 F 03/12/21 03:43 Pulse 84 03/12/21 08:50 Resp 18 03/12/21 08:50 BP 130/66 03/12/21 08:50 Pulse Ox 99 03/12/21 03:43 BMI result Body Mass Index 34.5 Const: General: comfortable and no acute distress Resp: Effort & Inspection: normal respiratory effort Back/Spine/Pelvis: Other: Diffuse hematoma, buttock and lower back Objective Data Active Medications Acetaminophen (Acetaminophen 325 Mg Tablet) 650 mg PO Q6H PRN PRN Reason: Pain, Mild (Pain Scale 1-3) Allopurinol (Allopurinol 300 Mg Tablet) 300 mg PO DAILY [facility] Last Admin: 03/12/21 08:31 Dose: 300 mg Documented by: SUZANNE Amlodipine Besylate (Amlodipine Besylate 2.5 Mg Tablet) 7.5 mg PO DAILY [facility]; Protocol Last Admin: 03/12/21 08:32 Dose: 7.5 mg Documented by: SUZANNE Apixaban (Apixaban 5 Mg Tablet) 5 mg PO BID [facility] Last Admin: 03/12/21 08:35 Dose: 5 mg Documented by: SUZANNE Melatonin (Melatonin 3 Mg Tablet) 6 mg PO BEDTIME PRN PRN Reason: Insomnia Metoprolol Succinate (Metoprolol Succinate Er 25 Mg Tab.Er.24h) 25 mg PO DAILY [facility]; Protocol Last Admin: 03/12/21 08:31 Dose: 25 mg Documented by: SUZANNE Oxycodone HCl (Oxycodone Hcl Immed Release 5 Mg Tablet) 5 mg PO Q6H PRN PRN Reason: Pain, Severe (Pain Scale 7-10) Pharmacy Consult (Consult Rx Perform Med Rec) 1 each MISCELLANE ONCE PRN PRN Reason: Consult order Senna (Sennosides 8.6 Mg Tablet) 17.2 mg PO BEDTIME PRN PRN Reason: Constipation Sodium Chloride (0.9 % Sodium Chloride Flush 3 Ml Syringe) 3 ml IVFLUSH QSHIFT [facility] Last Admin: 03/12/21 08:32 Dose: 3 ml Documented by: SUZANNE Valsartan (Valsartan 40 Mg Tablet) 40 mg PO BID [facility]; Protocol Last Admin: 03/12/21 08:30 Dose: 40 mg Documented by: SUZANNE Labs CBC & Chem 7: 03/12/21 07:06 03/12/21 07:06 Labs: Laboratory Results - last 24 hr 03/12/21 03/12/21 07:06 07:06 MCV 92.9 MCH 31.2 MCHC 33.6 RDW 12.9 Plt Count 110 L MPV 10.8 Absolute Nucleated RBC 0.000 Nucleated RBC % (auto) 0.0 Anion Gap 11 L Estim Creat Clear Calc 111.3 Estimated GFR > 60 Random Glucose 104 Calcium 8.8 Procedures Date of Service Date of Service: 03/12/21 Progress Note: A&P Assessment and plan (1) Hematoma: Status: Acute Assessment and Plan: Diffuse hematoma - would not recommend doing evacuation at this time Warm compresses If hemoglobin stable, okay to restart Eliquis Discussed care with patient at bedside Fall Risk Details Current Medications: Current Medications Acetaminophen (Acetaminophen 325 Mg Tablet) 650 mg PO Q6H PRN PRN Reason: Pain, Mild (Pain Scale 1-3) Allopurinol (Allopurinol 300 Mg Tablet) 300 mg PO DAILY [facility] Last Admin: 03/12/21 08:31 Dose: 300 mg Documented by: Amlodipine Besylate (Amlodipine Besylate 2.5 Mg Tablet) 7.5 mg PO DAILY [facility]; Protocol Last Admin: 03/12/21 08:32 Dose: 7.5 mg Documented by: Apixaban (Apixaban 5 Mg Tablet) 5 mg PO BID [facility] Last Admin: 03/12/21 08:35 Dose: 5 mg Documented by: Melatonin (Melatonin 3 Mg Tablet) 6 mg PO BEDTIME PRN PRN Reason: Insomnia Metoprolol Succinate (Metoprolol Succinate Er 25 Mg Tab.Er.24h) 25 mg PO DAILY [facility]; Protocol Last Admin: 03/12/21 08:31 Dose: 25 mg Documented by: Oxycodone HCl (Oxycodone Hcl Immed Release 5 Mg Tablet) 5 mg PO Q6H PRN PRN Reason: Pain, Severe (Pain Scale 7-10) Pharmacy Consult (Consult Rx Perform Med Rec) 1 each MISCELLANE ONCE PRN PRN Reason: Consult order Senna (Sennosides 8.6 Mg Tablet) 17.2 mg PO BEDTIME PRN PRN Reason: Constipation Sodium Chloride (0.9 % Sodium Chloride Flush 3 Ml Syringe) 3 ml IVFLUSH QSHIFT [facility] Last Admin: 03/12/21 08:32 Dose: 3 ml Documented by: Valsartan (Valsartan 40 Mg Tablet) 40 mg PO BID [facility]; Protocol Last Admin: 03/12/21 08:30 Dose: 40 mg Documented by: Time Spent With Patient Time: Total time spent is greater than 50% in coordination of care (as documented) at patient's floor/unit and/or counseling patient: Time with patient: 15 - 24 minutes Quality Stroke Does the patient have a stroke diagnosis?: No VTE Prior VTE?: No VTE Risk Level:: Medical - moderate - high VTE Device Contraindication: N/A - Device Ordered VTE Drug Contraindication: Treatment Not Indicated
--- NOTE | 2021-03-12 09:45 | PC.NURSE ---
Up ad sierra. No compaints
[2021-03-12 15:06] VITALS: BP 100/49; PULSE 73; RESP 22; TEMP 37.6; O2SAT 98
--- NOTE | 2021-03-12 19:45 | PC.NURSE ---
Assumed care of pt at 1900. Pt resting in bed, awake and alert, in NAD. Call light within reach. Denies needs
[2021-03-12 20:08] VITALS: BP 98/42; PULSE 74; RESP 18; TEMP 36.9; O2SAT 94
[2021-03-12] MEDS: Melatonin 3 MG TABLET 6 MG PO (20:50)
[2021-03-12 23:29] VITALS: PULSE 72; RESP 22
--- NOTE | 2021-03-13 05:17 | PC.NURSE ---
Pt to floor via wc, sent in stable condition w/ all belongings, report given to receiving RN
[2021-03-13 06:30] VITALS: BP 134/62; PULSE 73; RESP 20; TEMP 36.2; O2SAT 97
--- NOTE | 2021-03-13 07:14 | PC.NURSE ---
Patient to floor approx 0500 by wheelchair. steady gait. Large bruising to buttock with small open areas open to air, weeping spots of blood. cooperative, resting comfortably.
[2021-03-13] MEDS: Metoprolol Succinate ER 25 MG TAB.ER.24H PO (07:18)
[2021-03-13] MEDS: amLODIPine Besylate 2.5 MG TABLET 7.5 MG PO (07:18)
[2021-03-13] MEDS: 0.9 % Sodium Chloride Flush 3 ML SYRINGE IVFLUSH ×3 (07:18→19:33)
[2021-03-13] MEDS: Apixaban 5 MG TABLET PO ×2 (07:18→19:32)
[2021-03-13] MEDS: allopurinoL 300 MG TABLET PO (07:18)
[2021-03-13 08:00] VITALS: BP 145/71; PULSE 72; RESP 20; TEMP 36.1; O2SAT 96
--- NOTE | 2021-03-13 09:45 | HO.PM.IMPN ---
Subjective Subjective Date of Service: 03/13/21 Interval History: cc: fall interval history: unchanged hematoma Cardiovascular Cardiovascular: Reports no additional cardiovascular complaints Gastrointestinal Gastrointestinal: Reports no additional gastrointestinal complaints Physical Exam Vital Signs: Vital Signs: Last Vital Signs Temp 97 F 03/13/21 08:00 Pulse 72 03/13/21 08:00 Resp 20 03/13/21 08:00 BP 145/71 H 03/13/21 08:00 Pulse Ox 96 03/13/21 08:00 BMI result Body Mass Index 34.5 General: AO X 3, no acute distress Resp:? CTA bilateral, no accessory muscles used CVS: S1,S2,RRR GI: soft, non tender, non distended Neuro:? motor grossly intact, alert Psych: appropriate affect, appropriate insight? skin: right buttock diffuse hematoma, stable Objective Data Active Medications Acetaminophen (Acetaminophen 325 Mg Tablet) 650 mg PO Q6H PRN PRN Reason: Pain, Mild (Pain Scale 1-3) Allopurinol (Allopurinol 300 Mg Tablet) 300 mg PO DAILY [facility] Last Admin: 03/13/21 07:18 Dose: 300 mg Documented by: RENETTA Amlodipine Besylate (Amlodipine Besylate 2.5 Mg Tablet) 7.5 mg PO DAILY [facility]; Protocol Last Admin: 03/13/21 07:18 Dose: 7.5 mg Documented by: RENETTA Apixaban (Apixaban 5 Mg Tablet) 5 mg PO BID [facility] Last Admin: 03/13/21 07:18 Dose: 5 mg Documented by: RENETTA Melatonin (Melatonin 3 Mg Tablet) 6 mg PO BEDTIME PRN PRN Reason: Insomnia Last Admin: 03/12/21 20:50 Dose: 6 mg Documented by: AZUL Metoprolol Succinate (Metoprolol Succinate Er 25 Mg Tab.Er.24h) 25 mg PO DAILY [facility]; Protocol Last Admin: 03/13/21 07:18 Dose: 25 mg Documented by: RENETTA Oxycodone HCl (Oxycodone Hcl Immed Release 5 Mg Tablet) 5 mg PO Q6H PRN PRN Reason: Pain, Severe (Pain Scale 7-10) Pharmacy Consult (Consult Rx Perform Med Rec) 1 each MISCELLANE ONCE PRN PRN Reason: Consult order Senna (Sennosides 8.6 Mg Tablet) 17.2 mg PO BEDTIME PRN PRN Reason: Constipation Sodium Chloride (0.9 % Sodium Chloride Flush 3 Ml Syringe) 3 ml IVFLUSH QSHIFT [facility] Last Admin: 03/13/21 07:18 Dose: 3 ml Documented by: RENETTA Valsartan (Valsartan 40 Mg Tablet) 40 mg PO BID [facility]; Protocol Last Admin: 03/12/21 20:52 Dose: Not Given Documented by: AZUL Non-Admin Reason: Patient Condition Contraindication Labs CBC & Chem 7: 03/12/21 07:06 03/12/21 07:06 Assessment and Plan (1) Hematoma: Status: Acute (2) Fall: Status: Acute Assessment and Plan: 65-year-old male with a past medical history of hypertension, AFib on Eliquis, CHF presented to the hospital with a chief complaint of fall. Fall Mechanical in nature. No evidence of fracture. PT recommending STR at SNF acute on chronic blood loss Anemia right gluteal hematoma hemoglobin dropped from baseline of 15.4 in nov 2020 to 11.5 on admission, now stable around 9.7. restarted eliquis 03/12/21, hematoma stable so far, will continue to monitor while awaiting SNF bed (patient unable to do stairs due to hematoma, has many stairs at home) surgery appreciated, continue warm compress, no role for surgery at this time paroxysmal AFib toprol, Eliquis. Hypertension metoprolol losartan amlodipine. DVT prophylaxis: eliquis Code status: Full code Quality Stroke Does the patient have a stroke diagnosis?: No VTE Prior VTE?: No VTE Risk Level:: Medical - moderate - high VTE Device Contraindication: N/A - Device Ordered VTE Drug Contraindication: Treatment Not Indicated
[2021-03-13] MEDS: Valsartan 40 MG TABLET PO ×2 (11:57→19:32)
[2021-03-13 12:00] VITALS: BP 139/69; PULSE 80; RESP 20; TEMP 36.7; O2SAT 96
[2021-03-13 15:24] VITALS: BP 126/59; PULSE 73; RESP 18; TEMP 36.8; O2SAT 97
[2021-03-13 19:34] VITALS: BP 130/63; PULSE 72; RESP 17; TEMP 36.8; O2SAT 97
[2021-03-14] VITALS (8 sets, daily range): BP systolic 109–140; BP diastolic 55–80; PULSE 61–73; RESP 17–18; TEMP 36.2–37.1; O2SAT 94–99
[2021-03-14 05:56] LABS: Hematocrit 29.4 % (42.0-52.0); Hemoglobin 9.5 g/dl (14.0-18.0); Mean Corpuscular HGB Conc 32.3 g/dl (31.0-36.0); Mean Corpuscular Hemoglobin 30.4 pg (27.0-33.0); Mean Corpuscular Volume 94.2 fL (80.0-98.0); Mean Platelet Volume 10.6 fL (9.4-12.4); Platelet Count 172 X10*3/uL (160-400); Red Blood Count 3.12 X10*6/uL (4.60-5.80); Red Cell Distribution Width 13.1 % (11.0-16.0); White Blood Count 5.2 X10*3/uL (4.8-10.8)
[2021-03-14 06:38] LABS: Anion Gap 10 (12-20); Blood Urea Nitrogen 22 mg/dL (9-16); Calcium 8.7 mg/dL (8.4-10.2); Carbon Dioxide 26 mmol/L (22-29); Chloride 106 mmol/L (96-108); Estimated Glomerular Filt Rate > 60; Glucose Fasting 108 mg/dL (60-99); Potassium 4.2 mmol/L (3.3-5.1); Sodium 138 mmol/L (135-145)
[2021-03-14] MEDS: Valsartan 40 MG TABLET PO ×2 (08:31→19:52)
[2021-03-14] MEDS: Metoprolol Succinate ER 25 MG TAB.ER.24H PO (08:31)
[2021-03-14] MEDS: amLODIPine Besylate 2.5 MG TABLET 7.5 MG PO (08:31)
[2021-03-14] MEDS: allopurinoL 300 MG TABLET PO (08:31)
[2021-03-14] MEDS: Apixaban 5 MG TABLET PO ×2 (08:31→19:52)
[2021-03-14] MEDS: 0.9 % Sodium Chloride Flush 3 ML SYRINGE IVFLUSH ×3 (08:32→19:52)
--- NOTE | 2021-03-14 09:58 | PM.DS ---
DS: Providers Provider Date of Service: 03/14/21 Date of admission: 03/10/21 04:03 Primary care physician: Unknown Physician Consults: 03/10/21 04:10 Consult to General Surgery Routine Consulting Provider: Jimi Louise Reason for consultation: right gluteal hematoma DS: Diagnosis Discharge Diagnosis (1) Hematoma: Status: Acute (2) Fall: Status: Acute DS: Summary Hospital Course Hospital Course: Patient was admitted for fall while on apixaban complicated by acute on chronic blood loss anemia from right gluteal hematoma. Hemoglobin in November 2020 was 15.4, on admission was 11.5, at discharge is 9.5 and stable. patient's Eliquis was held for about 2 days, was restarted on it 03/12/2021 and hemoglobin has remained stable and hematoma has not worsened. Patient was seen by surgery who recommended warm compresses and no role for surgery at this time. Patient is having difficulty ambulating especially on stairs, therefore, will be discharged to [facility] facility. Time Spent with Patient Time attestation: Total time spent providing and/or coordinating discharge services: Discharge coordination time: Greater than 30 minutes Quality: Stroke Does the patient have a stroke diagnosis?: No Physical Exam Vital Signs: Vital Signs: Last Vital Signs Temp 97.3 F 03/14/21 07:23 Pulse 66 03/14/21 09:12 Resp 18 03/14/21 07:23 BP 140/67 H 03/14/21 09:12 Pulse Ox 98 03/14/21 09:12 BMI result Body Mass Index 34.5 General: AO X 3, no acute distress Resp:? CTA bilateral, no accessory muscles used CVS: S1,S2,RRR GI: soft, non tender, non distended Neuro:? motor grossly intact, alert Psych: appropriate affect, appropriate insight? skin: right buttock diffuse hematoma, stable DS: Data Data Completed and Pending Completed studies during hospitalization [Text1]: Procedures Excision of Esophagogastric Junction, Via Natural or Artificial Opening Endoscopic, Diagnostic (11/18/20) Excision of Stomach, Pylorus, Via Natural or Artificial Opening Endoscopic, Diagnostic (11/18/20) Jain of Cardiac Rhythm, Single (11/08/20) Labs on day of discharge: Laboratory Results - last 24 hr 03/14/21 03/14/21 05:37 05:38 WBC 5.2 RBC 3.12 L Hgb 9.5 L Hct 29.4 L MCV 94.2 MCH 30.4 MCHC 32.3 RDW 13.1 Plt Count 172 D MPV 10.6 Absolute Nucleated RBC 0.000 Nucleated RBC % (auto) 0.0 Sodium 138 Potassium 4.2 Chloride 106 Carbon Dioxide 26 Anion Gap 10 L BUN 22 H Creatinine 0.89 Estim Creat Clear Calc 110.0 Estimated GFR > 60 Fasting Glucose 108 H Calcium 8.7 Discharge Plan Discharge Patient Disposition: [facility] Discharge Diagnosis: fall, hematoma Referrals: Physician,Unknown J [Primary Care Provider] - 1 Week Discharge Medications: Continued amlodipine 5 mg tablet 7.5 mg PO DAILY RF: 0 metoprolol succinate 25 mg tablet extended release 24 hr 25 mg PO BEDTIME RF: 0 valsartan 40 mg tablet 40 mg PO BID RF: 0 Eliquis 5 mg tablet 5 mg PO BID RF: 0 prednisone 10 mg tablet See Taper tab PO DAILY PRN (Reason: GOUT) RF: 0 allopurinol 100 mg tablet 300 mg PO DAILY RF: 0 colchicine 0.6 mg Tablet 0.6 mg PO BID PRN (Reason: GOUT) RF: 0 Diet: advance to usual diet Activity on Discharge: As tolerated Stand Alone Forms: Patient Portal Discharge page Care Plan Goals: resolve hematoma Health Concerns: hematoma Plan of Treatment: okay to continue eliquis, monitor hematoma for worsening, warm compresses, PT with stair training Assessment: see above
--- NOTE | 2021-03-14 11:19 | P.PNIM_ITS ---
Subjective Subjective Date of Service: 03/14/21 Interval History: cc: fall interval history: unchanged hematoma Cardiovascular Cardiovascular: Reports no additional cardiovascular complaints Respiratory Respiratory: Reports no additional respiratory complaints Physical Exam Vital Signs: Vital Signs: Last Vital Signs Temp 97.3 F 03/14/21 07:23 Pulse 66 03/14/21 09:12 Resp 18 03/14/21 07:23 BP 140/67 H 03/14/21 09:12 Pulse Ox 98 03/14/21 09:12 BMI result Body Mass Index 34.5 General: AO X 3, no acute distress Resp:? CTA bilateral, no accessory muscles used CVS: S1,S2,RRR GI: soft, non tender, non distended Neuro:? motor grossly intact, alert Psych: appropriate affect, appropriate insight? skin: right buttock diffuse hematoma, stable Objective Data Active Medications Acetaminophen (Acetaminophen 325 Mg Tablet) 650 mg PO Q6H PRN PRN Reason: Pain, Mild (Pain Scale 1-3) Allopurinol (Allopurinol 300 Mg Tablet) 300 mg PO DAILY [facility] Last Admin: 03/14/21 08:31 Dose: 300 mg Documented by: LU Amlodipine Besylate (Amlodipine Besylate 2.5 Mg Tablet) 7.5 mg PO DAILY [facility]; Protocol Last Admin: 03/14/21 08:31 Dose: 7.5 mg Documented by: LU Apixaban (Apixaban 5 Mg Tablet) 5 mg PO BID [facility] Last Admin: 03/14/21 08:31 Dose: 5 mg Documented by: LU Melatonin (Melatonin 3 Mg Tablet) 6 mg PO BEDTIME PRN PRN Reason: Insomnia Last Admin: 03/12/21 20:50 Dose: 6 mg Documented by: AZUL Metoprolol Succinate (Metoprolol Succinate Er 25 Mg Tab.Er.24h) 25 mg PO DAILY [facility]; Protocol Last Admin: 03/14/21 08:31 Dose: 25 mg Documented by: LU Oxycodone HCl (Oxycodone Hcl Immed Release 5 Mg Tablet) 5 mg PO Q6H PRN PRN Reason: Pain, Severe (Pain Scale 7-10) Pharmacy Consult (Consult Rx Perform Med Rec) 1 each MISCELLANE ONCE PRN PRN Reason: Consult order Senna (Sennosides 8.6 Mg Tablet) 17.2 mg PO BEDTIME PRN PRN Reason: Constipation Sodium Chloride (0.9 % Sodium Chloride Flush 3 Ml Syringe) 3 ml IVFLUSH QSHIFT [facility] Last Admin: 03/14/21 08:32 Dose: 3 ml Documented by: LU Valsartan (Valsartan 40 Mg Tablet) 40 mg PO BID [facility]; Protocol Last Admin: 03/14/21 08:31 Dose: 40 mg Documented by: LU Labs CBC & Chem 7: 03/14/21 05:37 03/14/21 05:38 Labs: Laboratory Results - last 24 hr 03/14/21 03/14/21 05:37 05:38 MCV 94.2 MCH 30.4 MCHC 32.3 RDW 13.1 Plt Count 172 D MPV 10.6 Absolute Nucleated RBC 0.000 Nucleated RBC % (auto) 0.0 Anion Gap 10 L Estim Creat Clear Calc 110.0 Estimated GFR > 60 Fasting Glucose 108 H Calcium 8.7 Assessment and Plan (1) Hematoma: Status: Acute (2) Fall: Status: Acute Assessment and Plan: 65-year-old male with a past medical history of hypertension, AFib on Eliquis, CHF presented to the hospital with a chief complaint of fall. Fall Mechanical in nature. No evidence of fracture. PT recommending STR at SNF acute on chronic blood loss Anemia right gluteal hematoma hemoglobin dropped from baseline of 15.4 in nov 2020 to 11.5 on admission, now stable around 9 to 10. restarted eliquis 03/12/21, hematoma stable so far, will continue to monitor while awaiting SNF bed (patient unable to do stairs due to hematoma, has many stairs at home) surgery appreciated, continue warm compress, no role for surgery at this time paroxysmal AFib toprol, Eliquis. Hypertension metoprolol losartan amlodipine. DVT prophylaxis: eliquis Code status: Full code Quality Stroke Does the patient have a stroke diagnosis?: No VTE Prior VTE?: No VTE Risk Level:: Medical - moderate - high VTE Device Contraindication: N/A - Device Ordered VTE Drug Contraindication: Treatment Not Indicated
[2021-03-15] VITALS (7 sets, daily range): BP systolic 104–177; BP diastolic 56–89; PULSE 60–75; RESP 18–19; TEMP 36.2–36.5; O2SAT 95–99
--- NOTE | 2021-03-15 09:39 | MHC.CM.PN ---
CM MET W/PT TUESDAY 03/14 AND THIS MORNING REGARDING SNF PLACEMENT REFERRALS, PT IS NOT FULLY VACCINATED AND HAS NOT HAD ANY BED OFFERS D/T SNF'S REPORTING NO BED, NOT COVERED BENEFIT AND PT'S VACCINE STATUS, PT IS VERY RUDE AND DEMANDING TELLING CM, YOU HAVE TO TELL THEM THEY NEED TO TAKE ME 44 ADDITIONAL REFERRALS SENT IN 100 MILE RADIUS, PT DID MEET W/CM AND REPORTS THEY WILL RETURN TO WORK ON STAIRS W/PT THIS AFTERNOON.
[2021-03-15] MEDS: amLODIPine Besylate 2.5 MG TABLET 7.5 MG PO (09:45)
[2021-03-15] MEDS: Metoprolol Succinate ER 25 MG TAB.ER.24H PO (09:46)
[2021-03-15] MEDS: allopurinoL 300 MG TABLET PO (09:46)
[2021-03-15] MEDS: Valsartan 40 MG TABLET PO ×2 (09:46→20:30)
[2021-03-15] MEDS: Apixaban 5 MG TABLET PO ×2 (09:46→20:30)
[2021-03-15] MEDS: 0.9 % Sodium Chloride Flush 3 ML SYRINGE IVFLUSH ×3 (09:47→20:31)
--- NOTE | 2021-03-15 09:49 | MHC.CM.PN ---
Addendum entered by Yuli Brown RN 03/15/21 14:24: CM CONTACTED PT'S DTR LUCILA AT 1:39PM [phone], PER DTR THERE IS NO FAMILY MEMBER OR FRIEND THAT PT CAN STAY WITH, LUCILA REPORTS PT IS VERY STUBBORN AND SHE TYPICALLY CAN NOT CONVINCE PT TO DO ANYTHING, LUCILA REPORTS SHE IS UNABLE TO PROVIDE TRANSPORT UPON D/C EITHER. PT CONT'S TO REFUSE TO D/C HOME W/SERVICES. 2 VNA'S HAVE OFFERED TO PROVIDE SERVICES FOR PT. [facility] CAN PROVIDE SN/PT AND [facility] CAN PROVIDE HOME PT ONLY. Original Note: cm attempted to call pt's dtr Lucila at 9:49am to see if pt could stay with her however there was no answer and no voicemail set up, cm to revisit.
--- NOTE | 2021-03-15 10:15 | P.PNIM_ITS ---
Subjective Subjective Date of Service: 03/15/21 Interval History: ?cc: fall interval history: unchanged hematoma Cardiovascular Cardiovascular: Reports no additional cardiovascular complaints Respiratory Respiratory: Reports no additional respiratory complaints Physical Exam Vital Signs: Vital Signs: Last Vital Signs Temp 97.7 F 03/15/21 07:30 Pulse 65 03/15/21 08:56 Resp 18 03/15/21 07:30 BP 118/70 03/15/21 08:56 Pulse Ox 95 03/15/21 08:56 BMI result Body Mass Index 34.5 General: AO X 3, no acute distress Resp:? CTA bilateral, no accessory muscles used CVS: S1,S2,RRR GI: soft, non tender, non distended Neuro:? motor grossly intact, alert Psych: appropriate affect, appropriate insight? skin: right buttock diffuse hematoma, stable Objective Data Active Medications Acetaminophen (Acetaminophen 325 Mg Tablet) 650 mg PO Q6H PRN PRN Reason: Pain, Mild (Pain Scale 1-3) Allopurinol (Allopurinol 300 Mg Tablet) 300 mg PO DAILY [facility] Last Admin: 03/15/21 09:46 Dose: 300 mg Documented by: PAULETTE Amlodipine Besylate (Amlodipine Besylate 2.5 Mg Tablet) 7.5 mg PO DAILY [facility]; Protocol Last Admin: 03/15/21 09:45 Dose: 7.5 mg Documented by: PAULETTE Apixaban (Apixaban 5 Mg Tablet) 5 mg PO BID [facility] Last Admin: 03/15/21 09:46 Dose: 5 mg Documented by: PAULETTE Melatonin (Melatonin 3 Mg Tablet) 6 mg PO BEDTIME PRN PRN Reason: Insomnia Last Admin: 03/12/21 20:50 Dose: 6 mg Documented by: AZUL Metoprolol Succinate (Metoprolol Succinate Er 25 Mg Tab.Er.24h) 25 mg PO DAILY [facility]; Protocol Last Admin: 03/15/21 09:46 Dose: 25 mg Documented by: PAULETTE Pharmacy Consult (Consult Rx Perform Med Rec) 1 each MISCELLANE ONCE PRN PRN Reason: Consult order Senna (Sennosides 8.6 Mg Tablet) 17.2 mg PO BEDTIME PRN PRN Reason: Constipation Sodium Chloride (0.9 % Sodium Chloride Flush 3 Ml Syringe) 3 ml IVFLUSH QSHIFT [facility] Last Admin: 03/15/21 09:47 Dose: 3 ml Documented by: PAULETTE Valsartan (Valsartan 40 Mg Tablet) 40 mg PO BID [facility]; Protocol Last Admin: 03/15/21 09:46 Dose: 40 mg Documented by: PAULETTE Labs CBC & Chem 7: 03/14/21 05:37 03/14/21 05:38 Assessment and Plan (1) Hematoma: Status: Acute (2) Fall: Status: Acute Assessment and Plan: 65-year-old male with a past medical history of hypertension, AFib on Eliquis, CHF presented to the hospital with a chief complaint of fall. Fall Mechanical in nature. No evidence of fracture. PT recommending STR at SNF acute on chronic blood loss Anemia right gluteal hematoma hemoglobin dropped from baseline of 15.4 in nov 2020 to 11.5 on admission, now stable around 9 to 10. restarted eliquis 03/12/21, hematoma stable so far,awaiting SNF bed (patient unable to do stairs due to hematoma, has many stairs at home) surgery appreciated, continue warm compress, no role for surgery at this time paroxysmal AFib toprol, Eliquis. Hypertension metoprolol losartan amlodipine. DVT prophylaxis: eliquis Code status: Full code Quality Stroke Does the patient have a stroke diagnosis?: No VTE Prior VTE?: No VTE Risk Level:: Medical - moderate - high VTE Device Contraindication: N/A - Device Ordered VTE Drug Contraindication: Treatment Not Indicated
--- NOTE | 2021-03-15 15:30 | MHC.CM.PN ---
Addendum entered by Brianna Boyd 03/15/21 15:44: PATIENT IS REQUESTING A REFERRAL TO [facility], NOW PLACED. HOSPITALIST AWARE Original Note: THIS MANAGER TRANSPLANT SPOKE WITH PATIENT WHO DOES NOT FEEL SAFE TO RETURN HOME YET. HE DOES REPORT THAT HE WOULD LIKE TO RECEIVE HIS SECOND COVID-19 VACCINATION DOSE IF THIS MANAGER TRANSPLANT WAS ABLE TO SET IT UP. ATTEMPTS CURRENTLY BEING MADE TO SECURE THIS. ACCORDING TO [facility] ([phone]) PATIENT WAS VACCINATED WITH MODERNA ON AUGUST 032021
[2021-03-16] VITALS: BP 126/77; PULSE 64; RESP 17; TEMP 36.4; O2SAT 99
[2021-03-16 03:47] VITALS: BP 112/55; PULSE 66; RESP 17; TEMP 36.3; O2SAT 96
[2021-03-16] MEDS: Acetaminophen 325 MG TABLET 650 MG PO (05:12)
[2021-03-16 07:42] VITALS: BP 140/74; PULSE 68; RESP 18; TEMP 36.5; O2SAT 97
[2021-03-16] MEDS: Metoprolol Succinate ER 25 MG TAB.ER.24H PO (09:12)
[2021-03-16] MEDS: allopurinoL 300 MG TABLET PO (09:12)
[2021-03-16] MEDS: Apixaban 5 MG TABLET PO ×2 (09:12→20:36)
[2021-03-16] MEDS: Valsartan 40 MG TABLET PO ×2 (09:13→20:36)
[2021-03-16] MEDS: amLODIPine Besylate 2.5 MG TABLET 7.5 MG PO (09:13)
--- NOTE | 2021-03-16 09:46 | MHC.CM.PN ---
NO SNF OR ACUTE REHAB BED OFFERS. PATIENT GIVEN INFORMATION FOR [facility], HE RECENTLY RECEIVED A LETTER STATING THAT HE HAS TO VACATE HIM PREMISES IN MAY 2021. PATIENT IS AWARE THAT HE DOES HAVE VNA OFFERS FOR HOME P.T.
[2021-03-16] MEDS: oxyCODONE HCl Immed Release 5 MG TABLET 2.5 MG PO (10:05)
[2021-03-16] MEDS: predniSONE 20 MG TABLET 40 MG PO (10:05)
--- NOTE | 2021-03-16 10:21 | HO.PM.IMPN ---
Subjective Subjective Date of Service: 03/16/21 Interval History: the patient was seen and evaluated this morning Sitting in the chair, having breakfast complaining of pain in the buttock area and right big toe Hemoglobin stable No reported other overnight events. Systemic review: No fever, chills but reporting pain upon walking and movement in the bed No chest pain, palpitation No shortness of breath or coughing No abdominal pain, nausea or vomiting No urinary symptoms Pain at the hematoma site Physical Exam Vital Signs: Vital Signs: Last Vital Signs Temp 97.7 F 03/16/21 07:42 Pulse 68 03/16/21 07:42 Resp 18 03/16/21 07:42 BP 140/74 H 03/16/21 07:42 Pulse Ox 97 03/16/21 07:42 BMI result Body Mass Index 34.5 Const: Other: Constitutional : Alert, oriented, not in distress Neck : Normal inspection, Supple Cardiovascular : RRR, S1 S2, no lower extremity edema Respiratory : Good bilateral air entry, no crackles, wheezes or rhonchi Gastrointestinal: soft, lax, Normal bowel sounds, Non tender Skin : Warm, Dry, right gluteal ecchymosis; no bleeding, no tenderness Extremities: Right big toe with no erythema, swelling but mild tenderness with passive movement Neurological : Alert & oriented x3, No focal deficit Objective Data Active Medications Acetaminophen (Acetaminophen 325 Mg Tablet) 650 mg PO Q6H PRN PRN Reason: Pain, Mild (Pain Scale 1-3) Last Admin: 03/16/21 05:12 Dose: 650 mg Documented by: JUANCHO Allopurinol (Allopurinol 300 Mg Tablet) 300 mg PO DAILY [facility] Last Admin: 03/16/21 09:12 Dose: 300 mg Documented by: PAULETTE Amlodipine Besylate (Amlodipine Besylate 2.5 Mg Tablet) 7.5 mg PO DAILY [facility]; Protocol Last Admin: 03/16/21 09:13 Dose: 7.5 mg Documented by: PAULETTE Apixaban (Apixaban 5 Mg Tablet) 5 mg PO BID [facility] Last Admin: 03/16/21 09:12 Dose: 5 mg Documented by: PAULETTE Melatonin (Melatonin 3 Mg Tablet) 6 mg PO BEDTIME PRN PRN Reason: Insomnia Last Admin: 03/12/21 20:50 Dose: 6 mg Documented by: HO.GEARSS Metoprolol Succinate (Metoprolol Succinate Er 25 Mg Tab.Er.24h) 25 mg PO DAILY [facility]; Protocol Last Admin: 03/16/21 09:12 Dose: 25 mg Documented by: PAULETTE Oxycodone HCl (Oxycodone Hcl Immed Release 5 Mg Tablet) 2.5 mg PO Q6H PRN PRN Reason: Pain, Severe (Pain Scale 7-10) Last Admin: 03/16/21 10:05 Dose: 2.5 mg Documented by: ANUSHKA Pharmacy Consult (Consult Rx Perform Med Rec) 1 each MISCELLANE ONCE PRN PRN Reason: Consult order Prednisone (Prednisone 20 Mg Tablet) 40 mg PO DAILY [facility] Last Admin: 03/16/21 10:05 Dose: 40 mg Documented by: ANUSHKA Senna (Sennosides 8.6 Mg Tablet) 17.2 mg PO BEDTIME PRN PRN Reason: Constipation Sodium Chloride (0.9 % Sodium Chloride Flush 3 Ml Syringe) 3 ml IVFLUSH QSHIFT [facility] Last Admin: 03/16/21 09:03 Dose: Not Given Documented by: PAULETTE Non-Admin Reason: No Access Valsartan (Valsartan 40 Mg Tablet) 40 mg PO BID [facility]; Protocol Last Admin: 03/16/21 09:13 Dose: 40 mg Documented by: PAULETTE Labs CBC & Chem 7: 03/14/21 05:37 03/14/21 05:38 Assessment and Plan (1) Hematoma: Status: Acute (2) Fall: Status: Acute (3) Gout attack: Status: Acute Assessment and Plan: 65-year-old male with a past medical history of hypertension, AFib on Eliquis, CHF presented to the hospital with a chief complaint of fall. Fall Mechanical in nature. No evidence of fracture. PT recommending STR at SNF acute on chronic blood loss Anemia right gluteal hematoma hemoglobin dropped from baseline of 15.4 in nov 2020 to 11.5 on admission, now stable around 9 to 10. restarted eliquis 03/12/21, hematoma stable so far,awaiting SNF bed (patient unable to do stairs due to hematoma, has many stairs at home) surgery appreciated, continue warm compress, no role for surgery at this time Gout attack Received a dose of prednisone To start colchicine 0.6 mg twice Daily Patient on oxycodone for pain management paroxysmal AFib toprol, Eliquis. Hypertension metoprolol losartan amlodipine. DVT prophylaxis: eliquis Code status: Full code Quality Stroke Does the patient have a stroke diagnosis?: No VTE Prior VTE?: No VTE Risk Level:: Medical - moderate - high VTE Device Contraindication: N/A - Device Ordered VTE Drug Contraindication: Treatment Not Indicated
[2021-03-16 12:00] VITALS: BP 163/72; PULSE 70; RESP 18; TEMP 36.9; O2SAT 97
--- NOTE | 2021-03-16 13:38 | MHC.CM.PN ---
PLAN IS FOR SECOND MODERNA VACCINE TONIGHT AT APPROX. 20:00-20:30 RN TO BE MADE AWARE. PATIENT AWARE OF TIME ESTIMATION
[2021-03-16] MEDS: Colchicine 0.6 MG TABLET 1.2 MG PO (15:33)
[2021-03-16 15:47] VITALS: BP 138/78; PULSE 70; RESP 16; TEMP 36.9; O2SAT 96
[2021-03-16 20:00] VITALS: BP 133/70; PULSE 69; RESP 16; TEMP 36.2; O2SAT 97
[2021-03-16] MEDS: 0.9 % Sodium Chloride Flush 3 ML SYRINGE IVFLUSH (20:36)
[2021-03-16] MEDS: Colchicine 0.6 MG TABLET PO (20:36)
[2021-03-17] VITALS (7 sets, daily range): BP systolic 116–153; BP diastolic 51–77; PULSE 65–88; RESP 16–18; TEMP 36.2–38.1; O2SAT 94–99
[2021-03-17 06:10] LABS: Hemoglobin 10.1 g/dl (14.0-18.0); Mean Corpuscular HGB Conc 32.6 g/dl (31.0-36.0); Mean Corpuscular Hemoglobin 30.3 pg (27.0-33.0); Mean Corpuscular Volume 93.1 fL (80.0-98.0); Mean Platelet Volume 10.1 fL (9.4-12.4); Platelet Count 168 X10*3/uL (160-400); Red Blood Count 3.33 X10*6/uL (4.60-5.80); Red Cell Distribution Width 13.2 % (11.0-16.0); White Blood Count 3.5 X10*3/uL (4.8-10.8)
[2021-03-17 06:30] LABS: Anion Gap 11 (12-20); Blood Urea Nitrogen 17 mg/dL (9-16); Calcium 9.1 mg/dL (8.4-10.2); Carbon Dioxide 27 mmol/L (22-29); Chloride 107 mmol/L (96-108); Creatinine Clr Calc Pharmacy 105.3; Estimated Glomerular Filt Rate > 60; Glucose Random 98 mg/dL (60-115); Potassium 4.2 mmol/L (3.3-5.1); Sodium 141 mmol/L (135-145)
[2021-03-17] MEDS: Apixaban 5 MG TABLET PO ×2 (08:25→20:09)
[2021-03-17] MEDS: Colchicine 0.6 MG TABLET PO ×2 (08:25→20:09)
[2021-03-17] MEDS: amLODIPine Besylate 2.5 MG TABLET 7.5 MG PO (08:25)
[2021-03-17] MEDS: Valsartan 40 MG TABLET PO ×2 (08:26→20:09)
[2021-03-17] MEDS: allopurinoL 300 MG TABLET PO (08:26)
[2021-03-17] MEDS: Metoprolol Succinate ER 25 MG TAB.ER.24H PO (08:26)
[2021-03-17] MEDS: Acetaminophen 325 MG TABLET 650 MG PO (08:36)
--- NOTE | 2021-03-17 09:37 | P.PNIM_ITS ---
Subjective Subjective Date of Service: 03/17/21 Interval History: the patient was seen and evaluated this morning Laying in the bed, complaining of chills and feeling little febrile Received the 2nd dose of vaccine yesterday Improved pain in the buttock area and right big toe Hemoglobin stable No reported other overnight events. Systemic review: Having chills and feeling cold No chest pain, palpitation No shortness of breath or coughing No abdominal pain, nausea or vomiting No urinary symptoms Pain at the hematoma site Physical Exam Vital Signs: Vital Signs: Last Vital Signs Temp 100.5 F H 03/17/21 07:24 Pulse 88 03/17/21 07:24 Resp 18 03/17/21 07:24 BP 151/69 H 03/17/21 07:24 Pulse Ox 95 03/17/21 07:24 BMI result Body Mass Index 34.5 Const: Other: Constitutional : Alert, oriented, not in distress Neck : Normal inspection, Supple Cardiovascular : RRR, S1 S2, no lower extremity edema Respiratory : Good bilateral air entry, no crackles, wheezes or rhonchi Gastrointestinal: soft, lax, Normal bowel sounds, Non tender Skin : Warm, Dry, right gluteal ecchymosis; no bleeding, no tenderness Extremities: Right big toe with no erythema, swelling but mild tenderness with passive movement Neurological : Alert & oriented x3, No focal deficit Objective Data Active Medications Acetaminophen (Acetaminophen 325 Mg Tablet) 650 mg PO Q6H PRN PRN Reason: Pain, Mild (Pain Scale 1-3) Last Admin: 03/17/21 08:36 Dose: 650 mg Documented by: SHAUN Allopurinol (Allopurinol 300 Mg Tablet) 300 mg PO DAILY [facility] Last Admin: 03/17/21 08:26 Dose: 300 mg Documented by: SHAUN Amlodipine Besylate (Amlodipine Besylate 2.5 Mg Tablet) 7.5 mg PO DAILY [facility]; Protocol Last Admin: 03/17/21 08:25 Dose: 7.5 mg Documented by: SHAUN Apixaban (Apixaban 5 Mg Tablet) 5 mg PO BID [facility] Last Admin: 03/17/21 08:25 Dose: 5 mg Documented by: SHAUN Colchicine (Colchicine 0.6 Mg Tablet) 0.6 mg PO BID [facility] Last Admin: 03/17/21 08:25 Dose: 0.6 mg Documented by: SHAUN Melatonin (Melatonin 3 Mg Tablet) 6 mg PO BEDTIME PRN PRN Reason: Insomnia Last Admin: 03/12/21 20:50 Dose: 6 mg Documented by: AZUL Metoprolol Succinate (Metoprolol Succinate Er 25 Mg Tab.Er.24h) 25 mg PO DAILY [facility]; Protocol Last Admin: 03/17/21 08:26 Dose: 25 mg Documented by: SHAUN Oxycodone HCl (Oxycodone Hcl Immed Release 5 Mg Tablet) 2.5 mg PO Q6H PRN PRN Reason: Pain, Severe (Pain Scale 7-10) Last Admin: 03/16/21 10:05 Dose: 2.5 mg Documented by: ANUSHKA Pharmacy Consult (Consult Rx Perform Med Rec) 1 each MISCELLANE ONCE PRN PRN Reason: Consult order Senna (Sennosides 8.6 Mg Tablet) 17.2 mg PO BEDTIME PRN PRN Reason: Constipation Sodium Chloride (0.9 % Sodium Chloride Flush 3 Ml Syringe) 3 ml IVFLUSH QSHIFT [facility] Last Admin: 03/17/21 08:31 Dose: Not Given Documented by: SHAUN Non-Admin Reason: No Access Valsartan (Valsartan 40 Mg Tablet) 40 mg PO BID [facility]; Protocol Last Admin: 03/17/21 08:26 Dose: 40 mg Documented by: SHAUN Labs CBC & Chem 7: 03/17/21 05:33 03/17/21 05:33 Labs: Laboratory Results - last 24 hr 03/17/21 03/17/21 05:33 05:33 MCV 93.1 MCH 30.3 MCHC 32.6 RDW 13.2 Plt Count 168 MPV 10.1 Absolute Nucleated RBC 0.000 Nucleated RBC % (auto) 0.0 Anion Gap 11 L Estim Creat Clear Calc 105.3 Estimated GFR > 60 Random Glucose 98 Calcium 9.1 Assessment and Plan (1) Gout attack: Status: Acute (2) Hematoma: Status: Acute (3) Fall: Status: Acute Assessment and Plan: 65-year-old male with a past medical history of hypertension, AFib on Eliquis, CHF presented to the hospital with a chief complaint of fall. Fall Mechanical in nature. No evidence of fracture. PT recommending STR at [facility] acute on chronic blood loss Anemia right gluteal hematoma hemoglobin dropped from baseline of 15.4 in nov 2020 to 11.5 on admission, now stable around 9 to 10. restarted eliquis 03/12/21, hematoma stable so far,awaiting SNF bed (patient unable to do stairs due to hematoma, has many stairs at home) surgery appreciated, continue warm compress, no role for surgery at this time Chills After receiving the 2nd dose of COVID vaccine Supportive measures and Tylenol as needed Gout attack Continue colchicine 0.6 mg twice Daily Patient on oxycodone for pain management paroxysmal AFib toprol, Eliquis. Hypertension metoprolol losartan amlodipine. DVT prophylaxis: chucky Pang, pending placement Quality Stroke Does the patient have a stroke diagnosis?: No VTE Prior VTE?: No VTE Risk Level:: Medical - moderate - high VTE Device Contraindication: N/A - Device Ordered VTE Drug Contraindication: Treatment Not Indicated
[2021-03-17] MEDS: 0.9 % Sodium Chloride Flush 3 ML SYRINGE IVFLUSH (23:48)
[2021-03-18] VITALS (7 sets, daily range): BP systolic 105–150; BP diastolic 55–70; PULSE 65–85; RESP 18–20; TEMP 35.9–37; O2SAT 96–97
[2021-03-18] MEDS: amLODIPine Besylate 2.5 MG TABLET 7.5 MG PO (07:55)
[2021-03-18] MEDS: Metoprolol Succinate ER 25 MG TAB.ER.24H PO (07:55)
[2021-03-18] MEDS: Apixaban 5 MG TABLET PO ×2 (07:55→19:40)
[2021-03-18] MEDS: Valsartan 40 MG TABLET PO (07:55)
[2021-03-18] MEDS: allopurinoL 300 MG TABLET PO (07:56)
--- NOTE | 2021-03-18 10:57 | HO.PM.IMPN ---
Subjective Subjective Date of Service: 03/18/21 Interval History: the patient was seen and evaluated this morning Laying in the bed, complaining of feeling dizzy upon standing up and unsteady on his feet Improved pain in the buttock area and right big toe No reported other overnight events. Systemic review: Having chills and feeling cold No chest pain, palpitation No shortness of breath or coughing No abdominal pain, nausea or vomiting No urinary symptoms Pain improved at the hematoma site Physical Exam Vital Signs: Vital Signs: Last Vital Signs Temp 97.5 F 03/18/21 08:00 Pulse 78 03/18/21 09:07 Resp 18 03/18/21 04:00 BP 118/57 L 03/18/21 09:07 Pulse Ox 97 03/18/21 08:00 BMI result Body Mass Index 34.5 Const: Other: Constitutional : Alert, oriented, not in distress Neck : Normal inspection, Supple Cardiovascular : RRR, S1 S2, no lower extremity edema Respiratory : Good bilateral air entry, no crackles, wheezes or rhonchi Gastrointestinal: soft, lax, Normal bowel sounds, Non tender Skin : Warm, Dry, right gluteal ecchymosis; no bleeding, no tenderness Extremities: Right big toe with no erythema, swelling but mild tenderness with passive movement Neurological : Alert & oriented x3, No focal deficit Objective Data Active Medications Acetaminophen (Acetaminophen 325 Mg Tablet) 650 mg PO Q6H PRN PRN Reason: Pain, Mild (Pain Scale 1-3) Last Admin: 03/17/21 08:36 Dose: 650 mg Documented by: SHAUN Allopurinol (Allopurinol 300 Mg Tablet) 300 mg PO DAILY [facility] Last Admin: 03/18/21 07:56 Dose: 300 mg Documented by: SHAUN Amlodipine Besylate (Amlodipine Besylate 2.5 Mg Tablet) 7.5 mg PO DAILY [facility]; Protocol Last Admin: 03/18/21 07:55 Dose: 7.5 mg Documented by: SHAUN Apixaban (Apixaban 5 Mg Tablet) 5 mg PO BID [facility] Last Admin: 03/18/21 07:55 Dose: 5 mg Documented by: SHAUN Melatonin (Melatonin 3 Mg Tablet) 6 mg PO BEDTIME PRN PRN Reason: Insomnia Last Admin: 03/12/21 20:50 Dose: 6 mg Documented by: AZUL Metoprolol Succinate (Metoprolol Succinate Er 25 Mg Tab.Er.24h) 25 mg PO DAILY [facility]; Protocol Last Admin: 03/18/21 07:55 Dose: 25 mg Documented by: SHAUN Oxycodone HCl (Oxycodone Hcl Immed Release 5 Mg Tablet) 2.5 mg PO Q6H PRN PRN Reason: Pain, Severe (Pain Scale 7-10) Last Admin: 03/16/21 10:05 Dose: 2.5 mg Documented by: ANUSHKA Pharmacy Consult (Consult Rx Perform Med Rec) 1 each MISCELLANE ONCE PRN PRN Reason: Consult order Senna (Sennosides 8.6 Mg Tablet) 17.2 mg PO BEDTIME PRN PRN Reason: Constipation Sodium Chloride (0.9 % Sodium Chloride Flush 3 Ml Syringe) 3 ml IVFLUSH QSHIFT [facility] Last Admin: 03/18/21 08:00 Dose: Not Given Documented by: SHAUN Non-Admin Reason: Patient Refused Valsartan (Valsartan 40 Mg Tablet) 40 mg PO BID [facility]; Protocol Last Admin: 03/18/21 07:55 Dose: 40 mg Documented by: SHAUN Labs CBC & Chem 7: 03/17/21 05:33 03/17/21 05:33 Assessment and Plan (1) Hematoma: Status: Acute (2) Fall: Status: Acute (3) Gout attack: Status: Acute (4) Dizziness: Status: Acute Assessment and Plan: 65-year-old male with a past medical history of hypertension, AFib on Eliquis, CHF presented to the hospital with a chief complaint of fall. Dizziness Reported this morning upon standing up and walking to the bathroom Blood pressure on the soft side , could be a result of having the vaccine as well To do orthostatic vitals Hold amlodipine and valsartan monitor blood pressure for the rest of the day Fall Mechanical in nature. No evidence of fracture. PT recommending STR or home with PT, acute on chronic blood loss Anemia right gluteal hematoma hemoglobin dropped from baseline of 15.4 in nov 2020 to 11.5 on admission, now stable around 9 to 10. restarted eliquis 03/12/21, hematoma stable so far,awaiting SNF bed (patient unable to do stairs due to hematoma, has many stairs at home) surgery appreciated, continue warm compress, no role for surgery at this time Chills Resolved After receiving the 2nd dose of COVID vaccine Supportive measures and Tylenol as needed Gout attack Improved Discontinue colchicine 0.6 mg Patient on oxycodone for pain management as needed paroxysmal AFib toprol, Eliquis. Hypertension metoprolol losartan amlodipine. DVT prophylaxis: chucky Pang, pending placement Quality Stroke Does the patient have a stroke diagnosis?: No VTE Prior VTE?: No VTE Risk Level:: Medical - moderate - high VTE Device Contraindication: N/A - Device Ordered VTE Drug Contraindication: Treatment Not Indicated
--- NOTE | 2021-03-18 13:49 | MHC.CM.PN ---
pt is receommending str referrals already in place will continue to follow
--- NOTE | 2021-03-18 16:51 | MHC.CM.PN ---
PATIENT AWARE OF LACK OF SNF BED OFFERS, WELL NEW BARRIERS FOR NON-BOOSTERED PATIENTS. HE IS ALSO AWARE OF VNA ACCEPTANCE, WHICH HE DENIES THE NEED FOR. PATIENT STATES THAT IF HE IS NO LONGER DIZZY TOMORROW, HE WILL GO HOME. HE WILL NEED ASSIST WITH TRANSPORT. PATIENT STATES THAT HE CAN MANAGE A WHEEL CHAIR [facility] ([facility]) MADE AWARE.
[2021-03-19 03:47] VITALS: BP 127/61; PULSE 73; RESP 19; TEMP 36.4; O2SAT 94
[2021-03-19 05:26] LABS: Hemoglobin 10.3 g/dl (14.0-18.0); Mean Corpuscular HGB Conc 33.2 g/dl (31.0-36.0); Mean Corpuscular Hemoglobin 30.6 pg (27.0-33.0); Mean Platelet Volume 9.9 fL (9.4-12.4); Platelet Count 189 X10*3/uL (160-400); Red Blood Count 3.37 X10*6/uL (4.60-5.80); Red Cell Distribution Width 13.4 % (11.0-16.0); White Blood Count 3.4 X10*3/uL (4.8-10.8)
[2021-03-19 05:51] LABS: Anion Gap 15 (12-20); Blood Urea Nitrogen 27 mg/dL (9-16); Calcium 8.9 mg/dL (8.4-10.2); Carbon Dioxide 22 mmol/L (22-29); Chloride 107 mmol/L (96-108); Creatinine Clr Calc Pharmacy 91.5; Estimated Glomerular Filt Rate > 60; Glucose Random 108 mg/dL (60-115); Potassium 4.1 mmol/L (3.3-5.1); Sodium 140 mmol/L (135-145)
[2021-03-19 08:00] VITALS: BP 133/64; PULSE 77; RESP 18; TEMP 36.4; O2SAT 99
--- NOTE | 2021-03-19 09:24 | MHC.CM.PN ---
PER HOSPITALIST PT WILL D/C TOMORROW AND WILL NEED TRANSPORT TO PHARMACY AND THEN HOME, PT DECLINING VNA SERVICES, CM WILL CONT TO FOLOW D/C NEEDS.
[2021-03-19] MEDS: Metoprolol Succinate ER 25 MG TAB.ER.24H PO (09:29)
[2021-03-19] MEDS: 0.9 % Sodium Chloride Flush 3 ML SYRINGE IVFLUSH (09:29)
[2021-03-19] MEDS: allopurinoL 300 MG TABLET PO (09:29)
[2021-03-19] MEDS: Apixaban 5 MG TABLET PO ×2 (09:30→20:52)
[2021-03-19] MEDS: Valsartan 40 MG TABLET PO (10:10)
--- NOTE | 2021-03-19 10:57 | HO.PM.IMPN ---
Subjective Subjective Date of Service: 03/19/21 Interval History: the patient was seen and evaluated this morning Laying in the bed, still reporting lightheadedness upon standing up and unsteady on his feet Blood pressure improved but still running little on the lower end Improved pain in the buttock area and right big toe No reported other overnight events. Systemic review: Having chills and feeling cold No chest pain, palpitation No shortness of breath or coughing No abdominal pain, nausea or vomiting No urinary symptoms Pain improved at the hematoma site Physical Exam Vital Signs: Vital Signs: Last Vital Signs Temp 97.6 F 03/19/21 08:00 Pulse 77 03/19/21 08:00 Resp 18 03/19/21 08:00 BP 133/64 03/19/21 08:00 Pulse Ox 99 03/19/21 08:00 BMI result Body Mass Index 34.5 Const: Other: Constitutional : Alert, oriented, not in distress Neck : Normal inspection, Supple Cardiovascular : RRR, S1 S2, no lower extremity edema Respiratory : Good bilateral air entry, no crackles, wheezes or rhonchi Gastrointestinal: soft, lax, Normal bowel sounds, Non tender Skin : Warm, Dry, right gluteal ecchymosis with superficial wound covered with dressing, no bleeding, no tenderness Neurological : Alert & oriented x3, No focal deficit Objective Data Active Medications Acetaminophen (Acetaminophen 325 Mg Tablet) 650 mg PO Q6H PRN PRN Reason: Pain, Mild (Pain Scale 1-3) Last Admin: 03/17/21 08:36 Dose: 650 mg Documented by: SHAUN Allopurinol (Allopurinol 300 Mg Tablet) 300 mg PO DAILY [facility] Last Admin: 03/19/21 09:29 Dose: 300 mg Documented by: ALEX Amlodipine Besylate (Amlodipine Besylate 2.5 Mg Tablet) 7.5 mg PO DAILY [facility]; Protocol Last Admin: 03/18/21 07:55 Dose: 7.5 mg Documented by: SHAUN Apixaban (Apixaban 5 Mg Tablet) 5 mg PO BID [facility] Last Admin: 03/19/21 09:30 Dose: 5 mg Documented by: ALEX Melatonin (Melatonin 3 Mg Tablet) 6 mg PO BEDTIME PRN PRN Reason: Insomnia Last Admin: 03/12/21 20:50 Dose: 6 mg Documented by: AZUL Metoprolol Succinate (Metoprolol Succinate Er 25 Mg Tab.Er.24h) 25 mg PO DAILY [facility]; Protocol Last Admin: 03/19/21 09:29 Dose: 25 mg Documented by: ALEX Oxycodone HCl (Oxycodone Hcl Immed Release 5 Mg Tablet) 2.5 mg PO Q6H PRN PRN Reason: Pain, Severe (Pain Scale 7-10) Last Admin: 03/16/21 10:05 Dose: 2.5 mg Documented by: ANUSHKA Pharmacy Consult (Consult Rx Perform Med Rec) 1 each MISCELLANE ONCE PRN PRN Reason: Consult order Senna (Sennosides 8.6 Mg Tablet) 17.2 mg PO BEDTIME PRN PRN Reason: Constipation Sodium Chloride (0.9 % Sodium Chloride Flush 3 Ml Syringe) 3 ml IVFLUSH QSHIFT [facility] Last Admin: 03/19/21 09:29 Dose: 3 ml Documented by: ALEX Valsartan (Valsartan 40 Mg Tablet) 40 mg PO BID [facility]; Protocol Last Admin: 03/19/21 10:10 Dose: 40 mg Documented by: ALEX Labs CBC & Chem 7: 03/19/21 05:05 03/19/21 05:05 Labs: Laboratory Results - last 24 hr 03/19/21 03/19/21 05:05 05:05 MCV 92.0 MCH 30.6 MCHC 33.2 RDW 13.4 Plt Count 189 MPV 9.9 Absolute Nucleated RBC 0.000 Nucleated RBC % (auto) 0.0 Anion Gap 15 Estim Creat Clear Calc 91.5 Estimated GFR > 60 Random Glucose 108 Calcium 8.9 Assessment and Plan (1) Hematoma: Status: Acute (2) Dizziness: Status: Acute Assessment and Plan: 65-year-old male with a past medical history of hypertension, AFib on Eliquis, CHF presented to the hospital with a chief complaint of fall. Dizziness Improved since holding his blood pressure medications Blood pressure on the soft side , could be related to having the vaccine as well Hold amlodipine and valsartan monitor blood pressure for the rest of the day Fall Mechanical in nature. No evidence of fracture. 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 restarted eliquis 03/12/21, hematoma stable so far,awaiting SNF bed (patient unable to do stairs due to hematoma, has many stairs at home) surgery appreciated, continue warm compress, no role for surgery at this time Chills Resolved After receiving the 2nd dose of COVID vaccine Supportive measures and Tylenol as needed Gout attack Improved Discontinue colchicine 0.6 mg Patient on oxycodone for pain management as needed paroxysmal AFib toprol, Eliquis. Hypertension metoprolol losartan amlodipine. DVT prophylaxis: eliqumaia Pang, pending placement Quality Stroke Does the patient have a stroke diagnosis?: No VTE Prior VTE?: No VTE Risk Level:: Medical - moderate - high VTE Device Contraindication: N/A - Device Ordered VTE Drug Contraindication: Treatment Not Indicated
[2021-03-19 12:00] VITALS: BP 114/81; PULSE 68; RESP 18; TEMP 36.2; O2SAT 98
[2021-03-19 15:34] VITALS: BP 110/57; PULSE 86; RESP 18; TEMP 36.4; O2SAT 100
[2021-03-19 19:43] VITALS: BP 115/61; PULSE 81; RESP 18; TEMP 36.8; O2SAT 96
[2021-03-19 23:30] VITALS: BP 113/59; PULSE 66; RESP 17; TEMP 36.6; O2SAT 96
[2021-03-20] VITALS (8 sets, daily range): BP systolic 103–147; BP diastolic 44–79; PULSE 68–88; RESP 17–18; TEMP 36.3–36.6; O2SAT 97–98
[2021-03-20] MEDS: Apixaban 5 MG TABLET PO ×2 (09:18→19:37)
[2021-03-20] MEDS: allopurinoL 300 MG TABLET PO (09:18)
--- NOTE | 2021-03-20 09:32 | P.PNIM_ITS ---
Subjective Subjective Date of Service: 03/20/21 Interval History: Seen in f/u for all back pain, dizziness, still reports pain, difficulty amublating and feeling dizzy and wants to go to rehab Review of Systems no fever some pain at hematoma site Physical Exam Vital Signs: Vital Signs: Last Vital Signs Temp 97.3 F 03/20/21 07:44 Pulse 68 03/20/21 07:44 Resp 18 03/20/21 07:44 BP 116/58 L 03/20/21 07:44 Pulse Ox 98 03/20/21 07:44 BMI result Body Mass Index 34.5 Const: Other: Constitutional : Alert, oriented, not in distress Neck : Normal inspection, Supple Cardiovascular : RRR, S1 S2, no lower extremity edema Respiratory : Good bilateral air entry, no crackles, wheezes or rhonchi Gastrointestinal: soft, lax, Normal bowel sounds, Non tender Skin : Warm, Dry, right gluteal ecchymosis with superficial wound covered with dressing, no bleeding, no tenderness Neurological : Alert & oriented x3, No focal deficit Objective Data Active Medications Acetaminophen (Acetaminophen 325 Mg Tablet) 650 mg PO Q6H PRN PRN Reason: Pain, Mild (Pain Scale 1-3) Last Admin: 03/17/21 08:36 Dose: 650 mg Documented by: SHAUN Allopurinol (Allopurinol 300 Mg Tablet) 300 mg PO DAILY [facility] Last Admin: 03/20/21 09:18 Dose: 300 mg Documented by: ALEX Amlodipine Besylate (Amlodipine Besylate 2.5 Mg Tablet) 7.5 mg PO DAILY [facility]; Protocol Last Admin: 03/18/21 07:55 Dose: 7.5 mg Documented by: SHAUN Apixaban (Apixaban 5 Mg Tablet) 5 mg PO BID [facility] Last Admin: 03/20/21 09:18 Dose: 5 mg Documented by: ALEX Melatonin (Melatonin 3 Mg Tablet) 6 mg PO BEDTIME PRN PRN Reason: Insomnia Last Admin: 03/12/21 20:50 Dose: 6 mg Documented by: AZUL Metoprolol Succinate (Metoprolol Succinate Er 25 Mg Tab.Er.24h) 25 mg PO DAILY [facility]; Protocol Last Admin: 03/19/21 09:29 Dose: 25 mg Documented by: ALEX Oxycodone HCl (Oxycodone Hcl Immed Release 5 Mg Tablet) 2.5 mg PO Q6H PRN PRN Reason: Pain, Severe (Pain Scale 7-10) Last Admin: 03/16/21 10:05 Dose: 2.5 mg Documented by: ANUSHKA Pharmacy Consult (Consult Rx Perform Med Rec) 1 each MISCELLANE ONCE PRN PRN Reason: Consult order Senna (Sennosides 8.6 Mg Tablet) 17.2 mg PO BEDTIME PRN PRN Reason: Constipation Sodium Chloride (0.9 % Sodium Chloride Flush 3 Ml Syringe) 3 ml IVFLUSH QSHIFT [facility] Last Admin: 03/20/21 09:20 Dose: Not Given Documented by: ALEX Non-Admin Reason: No Access Valsartan (Valsartan 40 Mg Tablet) 40 mg PO BID [facility]; Protocol Last Admin: 03/19/21 20:53 Dose: Not Given Documented by: RYNE Non-Admin Reason: Patient Refused Labs CBC & Chem 7: 03/19/21 05:05 03/19/21 05:05 Assessment and Plan (1) Hematoma: Status: Acute (2) Dizziness: Status: Acute Assessment and Plan: 65-year-old male with a past medical history of hypertension, AFib on Eliquis, CHF presented to the hospital with a chief complaint of fall. Dizziness--better, check orthostatic BP and continue holding BP meds (Valsartan and Norvasc) I Fall Mechanical in nature. No evidence of fracture. 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 restarted eliquis 03/12/21, hematoma stable so far,awaiting SNF bed (patient unable to do stairs due to hematoma, has many stairs at home) surgery appreciated, continue warm compress, no role for surgery at this time Chills Resolved After receiving the 2nd dose of COVID vaccine Supportive measures and Tylenol as needed Gout attack Improved Patient on oxycodone for pain management as needed paroxysmal AFib toprol, Eliquis. Hypertension metoprolol losartan amlodipine. DVT prophylaxis: chucky Pang, pending placement Quality Stroke Does the patient have a stroke diagnosis?: No VTE Prior VTE?: No VTE Risk Level:: Medical - moderate - high VTE Device Contraindication: N/A - Device Ordered VTE Drug Contraindication: Treatment Not Indicated
--- NOTE | 2021-03-20 09:52 | MHC.CM.PN ---
CM MET W/PT TO VERIFY ADDRESS AND PHARMACY PT WILL NEED TRANSPORT TO PHARMACY AND THEN HOME, PT DEMANDING CM GET HIM SECURITY TO FRONT DOOR OF HOME HOWEVER PT IS AWARE HE EITHER GETS A CAB TO PHARMACY AND THEN HOME OR A CHAIR [facility], WHEN CM ASKED PT IF HE WOULD LIKE CM TO CALL HIS DTR, PT STATES NO LOUDLY AND REPORTS SHE DOES NOT ANSWER HIM. PT CONT'S TO DECLINE VNA SERVICES. CM WILL SET UP CAB ONCE DISCHARGE ORDER IN PLACE. D/C PLAN: HOME NO SERVICES, TAXI FOR TRANSPORT.
[2021-03-21] VITALS: BP 138/65; PULSE 80; RESP 20; TEMP 36.3; O2SAT 96
[2021-03-21 03:15] VITALS: BP 158/90; PULSE 71; RESP 20; TEMP 36.3; O2SAT 97
[2021-03-21 07:57] VITALS: BP 151/84; PULSE 73; RESP 18; TEMP 36.8; O2SAT 97
--- NOTE | 2021-03-21 09:18 | HO.PM.IMPN ---
Subjective Subjective Date of Service: 03/21/21 Interval History: Seen in f/u for all back pain, dizziness, still reports pain, he is better, I saw him walking around and he tells me he has been telling me he has been using the steps Review of Systems no fever some pain at hematoma site Physical Exam Vital Signs: Vital Signs: Last Vital Signs Temp 98.2 F 03/21/21 07:57 Pulse 73 03/21/21 07:57 Resp 18 03/21/21 07:57 BP 151/84 H 03/21/21 07:57 Pulse Ox 97 03/21/21 07:57 BMI result Body Mass Index 34.5 Const: Other: Constitutional : Alert, oriented, not in distress Neck : Normal inspection, Supple Cardiovascular : RRR, S1 S2, no lower extremity edema Respiratory : Good bilateral air entry, no crackles, wheezes or rhonchi Gastrointestinal: soft, lax, Normal bowel sounds, Non tender Skin : Warm, Dry, right gluteal ecchymosis with superficial wound covered with dressing, no bleeding, no tenderness Neurological : Alert & oriented x3, No focal deficit Objective Data Active Medications Acetaminophen (Acetaminophen 325 Mg Tablet) 650 mg PO Q6H PRN PRN Reason: Pain, Mild (Pain Scale 1-3) Last Admin: 03/17/21 08:36 Dose: 650 mg Documented by: SHAUN Allopurinol (Allopurinol 300 Mg Tablet) 300 mg PO DAILY [facility] Last Admin: 03/20/21 09:18 Dose: 300 mg Documented by: LAEX Apixaban (Apixaban 5 Mg Tablet) 5 mg PO BID [facility] Last Admin: 03/20/21 19:37 Dose: 5 mg Documented by: RYNE Melatonin (Melatonin 3 Mg Tablet) 6 mg PO BEDTIME PRN PRN Reason: Insomnia Last Admin: 03/12/21 20:50 Dose: 6 mg Documented by: AZUL Metoprolol Succinate (Metoprolol Succinate Er 25 Mg Tab.Er.24h) 25 mg PO DAILY [facility]; Protocol Last Admin: 03/19/21 09:29 Dose: 25 mg Documented by: ALEX Oxycodone HCl (Oxycodone Hcl Immed Release 5 Mg Tablet) 2.5 mg PO Q6H PRN PRN Reason: Pain, Severe (Pain Scale 7-10) Last Admin: 03/16/21 10:05 Dose: 2.5 mg Documented by: ANUSHKA Pharmacy Consult (Consult Rx Perform Med Rec) 1 each MISCELLANE ONCE PRN PRN Reason: Consult order Senna (Sennosides 8.6 Mg Tablet) 17.2 mg PO BEDTIME PRN PRN Reason: Constipation Sodium Chloride (0.9 % Sodium Chloride Flush 3 Ml Syringe) 3 ml IVFLUSH QSHIFT [facility] Last Admin: 03/20/21 19:39 Dose: Not Given Documented by: RYNE Non-Admin Reason: No Access Labs CBC & Chem 7: 03/19/21 05:05 03/19/21 05:05 Assessment and Plan (1) Hematoma: Status: Acute (2) Dizziness: Status: Acute Assessment and Plan: 65-year-old male with a past medical history of hypertension, AFib on Eliquis, CHF presented to the hospital with a chief complaint of fall. Dizziness--better, check orthostatic BP and continue holding BP meds (Valsartan and Norvasc) Fall Mechanical in nature. No evidence of fracture. 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 restarted eliquis 03/12/21, hematoma stable so far,awaiting SNF bed--he is managing steps now surgery appreciated, continue warm compress, no role for surgery at this time Chills Resolved After receiving the 2nd dose of COVID vaccine Supportive measures and Tylenol as needed Gout attack Improved Patient on oxycodone for pain management as needed paroxysmal AFib toprol, Eliquis. Hypertension metoprolol losartan amlodipine. DVT prophylaxis: eliquis Dispo, pending placement Quality Stroke Does the patient have a stroke diagnosis?: No VTE Prior VTE?: No VTE Risk Level:: Medical - moderate - high VTE Device Contraindication: N/A - Device Ordered VTE Drug Contraindication: Treatment Not Indicated
[2021-03-21] MEDS: Apixaban 5 MG TABLET PO (10:52)
[2021-03-21] MEDS: 0.9 % Sodium Chloride Flush 3 ML SYRINGE IVFLUSH (10:52)
[2021-03-21] MEDS: allopurinoL 300 MG TABLET PO (10:52)
--- NOTE | 2021-03-21 11:45 | P.DS_ITS ---
DS: Providers Provider Date of Service: 03/21/21 Date of admission: 03/10/21 04:03 Primary care physician: Storm Isbell MD Consults: 03/10/21 04:10 Consult to General Surgery Routine Consulting Provider: Jimi Louise Reason for consultation: right gluteal hematoma DS: Diagnosis Discharge Diagnosis (1) Hematoma: Status: Acute (2) Dizziness: Status: Resolved DS: Summary Hospital Course Hospital Course: Patient was admitted for fall while on apixaban complicated by acute on chronic blood loss anemia from right gluteal hematoma. Hemoglobin in November 2020 was 15.4, on admission was 11.5, at discharge is 9.5 and stable. patient's Eliquis was held for about 2 days, was restarted on it 03/12/2021 and hemoglobin has remained stable and hematoma has not worsened. Patient was seen by surgery who recommended warm compresses and no role for surgery at this time. Patient was having difficulty ambulating especially on stairs and initially was deion mmended for rehab but overtime he's doing better. He is up and ambulating without difficulty and also able to manage stairs and potential rehab have declined taking because of unvaccinated status. He has had episode of dizziness that seems to have resolved with adjustment of blood pressure meds. He is offered home services but is declining and states that he can manage but finally agreee to have [facility] for wound care. Patient is fully ambulatory without assisted devicie and no dizziness Time Spent with Patient Time attestation: Total time spent providing and/or coordinating discharge services: Discharge coordination time: Greater than 30 minutes Quality: Stroke Does the patient have a stroke diagnosis?: No Physical Exam Verdana 4l Vital Signs: Verdana 4d Verdana 4d Vital Signs: Verdana 4d Verdana 4Bd Last Vital Signs Verdana 4d Snake Charmer New 4d Snake Charmer New 4d Temp 98.2 F 03/21/21 07:57 Snake Charmer New 4d Pulse 73 03/21/21 07:57 Snake Charmer New 4d Resp 18 03/21/21 07:57 BP 151/84 H 03/21/21 07:57 Pulse Ox 97 03/21/21 07:57 BMI result Body Mass Index 34.5 DS: Data Data Completed and Pending Completed studies during hospitalization [Text1]: Procedures Excision of Esophagogastric Junction, Via Natural or Artificial Opening Endoscopic, Diagnostic (11/18/20) Excision of Stomach, Pylorus, Via Natural or Artificial Opening Endoscopic, Diagnostic (11/18/20) Hoahaoism of Cardiac Rhythm, Single (11/08/20) Discharge Plan Discharge Anticipated Discharge Date/Time: 03/21/21 11:44 Patient Disposition: Home Health Service Discharge Diagnosis: fall, hematoma Referrals: [facility] [Other] - 1 Day (HALF-WAY AND HOME PT) [facility] [Outside] - 1 Week Physician,Unknown J [Physician] - 1 Week Discharge Medications: Continued amlodipine 5 mg tablet 7.5 mg PO DAILY 0RF metoprolol succinate 25 mg tablet extended release 24 hr 25 mg PO BEDTIME 0RF Eliquis 5 mg tablet 5 mg PO BID 0RF prednisone 10 mg tablet See Taper tab PO DAILY PRN (Reason: GOUT) 0RF Taper: Prednisone 30 tab daily for 3 Days and 0 Hour 20 tab daily for 3 Days and 0 Hour 10 tab daily for 3 Days and 0 Hour allopurinol 100 mg tablet 300 mg PO DAILY 0RF colchicine 0.6 mg Tablet 0.6 mg PO BID PRN (Reason: GOUT) 0RF Discontinued valsartan 40 mg tablet 40 mg PO BID 0RF Discharge Orders: Discharge Order (Routine); Ordered 03/21/21 Ordered By: Fredi Jernigan Diet: advance to usual diet Activity on Discharge: As tolerated Stand Alone Forms: Patient Portal Discharge page Activity Restrictions/Additional Instructions: Wound care Instructions: Please cleanse right buttock with wound cleanser then apply Triad to all open areas cover with a foam dressing every other day. If wounds are looking better after a week from the use of Triad may slip box changer to Xeroform. Care Plan Goals: resolve hematoma Health Concerns: hematoma Plan of Treatment: okay to continue eliquis, monitor hematoma for worsening, warm compresses, PT with stair training Wound dressng to buttock area every other day Stop taking Valsartan because of dizziness related to your blood pressure. Assessment: see above Discharge Date/Time: 03/21/21 15:58
[2021-03-21 11:58] VITALS: BP 141/87; PULSE 77; RESP 18; TEMP 36.8; O2SAT 97
--- NOTE | 2021-03-21 12:04 | PC.NURSE ---
Skin/wound assessment completed. Patient has stage 2 to right buttock. Triad applied to wound covered with foam dressing. Bruising to bilateral buttocks.
--- NOTE | 2021-03-21 12:17 | W.MHC.F2F ---
Service Date Service Date: 03/21/21 Encounter Date of encounter: 03/21/21 Reasons for Services Signs and symptoms assessed: Bottock wound and hematoma from fall and causing pain with ambulation Reason for long term: wound care Homebound: Leaving the home is medically contraindicated at this time without the asist of a device and/or another person due th the listed conditions above and below. Reason homebound: pain with ambulation and other Homebound supporting statement: Homebound due to recent fall with buttock wound and hematoma causing pain with ambulation and therefore needs the assistance of another person Certification: Based on the above findings, I certify that this patient is confined to the home and needs intermittent long term care, physical therapy and/or speech therapy, or continues to need occupational therapy. The patient is under my care, and I have initiated the establishment of the plan of care. The patient will be followed by a physician who will periodically review the plan of care.
--- NOTE | 2021-03-21 12:34 | MHC.CM.PN ---
Patient has been medically cleared for dc to home today, with services. [facility] has accepted Patient and have been informed of today's dc. Patient will dc to home today at 2 PM, via [employer].
--- NOTE | 2021-03-21 14:07 | MHC.CM.PN ---
ARRANGEMENTS MADE FOR PATIENT TO HAVE MEDICATIONS ON HOLD AT [facility] MAILED TO HIS HOME ADDRESS ON FILE.
== END 2021-03-21 15:58 | disposition home health service (06) | DRG 384 ==
LOC: HO.ED 04:09 → HO.EDOVER 06:17 → HO.S3 03-13 04:16
PROVIDERS: Internal Medicine; Student in an Organized Health Care Education/Training Program; Admitting Provider Hospitalist; Emergency Provider Student in an Organized Health Care Education/Training Program; PCP Internal Medicine; Visit Provider Internal Medicine
DX: S30.0XXA Contusion of lower back and pelvis, initial encounter (principal); D68.32 Hemorrhagic disorder due to extrinsic circulating anticoagulants; D62 Acute posthemorrhagic anemia; I50.22 Chronic systolic (congestive) heart failure; M10.9 Gout, unspecified; I48.0 Paroxysmal atrial fibrillation; T45.515A Adverse effect of anticoagulants, initial encounter; W10.9XXA Fall (on) (from) unspecified stairs and steps, initial encounter; Z20.822 Contact with and (suspected) exposure to COVID-19; Z79.01 Long term (current) use of anticoagulants; Z79.899 Other long term (current) drug therapy
CPT/HCPCS: 36415; 70450; 71260; 72125; 74177; 80048; 80053; 85014; 85018; 85025; 85027; 85610; 86850; 86900; 86901; 87635; 93005; 97110; 97116; 97161; 97165; 97535; 99285; Q9967

== ENCOUNTER → 2021-07-04 09:52 | Outpatient (REF) | payer OTHER, SELFPAY ==
--- NOTE | 2021-07-04 10:30 | ECG_ITS ---
Hook-up date: 2021-07-04 09:55:00 Duration: 22:51:00 Test Indications: AFIB Medications: 18943 QRS complexes 7 Ventricular ectopics which represent <1 % of total QRS comp. 339 Supraventricular ectopics which represent <1 % of total QRS comp. * Paced QRS complexs which represent % of total QRS comp. VENTRICULAR ECTOPY 7 Isolated 0 Bigeminal Cycles 0 Couplets 0 Runs 0 Beats in Runs * Beats LONGEST at * BPM at :: -- * Beats FASTEST at * BPM at :: -- SUPRAVENTRICULAR ECTOPY 320 Isolated 5 Couplets 2 Runs 9 Beats in Runs 5 Beats LONGEST at 114 BPM at 06:03:30 2021-07-05 4 Beats FASTEST at 123 BPM at 20:44:25 2021-07-04 HEART RATES 43 MIN at 17:01:10 2021-07-04 66 AVG 125 MAX at 07:38:04 2021-07-05 LONGEST RR 1.7680 secs at 05:20:20 2021-07-05 S-T LEVELS Channel 1 - 128 mm at 09:55:00 2021-07-04 - 128 mm at 09:55:00 2021-07-04 Channel 2 - 128 mm at 09:55:00 2021-07-04 - 128 mm at 09:55:00 2021-07-04 Channel 3 - 128 mm at 02:91:41 -- - 128 mm at 02:91:41 Underling rhythm is sinus; Average ventricular rate 66/min; range 43-125/min; Occasional supraventricular ectopy; Very rare ventricular ectopy; Patient did not report any symptoms in the diary Referred By: Antoine Rowley Overread By: DANIEL MOTA
== END ==
LOC: HO.CARD 09:52
PROVIDERS: Visit Provider Internal Medicine Cardiovascular Disease
DX: I48.91 Unspecified atrial fibrillation (principal); I42.9 Cardiomyopathy, unspecified; R00.1 Bradycardia, unspecified
CPT/HCPCS: 93225; 93226

== ENCOUNTER → 2021-07-26 14:22 | Outpatient (BNVA) | payer OTHER, SELFPAY | PROVIDERS: PCP Internal Medicine; Referring Provider Internal Medicine; Visit Provider Internal Medicine Cardiovascular Disease | DX: I50.20 Unspecified systolic (congestive) heart failure (principal); I48.0 Paroxysmal atrial fibrillation; I25.10 Atherosclerotic heart disease of native coronary artery without angina pectoris; Z79.01 Long term (current) use of anticoagulants | CPT/HCPCS: 99212 ==

== ENCOUNTER 2021-08-15 15:08 | Outpatient (REF) | payer OTHER, SELFPAY ==
--- NOTE | ~2021-08-15 | XR_ITS ---
EXAMINATION: XR CHEST CLINICAL INFORMATION: Cough COMPARISON: CT chest 03/10/2021 and chest radiograph 11/08/2020 TECHNIQUE: 2 views of the chest were obtained. FINDINGS: No significant abnormality is noted involving the heart, lungs, mediastinum, bony thorax or soft tissues. Some minimal bibasilar atelectasis is seen. No infiltrates, consolidations or effusions. XR/XR chest 2V IMPRESSION: No acute intrathoracic disease
[2021-08-15 15:43] LABS: Binax Internal Control QC Valid; Binax Now Covid-19 Ag Negative (Negative)
== END 2021-08-15 15:09 | disposition home or self-care (01) ==
LOC: HO.HMGCX 15:08
PROVIDERS: Visit Provider Physician Assistant
DX: R05.9 Cough, unspecified (principal); R06.89 Other abnormalities of breathing; Z20.822 Contact with and (suspected) exposure to COVID-19
CPT/HCPCS: 71046; 87811; C9803

== ENCOUNTER → 2021-09-07 10:24 | Outpatient (REF) | payer OTHER, SELFPAY ==
--- NOTE | ~2021-09-07 | XR_ITS ---
EXAMINATION: XR BILATERAL KNEE CLINICAL INFORMATION: Pain. Gout. COMPARISON: None. TECHNIQUE: 2 views each knee. FINDINGS: LEFT KNEE: There is loss of tricompartmental joint space with mild periarticular spurring in medial and the patellofemoral compartment. There is minimal joint effusion. No loose bodies or bony erosive changes. No fracture seen. Minimal atherosclerotic calcification of popliteal artery. RIGHT KNEE: There is mild loss of medial and patellofemoral compartment joint space with moderate periarticular spurring and mild suprapatellar joint effusion. There is no loose body seen. No bony erosive changes, acute fracture or dislocation. There is mild atherosclerotic calcification of the popliteal artery. XR/XR knee RT 2V IMPRESSION: Degenerative arthritic changes of bilateral knee joints with minimal suprapatellar joint effusion. No acute fracture or loose body is seen.
--- NOTE | ~2021-09-07 | XR_ITS ---
EXAMINATION: XR BILATERAL KNEE CLINICAL INFORMATION: Pain. Gout. COMPARISON: None. TECHNIQUE: 2 views each knee. FINDINGS: LEFT KNEE: There is loss of tricompartmental joint space with mild periarticular spurring in medial and the patellofemoral compartment. There is minimal joint effusion. No loose bodies or bony erosive changes. No fracture seen. Minimal atherosclerotic calcification of popliteal artery. RIGHT KNEE: There is mild loss of medial and patellofemoral compartment joint space with moderate periarticular spurring and mild suprapatellar joint effusion. There is no loose body seen. No bony erosive changes, acute fracture or dislocation. There is mild atherosclerotic calcification of the popliteal artery. XR/XR knee LT 2V IMPRESSION: Degenerative arthritic changes of bilateral knee joints with minimal suprapatellar joint effusion. No acute fracture or loose body is seen.
--- NOTE | 2021-09-07 10:29 | CA_ITS ---
Transthoracic Echocardiogram Amended Patient (Last, First, Middle): Michael Mccullough, Gender: Male Date of : 1955 Age: 65 Procedure Date: 09/07/2021 Procedure Type: Transthoracic Echocardiogram Location: OP Height: 182.88 cm Weight: 124.74 kg BSA: 2.44 m2 Heart Rate: 58 bpm BP: 142 / 78 mmHg Medical Photographer: SB Referring MD: Antoine Rowley MD Symptoms: I42.9 - Cardiomyopathy, unspecified Study Quality: Adequate ECG Rhythm: Bradycardia Conclusions: - 1. Mildly reduced LV systolic function with grade 1 diastolic dysfunction with regional wall motion abnormality suggestive underlying coronary artery disease 2. Normal cardiac valvular Doppler 3. Normal RV systolic pressure 4. Mildly dilated ascending aorta at 4.1 cm 5. No gross pericardial effusion Findings Left Ventricle Normal left ventricular cavity size. There is mildly increased left ventricular wall thickness. The left ventricular systolic function is mildly decreased. The visually estimated ejection fraction is between 45-50%. Spectral Doppler is indicative of an impaired relaxation filling pattern. E/E prime ratio is <8, consistent with normal filling pressures. Evidence suggests grade I (mild) diastolic dysfunction. There is moderate septal asymmetric hypertrophy. Peak GLS is -14.5%, which is reduced. Wall Motion Rest Echo Findings The basal inferior and basal inferoseptal segments are akinetic. All other scored wall segments showed normal motion. Right Ventricle Normal right ventricular cavity size. There is mild to moderately decreased right ventricular systolic function. Atria The left atrium is likely dilated. There is no evidence of interatrial shunt. The right atrium is normal in size. Aortic Valve The aortic valve was not well visualized. There is no aortic valve stenosis. There is no aortic valve regurgitation. Mitral Valve There is mild anterior and posterior mitral leaflet thickening. There is trace mitral valve regurgitation. There is no mitral valve stenosis. Pulmonic Valve The pulmonic valve was not well visualized. Tricuspid Valve Likely normal tricuspid valve structure and function. There is mild tricuspid valve regurgitation. The right ventricular systolic pressure is normal. The right ventricular systolic pressure is 25 mmHg. Normal right atrial pressure. There is no evidence of pulmonary hypertension. Great Vessels The pulmonary artery was not well visualized. There is mild dilatation of the ascending aorta measuring 4.10 cm. Venous The inferior vena cava is normal in size and collapses greater than 50% with inspiration. Pericardium/Pleural There is no evidence of pericardial effusion. Prior Study Comparison LV systolic function has improved Measurements 2D Linear Measurements IVSd: 1.81 0.6-0.9/0.6-1.0 cm LVIDd: 5.16 3.9-5.3/4.2-5.9 cm LVIDd Index: 2.11 2.4-3.2/2.2-3.1 cm/m2 LVIDs: 3.38 2.0-3.6 cm LVPWd: 0.94 0.7-1.1 cm LA Diam: 5.10 2.7-3.8/3.0-4.0 cm LAIDs Index: 2.09 1.5-2.3 cm/m2 LV Mass: 372.02 67-162/88-224 g LV Mass Index: 152.47 43-95/49-115 g/m2 LVOT Diam: 2.60 3.0+(-)1.3 cm 2D Volumes LA Vol: 28.40 2D Systolic Function EF 4C: 44.30 >55% EF 2C: 48.40 >55% EF BiP: 45.00 >55% Mitral Valve MV Pk E: 0.50 MV PK A: 0.54 MV Decel Time: 195.00 E/A: 0.90 E'Lateral: 6.96 E'Medial: 4.79 E/E' Med: 10.40 E/E' Lat: 7.10 PHT: 57.00 MVA PHT: 3.86 Decel [place]: 2.55 Aortic Valve AoV Pk Lukasz: 1.32 AoV Mn Lukasz: 0.90 AoV VTI: 0.26 AoV Pk Grad: 7.00 Aov Mn Grad: 4.00 SMITA Cont.VTI: 3.75 LVOT LVOT Pk Lukasz: 0.87 LVOT Mn Lukasz: 0.61 LVOT VTI: 0.18 LVOT Pk Grad: 3.00 LVOT Mn Grad: 2.00 LVOT Diam: 2.60 LVOT Area: 5.31 Diastolic Function MV Pk E: 0.50 MV Pk A: 0.54 E/A: 0.90 E'Medial: 4.79 E/E' Med: 10.40 E' Laterial: 6.96 E/E' Lat: 7.10 Right Ventricle TAPSE (mm): 17.80 TVS' Lukasz: 9.46 Tricuspid Valve TR Pk Lukasz: 2.36 TR Pk Grad: 22.00 RA Press: 3.00 RVSP: 25.00 Great Vessels Aorta Sinus of Valsalva: 4.00 2.0-3.5 cm Ao Asc: 4.10 2.1-3.4 cm Pulmonary Valve PV Pk Lukasz: 0.84 Peak PV Grad: 3.00 Updated in Other Vendor System with Status of Final Antoine Rowley MD electronically signed on 09/07/2021 12:49:20 PM with status of Final
[2021-09-07 14:28] LABS: Estimated Glomerular Filt Rate > 60
[2021-09-07 17:36] LABS: Uric Acid 6.7 mg/dL (3.4-7.0)
== END ==
LOC: HO.CARD 10:24
PROVIDERS: Absent Provider Internal Medicine Rheumatology; PCP Internal Medicine; Visit Provider Internal Medicine Cardiovascular Disease
DX: M10.9 Gout, unspecified (principal); I42.9 Cardiomyopathy, unspecified
CPT/HCPCS: 36415; 73560; 82565; 84550; 93306; 93356

== ENCOUNTER → 2021-10-10 09:27 | Outpatient (BNVA) | payer OTHER, SELFPAY | PROVIDERS: PCP Internal Medicine; Visit Provider Internal Medicine Rheumatology | DX: M10.9 Gout, unspecified (principal); M17.0 Bilateral primary osteoarthritis of knee | CPT/HCPCS: 20610; 99212 ==

== ENCOUNTER 2021-11-09 10:14 | Outpatient (REF) | payer MEDICAID, SELFPAY ==
[2021-11-09 13:42] LABS: MANUAL DIFF FLAG NO
[2021-11-09 13:54] LABS: Basophils Percent Auto 0.3 % (0-2); Hematocrit 43.9 % (42.0-52.0); Hemoglobin 14.2 g/dl (14.0-18.0); Imm Gran Abs Auto 0.01 X10*3/uL (0.00-0.03); Imm Gran Pct Auto 0.2 % (0.0-0.4); Lymphocytes Absolute Auto 1.1 X10*3/uL (1.2-4.9); Lymphocytes Percent Auto 18.1 % (20-40); Mean Corpuscular HGB Conc 32.3 g/dl (31.0-36.0); Mean Corpuscular Hemoglobin 30.5 pg (27.0-33.0); Mean Corpuscular Volume 94.2 fL (80.0-98.0); Mean Platelet Volume 10.9 fL (9.4-12.4); Monocytes Absolute Auto 0.4 X10*3/uL (0.1-1.2); Monocytes Percent Auto 6.7 % (2-11); Neutrophils Absolute Auto 4.7 x10*3/uL (2.0-8.3); Neutrophils Percent Auto 74.7 % (45-73); Platelet Count 229 X10*3/uL (160-400); Red Blood Count 4.66 X10*6/uL (4.60-5.80); Red Cell Distribution Width 13.7 % (11.0-16.0); White Blood Count 6.3 X10*3/uL (4.8-10.8)
[2021-11-09 14:04] LABS: C Reactive Protein 0.34 mg/dL (< or = 0.50); Estimated Glomerular Filt Rate > 60; Uric Acid 5.2 mg/dL (3.4-7.0)
[2021-11-09 14:34] LABS: Erythrocyte Sedimentation Rate 2 MM/HR (0-15)
== END 2021-11-09 10:15 | disposition home or self-care (01) ==
LOC: HO.10HDL 10:14
PROVIDERS: Visit Provider Internal Medicine Rheumatology
DX: M17.0 Bilateral primary osteoarthritis of knee (principal); R21 Rash and other nonspecific skin eruption; M10.9 Gout, unspecified; L03.90 Cellulitis, unspecified
CPT/HCPCS: 36415; 82565; 84550; 85025; 85652; 86140; 99212

== ENCOUNTER 2021-11-17 14:56 | Emergency (ER) | payer MEDICAID, SELFPAY ==
--- NOTE | ~2021-11-17 | XR_ITS ---
EXAMINATION: XR KNEE, RIGHT CLINICAL INFORMATION: Right knee wound COMPARISON: None TECHNIQUE: Four views of the right knee. FINDINGS: There is loss of tricompartment joint space slightly worse in the medial compartment with moderate periarticular spurring. No loose body seen. There is mild suprapatellar joint effusion. No bony erosive changes, acute fracture or dislocation seen. XR/XR knee RT 4V IMPRESSION: Degenerative arthritic changes in the tricompartments slightly worse in the medial compartment with periarticular spurring and mild suprapatellar joint effusion. No acute fracture seen.
[2021-11-17 15:35] VITALS: BP 143/68; PULSE 63; RESP 16; TEMP 36.4; O2SAT 94; BMI 38.0
[2021-11-17 16:02] LABS: MANUAL DIFF FLAG NO
[2021-11-17 16:07] LABS: Basophils Percent Auto 0.7 % (0-2); Eosinophils Absolute Auto 0.1 X10*3/uL (0.0-0.4); Eosinophils Percent Auto 1.4 % (0-4); Hemoglobin 14.8 g/dl (14.0-18.0); Imm Gran Abs Auto 0.01 X10*3/uL (0.00-0.03); Imm Gran Pct Auto 0.2 % (0.0-0.4); Lymphocytes Absolute Auto 1.3 X10*3/uL (1.2-4.9); Lymphocytes Percent Auto 30.1 % (20-40); Mean Corpuscular HGB Conc 33.6 g/dl (31.0-36.0); Mean Corpuscular Hemoglobin 31.5 pg (27.0-33.0); Mean Corpuscular Volume 93.6 fL (80.0-98.0); Mean Platelet Volume 10.7 fL (9.4-12.4); Monocytes Absolute Auto 0.4 X10*3/uL (0.1-1.2); Monocytes Percent Auto 9.4 % (2-11); Neutrophils Absolute Auto 2.4 x10*3/uL (2.0-8.3); Neutrophils Percent Auto 58.2 % (45-73); Platelet Count 174 X10*3/uL (160-400); Red Cell Distribution Width 13.4 % (11.0-16.0); White Blood Count 4.2 X10*3/uL (4.8-10.8)
[2021-11-17 16:21] LABS: Anion Gap 16 (12-20); Blood Urea Nitrogen 20 mg/dL (9-16); Calcium 9.4 mg/dL (8.4-10.2); Carbon Dioxide 23 mmol/L (22-29); Chloride 107 mmol/L (96-108); Creatinine Clr Calc Pharmacy 87.4; Estimated Glomerular Filt Rate > 60; Glucose Random 93 mg/dL (60-115); Potassium 4.3 mmol/L (3.3-5.1); Sodium 142 mmol/L (135-145)
[2021-11-17 20:51] VITALS: BP 150/83; PULSE 58; RESP 16; O2SAT 97
--- NOTE | 2021-11-17 22:41 | ED_ITS ---
HPI - General Adult General Chief complaint: Wound/Laceration Stated complaint: Infection R knee Time Seen by Provider: 11/17/21 22:41 Source: patient Mode of arrival: ambulatory Limitations: no limitations History of Present Illness HPI narrative: This is a 66-year-old male past medical history significant for coronary artery disease, atrial fibrillation on Eliquis, heart failure, gastritis, hypertension presenting w/ complaints of right knee wound. The patient tells me that he experienced a mechanical fall 3 weeks ago onto both knees, since then the wound on the left knee has healed nicely, however, he has a persistent wound on the right knee that has not been closing. He tells me that he just has the wound every day, cleanses with saline solution. He tells me that the wound has not grown in saws and he has not noticed any purulence drainage, however, there has been some clear drainage. He states that he has been ambulatory without any issue, no joint pain, normal sensation in the right lower extremity. He denies fevers, chills, chest pain, shortness of breath, abdominal pain, nausea, vomitin g, dizziness, headache. He has not seen anyone for this wound, not sure if he is UTD on tetanus vaccination Related Data Home Medications Medication Instructions Recorded Confirmed apixaban 5 mg tablet (Eliquis) 5 mg PO BID 03/10/21 11/09/21 colchicine 0.6 mg tablet 0.6 mg PO BID PRN GOUT 03/10/21 11/09/21 valsartan 40 mg tablet 40 mg PO BID 07/26/21 11/09/21 Previous Rx's Medication Instructions Recorded metoprolol succinate 25 mg 25 mg PO BEDTIME 90 days #90 tabs 05/31/21 tablet,extended release 24 hr albuterol sulfate 90 mcg/actuation 1 inh inhalation Q4-6H PRN 08/15/21 aerosol inhaler (ProAir HFA) shortness of breath or wheezing #6.7 grams amlodipine 10 mg tablet 10 mg PO DAILY #90 tabs 08/24/21 allopurinol 100 mg tablet 400 mg PO DAILY #360 tabs 10/10/21 prednisone 10 mg tablet See Rx Instructions .Route 11/09/21 .COMPLEX #18 tabs cephalexin 500 mg tablet 500 mg PO Q6H 10 days #40 tabs 11/18/21 doxycycline hyclate 100 mg capsule 100 mg PO BID 10 days #20 caps 11/18/21 Allergies Allergy/AdvReac Type Severity Reaction Status Date / Time No Known Allergies Allergy Verified 11/09/21 09:19 Review of Systems Review of Systems: Constitutional : No Weight loss, No Fever, No Chills, No Fatigue, No Malaise ENT/Mouth : No sore throat, No Rhinorrhea Eyes: No Eye Pain, No Swelling, No Redness Cardiovascular : No Chest Pain, No SOB, No Dyspnea on Exertion, No Orthopnea, No Edema, No Palpitations Respiratory : No Cough, No Sputum, No Wheezing Gastrointestinal : No Nausea, No Vomiting, No Diarrhea, No Constipation, No abdominal Pain, No Hematochezia, No Melena Genitourinary : No Dysuria, No Urinary Frequency, No Hematuria, Musculoskeletal : No joint pain, No Myalgias, No Joint Swelling Skin : No Skin Lesions, No rash, + wound Neuro : No Weakness, No Numbness, No Dizziness, No Headache Psych : No Anxiety/Panic, No Depression All other systems reviewed and are negative Yes all other systems are reviewed and are negative [facility] Past Medical History Attestation statement: The following information was validated with the patient. Source: old records reviewed and nursing notes reviewed Medical History Acute congestive heart failure Ankle swelling Atrial fibrillation Bradycardia CAD (coronary artery disease) Gout HFrEF (heart failure with reduced ejection fraction) HTN (hypertension) Paroxysmal atrial fibrillation Systolic CHF Surgical History No pertinent past surgical history Family History Family History Father No problems noted. Mother Heart disease Social History Social History Household Members: None Housing: Apartment Do you presently have visiting nurse or other home services: No Unable to assess alcohol history related to: Unknown Alcohol intake: current Alcohol intake frequency: holidays/special occasions only Alcohol type: beer Patient Tobacco Use Status: Never used Tobacco Advance Directives: No service: No Current occupational status: employed Current occupation: [employer] Physical Exam ED Vital Signs: Vital Signs - 24 hr 11/17/21 15:35 11/17/21 20:51 11/18/21 01:01 Temperature 97.6 F Pulse Rate 63 58 Respiratory Rate 16 16 Blood Pressure 143/68 H 150/83 H 150/93 H Pulse Oximetry 94 97 Oxygen Delivery Method Room Air BMI result Body Mass Index 38.0 Vital signs stable Appearance: Alert.? Oriented X3.? No acute distress.? Head: Normocephalic, atraumatic, no step-offs or deformities Eyes: Pupils equal, round and reactive to light.? ENT: Pharynx normal.? Neck: Normal inspection.? Neck supple.? CVS: Normal heart rate and rhythm.? Pulses normal. 2+ DP/PT pulses bilaterally. ? Respiratory: No respiratory distress.? Breath sounds normal.? Abdomen: Soft and nontender.? Skin: Skin warm and dry.? Normal skin color.? Normal skin turgor.?2 in x 2 in wound to the anterior aspect of the lower right knee, no purulent drainage, some surrounding erythema & warmth, no streaking. Healing abrasions to the left knee. Extremities: No lower extremity edema.? No calf ttp. 5/5 strength to bilateral upper and lower extremities. FROM of bilateral lower extremities without limitation or pain. Normal sensation to bilateral lower extremities. No tenderness to palpation of the entirety of the knee. Joint is not warm. Back: No midline tenderness, no C-spine tenderness, full range of motion, no CVA tenderness bilaterally Neuro: Oriented X 3.? No motor deficit.? No sensory deficit. CN 2-12 intact Course Reevaluation(s) Reevaluation #1: CBC and chemistry appear to be at patient's baseline, no leukocytosis. R knee x- ray pending. Time: 22:53 Reevaluation #2: X-ray of the right knee with degenerative arthritic changes in the try c ompartment slightly worse in the medial compartment with periarticular spurring and mild suprapatellar joint effusion. No acute fractures or signs of osteomyelitis. Low suspicion for osteomyelitis, septic joint. Likely slow healing wound. Blood cultures were drawn from triage however a lactic was not obtained therefore lactic will be obtained at this time. Will give a dose of IV ceftriaxone. I suspect patient can be discharged home Time: 00:24 Reevaluation #3: At this time patient receiving antibiotics, lactic acid within normal limits, patient tells me he will call the wound center tomorrow to schedule an appoin tment. Slightly delayed wound healing with overlying cellulitis Patient will be discharged home on p.o. antibiotics, educated on worrisome signs and symptoms and when to return. At this time I feel comfortable discharge home with prompt PCP follow-up and follow-up with the wound center. Time: 01:18 Medical Decision Making [facility] Narrative Medical decision making narrative: [id number] 66-year-old male presenting with nonhealing wound to the anterior right knee. Denies fevers or chills. Wound has been present for the 3 weeks, patient cleanses and dresses wound daily. Ambulatory without limitations. PE remarkable for 2 in by 2 in open wound to the right anterior knee, no obvious purulent drainage, mild surrounding erythema. No signs of septic joint, no pain with palpation of bony processes. Patient afebrile. Plan to obtain basic labs, right knee x-ray. Suspect chronic non-healing wound, less likely osteomyelitis or septic joint. Medical Records Medical records reviewed: Yes I reviewed the patient's medical records. Lab Data Lab results reviewed: Yes I reviewed the patient's lab results. Result diagrams: 11/17/21 15:55 11/17/21 15:55 Labs: Lab Results 11/17/21 11/17/21 11/17/21 Range/Units 15:55 15:55 15:55 WBC 4.2 L (4.8-10.8) X10*3/uL RBC 4.70 (4.60-5.80) X10*6/uL Hgb 14.8 (14.0-18.0) g/dl Hct 44.0 (42.0-52.0) % MCV 93.6 (80.0-98.0) fL MCH 31.5 (27.0-33.0) pg MCHC 33.6 (31.0-36.0) g/dl RDW 13.4 (11.0-16.0) % Plt Count 174 (160-400) X10*3/uL MPV 10.7 (9.4-12.4) fL Immature Gran % (Auto) 0.2 (0.0-0.4) % Neut % (Auto) 58.2 (45-73) % Lymph % (Auto) 30.1 (20-40) % Gaines % (Auto) 9.4 (2-11) % Eos % (Auto) 1.4 (0-4) % Baso % (Auto) 0.7 (0-2) % Lymph # (Auto) 1.3 (1.2-4.9) X10*3/uL Gaines # (Auto) 0.4 (0.1-1.2) X10*3/uL Eos # (Auto) 0.1 (0.0-0.4) X10*3/uL Baso # (Auto) 0.0 (0.0-0.2) X10*3/uL Abs Immat Gran (auto) 0.01 (0.00-0.03) X10*3/uL Absolute Neuts (auto) 2.4 (2.0-8.3) x10*3/uL Absolute Nucleated RBC 0.000 (0.0-0.012) X10*3/uL Nucleated RBC % (auto) 0.0 (0.0-0.2) /100WBC ESR 4 (0-15) MM/HR Sodium 142 (135-145) mmol/L Potassium 4.3 (3.3-5.1) mmol/L Chloride 107 (96-108) mmol/L Carbon Dioxide 23 (22-29) mmol/L Anion Gap 16 (12-20) BUN 20 H (9-16) mg/dL Creatinine 1.16 (0.5-1.4) mg/dL Estim Creat Clear Calc 87.4 Estimated GFR > 60 Random Glucose 93 (60-115) mg/dL Calcium 9.4 (8.4-10.2) mg/dL C-Reactive Protein 0.67 H (< or = 0.50) mg/dL Critical Care Time Critical Care Time Critical Care Time: No Discharge Plan Discharge Clinical Impression: Open wound of right knee, Cellulitis Patient Disposition: Home, Self-Care Additional Instructions: Take your medications as prescribed. If you were prescribed antibiotics today, it is important that you take your medication to their entirety, do not skip any doses, do not finish them early. Follow-up with your primary care provider this week. Return to the emergency department with new or worsening symptoms. Such as fevers, chills, chest pain, shortness of breath, nausea, vomiting, dizziness, headache, vision changes, lethargy In case of emergency call 911 Prescriptions: New doxycycline hyclate 100 mg capsule 100 mg PO BID 10 Days Qty: 20 0RF cephalexin 500 mg tablet 500 mg PO Q6H 10 Days Qty: 40 0RF No Action metoprolol succinate 25 mg tablet extended release 24 hr 25 mg PO BEDTIME 90 Days Qty: 90 0RF amlodipine 10 mg tablet 10 mg PO DAILY Qty: 90 1RF Eliquis 5 mg tablet 5 mg PO BID colchicine 0.6 mg Tablet 0.6 mg PO BID PRN (Reason: GOUT) albuterol sulfate [ProAir HFA] 90 mcg/actuation HFA aerosol inhaler 1 inh inhalation Q4-6H PRN (Reason: shortness of breath or wheezing) Qty: 6.7 0RF allopurinol 100 mg tablet 400 mg PO DAILY Qty: 360 3RF prednisone 10 mg tablet See Rx Instructions .ROUTE .COMPLEX Qty: 18 1RF Rx Instructions: 3 daily for 3 days, 2 daily for 3 days then one daily for 3 days; valsartan 40 mg tablet 40 mg PO BID Referrals: [facility] Wound [facility] Management [Provider Group] - 1 day Storm Isbell MD [Primary Care Provider] - 2 days Stand Alone Forms: Work/School Release
[2021-11-17 23:11] LABS: C Reactive Protein 0.67 mg/dL (< or = 0.50)
[2021-11-17 23:44] LABS: Erythrocyte Sedimentation Rate 4 MM/HR (0-15)
[2021-11-18 01:01] VITALS: BP 150/93
[2021-11-18 01:20] LABS: Lactic Acid 1.2 mmol/L (0.5-2.0)
[2021-11-18] MEDS: cefTRIAXone sodium 1 GM in 0.9 % Sodium Chloride 50 ML IV (01:21)
== END 2021-11-18 01:37 | disposition home or self-care (01) ==
PROVIDERS: Physician Assistant; Emergency Provider Emergency Medicine Emergency Medical Services; PCP Internal Medicine
DX: L03.116 Cellulitis of left lower limb (principal); M25.561 Pain in right knee; M25.562 Pain in left knee; Z79.899 Other long term (current) drug therapy
CPT/HCPCS: 36415; 73564; 80048; 83605; 85025; 85652; 86140; 87040; 96365; 99283; 99284; J0696

== ENCOUNTER → 2021-11-24 14:51 | Outpatient (BNVA) | payer MEDICAID, SELFPAY | PROVIDERS: PCP Internal Medicine; Visit Provider Surgery | DX: M54.9 Dorsalgia, unspecified (principal); S30.0XXD Contusion of lower back and pelvis, subsequent encounter | CPT/HCPCS: 99212 ==

== ENCOUNTER 2021-11-25 08:47 | Outpatient (RCR) | payer MEDICAID, SELFPAY | END 2022-01-11 13:36 | disposition home or self-care (01) | LOC: HO.WCC 08:47 | PROVIDERS: PCP Internal Medicine; Visit Provider Physician Assistant | DX: S81.011A Laceration without foreign body, right knee, initial encounter (principal); I48.91 Unspecified atrial fibrillation; I11.0 Hypertensive heart disease with heart failure; I50.9 Heart failure, unspecified; I25.10 Atherosclerotic heart disease of native coronary artery without angina pectoris; I25.2 Old myocardial infarction; Z79.01 Long term (current) use of anticoagulants | CPT/HCPCS: 11042 ==

== ENCOUNTER 2022-02-01 15:43 | Outpatient (REF) | payer MEDICARE, MEDICAID, SELFPAY ==
--- NOTE | ~2022-02-01 | MR_ITS ---
EXAMINATION: MR LUMBAR SPINE WITHOUT CONTRAST CLINICAL INFORMATION: Dorsalgia, unspecified. COMPARISON: None TECHNIQUE: MRI of the lumbar spine was obtained using routine sequences without contrast. FINDINGS: At L5-S1 there is grade 1 anterolisthesis measuring 7 mm related to bilateral L5 pars defects. There is minimal retrolisthesis of L2 on L3 and L4 on L5. There is severe disc height loss at L5-S1 and moderate disc height loss at other levels. Mild endplate edema is seen posteriorly at L3-L4. The vertebral body heights are preserved. The distal spinal cord appears normal. The conus medullaris terminates normally at the L1 level. There is a mild amount of perinephric stranding seen bilaterally, nonspecific. There is mild fatty atrophy of the posterior paraspinal musculature. SPINAL LEVELS: L1-L2: No posterior disc abnormality. No spinal canal or neural foraminal stenosis. L2-L3: Disc bulging with shallow central protrusion. No spinal canal stenosis. Mild narrowing of the right subarticular zone. No neural foraminal stenosis. L3-L4: Disc bulging with moderate facet arthropathy. Right foraminal protrusion mildly compresses the exiting right L3 nerve root. Mild left neural foraminal stenosis. No spinal canal stenosis. L4-L5: Disc bulging with severe left and moderate right facet arthropathy. Left subarticular stenosis with compression of the traversing left L5 nerve root. Bulging disc extends into the neural foramina resulting in severe left and moderate right neural foraminal stenosis with compression of the exiting left more than right L4 nerve roots. Mild to moderate spinal canal stenosis. L5-S1: Grade 1 anterolisthesis with posterior unroofing of the disc resulting in severe bilateral neural foraminal stenosis with significant compression of both exiting L5 nerve roots. No spinal canal stenosis. MR/MR lumbar spine wo con IMPRESSION: 1. At L5-S1 there is grade 1 anterolisthesis related to bilateral L5 pars defects resulting in severe bilateral neural foraminal stenosis with significant compression of both exiting L5 nerve roots. 2. At L4-L5 there is left subarticular stenosis with compression of the traversing left L5 nerve root and severe left and moderate right neural foraminal stenosis with compression of the exiting left more than right L4 nerve roots. 3. At L3-L4 there is right foraminal protrusion causing mild compression of the exiting right L3 nerve root. Edema seen at the L3-L4 endplates.
== END 2022-02-01 15:44 | disposition home or self-care (01) ==
LOC: HO.MRI 15:43
PROVIDERS: Visit Provider Surgery
DX: M54.9 Dorsalgia, unspecified (principal)
CPT/HCPCS: 72148

== ENCOUNTER 2022-02-02 08:00 | Outpatient (RCR) | payer MEDICARE, MEDICAID, SELFPAY | END 2022-02-21 11:58 | disposition home or self-care (01) | LOC: HO.WCC 08:00 | PROVIDERS: PCP Internal Medicine; Visit Provider Surgery | DX: S81.011D Laceration without foreign body, right knee, subsequent encounter (principal); I87.2 Venous insufficiency (chronic) (peripheral); I48.91 Unspecified atrial fibrillation; I11.0 Hypertensive heart disease with heart failure; I50.9 Heart failure, unspecified; I25.10 Atherosclerotic heart disease of native coronary artery without angina pectoris; I25.2 Old myocardial infarction | CPT/HCPCS: 99212 ==

== ENCOUNTER → 2022-03-21 13:27 | Outpatient (BNVA) | payer MEDICARE, MEDICAID, SELFPAY | PROVIDERS: PCP Internal Medicine; Referring Provider Internal Medicine; Visit Provider Internal Medicine Cardiovascular Disease | DX: I48.0 Paroxysmal atrial fibrillation (principal); I25.10 Atherosclerotic heart disease of native coronary artery without angina pectoris; I50.20 Unspecified systolic (congestive) heart failure; I77.89 Other specified disorders of arteries and arterioles | CPT/HCPCS: 93005; 99212 ==

== ENCOUNTER 2022-08-24 10:22 | Outpatient (REF) | payer MEDICARE, MEDICAID, SELFPAY ==
--- NOTE | ~2022-08-24 | XR_ITS ---
EXAMINATION: XR KNEE, RIGHT XR KNEE, LEFT CLINICAL INFORMATION: Bilateral primary osteoarthritis of the knee. COMPARISON: 09/07/2021 TECHNIQUE: Three views of each knee. FINDINGS: RIGHT KNEE: Nlpxktuh-[id number] nonuniform joint space narrowing is evident in the medial compartment, similar to prior, with associated articular cortical irregularity and sclerosis and moderate-sized marginal osteophytes. More mild osteoarthritis in the patellofemoral and lateral compartments. No joint effusion. Mild varus angulation at the knee. Calcific atherosclerosis and the 8 mm calcification in the posterior soft tissues could correspond to a vascular calcification or a loose body in the region of the popliteus tendon sheath. Mild soft tissue swelling. No fractures. LEFT KNEE: Mild nonuniform joint space narrowing in the medial and patellofemoral compartments. Small tricompartmental marginal osteophytes. No effusion. No fractures. Calcific atherosclerosis in the popliteal artery and the proximal runoff arteries. Mild soft tissue swelling, particularly in the prepatellar region. XR/XR knee LT 3V IMPRESSION: 1. Xnfytzau-ht-[id number] medial compartment osteoarthritis in the right knee with associated varus angulation, unchanged. 2. Mild tricompartmental osteoarthritis in the left knee, most notably in the medial and patellofemoral compartments, unchanged. .
--- NOTE | ~2022-08-24 | XR_ITS ---
EXAMINATION: XR KNEE, RIGHT XR KNEE, LEFT CLINICAL INFORMATION: Bilateral primary osteoarthritis of the knee. COMPARISON: 09/07/2021 TECHNIQUE: Three views of each knee. FINDINGS: RIGHT KNEE: Gckbvefs-ku-ivfijg nonuniform joint space narrowing is evident in the medial compartment, similar to prior, with associated articular cortical irregularity and sclerosis and moderate-sized marginal osteophytes. More mild osteoarthritis in the patellofemoral and lateral compartments. No joint effusion. Mild varus angulation at the knee. Calcific atherosclerosis and the 8 mm calcification in the posterior soft tissues could correspond to a vascular calcification or a loose body in the region of the popliteus tendon sheath. Mild soft tissue swelling. No fractures. LEFT KNEE: Mild nonuniform joint space narrowing in the medial and patellofemoral compartments. Small tricompartmental marginal osteophytes. No effusion. No fractures. Calcific atherosclerosis in the popliteal artery and the proximal runoff arteries. Mild soft tissue swelling, particularly in the prepatellar region. XR/XR knee RT 3V IMPRESSION: 1. Myakqnoz-ur-ngzcqs medial compartment osteoarthritis in the right knee with associated varus angulation, unchanged. 2. Mild tricompartmental osteoarthritis in the left knee, most notably in the medial and patellofemoral compartments, unchanged. .
[2022-08-24 10:32] LABS: MANUAL DIFF FLAG NO
[2022-08-24 11:24] LABS: Basophils Absolute Auto 0.1 X10*3/uL (0.0-0.2); Basophils Percent Auto 0.9 % (0-2); Eosinophils Absolute Auto 0.1 X10*3/uL (0.0-0.4); Eosinophils Percent Auto 0.9 % (0-4); Hematocrit 47.4 % (42.0-52.0); Hemoglobin 15.7 g/dl (14.0-18.0); Imm Gran Abs Auto 0.03 X10*3/uL (0.00-0.03); Imm Gran Pct Auto 0.4 % (0.0-0.4); Lymphocytes Absolute Auto 2.4 X10*3/uL (1.2-4.9); Lymphocytes Percent Auto 32.5 % (20-40); Mean Corpuscular HGB Conc 33.1 g/dl (31.0-36.0); Mean Corpuscular Hemoglobin 31.1 pg (27.0-33.0); Mean Corpuscular Volume 93.9 fL (80.0-98.0); Mean Platelet Volume 10.3 fL (9.4-12.4); Monocytes Absolute Auto 0.7 X10*3/uL (0.1-1.2); Monocytes Percent Auto 9.8 % (2-11); Neutrophils Absolute Auto 4.1 x10*3/uL (2.0-8.3); Neutrophils Percent Auto 55.5 % (45-73); Platelet Count 193 X10*3/uL (160-400); Red Blood Count 5.05 X10*6/uL (4.60-5.80); Red Cell Distribution Width 14.4 % (11.0-16.0); White Blood Count 7.5 X10*3/uL (4.8-10.8)
[2022-08-24 12:19] LABS: Anion Gap 15 (12-20); Blood Urea Nitrogen 34 mg/dL (9-16); C Reactive Protein 0.24 mg/dL (< or = 0.50); Calcium 9.7 mg/dL (8.4-10.2); Carbon Dioxide 25 mmol/L (22-29); Chloride 110 mmol/L (96-108); Estimated Glomerular Filt Rate > 60; Glucose Random 105 mg/dL (60-115); Potassium 4.7 mmol/L (3.3-5.1); Sodium 145 mmol/L (135-145); Uric Acid 5.5 mg/dL (3.4-7.0)
== END 2022-08-24 10:23 | disposition home or self-care (01) ==
LOC: HO.LAB 10:22
PROVIDERS: Visit Provider Internal Medicine Rheumatology
DX: M17.0 Bilateral primary osteoarthritis of knee (principal); M10.9 Gout, unspecified
CPT/HCPCS: 36415; 73562; 80048; 84550; 85025; 86140

== ENCOUNTER → 2022-09-06 11:25 | Outpatient (BNVA) | payer MEDICARE, MEDICAID, SELFPAY | PROVIDERS: PCP Internal Medicine; Visit Provider Internal Medicine Rheumatology | DX: M17.0 Bilateral primary osteoarthritis of knee (principal); M10.9 Gout, unspecified | CPT/HCPCS: 99212 ==

== ENCOUNTER 2022-09-19 12:26 | Outpatient (AMB) | payer MEDICARE, MEDICAID, SELFPAY ==
--- NOTE | 2022-09-19 12:44 | MHC.OFFVIS ---
Intake Vital Signs 09/19/22 12:45 Height 6 ft Weight 286 lb 9.615 oz BMI 38.9 BP 132/76 Blood Pressure Location Lt brachial Position Sitting Pulse 52 Intake Visit Reasons: 6 mth f/up Intake Note: 6 month follow-up feeling good [employer] Specialist Required: No Allergies No Known Allergies Allergy (Verified 09/06/22 11:33) Medication List - Last Reconciled 09/19/22 by Antoine Rowley MD allopurinol 400 mg (4 x 100 mg) PO DAILY amlodipine 10 mg PO DAILY apixaban (Eliquis) 5 mg PO BID colchicine 0.6 mg PO BID PRN metoprolol succinate ER 25 mg PO BEDTIME 90 days valsartan 80 mg PO BID HPI HPI Comments History of Present Illness Details Michael comes for follow-up. He denies any new cardiology complains. He is not able to exercise much due to knee arthritis and back pain. However denies any exertional chest pain or shortness of breath. Denies any prolonged irregular heartbeat or palpitations. Denies lightheadedness, syncope. No bleeding issues or neurologic events. No orthopnea, PND, worsening leg edema. Takes all his medications regularly. [facility] Medical History Acute congestive heart failure Ankle swelling Atrial fibrillation Back pain Bradycardia CAD (coronary artery disease) Gout Hematoma HFrEF (heart failure with reduced ejection fraction) HTN (hypertension) Paroxysmal atrial fibrillation Systolic CHF Surgical History No pertinent past surgical history Family History Father No problems noted. Mother Heart disease Social History Household Members: None Housing: Apartment Do you presently have visiting nurse or other home services: No Unable to assess alcohol history related to: Unknown Alcohol intake: current Alcohol intake frequency: holidays/special occasions only Alcohol type: beer Patient Tobacco Use Status: Never used Tobacco service: No Current occupational status: employed Current occupation: [employer] Const Denies chills, Denies fatigue, Denies fever(s), Denies frequent falls, Denies weakness, Denies weight gain and Denies weight loss ENT Denies dizziness Card Denies chest pain, Denies leg edema, Denies lightheadedness, Denies palpitations, Denies dyspnea, Denies dyspnea on exertion, Denies orthopnea and Denies other (loss of consciousness) Resp Denies cough, Denies dyspnea and Denies dyspnea on exertion GI Denies hematochezia and Denies change in stool character Musc Denies abnormal gait, Denies muscle weakness, Denies numbness, Denies radiating pain into limb and Denies tingling Neuro Denies abnormal gait, Denies dizziness, Denies frequent falls, Denies numbness, Denies tingling and Denies weakness Endo Denies fatigue and Denies palpitations Physical Exam Vital Signs: Last Vital Signs Pulse 52 09/19/22 12:45 BP 132/76 09/19/22 12:45 BMI result Body Mass Index 38.9 Const General: cooperative, healthy appearing, comfortable and no acute distress Nutritional Appearance: obese Orientation/consciousness: patient oriented x3 Neck Neck: Yes normal visual inspection and Yes no JVD Carotids: normal carotid upstroke Resp Effort & Inspection: normal respiratory effort Auscultation: clear to auscultation bilaterally, no crackles, no rales, no rhonchi and no wheezes Cardio Jugular venous distension: no JVD Rate: regular rate Rhythm: regular rhythm Heart sounds: S1 normal heart sound present, S2 normal heart sound present, no gallops, no murmurs and no rubs Peripheral pulses: Peripheral pulses 2+ throughout GI Inspection: Yes normal to inspection Neuro General: patient oriented x3 Extrem General: Yes normal to inspection, No no pedal edema and No calf tenderness Assessment & Plan Assessment & Plan (1) Paroxysmal atrial fibrillation: Code(s): I48.0 - Paroxysmal atrial fibrillation Plan: Paroxysmal atrial fibrillation doing well with rhythm control approach improved heart failure syndrome as well as LV systolic function. Continue rhythm control approach. Does not require antiarrhythmic drug therapy at this point time. Continue metoprolol therapy continue to avoid stimulants. Continue participate in weight loss program. Continue full oral anticoagulation, currently on apixaban 5 mg b.i.d.. Semi annual renal function test is recommended. Good blood pressure control to be pursued. (2) CAD (coronary artery disease): Code(s): I25.10 - Atherosclerotic heart disease of jackson coronary artery without angina pectoris Plan: CAD without any symptoms of angina. Moderately severe. No further interventions required a workup required at this point time. Continue aggressive guideline based medical therapy. Blood pressure is currently well optimized. Should be on statin therapy with target goal LDL less than 70 mg/dL. Being pursue through office. (3) Cardiomyopathy: Code(s): I42.9 - Cardiomyopathy, unspecified Plan: Mild LV systolic dysfunction by echocardiogram last year. Follow-up echocardiogram near future. Continue current neurohormonal modulation with valsartan and metoprolol therapy importance of maintaining rhythm was discussed. Continue to participate in physical activity and weight loss program. Continue to monitor for signs symptoms heart failure. No need for diuretic therapy at this point time. (4) Enlarged thoracic aorta: Code(s): I77.89 - Other specified disorders of arteries and arterioles Plan: Enlarged thoracic aorta by last echocardiogram. Follow-up echocardiogram near future. Advised to avoid strenuous isometric exercise. Continue aggressive blood pressure control. Follow up in the clinic 1 year's time, sooner p.r.n.. Thank you for allowing me to partake in his care Coding Level of Care Code Est Pt Level 4 (81402) Diagnoses Paroxysmal atrial fibrillation I48.0 CAD (coronary artery disease) I25.10 Cardiomyopathy I42.9 Enlarged thoracic aorta I77.89
[2022-09-19 12:45] VITALS: BP 132/76; PULSE 52; BMI 38.9
== END 2022-09-19 12:58 | disposition home or self-care (01) ==
PROVIDERS: Visit Provider Internal Medicine Cardiovascular Disease
DX: I48.0 Paroxysmal atrial fibrillation (principal); I25.10 Atherosclerotic heart disease of native coronary artery without angina pectoris; I42.9 Cardiomyopathy, unspecified; I77.89 Other specified disorders of arteries and arterioles
CPT/HCPCS: 99214

== ENCOUNTER → 2022-09-19 12:26 | Outpatient (BNVA) | payer MEDICARE, MEDICAID, SELFPAY | PROVIDERS: Visit Provider Internal Medicine Cardiovascular Disease | DX: I48.0 Paroxysmal atrial fibrillation (principal); I25.10 Atherosclerotic heart disease of native coronary artery without angina pectoris; I42.9 Cardiomyopathy, unspecified; I77.89 Other specified disorders of arteries and arterioles | CPT/HCPCS: 99212 ==

== ENCOUNTER 2023-09-24 12:47 | Outpatient (REF) | payer MEDICARE, SELFPAY ==
[2023-09-24 13:41] LABS: Hemoglobin 15.9 g/dl (14.0-18.0); Mean Corpuscular HGB Conc 33.1 g/dl (31.0-36.0); Mean Corpuscular Hemoglobin 31.4 pg (27.0-33.0); Mean Corpuscular Volume 94.7 fL (80.0-98.0); Mean Platelet Volume 10.6 fL (9.4-12.4); Platelet Count 173 X10*3/uL (160-400); Red Blood Count 5.07 X10*6/uL (4.60-5.80); Red Cell Distribution Width 14.2 % (11.0-16.0); White Blood Count 6.7 X10*3/uL (4.8-10.8)
[2023-09-24 14:02] LABS: Anion Gap 15 (12-20); Blood Urea Nitrogen 24 mg/dL (9-16); Calcium 10.2 mg/dL (8.4-10.2); Carbon Dioxide 27 mmol/L (22-29); Chloride 108 mmol/L (96-108); Estimated Glomerular Filt Rate 47; Glucose Random 89 mg/dL (60-115); Potassium 4.5 mmol/L (3.3-5.1); Sodium 145 mmol/L (135-145)
== END 2023-09-24 12:48 | disposition home or self-care (01) ==
LOC: HO.LAB 12:47
PROVIDERS: PCP Internal Medicine; Visit Provider Internal Medicine Cardiovascular Disease
DX: I48.0 Paroxysmal atrial fibrillation (principal); I25.10 Atherosclerotic heart disease of native coronary artery without angina pectoris; I50.20 Unspecified systolic (congestive) heart failure; I77.89 Other specified disorders of arteries and arterioles
CPT/HCPCS: 36415; 80048; 85027; 93005; 99212

== ENCOUNTER 2023-09-24 12:47 | Outpatient (AMB) | payer MEDICARE, SELFPAY ==
--- NOTE | 2023-09-24 12:53 | MHC.OFFVIS ---
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 He has been doing well from cardiac perspective. He said he maintains his activity level without any issues. He comes after a longer follow-up then prescribed. Did not have echocardiogram last year. He said this was a fall out from our department. He has not had any recent blood work. Denies any bleeding issues or neurologic events. He said few times couple of hours after taking his morning medication and he is at the kitchen he would feel lightheaded and he would have to sit down. He has not had a syncopal event. He denies any heart failure symptoms. No orthopnea, PND, leg edema. No prolonged palpitation irregular heartbeat. No bleeding issues or neurologic events. No exertional chest pain. [facility] Medical History Back pain Hematoma CAD (coronary artery disease) Paroxysmal atrial fibrillation HFrEF (heart failure with reduced ejection fraction) Gout Atrial fibrillation Systolic CHF Bradycardia Ankle swelling Acute congestive heart failure HTN (hypertension) Surgical History No pertinent past surgical history Family History Father No problems noted. Mother Heart disease Social History Household Members: None Housing: Apartment Do you presently have visiting nurse or other home services: No Unable to assess alcohol history related to: Unknown Alcohol intake: current Alcohol intake frequency: holidays/special occasions only Alcohol type: beer Patient Tobacco Use Status: Never used Tobacco service: No Current occupational status: employed Current occupation: [employer] Const Denies chills, Denies fatigue, Denies fever(s), Denies frequent falls, Denies weakness, Denies weight gain and Denies weight loss ENT Denies dizziness Card Denies chest pain, Denies leg edema, Denies lightheadedness, Denies palpitations, Denies dyspnea, Denies dyspnea on exertion, Denies orthopnea and Denies other (loss of consciousness) Resp Denies cough, Denies dyspnea and Denies dyspnea on exertion GI Denies hematochezia and Denies change in stool character Musc Denies abnormal gait, Denies muscle weakness, Denies numbness, Denies radiating pain into limb and Denies tingling Neuro Denies abnormal gait, Denies dizziness, Denies frequent falls, Denies numbness, Denies tingling and Denies weakness Endo Denies fatigue and Denies palpitations Physical Exam Vital Signs: Last Vital Signs Pulse 54 09/24/23 12:54 BP 134/86 09/24/23 12:54 BMI result Body Mass Index 35.0 Const General: cooperative, healthy appearing, comfortable and no acute distress Nutritional Appearance: obese Orientation/consciousness: patient oriented x3 Neck Neck: Yes normal visual inspection and Yes no JVD Carotids: normal carotid upstroke Resp Effort & Inspection: normal respiratory effort Auscultation: clear to auscultation bilaterally, no crackles, no rales, no rhonchi and no wheezes Cardio Jugular venous distension: no JVD Rate: regular rate Rhythm: regular rhythm Heart sounds: S1 normal heart sound present, S2 normal heart sound present, no gallops, no murmurs and no rubs Peripheral pulses: Peripheral pulses 2+ throughout GI Inspection: Yes normal to inspection Neuro General: patient oriented x3 Extrem General: Yes normal to inspection, No no pedal edema and No calf tenderness Office Procedures EKG Details: EKG shows sinus bradycardia with sinus arrhythmia with right bundle and left anterior fascicular block [id number], Complete Assessment & Plan Assessment & Plan (1) Paroxysmal atrial fibrillation: Code(s): I48.0 - Paroxysmal atrial fibrillation Category: Medical Plan: Paroxysmal atrial fibrillation highly symptomatic causing heart failure with reduced ejection fraction. Has done very well with rhythm control approach with improvement in LV systolic function. Continue aggressively rhythm control approach. However he has not had any recurrent drug at this point in time. Baseline sinus bradycardia and can not maximize metoprolol therapy at this point time. Advised to avoid stimulants. Continue full oral anticoagulation, currently on Eliquis 5 mg b.i.d.. Semi annual renal function test should be pursued. Annual CBC check should be pursued. (2) CAD (coronary artery disease): Code(s): I25.10 - Atherosclerotic heart disease of [place] coronary artery without angina pectoris Category: Medical Plan: CAD with moderately severe coronary disease with no symptoms of angina at current point time. Continue Eliquis therapy for anticoagulation avoid aspirin to reduce bleeding risk. Requires lipid panel at least on annual basis. Should be on at least high-intensity statin therapy. Target goal LDL less than 70 mg. Blood pressure is currently well optimized although having some symptoms of orthostatic lightheadedness which is not uncommon in patient with diffuse atherosclerotic process advised to stagger his amlodipine to noon time. (3) HFrEF (heart failure with reduced ejection fraction): Code(s): I50.20 - Unspecified systolic (congestive) heart failure Category: Medical Plan: Prior history of heart failure reduced ejection fraction, clinically euvolemic and well compensated with no worsening symptoms has done well with rhythm control approach. Continue pursue rhythm control approach currently not on diuretic regimen. Follow-up echocardiogram near future. Continue aggressive blood pressure control which is currently well optimized. (4) Enlarged thoracic aorta: Code(s): I77.89 - Other specified disorders of arteries and arterioles Category: Medical Plan: Mildly enlarged thoracic aorta. Follow-up echocardiogram near future. Continue aggressive blood pressure control. Will follow up in the clinic in 1 year's time, sooner p.r.n.. Thank you for allowing me to partake in his care Orders: Orders Complete Blood Count no Diff Today I48.0 - Paroxysmal atrial fibrillation CA echo transthoracic complete Today I42.9 - Cardiomyopathy, unspecified, I48.0 - Paroxysmal atrial fibrillation, I77.89 - Other specified disorders of arteries and arterioles Basic Metabolic Panel Today I48.0 - Paroxysmal atrial fibrillation Coding Level of Care Code Est Pt Level 4 (55236) Diagnoses Paroxysmal atrial fibrillation I48.0 CAD (coronary artery disease) I25.10 HFrEF (heart failure with reduced ejection fraction) I50.20 Enlarged thoracic aorta I77.89 CPT Codes EKG - CPT: 63892-[id number], Complete ([id number])
[2023-09-24 12:54] VITALS: BP 134/86; PULSE 54; BMI 35.0
== END 2023-09-24 13:29 | disposition home or self-care (01) ==
PROVIDERS: PCP Internal Medicine; Visit Provider Internal Medicine Cardiovascular Disease
DX: I48.0 Paroxysmal atrial fibrillation (principal); I25.10 Atherosclerotic heart disease of native coronary artery without angina pectoris; I50.20 Unspecified systolic (congestive) heart failure; I77.89 Other specified disorders of arteries and arterioles
CPT/HCPCS: 93010; 99214

== ENCOUNTER → 2023-10-04 12:44 | Outpatient (REF) | payer MEDICARE, SELFPAY ==
--- NOTE | 2023-10-04 12:56 | CA_ITS ---
Transthoracic Echocardiogram Patient (Last, First, Middle): Michael Mccullough, Gender: Male Date of : 1955 Age: 67 Procedure Date: 10/04/2023 Procedure Type: Transthoracic Echocardiogram Location: OP Height: 185.42 cm Weight: 119.75 kg BSA: 2.42 m2 Heart Rate: 62 bpm BP: 130 / 70 mmHg Facilities Supervisor: GEORGI Li MD: Antoine Rowley MD Whip Operator: Antoine Rowley MD Symptoms: I42.9 - Cardiomyopathy, unspecified Study Quality: Fair ECG Rhythm: Arrhythmia Conclusions: - 1. Normal LV ejection fraction of 60 65% with moderate asymmetric septal hypertrophy with impaired relaxation filling pattern 2. Moderately dilated left atrium 3. Normal cardiac valvular Doppler 4. Mildly dilated ascending aorta at 4.2 cm 5. No pericardial effusion Findings Left Ventricle Normal left ventricular size, thickness, and systolic function. The visually estimated ejection fraction is between 60-65%. Spectral Doppler is indicative of an impaired relaxation filling pattern. E/E prime ratio is between 8 and 15 consistent with indeterminate filling pressures. There is moderate septal asymmetric hypertrophy. Right Ventricle Normal right ventricular cavity size and systolic function. Atria The left atrium is moderately dilated. There is lipomatous hypertrophy of the interatrial septum. There is no evidence of interatrial shunt. The right atrium is normal in size. Aortic Valve Normal aortic valve structure and function. There is no aortic valve stenosis. There is no aortic valve regurgitation. Mitral Valve Normal mitral valve structure and function. There is trace mitral valve regurgitation. There is no mitral valve stenosis. Pulmonic Valve The pulmonic valve is likely normal. There is trace pulmonic valve regurgitation. Tricuspid Valve Likely normal tricuspid valve structure and function. There is trace tricuspid valve regurgitation. The right ventricular systolic pressure is normal. Great Vessels The pulmonary artery was not well visualized. There is mild dilatation of the ascending aorta measuring 4.20 cm. Venous The inferior vena cava is normal in size and collapses greater than 50% with inspiration. Pericardium/Pleural There is no evidence of pericardial effusion. Prior Study Comparison Changes noted compared to prior study dated: 09/07/2021. LV systolic function is in normal range Measurements 2D Linear Measurements IVSd: 1.62 0.6-0.9/0.6-1.0 cm LVIDd: 4.76 3.9-5.3/4.2-5.9 cm LVIDd Index: 1.97 2.4-3.2/2.2-3.1 cm/m2 LVIDs: 2.95 2.0-3.6 cm LVPWd: 1.04 0.7-1.1 cm LA Diam: 5.20 2.7-3.8/3.0-4.0 cm LAIDs Index: 2.15 1.5-2.3 cm/m2 LV Mass: 312.70 67-162/88-224 g LV Mass Index: 129.21 43-95/49-115 g/m2 LVOT Diam: 2.30 3.0+(-)1.3 cm 2D Systolic Function EF 4C: 53.70 >55% EF 2C: 75.20 >55% EF BiP: 64.60 >55% Mitral Valve MV Pk E: 0.72 MV PK A: 0.62 MV Decel Time: 207.00 E/A: 1.20 E'Lateral: 8.27 E'Medial: 5.55 E/E' Med: 12.90 E/E' Lat: 8.70 PHT: 61.00 MVA PHT: 3.61 Decel [place]: 3.46 Aortic Valve AoV Pk Lukasz: 1.15 AoV Mn Lukasz: 0.85 AoV VTI: 0.24 AoV Pk Grad: 5.00 Aov Mn Grad: 3.00 SMITA Cont.VTI: 3.32 LVOT LVOT Pk Lukasz: 0.82 LVOT Mn Lukasz: 0.62 LVOT VTI: 0.19 LVOT Pk Grad: 3.00 LVOT Mn Grad: 2.00 LVOT Diam: 2.30 LVOT Area: 4.15 Diastolic Function MV Pk E: 0.72 MV Pk A: 0.62 E/A: 1.20 E'Medial: 5.55 E/E' Med: 12.90 E' Laterial: 8.27 E/E' Lat: 8.70 Right Ventricle TAPSE (mm): 14.20 TVS' Lukasz: 10.30 Tricuspid Valve TR Pk Lukasz: 2.25 TR Pk Grad: 20.00 RA Press: 3.00 RVSP: 23.00 Great Vessels Aorta Sinus of Valsalva: 3.90 2.0-3.5 cm Ao Asc: 4.20 2.1-3.4 cm Pulmonary Valve PV Pk Lukasz: 0.94 Peak PV Grad: 4.00 Updated in Other Vendor System with Status of Final Antoine Rowley MD electronically signed on 10/05/2023 12:51:12 PM with status of Final
[2023-10-04 13:38] LABS: Anion Gap 11 (12-20); Blood Urea Nitrogen 21 mg/dL (9-16); Carbon Dioxide 27 mmol/L (22-29); Chloride 110 mmol/L (96-108); Estimated Glomerular Filt Rate 60; Glucose Random 92 mg/dL (60-115); Potassium 4.8 mmol/L (3.3-5.1); Sodium 143 mmol/L (135-145); Uric Acid 5.2 mg/dL (3.4-7.0)
== END ==
LOC: HO.CARD 12:44
PROVIDERS: Absent Provider Student in an Organized Health Care Education/Training Program; PCP Internal Medicine; Visit Provider Internal Medicine Cardiovascular Disease
DX: I77.89 Other specified disorders of arteries and arterioles (principal); I48.0 Paroxysmal atrial fibrillation; I42.9 Cardiomyopathy, unspecified; M10.9 Gout, unspecified; I50.20 Unspecified systolic (congestive) heart failure
CPT/HCPCS: 36415; 80048; 84550; 93306

== ENCOUNTER → 2023-10-04 12:56 | Outpatient (BNV) | payer MEDICARE, SELFPAY | PROVIDERS: Absent Provider Student in an Organized Health Care Education/Training Program; PCP Internal Medicine; Visit Provider Internal Medicine Cardiovascular Disease | DX: I42.2 Other hypertrophic cardiomyopathy (principal) | CPT/HCPCS: 93306 ==

== ENCOUNTER 2023-12-06 08:51 | Outpatient (AMB) | payer MEDICARE, SELFPAY ==
--- NOTE | 2023-12-06 08:53 | MHC.OFFVIS ---
Vital Signs 12/06/23 08:57 Height 6 ft Weight 273 lb 5.971 oz BMI 37.1 BP 124/74 Blood Pressure Location Lt brachial Position Sitting Pulse 69 Pulse Source Pulse Oximeter Intake Visit Reasons: Gout Intake Note: Patient presents for Gout. Allergies No Known Allergies Allergy (Verified 12/06/23 08:56) Medication List - Last Reconciled 12/06/23 by Chester Hilliard MD allopurinol 400 mg (4 x 100 mg) PO DAILY amlodipine 10 mg PO DAILY apixaban (Eliquis) 5 mg PO BID colchicine 0.6 mg PO BID PRN metoprolol succinate ER 25 mg PO BEDTIME valsartan 80 mg PO BID HPI Comments Details: This is a 68-year-old male with gout and osteoarthritis returns for follow-up. He was last seen by Dr. Chandler 09/2022. He remains on allopurinol 400 mg daily. States that he has not had any gout flare-ups since his last visit with Dr. Chandler over a year ago. Does not use colchicine. His main problem is bilateral knee osteoarthritis, mostly in the right knee, difficulty with going up and down the stairs. He had a steroid injection by Dr. Chandler which lasted 2-3 weeks only. He has not had any gel injection. Did not go to physical therapy for knee osteoarthritis. He also has intermittent pains in other joints such as the base of the thumbs, slightly worse on the right. [facility] Medical History Back pain Hematoma CAD (coronary artery disease) Paroxysmal atrial fibrillation HFrEF (heart failure with reduced ejection fraction) Gout Atrial fibrillation Systolic CHF Bradycardia Ankle swelling Acute congestive heart failure HTN (hypertension) Surgical History No pertinent past surgical history Family History Father No problems noted. Mother Heart disease Social History Household Members: None Housing: Apartment Do you presently have visiting nurse or other home services: No Unable to assess alcohol history related to: Unknown Alcohol intake: current Alcohol intake frequency: holidays/special occasions only Alcohol type: beer Patient Tobacco Use Status: Never used Tobacco service: No Current occupational status: employed Current occupation: [employer] [place] Reports arthralgias, Denies joint swelling and Reports stiffness Physical Exam Vital Signs: Last Vital Signs Pulse 69 12/06/23 08:57 BP 124/74 12/06/23 08:57 BMI result Body Mass Index 37.1 Const General: cooperative, healthy appearing and comfortable Nutritional Appearance: obese morbidly obese Orientation/consciousness: patient oriented x3 Limitations: no limitations HEENT Head: Yes normocephalic and Yes atraumatic Mouth: moist mucous membranes Resp Effort & Inspection: normal respiratory effort and able to speak in complete sentences Skin General skin exam: no rashes or lesions noted Neuro General: patient oriented x3 Extrem Other: Osteoarthritic changes of both hands with squaring of the CMC joints Right 1st CMC joint tenderness Normal range of motion of hands, elbows and shoulders without pain Bilateral knee crepitus No knee pain with full flexion-extension No knee swelling bilaterally Assessment & Plan Assessment & Plan (1) Gout: Comment: recurrent attacks in the feet; allopurinol started 2020 Code(s): M10.9 - Gout, unspecified Category: Medical Qualifiers: Gout site: multiple sites Gout etiology: idiopathic Chronicity: chronic Presence of tophus: without tophus Qualified Code(s): M1A.09X0 - Idiopathic chronic gout, multiple sites, without tophus (tophi) Plan: 68-year-old male with gout returns for follow-up. Last seen by Dr. Chandler 09/2022. Remains on allopurinol 400 mg daily. Has not had any gout flare-ups in over 1 year. Most recent uric acid level 5.2 mg/dL which is at target. Continue allopurinol 400 mg daily Labs before next visit in 6 months (2) Osteoarthritis of knees, bilateral: Code(s): M17.0 - Bilateral primary osteoarthritis of knee Category: Medical Qualifiers: Osteoarthritis type: primary Qualified Code(s): M17.0 - Bilateral primary osteoarthritis of knee Plan: Worse on the right. Received a cortisone injection by Dr. Chandler last year which only lasted 2-3 weeks. I referred patient to orthopedics (3) Osteoarthritis of hands, bilateral: Code(s): M19.041 - Primary osteoarthritis, right hand; M19.042 - Primary osteoarthritis, left hand Category: Medical Qualifiers: Osteoarthritis type: primary Qualified Code(s): M19.041 - Primary osteoarthritis, right hand; M19.042 - Primary osteoarthritis, left hand Plan I spent 25 minutes reviewing patient's chart, evaluating patient, ordering diagnostic workup, counseling patient and documenting in the chart Orders: Orders Basic Metabolic Panel 6 Months M10.9 - Gout, unspecified Uric Acid 6 Months M10.9 - Gout, unspecified Referrals Orthopedics Referral M17.0 - Bilateral primary osteoarthritis of knee Coding Level of Care Code Est Pt Level 4 (96809) Diagnoses Idiopathic chronic gout of multiple sites without tophus M1A.09X0 Gout site: multiple sites Gout etiology: idiopathic Chronicity: chronic Presence of tophus: without tophus Primary osteoarthritis of both knees M17.0 Osteoarthritis type: primary Primary osteoarthritis of both hands M19.041; M19.042 Osteoarthritis type: primary
[2023-12-06 08:57] VITALS: BP 124/74; PULSE 69; BMI 37.1
== END 2023-12-06 09:15 | disposition home or self-care (01) ==
PROVIDERS: PCP Internal Medicine; Visit Provider Student in an Organized Health Care Education/Training Program
DX: M1A.09X0 Idiopathic chronic gout, multiple sites, without tophus (tophi) (principal); M17.0 Bilateral primary osteoarthritis of knee; M19.041 Primary osteoarthritis, right hand; M19.042 Primary osteoarthritis, left hand
CPT/HCPCS: 99214

== ENCOUNTER → 2023-12-06 08:51 | Outpatient (BNVA) | payer MEDICARE, SELFPAY | PROVIDERS: PCP Internal Medicine; Visit Provider Student in an Organized Health Care Education/Training Program | DX: M17.0 Bilateral primary osteoarthritis of knee (principal); M1A.09X0 Idiopathic chronic gout, multiple sites, without tophus (tophi); M19.041 Primary osteoarthritis, right hand; M19.042 Primary osteoarthritis, left hand | CPT/HCPCS: 99212 ==

== ENCOUNTER → 2024-06-10 14:42 | Outpatient (BNVA) | payer MEDICARE, SELFPAY | PROVIDERS: PCP Internal Medicine; Visit Provider Nurse Practitioner Family ==

== ENCOUNTER 2024-07-03 09:47 | Inpatient (IN) | payer MEDICARE, SELFPAY ==
[2024-07-03] VITALS (10 sets, daily range): BP systolic 115–157; BP diastolic 58–93; PULSE 64–143; RESP 15–25; TEMP 36.5–37.1; O2SAT 95–99; BMI 41.3
--- NOTE | 2024-07-03 | ECG_ITS ---
Test Reason : Tachycardia Blood Pressure : */* mmHG Vent. Rate : 125 BPM Atrial Rate : * BPM P-R Int : * ms QRS Dur : 138 ms QT Int : 366 ms P-R-T Axes : * -57 101 degrees QTcB Int : 528 ms Atrial fibrillation with rapid ventricular response Right bundle branch block Left anterior fascicular block Bifascicular block T wave abnormality, consider lateral ischemia Abnormal ECG When compared with ECG of 03-Jul-2024 10:03, T wave inversion no longer evident in Inferior leads T wave inversion less evident in Lateral leads Referred By: Kalpana Nunez Electronically Signed By: Farooq Gary
--- NOTE | ~2024-07-03 | XR_ITS ---
EXAMINATION: XR SHOULDER 2 OR MORE VIEWS RIGHT HISTORY: shoulder pain COMPARISON: There are no prior studies available for comparison. FINDINGS: Four views of the right shoulder are submitted. Osseous mineralization is normal. There is no fracture or dislocation. The glenohumeral and acromioclavicular joint spaces are maintained. There is amorphous increased density in the soft tissues adjacent to the greater tuberosity of the humerus. This may be artifactual or represent rotator cuff calcification. XR/XR shoulder RT min 2V IMPRESSION: Possible rotator cuff calcification versus artifact. Otherwise unremarkable examination of the right shoulder. Electronically signed by: Baljinder Guzman MD 07/08/2024 01:45 PM EDT
--- NOTE | ~2024-07-03 | XR_ITS ---
EXAMINATION: XR CHEST CLINICAL INFORMATION: dyspnea COMPARISON: August 15, 2021. TECHNIQUE: Frontal view of the chest was obtained. FINDINGS: Linear opacities in the right hemithorax. Blunting of the right costophrenic angle. Mild prominence of the interstitial markings slightly asymmetric to the right lung. Widening of the inferior right cardiomediastinal silhouette. No pneumothorax. Multilevel thoracic spondylosis no fully evaluated due to patient's body habitus. XR/XR chest 1V IMPRESSION: Pulmonary edema, mild to moderate with questionable right-sided pleural effusion. Widening mediastinum concerning enlarged right atrium among other etiologies. Electronically signed by: Russell Hernandez MD 07/03/2024 10:32 AM EDT
--- NOTE | 2024-07-03 10:00 | ED.GENADULT ---
HPI - General Adult General Chief complaint: Dyspnea Stated complaint: SOB FOR WEEKS PER EMS Time Seen by Provider: 07/03/24 09:56 Source: patient Mode of arrival: EMS Limitations: no limitations History of Present Illness HPI narrative: This is a 68-year-old man with a past medical history of hypertension, atrial fibrillation on Rivaroxaban, CHF, CAD, gastritis who is BIBEMS for evaluation of dyspnea. Patient states that he has had gradually worsening dyspnea over the last 2-3 weeks. He states no associated orthopnea and bilateral lower extremity swelling. He states no chest pain. He states cough productive of clear sputum. He states no hemoptysis. He states no congestion, sore throat, headache or myalgias. He states no syncope. He states no GI or symptoms. He requests uric acid level testing, which he was suppose to get as an outpatient in a few weeks. He states no back pain or abdominal pain. Related Data Previous Rx's ?Medication ?Instructions ?Recorded colchicine 0.6 mg tablet 0.6 mg PO BID PRN for gout pain 02/22/23 #90 tabs valsartan 80 mg tablet 80 mg PO BID #180 tabs 09/27/23 amlodipine 10 mg tablet 10 mg PO DAILY #90 tabs 01/29/24 metoprolol succinate 25 mg 25 mg PO BEDTIME #90 tabs 02/28/24 tablet,extended release 24 hr allopurinol 100 mg tablet 400 mg (4 x 100 mg) PO DAILY #360 04/25/24 tabs rivaroxaban 20 mg tablet (Xarelto) 20 mg PO QPM #30 tabs 06/03/24 prednisone 10 mg tablet 10 mg PO DIRECTED #55 tabs 06/24/24 Allergies Allergy/AdvReac Type Severity Reaction Status Date / Time No Known Allergies Allergy Verified 07/03/24 10:03 Review of Systems Review of Systems: ROS as per HPI [facility] Past Medical History Medical History Back pain Hematoma CAD (coronary artery disease) Paroxysmal atrial fibrillation HFrEF (heart failure with reduced ejection fraction) Gout Atrial fibrillation Systolic CHF Bradycardia Ankle swelling Acute congestive heart failure HTN (hypertension) Surgical History No pertinent past surgical history Family History Family History Father No problems noted. Mother Heart disease Social History Social History Household Members: None Housing: Apartment Do you presently have visiting nurse or other home services: No Unable to assess alcohol history related to: Unknown Alcohol intake: current Alcohol intake frequency: holidays/special occasions only Alcohol type: beer Patient Tobacco Use Status: Never used Tobacco Smoked in Last 30 Days: No Use of substances other than those prescribed or required for medical reasons: No Advance Directives: No Advance Directives Information Provided: Yes Do you have a plan to hurt others: No Plan service: No Current occupational status: employed Current occupation: [employer] Physical Exam ED Vital Signs: Vital Signs - 24 hr 07/03/24 10:00 07/03/24 10:33 07/03/24 11:40 Temperature 98.1 F Pulse Rate 143 H 90 112 H Pulse Rate [Monitor] Respiratory Rate 25 H 19 23 H Blood Pressure 132/91 H 115/58 L 122/77 Pulse Oximetry 96 96 Oxygen Delivery Method Room Air Room Air 07/03/24 11:41 07/03/24 11:51 07/03/24 11:53 Temperature 97.7 F 98.2 F Pulse Rate 91 64 Pulse Rate [Monitor] 114 H Respiratory Rate 20 15 Blood Pressure 122/77 157/75 H Pulse Oximetry 99 99 Oxygen Delivery Method Room Air Room Air BMI result Body Mass Index 41.3 Gen: NAD, AOx3 HEENT: NCAT, EOMI, normal conjunctiva CV: Irregular rate and rhythm, no murmurs appreciated, 2+ bilateral pretibial pitting edema Pulm: CTAB, no wheezes or rhonchi GI: Soft, NTND, no rebound, guarding or rigidity Neuro: Grossly non focal Medications Administered Discontinued Medications Generic Name Dose Route Start Last Admin Trade Name Freq PRN Reason Stop Dose Admin Diltiazem HCl 20 mg 07/03/24 10:15 07/03/24 10:28 Diltiazem Hcl 50 Mg/10 Ml Vial IVPUSH 07/03/24 10:16 20 mg STAT STA Administration Furosemide 40 mg 07/03/24 10:36 07/03/24 11:39 Furosemide 40 Mg/4 Ml Vial IVPUSH 07/03/24 10:37 40 mg STAT STA Administration Protocol Metoprolol Tartrate 25 mg 07/03/24 10:56 07/03/24 11:39 Metoprolol Tartrate 25 Mg Tablet PO 07/03/24 10:57 25 mg ONCE ONE Administration Protocol Potassium Chloride 40 meq 07/03/24 10:37 07/03/24 11:39 Potassium Chloride Er 20 Meq Tab.Er.Prt PO 07/03/24 10:38 40 meq ONCE ONE Administration Medical Decision Making Medical Decision Making [facility] Narrative: Differential diagnosis includes, but is not limited to viral URI, acute decompensated congestive heart failure, electrolyte derangement, pleural effusion. Patient is afebrile and hemodynamically stable. Exam notable for pretibial pitting edema and given patient's reported history of orthopnea and dyspnea I have high clinical suspicion for acute decompensated congestive heart failure. I reviewed the patient's labs, EKG and chest x-ray as below. The patient arrives with atrial fibrillation and rapid ventricular response, which responds well to 20 mg IV diltiazem and 25 mg p.o. metoprolol tartrate. Given findings of fluid overload on exam, chest x-ray and with elevated BNP the patient is provided 40 mg IV Lasix as well as prophylactic potassium repletion with 40 mEq p.o. potassium chloride. I discussed the patient's case and management with admitting hospitalist, Dr. Lopez, who accepts the patient for further workup and management. Critical Care Time: A total of 45 minutes spent in direct patient care with coordinating critical resuscitation, procedures, reviewing records, discussing with consultants, reviewing labs, and/or managing patient. Admission/Observation Consideration of admission/observation: Escalation of care including admission/observation considered Consult Healthcare Provider Management of the patient was discussed with: Hospitalist Lab Data [facility] Lab Attestation statement: I reviewed the patient's lab results. COVID-19, influenza and RSV negative. CBC unremarkable, coagulation studies unremarkable, venous blood gas with no acid-base derangement, metabolic panel reassuring, mildly elevated AST and ALT which may be congestive hepatopathy versus hepatic steatosis, troponin 27.4, BNP 778 07/03/24 10:12 07/03/24 10:12 Labs: Lab Results 07/03/24 07/03/24 07/03/24 Range/Units 10:12 10:15 10:18 WBC 6.7 (4.8-10.8) X10*3/uL RBC 4.56 L (4.60-5.80) X10*6/uL Hgb 14.4 (14.0-18.0) g/dl Hct 44.6 (42.0-52.0) % MCV 97.8 (80.0-98.0) fL MCH 31.6 (27.0-33.0) pg MCHC 32.3 (31.0-36.0) g/dl RDW 15.1 (11.0-16.0) % Plt Count 144 L (160-400) X10*3/uL MPV 11.4 (9.4-12.4) fL Immature Gran % (Auto) 0.3 (0.0-0.4) % Neut % (Auto) 86.9 H (45-73) % Lymph % (Auto) 7.8 L (20-40) % [place] % (Auto) 5.0 (2-11) % Eos % (Auto) 0.0 (0-4) % Baso % (Auto) 0.0 (0-2) % Lymph # (Auto) 0.5 L (1.2-4.9) X10*3/uL [place] # (Auto) 0.3 (0.1-1.2) X10*3/uL Eos # (Auto) 0.0 (0.0-0.4) X10*3/uL Baso # (Auto) 0.0 (0.0-0.2) X10*3/uL Abs Immat Gran (auto) 0.02 (0.00-0.03) X10*3/uL Absolute Neuts (auto) 5.8 (2.0-8.3) x10*3/uL Absolute Nucleated RBC 0.000 (0.0-0.012) X10*3/uL Nucleated RBC % (auto) 0.0 (0.0-0.2) /100WBC APTT 28.7 (26.0-36.8) SEC VBG pH 7.37 (7.32-7.43) VBG pCO2 42 mmHg VBG pO2 60 mmHg VBG HCO3 25 (22-26) mmol/L VBG O2 Saturation 89.0 % VBG Base Excess -0.2 mmol/L Sodium 144 (135-145) mmol/L Potassium 3.8 D (3.3-5.1) mmol/L Chloride 111 H (96-108) mmol/L Carbon Dioxide 24 (22-29) mmol/L Anion Gap 13 (12-20) BUN 29 H (9-16) mg/dL Creatinine 1.30 (0.5-1.4) mg/dL Estim Creat Clear Calc 79.4 Estimated GFR 55 Random Glucose 252 H (60-115) mg/dL Uric Acid (3.4-7.0) mg/dL Calcium 8.2 L D (8.4-10.2) mg/dL Magnesium 1.9 (1.6-2.6) mg/dL Total Bilirubin 0.9 (0.0-1.0) mg/dL AST 63 H (5-37) U/L ALT 97 H (0-40) U/L Alkaline Phosphatase 71 (39-117) U/L Troponin I Hi Sens Base 27.4 (<3.5-35.0) ng/L B-Natriuretic Peptide 778 H (<100) pg/mL Total Protein 5.4 L (6.5-8.0) g/dL Albumin 3.6 (3.5-5.0) g/dL Influenza Type A (PCR) NEGATIVE (Negative) Influenza Type B (PCR) NEGATIVE (Negative) RSV RNA Qual (PCR) NEGATIVE (Negative) SARS-CoV-2 RNA (RT-PCR) NEGATIVE (Negative) Blood Type B Negative Antibody Screen NEGATIVE 07/03/24 Range/Units 11:45 WBC (4.8-10.8) X10*3/uL RBC (4.60-5.80) X10*6/uL Hgb (14.0-18.0) g/dl Hct (42.0-52.0) % MCV (80.0-98.0) fL MCH (27.0-33.0) pg MCHC (31.0-36.0) g/dl RDW (11.0-16.0) % Plt Count (160-400) X10*3/uL MPV (9.4-12.4) fL Immature Gran % (Auto) (0.0-0.4) % Neut % (Auto) (45-73) % Lymph % (Auto) (20-40) % [place] % (Auto) (2-11) % Eos % (Auto) (0-4) % Baso % (Auto) (0-2) % Lymph # (Auto) (1.2-4.9) X10*3/uL [place] # (Auto) (0.1-1.2) X10*3/uL Eos # (Auto) (0.0-0.4) X10*3/uL Baso # (Auto) (0.0-0.2) X10*3/uL Abs Immat Gran (auto) (0.00-0.03) X10*3/uL Absolute Neuts (auto) (2.0-8.3) x10*3/uL Absolute Nucleated RBC (0.0-0.012) X10*3/uL Nucleated RBC % (auto) (0.0-0.2) /100WBC APTT (26.0-36.8) SEC VBG pH (7.32-7.43) VBG pCO2 mmHg VBG pO2 mmHg VBG HCO3 (22-26) mmol/L VBG O2 Saturation % VBG Base Excess mmol/L Sodium (135-145) mmol/L Potassium (3.3-5.1) mmol/L Chloride (96-108) mmol/L Carbon Dioxide (22-29) mmol/L Anion Gap (12-20) BUN (9-16) mg/dL Creatinine (0.5-1.4) mg/dL Estim Creat Clear Calc Estimated GFR Random Glucose (60-115) mg/dL Uric Acid 5.0 (3.4-7.0) mg/dL Calcium (8.4-10.2) mg/dL Magnesium (1.6-2.6) mg/dL Total Bilirubin (0.0-1.0) mg/dL AST (5-37) U/L ALT (0-40) U/L Alkaline Phosphatase (39-117) U/L Troponin I Hi Sens Base (<3.5-35.0) ng/L B-Natriuretic Peptide (<100) pg/mL Total Protein (6.5-8.0) g/dL Albumin (3.5-5.0) g/dL Influenza Type A (PCR) (Negative) Influenza Type B (PCR) (Negative) RSV RNA Qual (PCR) (Negative) SARS-CoV-2 RNA (RT-PCR) (Negative) Blood Type Antibody Screen Independent Interpretation I performed an independent interpretation of an: EKG and Plain X-Ray Interpretation: EKG shows atrial fibrillation at 138 beats per minute, QRS 134, QTC 409, no STEMI. Repeat EKG shows atrial fibrillation at 125 beats per minute, QRS 138, 528, no STEMI. Per my interpretation of chest x-ray, there is evidence of pulmonary edema, small right pleural effusion, no focal consolidation or pneumothorax Radiology Impression Discussion of test interpretation with radiology: I have reviewed the radiologist's reading. Radiologist Impression: XR/XR chest 1V IMPRESSION: Pulmonary edema, mild to moderate with questionable right-sided pleural effusion. Widening mediastinum concerning enlarged right atrium among other etiologies. Electronically signed by: Russell Hernandez MD 07/03/2024 10:32 AM EDT RP Dictated By: Russell Rivero MD Signed By: <Electronically signed by Russell Polk MD in OV> 07/03/24 1032 Discharge Plan Discharge Clinical Impression: Acute exacerbation of CHF (congestive heart failure), Elevated brain natriuretic peptide (BNP) level Patient Disposition: Admitted As Inpatient Prescriptions: No Action colchicine 0.6 mg tablet 0.6 mg PO BID PRN (Reason: for gout pain) Qty: 90 0RF valsartan 80 mg tablet 80 mg PO BID Qty: 180 3RF amlodipine 10 mg tablet 10 mg PO DAILY Qty: 90 3RF metoprolol succinate 25 mg tablet extended release 24 hr 25 mg PO BEDTIME Qty: 90 3RF allopurinol 100 mg tablet 400 mg PO DAILY Qty: 360 1RF Xarelto 20 mg tablet 20 mg PO QPM Qty: 30 0RF prednisone 10 mg tablet 10 mg PO DIRECTED Qty: 55 0RF Rx Instructions: Take 4 pills for 5 days then 3 pills for 5 days then 2 pill for 5 days then 1 pill for 5 days then 0.5 pill for 5 days then stop Print Language: Qatari
[2024-07-03 10:17] LABS: MANUAL DIFF FLAG NO
[2024-07-03 10:19] LABS: Hematocrit 44.6 % (42.0-52.0); Hemoglobin 14.4 g/dl (14.0-18.0); Imm Gran Abs Auto 0.02 X10*3/uL (0.00-0.03); Imm Gran Pct Auto 0.3 % (0.0-0.4); Lymphocytes Absolute Auto 0.5 X10*3/uL (1.2-4.9); Lymphocytes Percent Auto 7.8 % (20-40); Mean Corpuscular HGB Conc 32.3 g/dl (31.0-36.0); Mean Corpuscular Hemoglobin 31.6 pg (27.0-33.0); Mean Corpuscular Volume 97.8 fL (80.0-98.0); Mean Platelet Volume 11.4 fL (9.4-12.4); Monocytes Absolute Auto 0.3 X10*3/uL (0.1-1.2); Neutrophils Absolute Auto 5.8 x10*3/uL (2.0-8.3); Neutrophils Percent Auto 86.9 % (45-73); Platelet Count 144 X10*3/uL (160-400); Red Blood Count 4.56 X10*6/uL (4.60-5.80); Red Cell Distribution Width 15.1 % (11.0-16.0); White Blood Count 6.7 X10*3/uL (4.8-10.8)
[2024-07-03 10:26] LABS: VBG Base Excess -0.2 mmol/L; VBG HCO3 25 mmol/L (22-26); VBG pCO2 42 mmHg; VBG pH 7.37 (7.32-7.43); VBG pO2 60 mmHg
[2024-07-03 10:27] LABS: Partial Thromboplastin Time 28.7 SEC (26.0-36.8)
[2024-07-03] MEDS: dilTIAZem HCL 50 MG/10 ML VIAL 20 MG IVPUSH (10:28)
[2024-07-03 10:34] LABS: Venous Blood Gas Refer to POC result
[2024-07-03 10:35] LABS: Alanine Aminotransferase 97 U/L (0-40); Albumin Level 3.6 g/dL (3.5-5.0); Alkaline Phosphatase 71 U/L (39-117); Anion Gap 13 (12-20); Aspartate Amino Transferase 63 U/L (5-37); Bilirubin Total 0.9 mg/dL (0.0-1.0); Blood Urea Nitrogen 29 mg/dL (9-16); Calcium 8.2 mg/dL (8.4-10.2); Carbon Dioxide 24 mmol/L (22-29); Chloride 111 mmol/L (96-108); Creatinine Clr Calc Pharmacy 79.4; Estimated Glomerular Filt Rate 55; Glucose Random 252 mg/dL (60-115); Potassium 3.8 mmol/L (3.3-5.1); Sodium 144 mmol/L (135-145); Total Protein 5.4 g/dL (6.5-8.0)
[2024-07-03 10:40] LABS: B Type Natriuretic Peptide 778 pg/mL (<100)
[2024-07-03 10:43] LABS: Troponin-I High Sens Reflx 2hr 27.4 ng/L (<3.5-35.0)
[2024-07-03 10:53] LABS: Magnesium 1.9 mg/dL (1.6-2.6)
[2024-07-03 11:12] LABS: Influenza A PCR NEGATIVE (Negative); Influenza B PCR NEGATIVE (Negative); Resp Syncy Virus RNA Qual PCR NEGATIVE (Negative); SARS COV2 PCR INHOUSE NEGATIVE (Negative)
[2024-07-03] MEDS: Metoprolol Tartrate 25 MG TABLET PO (11:39)
[2024-07-03] MEDS: Furosemide 40 MG/4 ML VIAL IVPUSH ×2 (11:39→17:53)
[2024-07-03] MEDS: Potassium Chloride ER 20 MEQ TAB.ER.PRT 40 MEQ PO (11:39)
--- NOTE | 2024-07-03 11:55 | PC.NURSE ---
This is a 68-year-old man with a past medical history of hypertension, atrial fibrillation on Rivaroxaban, CHF, CAD, gastritis who is BIBEMS for evaluation of dyspnea. Patient states that he has had gradually worsening dyspnea over the last 2-3 weeks. Patient alert and oriented. cafeteria monitor maintained and afib noted in 100's to 130's. Lungs clear bilat. Respirations even and non-labored. Abdomen large soft, non-tender with positive bowel sounds. LE edema noted.
[2024-07-03 12:16] LABS: Reflex Trop? Y
--- NOTE | 2024-07-03 12:43 | P.HPHOSP_ITS ---
History of Present Illness Date of Service: 07/03/24 Attending physician on admission: Lynne Lopez Chief Complaint: SOB Pt is a 68-year-old male with a PMH significant for?paroxysmal AFib on Xarelto, CAD, HFpEF, HTN, osteoarthritis, and gout who presents to the ED with?increasing SOB, LLE, and HOFF x3-4 weeks. Pt reports has gained somewhere between 25-35 lbs during this time, and has felt like his whole body has become swollen, especially significant in his lower extremities where fluid has been seeping out of them. Also endorses orthopnea, cough occasionally productive of whitish sputum, and occasional palpitations. Denies chest pain. No back pain. Denies fever, chills, nausea, vomiting, abdominal pain. Pt states follows with Cardiology with Dr. Rowley. He is currently under rate control for AFib and HFpEF. Not on home diuretics. Denies hx of smoking, alcohol, or illicit substance use. Of note, pt initially thought swelling in his legs was due to a gout flare. pt called his PCP and was started on a prednisone taper. In the ED pt was tachycardic up to 143, tachypneic to 25 and hypertensive as as 157/70 satting 99% on RA. Labs were significant for BNP 778, AST 63, ALT 97, and random glucose 252. No leukocytosis. Stable H&H no significant electrolyte abnormalities. Renal function around baseline. Initial troponin 27.4. Tested negative for flu, COVID, RSV. CXR showed [id number] pulmonary edema with questionable right-sided pleural effusion, as well as widening mediastinum. EKG demonstrated AFib with RVR of 134 and RBBB without evidence of significant ST elevations or depressions. Pt was treated in the ED with potassium chloride 40 mEq p.o., metoprolol 25 mg p.o., diltiazem 20 mg IV, and furosemide 40 mg IV. Pt is admitted to the hospital for treatment and further evaluation of acute CHF exacerbation. [facility] Medical History Back pain Hematoma CAD (coronary artery disease) Paroxysmal atrial fibrillation HFrEF (heart failure with reduced ejection fraction) Gout Atrial fibrillation Systolic CHF Bradycardia Ankle swelling Acute congestive heart failure HTN (hypertension) Family History Father No problems noted. Mother Heart disease Surgical History No pertinent past surgical history Social History Household Members: None Housing: Apartment Do you presently have visiting nurse or other home services: No Unable to assess alcohol history related to: Unknown Alcohol intake: current Alcohol intake frequency: holidays/special occasions only Alcohol type: beer Patient Tobacco Use Status: Never used Tobacco Smoked in Last 30 Days: No Use of substances other than those prescribed or required for medical reasons: No Advance Directives: No Advance Directives Information Provided: Yes Do you have a plan to hurt others: No Plan service: No Current occupational status: employed Current occupation: [employer] Allergies Allergy/AdvReac Type Severity Reaction Status Date / Time No Known Allergies Allergy Verified 07/03/24 10:03 Home Medications ?Medication ?Instructions ?Recorded ?Confirmed ?Last Taken ?Type amlodipine 10 mg tablet 10 mg PO BEDTIME 07/03/24 07/03/24 07/02/24 History metoprolol succinate 25 mg 25 mg PO DAILY 07/03/24 07/03/24 07/03/24 History tablet,extended release 24 hr prednisone 10 mg tablet See Taper PO DIRECTED 07/03/24 07/03/24 07/02/24 History rivaroxaban 20 mg tablet (Xarelto) 20 mg PO DAILY@1700 07/03/24 07/03/24 07/02/24 History Physical Exam 2 Vital Signs and Narrative: Vital Signs: Last Vital Signs Temp 98.2 F 07/03/24 11:51 Pulse 114 H 07/03/24 11:53 Resp 15 07/03/24 11:51 BP 157/75 H 07/03/24 11:51 Pulse Ox 99 07/03/24 11:51 O2 Del Method Room Air 07/03/24 11:51 BMI result Body Mass Index 41.3 General: AOx3, no acute distress Resp: CTA bilaterally CVS: Irregularly irregular rhythm, tachycardic GI: +BS, NT, no distention, obese Skin: Warm, dry Neuro: Cranial nerves II-XII grossly intact bilaterally. Motor grossly intact bilaterally Extremities: 3+ bilatearl pitting edema Psych: Appropriate affect Results Labs 07/03/24 10:12 07/03/24 10:12 Labs: Laboratory Results - last 24 hr 07/03/24 07/03/24 07/03/24 10:12 10:15 10:18 MCV 97.8 MCH 31.6 MCHC 32.3 RDW 15.1 Plt Count 144 L MPV 11.4 Immature Gran % (Auto) 0.3 Neut % (Auto) 86.9 H Lymph % (Auto) 7.8 L [place] % (Auto) 5.0 Eos % (Auto) 0.0 Baso % (Auto) 0.0 Lymph # (Auto) 0.5 L [place] # (Auto) 0.3 Eos # (Auto) 0.0 Baso # (Auto) 0.0 Abs Immat Gran (auto) 0.02 Absolute Neuts (auto) 5.8 Absolute Nucleated RBC 0.000 Nucleated RBC % (auto) 0.0 APTT 28.7 VBG pH 7.37 VBG pCO2 42 VBG pO2 60 VBG HCO3 25 VBG O2 Saturation 89.0 VBG Base Excess -0.2 Anion Gap 13 Estim Creat Clear Calc 79.4 Estimated GFR 55 Random Glucose 252 H Uric Acid Calcium 8.2 L D Magnesium 1.9 Total Bilirubin 0.9 AST 63 H ALT 97 H Alkaline Phosphatase 71 Troponin I Hi Sens Base 27.4 B-Natriuretic Peptide 778 H Total Protein 5.4 L Albumin 3.6 Influenza Type A (PCR) NEGATIVE Influenza Type B (PCR) NEGATIVE RSV RNA Qual (PCR) NEGATIVE SARS-CoV-2 RNA (RT-PCR) NEGATIVE Blood Type B Negative Antibody Screen NEGATIVE 07/03/24 11:45 MCV MCH MCHC RDW Plt Count MPV Immature Gran % (Auto) Neut % (Auto) Lymph % (Auto) [place] % (Auto) Eos % (Auto) Baso % (Auto) Lymph # (Auto) [place] # (Auto) Eos # (Auto) Baso # (Auto) Abs Immat Gran (auto) Absolute Neuts (auto) Absolute Nucleated RBC Nucleated RBC % (auto) APTT VBG pH VBG pCO2 VBG pO2 VBG HCO3 VBG O2 Saturation VBG Base Excess Anion Gap Estim Creat Clear Calc Estimated GFR Random Glucose Uric Acid 5.0 Calcium Magnesium Total Bilirubin AST ALT Alkaline Phosphatase Troponin I Hi Sens Base B-Natriuretic Peptide Total Protein Albumin Influenza Type A (PCR) Influenza Type B (PCR) RSV RNA Qual (PCR) SARS-CoV-2 RNA (RT-PCR) Blood Type Antibody Screen Imaging Radiologist's Impressions: Impressions Chest X-Ray 07/03/24 09:58 IMPRESSION: Pulmonary edema, mild to moderate with questionable right-sided pleural effusion. Widening mediastinum concerning enlarged right atrium among other etiologies. Electronically signed by: Russell Hernandez MD 07/03/2024 10:32 AM EDT RP Assessment and Plan (1) Acute exacerbation of CHF (congestive heart failure): Status: Acute Plan Pt is a 68-year-old male with a PMH significant for?paroxysmal AFib on Xarelto, CAD, HFpEF, HTN, osteoarthritis, and gout who presents to the ED with?increasing SOB, LLE, and HOFF x3-4 weeks. Pt is admitted to the hospital for treatment and further evaluation of acute CHF exacerbation. Acute HFpEF Pt with SOB, HOFF, orthopnea, 25-35 lb weight gain, LLE x 2-3 weeks Elevated BNP, CXR showing pulmonary edema Likely secondary to AFib with RVR Will treat with Lasix 40 mg IV b.i.d. Continue metoprolol Follow lytes, I/O, daily weights Low-salt diet Echocardiogram Cardiology consult Monitor on telemetry AFib with RVR Pt came in in AFib with HR in the 140s Was given diltiazem 20 mg IV and metoprolol 20 mg p.o. to good effect HR currently mostly in the 80 to 90s, occasionally 110s Treat with metoprolol 25 mg p.o. b.i.d. Pt with hx of bradycardia Continue Xarelto Monitor on telemetry HTN Continue amlodipine, metoprolol, valsartan Hx of gout Pt started on prednisone taper by PCP last week for leg swelling attributed to gout flare No acute gout flare, will stop prednisone Continue allopurinol Obesity class III Encourage weight loss Full Code Attending:?Dr. Lopez DVT Prophylaxis: On Xarelto Pt will require a hospitalization of at least two nights for treatment of?acute CHF exacerbation in the setting of AFib with RVR. pt will require hospital level care for administration of IV diuretics, close monitoring of cardiac function and electrolytes, cardiac rate control, and specialist consultation with Cardiology and additional workup an echocardiogram. Quality Stroke Does the patient have a stroke diagnosis?: No VTE Prior VTE?: No VTE Risk Level:: Medical - moderate - high VTE Device Contraindication: Treatment Not Indicated VTE Drug Contraindication: N/A - Med Ordered
--- NOTE | 2024-07-03 13:41 | ECG_ITS ---
Test Reason : tachycardia Blood Pressure : */* mmHG Vent. Rate : 100 BPM Atrial Rate : * BPM P-R Int : * ms QRS Dur : 130 ms QT Int : 364 ms P-R-T Axes : * -55 50 degrees QTcB Int : 469 ms Atrial fibrillation Left axis deviation Right bundle branch block Possible Lateral infarct , age undetermined Abnormal ECG When compared with ECG of 03-Jul-2024 10:04, No significant change was found Referred By: Lynne Lopez Electronically Signed By: Farooq Gary
--- NOTE | 2024-07-03 13:56 | PHA.MEDREC ---
Addendum entered by Dian Reich RPh 07/03/24 14:18: reviewed by [facility]. Original Note: Pharmacy Consult ? Medication Reconciliation Pharmacy has completed the medication reconciliation. Spoke with patient and he was able to confirm his medications. Patient confirmed he started a Prednisone 10mg taper for leg swelling 06/27 and stated he was taking 4 tablets daily and states he last took them yesterday and was concerned that his leg swelling was not getting better and did not take them today; he stated he was suppose to start the 3 tabs x5 days today and wanted to get a second opinion from the Doctors here to see if he should continue taking it. Patient also confirmed he is now taking the Xarelto 20mg tab instead of the Eliquis 5mg tab due to the co-pay of the Eliquis being too high with patients insurance.
[2024-07-03 14:03] LABS: zTroponin-I High Sen Reflex #2 29.1 ng/L (<3.5-35.0)
[2024-07-03] MEDS: Rivaroxaban 20 MG TABLET PO (17:53)
--- NOTE | 2024-07-03 20:56 | PC.NURSE ---
this rn noted pt bp to be soft, 115/63, per hold all 9pm bp medications at this time.
--- NOTE | 2024-07-03 23:03 | PC.NURSE ---
Addendum entered by Jossie Chavarria 07/03/24 23:05: afib 90-94bpm. Original Note: this rn assumed care of pt, pt resting in stretcher, vss, offers no complaints at this time, nsr on tele 90-97bpm.
[2024-07-04] VITALS (12 sets, daily range): BP systolic 103–149; BP diastolic 75–102; PULSE 69–147; RESP 16–20; TEMP 36–36.4; O2SAT 93–99; BMI 40.5; BMI 40.7
[2024-07-04] MEDS: 0.9 % Sodium Chloride Flush 3 ML SYRINGE IVFLUSH ×3 (01:26→17:27)
--- NOTE | 2024-07-04 02:53 | PC.NURSE ---
at rest, pt noted to be in rapid afib 120-140bpm. bp stable. aware, awaiting new orders at this time. pt offers no complaints, denies palpitations.
[2024-07-04] MEDS: dilTIAZem HCL 50 MG/10 ML VIAL 10 MG IVPUSH (03:07)
[2024-07-04] MEDS: Metoprolol Tartrate 25 MG TABLET PO ×2 (06:18→19:08)
--- NOTE | 2024-07-04 07:00 | CA_ITS ---
Transthoracic Echocardiogram Patient (Last, First, Middle): Michael Mccullough, Gender: Male Date of : 1955 Age: 68 Procedure Date: 07/04/2024 Procedure Type: Transthoracic Echocardiogram Location: [facility] [place] Height: 182.88 cm Weight: 137.89 kg BSA: 2.55 m2 Heart Rate: bpm BP: 124 / 86 mmHg [employer] Mechanic: Referring MD: Kalpana KRUSE Symptoms: CHF exacerbation Study Quality: Adequate w contrast Conclusions: - Normal left ventricular cavity size. There is severely increased left ventricular wall thickness. The left ventricular systolic function is severely decreased. The visually estimated ejection fraction is between 15-20%. - Mildly increased right ventricular cavity size. There is mildly decreased right ventricular systolic function. - The left atrium is severely dilated. The right atrium is severely dilated. - Moderately elevated right atrial pressure. There is no evidence of pulmonary hypertension. - There is mild dilatation of the ascending aorta measuring 4.10 cm. Findings Procedure Information Contrast agent, definity, is being given per protocol without apparent complications. Left Ventricle Normal left ventricular cavity size. There is severely increased left ventricular wall thickness. The left ventricular systolic function is severely decreased. The visually estimated ejection fraction is between 15 20%. There is severe global hypokinesis. Diastolic function is indeterminate on the basis of available data. Right Ventricle Mildly increased right ventricular cavity size. There is mildly decreased right ventricular systolic function. Atria The left atrium is severely dilated. The right atrium is severely dilated. Aortic Valve There is a normal trileaflet aortic valve. There is mild calcification of the aortic valve. There is no aortic valve stenosis. There is no aortic valve regurgitation. Mitral Valve The mitral valve appears normal. There is mild mitral valve regurgitation. There is no mitral valve stenosis. Pulmonic Valve The pulmonic valve is normal. There is trace pulmonic valve regurgitation. Tricuspid Valve Normal tricuspid valve structure. There is trace tricuspid valve regurgitation. The right ventricular systolic pressure is 33 mmHg. Moderately elevated right atrial pressure. There is no evidence of pulmonary hypertension. Great Vessels There is mild dilatation of the ascending aorta measuring 4.10 cm. The visualized portions of the pulmonary artery and branches are normal. Venous The inferior vena cava is dilated and collapses greater than 50% with inspiration. Pericardium/Pleural There is no evidence of pericardial effusion. Prior Study Comparison Changes noted compared to prior study dated: 10/04/2023. EF 15 to 20%, mild RV dysfunction. Measurements 2D Linear Measurements IVSd: 1.50 0.6-0.9/0.6-1.0 cm LVIDd: 5.42 3.9-5.3/4.2-5.9 cm LVIDd Index: 2.13 2.4-3.2/2.2-3.1 cm/m2 LVIDs: 4.16 2.0-3.6 cm LVPWd: 1.53 0.7-1.1 cm Ao Root: 4.30 2.1-3.5 cm LA Diam: 5.70 2.7-3.8/3.0-4.0 cm LAIDs Index: 2.24 1.5-2.3 cm/m2 LV Mass: 461.90 67-162/88-224 g LV Mass Index: 181.14 43-95/49-115 g/m2 LVOT Diam: 2.50 3.0+(-)1.3 cm 2D Systolic Function EF 4C: 36.00 >55% EF 2C: 10.30 >55% EF BiP: 23.10 >55% Mitral Valve MV Pk E: 0.75 MV Decel Time: 104.00 E'Lateral: 10.70 E'Medial: 5.22 E/E' Med: 14.40 E/E' Lat: 7.00 PHT: 31.00 MVA PHT: 7.10 Decel [place]: 7.24 Aortic Valve AoV Pk Lukasz: 1.48 AoV Pk Grad: 9.00 LVOT LVOT Pk Lukasz: 0.74 LVOT Mn Lukasz: 0.56 LVOT VTI: 0.14 LVOT Pk Grad: 2.00 LVOT Mn Grad: 1.00 LVOT Diam: 2.50 LVOT Area: 4.91 Diastolic Function MV Pk E: 0.75 E'Medial: 5.22 E/E' Med: 14.40 E' Laterial: 10.70 E/E' Lat: 7.00 Right Ventricle TAPSE (mm): 20.80 TVS' Lukasz: 8.92 Tricuspid Valve TR Pk Lukasz: 2.48 TR Pk Grad: 25.00 RVSP: 33.00 Great Vessels Aorta Ao Root-2D: 4.30 2.0-3.7 cm Ao Asc: 4.10 2.1-3.4 cm Pulmonary Valve PV Pk Lukasz: 0.87 Peak PV Grad: 3.00 Updated in Other Vendor System with Status of Final Farooq Gary MD electronically signed on 07/04/2024 3:22:16 PM with status of Final
[2024-07-04 07:39] LABS: Anion Gap 11 (12-20); Blood Urea Nitrogen 25 mg/dL (9-16); Calcium 8.4 mg/dL (8.4-10.2); Carbon Dioxide 29 mmol/L (22-29); Chloride 107 mmol/L (96-108); Creatinine Clr Calc Pharmacy 130.9; Estimated Glomerular Filt Rate > 60; Glucose Random 87 mg/dL (60-115); Potassium 3.5 mmol/L (3.3-5.1); Sodium 143 mmol/L (135-145)
--- NOTE | 2024-07-04 08:50 | ECG_ITS ---
Test Reason : TACHYCARDIA Blood Pressure : */* mmHG Vent. Rate : 105 BPM Atrial Rate : * BPM P-R Int : * ms QRS Dur : 144 ms QT Int : 386 ms P-R-T Axes : * -60 82 degrees QTcB Int : 510 ms Atrial fibrillation with rapid ventricular response Right bundle branch block Left anterior fascicular block Bifascicular block Possible Lateral infarct (cited on or before 03-Jul-2024) Abnormal ECG When compared with ECG of 03-Jul-2024 13:41, No significant change was found Referred By: Lynne Lopez Electronically Signed By: Farooq Gary
[2024-07-04] MEDS: Valsartan 80 MG TABLET PO (08:58)
[2024-07-04] MEDS: allopurinoL 100 MG TABLET 400 MG PO (08:58)
[2024-07-04] MEDS: Furosemide 40 MG/4 ML VIAL IVPUSH (09:05)
[2024-07-04] MEDS: Furosemide 200 MG in 0.9 % Sodium Chloride 80 ML IVCONT (12:24)
--- NOTE | 2024-07-04 13:18 | MHC.CM.PN ---
IMM 07/04/24, Pt lives alone, he does not have home health services. For PCP he is working on getting a new one with [facility], he did go to [facility] in [place]. He sees specialists here. HCP discussed, he declined to complete form. He does not use DME. DCP: home, self care, Cm to follow for DC needs.
--- NOTE | 2024-07-04 14:14 | PM.CNCAR ---
History of Present Illness History of Present Illness Date of Service: 07/04/24 Requesting physician: Lynne Lopez Chief complaint: CHF Exacerbation Afib W/RVR Narrative: [age] year gentleman presenting with progressive shortness of breath, edema/weight gain over the last month. He said around 4 weeks ago he started noticing shortness of breath and mild peripheral edema which progressively worsened and he came to the emergency department. In the ER was noticed to be in AFib with RVR and was admitted for CHF exacerbation. He is currently getting IV diuretics and he has been changed to Lasix drip. He is denying any chest discomfort. He is saying he has been taking medications regularly. It appears he is not on any diuretics at home. He denies any excessive salt intake or alcohol use. He is saying he snores at night and does not sleep well. Is no clear diagnosis sleep apnea and he may need testing for that as outpatient. Labs and imaging reviewed. Echocardiography is showing severe LV dysfunction and mild right ventricular dysfunction. His EKGs showing right bundle-branch block and left anterior fascicular block along with AFib with RVR. [facility] Past Medical History Medical History Back pain Hematoma CAD (coronary artery disease) Paroxysmal atrial fibrillation HFrEF (heart failure with reduced ejection fraction) Gout Atrial fibrillation Systolic CHF Bradycardia Ankle swelling Acute congestive heart failure HTN (hypertension) Family History Family History Father No problems noted. Mother Heart disease Surgical History Surgical History No pertinent past surgical history Social History Social History Household Members: None Housing: Apartment Do you presently have visiting nurse or other home services: No Unable to assess alcohol history related to: Unknown Alcohol intake: current Alcohol intake frequency: holidays/special occasions only Alcohol type: beer Patient Tobacco Use Status: Never used Tobacco service: No Current occupational status: employed Current occupation: [employer] Allergies Allergy/AdvReac Type Severity Reaction Status Date / Time No Known Allergies Allergy Verified 07/03/24 10:03 Active Medications: Current Medications Acetaminophen (Acetaminophen 325 Mg Tablet) 650 mg PO Q6H PRN PRN Reason: Pain, Mild 1-3,fever,headache Allopurinol (Allopurinol 100 Mg Tablet) 400 mg PO DAILY [facility] Last Admin: 07/04/24 08:58 Dose: 400 mg Amlodipine Besylate (Amlodipine Besylate 10 Mg Tablet) 10 mg PO BEDTIME [facility]; Protocol Last Admin: 07/03/24 20:54 Dose: Not Given Calcium Carbonate (Calcium Carbonate 750 Mg Tab.Chew) 750 mg PO Q4H PRN PRN Reason: Heartburn Furosemide 200 mg/ Sodium (Chloride) 100 mls @ 2.5 mls/hr IVCONT .Q24H [facility] Last Admin: 07/04/24 12:24 Dose: 5 mg/hr, 2.5 mls/hr Magnesium Hydroxide (Milk Of Magnesia 30 Ml Oral.Susp) 30 ml PO DAILY PRN PRN Reason: Constipation Melatonin (Melatonin 3 Mg Tablet) 6 mg PO BEDTIME PRN PRN Reason: Insomnia Metoprolol Tartrate (Metoprolol Tartrate 25 Mg Tablet) 25 mg PO BID [facility]; Protocol Last Admin: 07/04/24 06:18 Dose: 25 mg Ondansetron HCl (Ondansetron Hcl 4 Mg/2 Ml Vial) 4 mg IVPUSH Q8H PRN PRN Reason: Nausea and Vomiting Rivaroxaban (Rivaroxaban 20 Mg Tablet) 20 mg PO DAILY@1700 [facility] Last Admin: 07/03/24 17:53 Dose: 20 mg Sodium Chloride (0.9 % Sodium Chloride Flush 3 Ml Syringe) 3 ml IVFLUSH QSHIFT [facility] Last Admin: 07/04/24 09:05 Dose: 3 ml Valsartan (Valsartan 80 Mg Tablet) 80 mg PO BID [facility]; Protocol Last Admin: 07/04/24 08:58 Dose: 80 mg Home Medications ?Medication ?Instructions ?Recorded ?Confirmed ?Last Taken ?Type amlodipine 10 mg tablet 10 mg PO BEDTIME 07/03/24 07/03/24 07/02/24 History metoprolol succinate 25 mg 25 mg PO DAILY 07/03/24 07/03/24 07/03/24 History tablet,extended release 24 hr prednisone 10 mg tablet See Taper PO DIRECTED 07/03/24 07/03/24 07/02/24 History rivaroxaban 20 mg tablet (Xarelto) 20 mg PO DAILY@1700 07/03/24 07/03/24 07/02/24 History Physical Exam Vital Signs: Vital Signs: Last Vital Signs Temp 97.6 F 07/04/24 11:34 Pulse 88 07/04/24 11:34 Resp 18 07/04/24 11:34 BP 116/76 07/04/24 11:34 Pulse Ox 94 07/04/24 11:34 O2 Del Method Room Air 07/04/24 11:34 BMI result Body Mass Index 40.7 GENERAL APPEARANCE: Short of breath, morbidly obese. NECK: no carotid bruit, ++ jugular venous distention. SKIN: no suspicious lesions, warm and dry. HEART: no murmurs, irregular rate and rhythm. LUNGS: Few crackles at bases. ABDOMEN: soft, nontender. EXTREMITIES: 2+ edema to knees. PERIPHERAL PULSES: equal. NEUROLOGIC: No gross deficits, AAO X 3 Objective Labs and Meds 07/03/24 10:12 07/04/24 06:52 Lab results: Laboratory Results - last 24 hr 07/04/24 06:52 Hold Purple Top SEE NOTE Sodium 143 Potassium 3.5 Chloride 107 Carbon Dioxide 29 Anion Gap 11 L BUN 25 H Creatinine 0.78 Estim Creat Clear Calc 130.9 Estimated GFR > 60 Random Glucose 87 Calcium 8.4 Assessment and Plan (1) Paroxysmal atrial fibrillation: Status: Acute (2) HFrEF (heart failure with reduced ejection fraction): Status: Acute Plan 68 year gentleman who is presenting for shortness of breath and congestive heart failure. He is in AFib with RVR. Last echocardiography was in October of 2023 when EF was 60 65%. He has severe LV dysfunction and severe left ventricular hypertrophy. He also has mild RV dysfunction. 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 Agree with Lasix drip. Continue valsartan. Continue metoprolol p.o.. Add amiodarone 400 mg twice a day. Continues rivaroxaban as before. Once euvolemic week we will consider CHRIS cardioversion on him. Eventually will need ablation for atrial fibrillation. Please do not give any IV metoprolol or diltiazem Thank you for allowing me to participate in the care of your patient. Please feel free to contact me if you have any questions. Procedures Date of Service Date of Service: 07/04/24
--- NOTE | 2024-07-04 16:57 | P.PNIM_ITS ---
Subjective Subjective Date of Service: 07/04/24 Interval History: afib ,chf Review of Systems hr flactuates especially with exceersion sob seems similar Review of Systems: Yes all other systems are reviewed and are negative Physical Exam 2 Vital Signs: Vital Signs: Last Vital Signs Temp 97.6 F 07/04/24 15:22 Pulse 90 07/04/24 15:22 Resp 19 07/04/24 15:22 BP 146/78 H 07/04/24 15:22 Pulse Ox 93 07/04/24 15:22 O2 Del Method Room Air 07/04/24 15:22 BMI result Body Mass Index 40.7 Appearance: Alert.? Oriented X3.? cvs: irregular rythem, [id number]. res: air entry diminshed ,has few rales at bases. abd: no rebound or guarding ,nt, bs present. ext pulses present , no cyanosis . neuro: axo3 , nonfocal. Objective Data Active Medications Acetaminophen (Acetaminophen 325 Mg Tablet) 650 mg PO Q6H PRN PRN Reason: Pain, Mild 1-3,fever,headache Allopurinol (Allopurinol 100 Mg Tablet) 400 mg PO DAILY [facility] Last Admin: 07/04/24 08:58 Dose: 400 mg Documented By: TAMANNA Amiodarone HCl (Amiodarone Hcl 200 Mg Tablet) 400 mg PO BID [facility] Amlodipine Besylate (Amlodipine Besylate 10 Mg Tablet) 10 mg PO BEDTIME [facility]; Protocol Last Admin: 07/03/24 20:54 Dose: Not Given Documented By: MILLICENT Non-Admin Reason: Physician Held Med Calcium Carbonate (Calcium Carbonate 750 Mg Tab.Chew) 750 mg PO Q4H PRN PRN Reason: Heartburn Furosemide 200 mg/ Sodium (Chloride) 100 mls @ 1.5 mls/hr IVCONT .Q24H [facility] Last Admin: 07/04/24 12:24 Dose: 5 mg/hr, 2.5 mls/hr Documented By: TAMANNA Magnesium Hydroxide (Milk Of Magnesia 30 Ml Oral.Susp) 30 ml PO DAILY PRN PRN Reason: Constipation Melatonin (Melatonin 3 Mg Tablet) 6 mg PO BEDTIME PRN PRN Reason: Insomnia Metoprolol Tartrate (Metoprolol Tartrate 25 Mg Tablet) 25 mg PO BID [facility]; Protocol Last Admin: 07/04/24 06:18 Dose: 25 mg Documented By: DASHA Comments: ordered to give Metoprolol now per Dr. Khan Ondansetron HCl (Ondansetron Hcl 4 Mg/2 Ml Vial) 4 mg IVPUSH Q8H PRN PRN Reason: Nausea and Vomiting Rivaroxaban (Rivaroxaban 20 Mg Tablet) 20 mg PO DAILY@1700 [facility] Last Admin: 07/03/24 17:53 Dose: 20 mg Documented By: ELIE Sodium Chloride (0.9 % Sodium Chloride Flush 3 Ml Syringe) 3 ml IVFLUSH QSHIFT [facility] Last Admin: 07/04/24 09:05 Dose: 3 ml Documented By: TAMANNA Valsartan (Valsartan 80 Mg Tablet) 80 mg PO BID [facility]; Protocol Last Admin: 07/04/24 08:58 Dose: 80 mg Documented By: TAMANNA Labs 07/03/24 10:12 07/04/24 06:52 Labs: Laboratory Results - last 24 hr 07/04/24 06:52 Hold Purple Top SEE NOTE Anion Gap 11 L Estim Creat Clear Calc 130.9 Estimated GFR > 60 Random Glucose 87 Calcium 8.4 Assessment and Plan (1) Acute exacerbation of CHF (congestive heart failure): Status: Acute Assessment and Plan: 68-year-old male with a PMH significant for?paroxysmal AFib on Xarelto, CAD, HFpEF, HTN, osteoarthritis, and gout who presents to the ED with?increasing SOB, LLE, and HOFF x3-4 weeks. Pt is admitted to the hospital for treatment and further evaluation of acute CHF exacerbation. Acute HFpEF Pt with SOB, HOFF, orthopnea, 25-35 lb weight gain, LLE x 2-3 weeks Elevated BNP, CXR showing pulmonary edema Likely secondary to AFib with RVR plan: Lasix 40 mg IV b.i.d. Continue metoprolol Follow lytes, I/O, daily weights Low-salt diet Echocardiogram Cardiology consult Monitor on telemetry AFib with RVR hr flacuated especially with walkin told him to rest plan: willadd amiodarone in addition to metoprolol Continue Xarelto Monitor on telemetry HTN stop amlodipine-leg swelling continue metoprolol, valsartan Hx of gout Pt started on prednisone taper by PCP last week for leg swelling attributed to gout flare No acute gout flare, will stop prednisone Continue allopurinol Obesity class III Encourage weight loss Full Code DVT Prophylaxis: On Xarelto ongoing need for treatment of?acute CHF exacerbation in the setting of AFib with RVR. pt will require hospital level care for administration of IV diuretics, close monitoring of cardiac function and electrolytes, cardiac rate control, and specialist consultation with Cardiology and additional workup an echocardiogram. Quality Stroke Does the patient have a stroke diagnosis?: No VTE Prior VTE?: No VTE Risk Level:: Medical - moderate - high VTE Device Contraindication: Treatment Not Indicated VTE Drug Contraindication: N/A - Med Ordered
[2024-07-04] MEDS: Rivaroxaban 20 MG TABLET PO (17:25)
[2024-07-04] MEDS: Amiodarone HCL 200 MG TABLET 400 MG PO (19:08)
[2024-07-05] VITALS (9 sets, daily range): BP systolic 92–127; BP diastolic 61–95; PULSE 56–120; RESP 16–20; TEMP 36.1–37; O2SAT 92–98; BMI 39.0
[2024-07-05] MEDS: Amiodarone HCL 200 MG TABLET 400 MG PO ×2 (06:26→20:15)
[2024-07-05] MEDS: Metoprolol Tartrate 25 MG TABLET PO (06:29)
[2024-07-05 07:35] LABS: Anion Gap 14 (12-20); Blood Urea Nitrogen 24 mg/dL (9-16); Calcium 8.5 mg/dL (8.4-10.2); Carbon Dioxide 31 mmol/L (22-29); Chloride 101 mmol/L (96-108); Creatinine Clr Calc Pharmacy 97.2; Estimated Glomerular Filt Rate > 60; Glucose Random 96 mg/dL (60-115); Potassium 3.4 mmol/L (3.3-5.1); Sodium 143 mmol/L (135-145)
--- NOTE | 2024-07-05 08:38 | P.PNIM_ITS ---
Subjective Subjective Date of Service: 07/05/24 Interval History: chf afib rvr Review of Systems sob seems somewhat improvin hr flactuates as well as sob even with minimal excersion Review of Systems: Yes all other systems are reviewed and are negative Physical Exam 2 Vital Signs: Vital Signs: Last Vital Signs Temp 97.2 F 07/05/24 07:15 Pulse 65 07/05/24 07:15 Resp 18 07/05/24 07:15 BP 126/88 07/05/24 07:15 Pulse Ox 96 07/05/24 07:15 O2 Del Method Room Air 07/05/24 07:15 BMI result Body Mass Index 39.0 Appearance: Alert.? Oriented X3.? cvs: irregular rythem, [id number]. res: air entry diminshed ,has few rales at bases. abd: no rebound or guarding ,nt, bs present. ext pulses present , no cyanosis . neuro: axo3 , nonfocal. Objective Data Active Medications Acetaminophen (Acetaminophen 325 Mg Tablet) 650 mg PO Q6H PRN PRN Reason: Pain, Mild 1-3,fever,headache Allopurinol (Allopurinol 100 Mg Tablet) 400 mg PO DAILY [facility] Last Admin: 07/04/24 08:58 Dose: 400 mg Documented By: TAMANNA Amiodarone HCl (Amiodarone Hcl 200 Mg Tablet) 400 mg PO BID [facility] Last Admin: 07/05/24 06:26 Dose: 400 mg Documented By: DASHA Comments: ordered to give early per Dr. Khan Calcium Carbonate (Calcium Carbonate 750 Mg Tab.Chew) 750 mg PO Q4H PRN PRN Reason: Heartburn Furosemide 200 mg/ Sodium (Chloride) 100 mls @ 1.5 mls/hr IVCONT .Q24H [facility] Last Admin: 07/04/24 12:24 Dose: 5 mg/hr, 2.5 mls/hr Documented By: TAMANNA Magnesium Hydroxide (Milk Of Magnesia 30 Ml Oral.Susp) 30 ml PO DAILY PRN PRN Reason: Constipation Melatonin (Melatonin 3 Mg Tablet) 6 mg PO BEDTIME PRN PRN Reason: Insomnia Metoprolol Tartrate (Metoprolol Tartrate 25 Mg Tablet) 25 mg PO BID [facility]; Protocol Last Admin: 07/05/24 06:29 Dose: 25 mg Documented By: DASHA Comments: Ordered to give early per Dr. Khan as patient's HR elevated with morning activity Ondansetron HCl (Ondansetron Hcl 4 Mg/2 Ml Vial) 4 mg IVPUSH Q8H PRN PRN Reason: Nausea and Vomiting Rivaroxaban (Rivaroxaban 20 Mg Tablet) 20 mg PO DAILY@1700 [facility] Last Admin: 07/04/24 17:25 Dose: 20 mg Documented By: TAMANNA Sodium Chloride (0.9 % Sodium Chloride Flush 3 Ml Syringe) 3 ml IVFLUSH QSHIFT [facility] Last Admin: 07/05/24 02:00 Dose: Not Given Documented By: DASHA Non-Admin Reason: IV Running Valsartan (Valsartan 80 Mg Tablet) 80 mg PO BID [facility]; Protocol Last Admin: 07/04/24 23:04 Dose: Not Given Documented By: DASHA Non-Admin Reason: Decreased Blood Pressure Labs 07/03/24 10:12 07/05/24 06:47 Labs: Laboratory Results - last 24 hr 07/05/24 06:47 Hold Purple Top SEE NOTE Anion Gap 14 Estim Creat Clear Calc 97.2 Estimated GFR > 60 Random Glucose 96 Calcium 8.5 Assessment and Plan (1) Acute exacerbation of CHF (congestive heart failure): Status: Acute Assessment and Plan: 68-year-old male with a PMH significant for?paroxysmal AFib on Xarelto, CAD, HFpEF, HTN, osteoarthritis, and gout who presents to the ED with?increasing SOB, LLE, and HOFF x3-4 weeks. Pt is admitted to the hospital for treatment and further evaluation of acute CHF exacerbation. Acute HFpEF Pt with SOB, HOFF, orthopnea, 25-35 lb weight gain, LLE x 2-3 weeks Elevated BNP, CXR showing pulmonary edema Likely secondary to AFib with RVR plan: Lasix 40 mg IV b.i.d. Continue metoprolol Follow lymina, I/O: 5.6 liter neg daily weights Low-salt diet Echocardiogram Cardiology consult Monitor on telemetry AFib with RVR hr flacuated especially with walkin told him to rest plan: willadd amiodarone in addition to metoprolol Continue Xarelto Monitor on telemetry HTN stop amlodipine-leg swelling continue metoprolol, valsartan Hx of gout Pt started on prednisone taper by PCP last week for leg swelling attributed to gout flare No acute gout flare, will stop prednisone Continue allopurinol Obesity class III Encourage weight loss Full Code DVT Prophylaxis: On Xarelto ongoing need for treatment of?acute CHF exacerbation in the setting of AFib with RVR. pt will require hospital level care for administration of IV diuretics, close monitoring of cardiac function and electrolytes, cardiac rate control, and specialist consultation with Cardiology and additional workup an echocardiogram. Quality Stroke Does the patient have a stroke diagnosis?: No VTE Prior VTE?: No VTE Risk Level:: Medical - moderate - high VTE Device Contraindication: Treatment Not Indicated VTE Drug Contraindication: N/A - Med Ordered
[2024-07-05] MEDS: Furosemide 200 MG in 0.9 % Sodium Chloride 80 ML IVCONT (10:26)
[2024-07-05] MEDS: Valsartan 80 MG TABLET PO ×2 (10:28→20:15)
[2024-07-05] MEDS: allopurinoL 100 MG TABLET 400 MG PO (10:28)
[2024-07-05] MEDS: 0.9 % Sodium Chloride Flush 3 ML SYRINGE IVFLUSH ×3 (10:29→20:15)
--- NOTE | 2024-07-05 12:25 | PM.PNCARD ---
Subjective Subjective Date of Service: 07/05/24 Interval history: Seen and examined at bedside. Still significantly volume overloaded but overall improving with Lasix drip. Physical Exam Vital Signs: Last Vital Signs Temp 98.6 F 07/05/24 11:58 Pulse 71 07/05/24 11:58 Resp 18 07/05/24 11:58 BP 108/63 07/05/24 11:58 Pulse Ox 95 07/05/24 11:58 O2 Del Method Room Air 07/05/24 11:58 BMI result Body Mass Index 39.0 GENERAL APPEARANCE: In no acute distress. NECK: no carotid bruit, + jugular venous distention. SKIN: no suspicious lesions, warm and dry. HEART: no murmurs, irregular rate and rhythm. LUNGS: Clear to auscultation. ABDOMEN: soft, nontender. EXTREMITIES: 2+ edema to knees. PERIPHERAL PULSES: equal. NEUROLOGIC: No gross deficits, AAO X 3 Objective Labs and Meds 07/03/24 10:12 07/05/24 06:47 Lab results: Laboratory Results - last 24 hr 07/05/24 06:47 Hold Purple Top SEE NOTE Sodium 143 Potassium 3.4 Chloride 101 Carbon Dioxide 31 H Anion Gap 14 BUN 24 H Creatinine 1.03 Estim Creat Clear Calc 97.2 Estimated GFR > 60 Random Glucose 96 Calcium 8.5 Progress Note: A&P Assessment and plan (1) Acute exacerbation of CHF (congestive heart failure): Status: Acute (2) Cardiomyopathy: Status: Acute (3) Persistent atrial fibrillation: Status: Acute Plan Pleasant 68 year gentleman presenting with acute decompensated heart failure. He has been in atrial fibrillation with rapid ventricular response. Currently rate controlled with metoprolol. We added amiodarone 400 mg twice a day. He is on rivaroxaban 20 mg daily. ECHO is showing ejection fraction severely reduced. Likely tachycardia induced cardiomyopathy. Continue Lasix drip. Adding spironolactone 25 mg daily. Our plan will be to do cardioversion next week. Currently still volume overloaded and needs to be optimize from volume status point of view. Once cardioverted we will add Jardiance. Thank you for allowing me to participate in the care of your patient. Please feel free to contact me if you have any questions. Time Spent With Patient Time: Total time managing care of this patient today ____ minutes. Progress Note: Quality Stroke Does the patient have a stroke diagnosis?: No Procedures Date of Service Date of Service: 07/05/24
[2024-07-05] MEDS: Spironolactone 25 MG TABLET PO (14:44)
[2024-07-05] MEDS: Metoprolol Succinate ER 50 MG TAB.ER.24H PO (18:33)
[2024-07-05] MEDS: Rivaroxaban 20 MG TABLET PO (18:33)
[2024-07-06 04:00] VITALS: BP 122/77; PULSE 55; RESP 16; TEMP 36.2; O2SAT 95
[2024-07-06 06:00] VITALS: BMI 38.5
[2024-07-06 07:52] VITALS: BP 114/92; PULSE 67; RESP 18; TEMP 36.2; O2SAT 95
[2024-07-06 07:52] LABS: Anion Gap 13 (12-20); Blood Urea Nitrogen 19 mg/dL (9-16); Calcium 8.5 mg/dL (8.4-10.2); Carbon Dioxide 31 mmol/L (22-29); Chloride 99 mmol/L (96-108); Creatinine Clr Calc Pharmacy 102.5; Estimated Glomerular Filt Rate > 60; Glucose Random 107 mg/dL (60-115); Potassium 3.2 mmol/L (3.3-5.1); Sodium 140 mmol/L (135-145)
[2024-07-06 07:58] LABS: B Type Natriuretic Peptide 603 pg/mL (<100)
[2024-07-06] MEDS: 0.9 % Sodium Chloride Flush 3 ML SYRINGE IVFLUSH ×3 (09:05→19:59)
--- NOTE | 2024-07-06 10:46 | PM.PNCARD ---
Subjective Subjective Date of Service: 07/06/24 Interval history: Seen examined at bedside. Clinically improving. Physical Exam Vital Signs: Last Vital Signs Temp 97.1 F 07/06/24 07:52 Pulse 67 07/06/24 07:52 Resp 18 07/06/24 07:52 BP 114/92 H 07/06/24 07:52 Pulse Ox 95 07/06/24 07:52 O2 Del Method Room Air 07/06/24 07:52 BMI result Body Mass Index 38.5 GENERAL APPEARANCE: In no acute distress. NECK: no carotid bruit, + jugular venous distention. SKIN: no suspicious lesions, warm and dry. HEART: no murmurs, irregular rate and rhythm. LUNGS: Clear to auscultation. ABDOMEN: soft, nontender. EXTREMITIES: 1+ edema. PERIPHERAL PULSES: equal. NEUROLOGIC: No gross deficits, AAO X 3 Objective Labs and Meds 07/03/24 10:12 07/06/24 07:01 Lab results: Laboratory Results - last 24 hr 07/06/24 07:01 Sodium 140 Potassium 3.2 L Chloride 99 Carbon Dioxide 31 H Anion Gap 13 BUN 19 H Creatinine 0.97 Estim Creat Clear Calc 102.5 Estimated GFR > 60 Random Glucose 107 Calcium 8.5 B-Natriuretic Peptide 603 H Progress Note: A&P Assessment and plan (1) Persistent atrial fibrillation: Status: Acute (2) Acute exacerbation of CHF (congestive heart failure): Status: Acute (3) Cardiomyopathy: Status: Acute Plan Pleasant 68 year gentleman presenting with acute decompensated heart failure. He has been in atrial fibrillation with rapid ventricular response. Currently rate controlled with metoprolol. We added amiodarone 400 mg twice a day. He is on rivaroxaban 20 mg daily. ECHO is showing ejection fraction severely reduced. Likely tachycardia induced cardiomyopathy. Changing Lasix drip to 40 mg IV b.i.d. Lasix. Increase spironolactone to 25 mg twice a day. Keep NPO after midnight for potential cardioversion tomorrow. He is saying he has been taking Xarelto uninterrupted before he got admitted to hospital. Once cardioverted we will add Jardiance or Farxiga. Thank you for allowing me to participate in the care of your patient. Please feel free to contact me if you have any questions. Time Spent With Patient Time: Total time managing care of this patient today ____ minutes. Progress Note: Quality Stroke Does the patient have a stroke diagnosis?: No Procedures Date of Service Date of Service: 07/06/24
[2024-07-06] MEDS: Furosemide 200 MG in 0.9 % Sodium Chloride 80 ML IVCONT (11:12)
[2024-07-06] MEDS: Metoprolol Succinate ER 50 MG TAB.ER.24H PO (11:13)
[2024-07-06] MEDS: Potassium Chloride ER 20 MEQ TAB.ER.PRT PO (11:13)
[2024-07-06] MEDS: Amiodarone HCL 200 MG TABLET 400 MG PO ×2 (11:14→19:59)
[2024-07-06] MEDS: allopurinoL 100 MG TABLET 400 MG PO (11:14)
[2024-07-06 11:55] VITALS: BP 117/81; PULSE 64; RESP 18; TEMP 36.1; O2SAT 95
[2024-07-06 15:36] VITALS: BP 114/73; PULSE 70; RESP 19; TEMP 36.6; O2SAT 94
--- NOTE | 2024-07-06 15:39 | P.PNIM_ITS ---
Subjective Subjective Date of Service: 07/06/24 Interval History: chf/afib with rvr Review of Systems sob seems improving hr flactauting Review of Systems: Yes all other systems are reviewed and are negative Physical Exam 2 Vital Signs: Vital Signs: Last Vital Signs Temp 97.8 F 07/06/24 15:36 Pulse 70 07/06/24 15:36 Resp 19 07/06/24 15:36 BP 114/73 07/06/24 15:36 Pulse Ox 94 07/06/24 15:36 O2 Del Method Room Air 07/06/24 15:36 BMI result Body Mass Index 38.5 Appearance: Alert.? Oriented X3.? cvs: irregular rythem, [id number]. res: air entry diminshed ,has few rales at bases. abd: no rebound or guarding ,nt, bs present. ext pulses present , no cyanosis ,leg edema 2+. neuro: axo3 , nonfocal. Objective Data Active Medications Acetaminophen (Acetaminophen 325 Mg Tablet) 650 mg PO Q6H PRN PRN Reason: Pain, Mild 1-3,fever,headache Allopurinol (Allopurinol 100 Mg Tablet) 400 mg PO DAILY [facility] Last Admin: 07/06/24 11:14 Dose: 400 mg Documented By: TAYLER Amiodarone HCl (Amiodarone Hcl 200 Mg Tablet) 400 mg PO BID [facility] Last Admin: 07/06/24 11:14 Dose: 400 mg Documented By: TAYLER Calcium Carbonate (Calcium Carbonate 750 Mg Tab.Chew) 750 mg PO Q4H PRN PRN Reason: Heartburn Furosemide (Furosemide 40 Mg/4 Ml Vial) 40 mg IVPUSH BID@0900,1800 [facility]; Protocol Magnesium Hydroxide (Milk Of Magnesia 30 Ml Oral.Susp) 30 ml PO DAILY PRN PRN Reason: Constipation Melatonin (Melatonin 3 Mg Tablet) 6 mg PO BEDTIME PRN PRN Reason: Insomnia Metoprolol Succinate (Metoprolol Succinate Er 50 Mg Tab.Er.24h) 50 mg PO DAILY [facility]; Protocol Last Admin: 07/06/24 11:13 Dose: 50 mg Documented By: TAYLER Ondansetron HCl (Ondansetron Hcl 4 Mg/2 Ml Vial) 4 mg IVPUSH Q8H PRN PRN Reason: Nausea and Vomiting Rivaroxaban (Rivaroxaban 20 Mg Tablet) 20 mg PO DAILY@1700 [facility] Last Admin: 07/05/24 18:33 Dose: 20 mg Documented By: TAYLER Sodium Chloride (0.9 % Sodium Chloride Flush 3 Ml Syringe) 3 ml IVFLUSH QSHIFT [facility] Last Admin: 07/06/24 09:05 Dose: 3 ml Documented By: TAYLER Spironolactone (Spironolactone 25 Mg Tablet) 25 mg PO BID [facility]; Protocol Valsartan (Valsartan 80 Mg Tablet) 80 mg PO BID [facility]; Protocol Last Admin: 07/05/24 20:15 Dose: 80 mg Documented By: ORLIN Labs 07/03/24 10:12 07/06/24 07:01 Labs: Laboratory Results - last 24 hr 07/06/24 07:01 Anion Gap 13 Estim Creat Clear Calc 102.5 Estimated GFR > 60 Random Glucose 107 Calcium 8.5 B-Natriuretic Peptide 603 H Assessment and Plan (1) Acute exacerbation of CHF (congestive heart failure): Status: Acute Assessment and Plan: 68-year-old male with a PMH significant for?paroxysmal AFib on Xarelto, CAD, HFpEF, HTN, osteoarthritis, and gout who presents to the ED with?increasing SOB, LLE, and HOFF x3-4 weeks. Pt is admitted to the hospital for treatment and further evaluation of acute CHF exacerbation. Acute HFpEF Pt with SOB, HOFF, orthopnea, 25-35 lb weight gain, LLE x 2-3 weeks Elevated BNP, CXR showing pulmonary edema Likely secondary to AFib with RVR ef: 15-20% plan: continue Lasix 40 mg IV b.i.d.,Continue metoprolol,amiodarone Follow lytes,I/O: 10 liter neg,daily weights,Low-salt diet Cardiology following-keep npo past midnight for possible cardioversion in am. Monitor on telemetry AFib with RVR hr flacuated especially with walkin told him to rest plan: willadd amiodarone in addition to metoprolol Continue Xarelto Monitor on telemetry HTN stop amlodipine-leg swelling continue metoprolol, valsartan Hx of gout Pt started on prednisone taper by PCP last week for leg swelling attributed to gout flare No acute gout flare, will stop prednisone Continue allopurinol Obesity class III Encourage weight loss Full Code DVT Prophylaxis: On Xarelto ongoing need for treatment of?acute CHF exacerbation in the setting of AFib with RVR. pt will require hospital level care for administration of IV diuretics, close monitoring of cardiac function and electrolytes, cardiac rate control, and specialist consultation with Cardiology-possible need for cardioversion Quality Stroke Does the patient have a stroke diagnosis?: No VTE Prior VTE?: No VTE Risk Level:: Medical - moderate - high VTE Device Contraindication: Treatment Not Indicated VTE Drug Contraindication: N/A - Med Ordered
[2024-07-06] MEDS: Furosemide 40 MG/4 ML VIAL IVPUSH (18:16)
[2024-07-06] MEDS: Rivaroxaban 20 MG TABLET PO (18:16)
[2024-07-06 19:38] VITALS: BP 110/60; PULSE 82; RESP 19; TEMP 36.4; O2SAT 94
[2024-07-06] MEDS: Valsartan 80 MG TABLET PO (19:59)
[2024-07-06] MEDS: Spironolactone 25 MG TABLET PO (19:59)
[2024-07-06 23:16] VITALS: BP 119/79; PULSE 86; RESP 18; TEMP 36.3; O2SAT 93
[2024-07-07] VITALS (7 sets, daily range): BP systolic 103–144; BP diastolic 61–88; PULSE 72–91; RESP 16–20; TEMP 36.2–36.8; O2SAT 93–95; BMI 38.4
[2024-07-07] MEDS: allopurinoL 100 MG TABLET 400 MG PO (08:55)
[2024-07-07] MEDS: Amiodarone HCL 200 MG TABLET 400 MG PO ×2 (08:55→20:33)
[2024-07-07] MEDS: Metoprolol Succinate ER 50 MG TAB.ER.24H PO (08:55)
[2024-07-07] MEDS: 0.9 % Sodium Chloride Flush 3 ML SYRINGE IVFLUSH ×3 (09:00→20:37)
--- NOTE | 2024-07-07 09:14 | HO.PM.IMPN ---
Subjective Subjective Date of Service: 07/07/24 Interval History: chf excerebation Review of Systems sob seems improving hr flactauting Review of Systems: Yes all other systems are reviewed and are negative Physical Exam Vital Signs: Vital Signs: Last Vital Signs Temp 98.2 F 07/07/24 07:47 Pulse 77 07/07/24 07:47 Resp 20 07/07/24 07:47 BP 144/88 H 07/07/24 07:47 Pulse Ox 95 07/07/24 07:47 O2 Del Method Room Air 07/07/24 07:47 BMI result Body Mass Index 38.4 Appearance: Alert.? Oriented X3.? cvs: irregular rythem, [id number]. res: air entry diminshed ,has few rales at bases. abd: no rebound or guarding ,nt, bs present. ext pulses present , no cyanosis ,leg edema 2+. neuro: axo3 , nonfocal Objective Data Active Medications Acetaminophen (Acetaminophen 325 Mg Tablet) 650 mg PO Q6H PRN PRN Reason: Pain, Mild 1-3,fever,headache Allopurinol (Allopurinol 100 Mg Tablet) 400 mg PO DAILY [facility] Last Admin: 07/07/24 08:55 Dose: 400 mg Documented By: MARIANA Amiodarone HCl (Amiodarone Hcl 200 Mg Tablet) 400 mg PO BID [facility] Last Admin: 07/07/24 08:55 Dose: 400 mg Documented By: MARIANA Calcium Carbonate (Calcium Carbonate 750 Mg Tab.Chew) 750 mg PO Q4H PRN PRN Reason: Heartburn Furosemide (Furosemide 40 Mg/4 Ml Vial) 40 mg IVPUSH BID@0900,1800 [facility]; Protocol Last Admin: 07/06/24 18:16 Dose: 40 mg Documented By: SYDNI Magnesium Hydroxide (Milk Of Magnesia 30 Ml Oral.Susp) 30 ml PO DAILY PRN PRN Reason: Constipation Melatonin (Melatonin 3 Mg Tablet) 6 mg PO BEDTIME PRN PRN Reason: Insomnia Metoprolol Succinate (Metoprolol Succinate Er 50 Mg Tab.Er.24h) 50 mg PO DAILY [facility]; Protocol Last Admin: 07/07/24 08:55 Dose: 50 mg Documented By: MARIANA Ondansetron HCl (Ondansetron Hcl 4 Mg/2 Ml Vial) 4 mg IVPUSH Q8H PRN PRN Reason: Nausea and Vomiting Rivaroxaban (Rivaroxaban 20 Mg Tablet) 20 mg PO DAILY@1700 [facility] Last Admin: 07/06/24 18:16 Dose: 20 mg Documented By: SYDNI Sodium Chloride (0.9 % Sodium Chloride Flush 3 Ml Syringe) 3 ml IVFLUSH QSHIFT [facility] Last Admin: 07/07/24 09:00 Dose: 3 ml Documented By: MARIANA Spironolactone (Spironolactone 25 Mg Tablet) 25 mg PO BID [facility]; Protocol Last Admin: 07/07/24 08:46 Dose: Not Given Documented By: MARIANA Non-Admin Reason: Physician Held Med Valsartan (Valsartan 80 Mg Tablet) 80 mg PO BID [facility]; Protocol Last Admin: 07/06/24 19:59 Dose: 80 mg Documented By: MARIA DEL ROSARIO Labs 07/03/24 10:12 07/07/24 09:03 Assessment and Plan (1) Acute exacerbation of CHF (congestive heart failure): Status: Acute Assessment and Plan: 68-year-old male with a PMH significant for?paroxysmal AFib on Xarelto, CAD, HFpEF, HTN, osteoarthritis, and gout who presents to the ED with?increasing SOB, LLE, and HOFF x3-4 weeks. Pt is admitted to the hospital for treatment and further evaluation of acute CHF exacerbation. Acute HFpEF Pt with SOB, HOFF, orthopnea, 25-35 lb weight gain, LLE x 2-3 weeks Elevated BNP, CXR showing pulmonary edema Likely secondary to AFib with RVR ef: 15-20% plan: continue Lasix 40 mg IV b.i.d.,Continue metoprolol,amiodarone Follow lymina,I/O: 10.2 liter neg,daily weights,Low-salt diet Cardiology following-keep npo past midnight for possible cardioversion in am. Monitor on telemetry AFib with RVR hr flacuated especially with walkin told him to rest plan: amiodarone in addition to metoprolol Continue Xarelto,npo past midnight for cardioversion in am Monitor on telemetry HTN stop amlodipine-leg swelling continue metoprolol, valsartan Hx of gout Pt started on prednisone taper by PCP last week for leg swelling attributed to gout flare No acute gout flare, will stop prednisone Continue allopurinol Obesity class III Encourage weight loss Full Code DVT Prophylaxis: On Xarelto ongoing need for treatment of?acute CHF exacerbation in the setting of AFib with RVR. pt will require hospital level care for administration of IV diuretics, close monitoring of cardiac function and electrolytes, cardiac rate control, and specialist consultation with Cardiology-possible need for cardioversion Quality Stroke Does the patient have a stroke diagnosis?: No VTE Prior VTE?: No VTE Risk Level:: Medical - moderate - high VTE Device Contraindication: Treatment Not Indicated VTE Drug Contraindication: N/A - Med Ordered
[2024-07-07 09:33] LABS: Anion Gap 14 (12-20); Blood Urea Nitrogen 19 mg/dL (9-16); Calcium 9.3 mg/dL (8.4-10.2); Carbon Dioxide 31 mmol/L (22-29); Chloride 100 mmol/L (96-108); Creatinine Clr Calc Pharmacy 84.2; Estimated Glomerular Filt Rate > 60; Glucose Random 103 mg/dL (60-115); Potassium 3.9 mmol/L (3.3-5.1); Sodium 141 mmol/L (135-145)
[2024-07-07 09:37] LABS: B Type Natriuretic Peptide 867 pg/mL (<100)
--- NOTE | 2024-07-07 10:29 | PM.PNCARD ---
Subjective Subjective Date of Service: 07/07/24 Interval history: Seen and examined around 09:00 today. He states that he is feeling better, but not yet back to normal. He presented with complaints of shortness of breath and weight gain and noted to be in atrial fibrillation rapid ventricular response. Review of Systems Review of Systems Yes all other systems are reviewed and are negative Constitutional: Reports as per HPI and Reports no additional constitutional complaints Eyes: Reports as per HPI and Denies no additional eye complaints Denies system reviewed and no additional complaints, except as documented and Reports as per HPI Cardiovascular: Reports as per HPI, Reports no additional cardiovascular complaints, Denies acrocyanosis, Denies cool extremities, Denies chest pain, Reports leg edema, Denies lightheadedness, Denies palpitations and Reports dyspnea Respiratory: Reports as per HPI, Denies no additional respiratory complaints and Reports dyspnea Gastrointestinal: Reports as per HPI and Denies no additional gastrointestinal complaints Genitourinary: Reports no additional male genitourinary complaints and Reports as per HPI Musculoskeletal: Reports no additional musculoskeletal complaints and Reports as per HPI Skin/Breast: Reports system reviewed and no additional complaints, except as docu Reports system reviewed and no additional complaints, except as documented and Reports as per HPI Psychiatric: Reports no additional psychiatric complaints and Reports as per HPI Endocrine: Reports no additional endocrine complaints, Reports as per HPI and Denies palpitations Hematologic/Lymphatic: Reports no additional hematologic/lymphatic complaints and Reports as per HPI Allergic/Immunologic: Reports no additional allergic/immunologic complaints and Reports as per HPI Physical Exam Vital Signs: Last Vital Signs Temp 98.2 F 07/07/24 07:47 Pulse 77 07/07/24 07:47 Resp 20 07/07/24 07:47 BP 144/88 H 07/07/24 07:47 Pulse Ox 95 07/07/24 07:47 O2 Del Method Room Air 07/07/24 07:47 BMI result Body Mass Index 38.4 Const General: comfortable and no acute distress Orientation/consciousness: patient oriented x3 HEENT Other: Unremarkable Head: Yes normal to inspection Neck Neck: Yes normal visual inspection Chest Chest palpation & inspection: normal inspection of the chest Resp Auscultation: clear to auscultation bilaterally Cardio Palpation: normal PMI Heart sounds: S1 normal heart sound present, S2 normal heart sound present, no gallops, no murmurs and no rubs GI Palpation (GI): Soft to palpation Back/Spine/Pelvis Other: unremarkable Skin General skin exam: no rashes or lesions noted Neuro General: patient oriented x3 Extrem Other: 1-2+ leg swelling General: Yes normal to inspection Psych Mental Status: mental status grossly normal Objective Labs and Meds 07/03/24 10:12 07/07/24 09:03 Lab results: Laboratory Results - last 24 hr 07/07/24 09:03 Sodium 141 Potassium 3.9 D Chloride 100 Carbon Dioxide 31 H Anion Gap 14 BUN 19 H Creatinine 1.18 Estim Creat Clear Calc 84.2 Estimated GFR > 60 Random Glucose 103 Calcium 9.3 D B-Natriuretic Peptide 867 H Progress Note: A&P Assessment and plan (1) Atrial fibrillation with RVR: Status: Acute (2) Acute exacerbation of CHF (congestive heart failure): Status: Acute Plan In the echocardiogram, LVEF is 15 20%. Severe left ventricular hypertrophy. Left atrium severely dilated. With regard to atrial fibrillation, he is on amiodarone, metoprolol and Xarelto. We can plan for cardioversion tomorrow. NPO past midnight. With regard to heart failure regimen, beta-blockers, valsartan, spironolactone and furosemide. He is still volume overloaded and continue diuretics. We will follow up with you. Time Spent With Patient Time: Total time managing care of this patient today ____ minutes. Progress Note: Quality Stroke Does the patient have a stroke diagnosis?: No Procedures Date of Service Date of Service: 07/07/24
[2024-07-07] MEDS: Spironolactone 25 MG TABLET PO ×2 (12:41→20:34)
[2024-07-07] MEDS: Furosemide 40 MG/4 ML VIAL IVPUSH ×2 (12:42→16:34)
--- NOTE | 2024-07-07 14:56 | MHC.CM.PN ---
Per rounds, pt is not ready to DC, he is scheduled for cardioversion tomorrow.
[2024-07-07] MEDS: Rivaroxaban 20 MG TABLET PO (16:33)
[2024-07-07] MEDS: Valsartan 80 MG TABLET PO (20:34)
[2024-07-08] VITALS (12 sets, daily range): BP systolic 92–148; BP diastolic 58–96; PULSE 51–80; RESP 16–20; TEMP 36.3–36.9; O2SAT 92–97; BMI 38.3
[2024-07-08] MEDS: allopurinoL 100 MG TABLET 400 MG PO (07:56)
[2024-07-08] MEDS: Metoprolol Succinate ER 50 MG TAB.ER.24H PO (07:56)
[2024-07-08] MEDS: Amiodarone HCL 200 MG TABLET 400 MG PO ×2 (07:57→19:48)
--- NOTE | 2024-07-08 08:47 | HO.ANESPROP2 ---
[facility] Active Problems Active Problems: All Active Problems Persistent atrial fibrillation (Acute) Elevated brain natriuretic peptide (BNP) level (Acute) Acute exacerbation of CHF (congestive heart failure) (Acute) Osteoarthritis of hands, bilateral (Acute) Enlarged thoracic aorta (Acute) Cellulitis (Acute) Rash (Acute) Osteoarthritis of knees, bilateral (Acute) Cardiomyopathy (Acute) Gastritis (Acute) Hypertensive urgency (Acute) Shortness of breath at rest (Acute) Elevated troponin (Acute) Atrial fibrillation with RVR (Acute) Back pain (Acute) Hematoma (Acute) Gout (Acute) CAD (coronary artery disease) (Acute) Paroxysmal atrial fibrillation (Acute) HFrEF (heart failure with reduced ejection fraction) (Acute) Ankle swelling (Acute) Past Medical History Medical History History of cardioversion Back pain Hematoma CAD (coronary artery disease) Paroxysmal atrial fibrillation HFrEF (heart failure with reduced ejection fraction) Gout Atrial fibrillation Systolic CHF Bradycardia Ankle swelling Acute congestive heart failure HTN (hypertension) Functional capacity: independent ambulation Family History Family History Father No problems noted. Mother Heart disease Family history of problems with anesthesia: No Surgical History Surgical History Hx of esophagogastroduodenoscopy No pertinent past surgical history History of Problems with Anesthesia: No Social History Social History Household Members: None Housing: Apartment Do you presently have visiting nurse or other home services: No Unable to assess alcohol history related to: Unknown Alcohol intake: current Alcohol intake frequency: holidays/special occasions only Alcohol type: beer Patient Tobacco Use Status: Never used Tobacco service: No Current occupational status: employed Current occupation: [employer] Allergies Allergy/AdvReac Type Severity Reaction Status Date / Time No Known Allergies Allergy Verified 07/03/24 10:03 Active Medications: Current Medications Acetaminophen (Acetaminophen 325 Mg Tablet) 650 mg PO Q6H PRN PRN Reason: Pain, Mild 1-3,fever,headache Allopurinol (Allopurinol 100 Mg Tablet) 400 mg PO DAILY [facility] Last Admin: 07/08/24 07:56 Dose: 400 mg Amiodarone HCl (Amiodarone Hcl 200 Mg Tablet) 400 mg PO BID [facility] Last Admin: 07/08/24 07:57 Dose: 400 mg Calcium Carbonate (Calcium Carbonate 750 Mg Tab.Chew) 750 mg PO Q4H PRN PRN Reason: Heartburn Furosemide (Furosemide 40 Mg/4 Ml Vial) 40 mg IVPUSH BID@0900,1800 [facility]; Protocol Last Admin: 07/07/24 16:34 Dose: 40 mg Magnesium Hydroxide (Milk Of Magnesia 30 Ml Oral.Susp) 30 ml PO DAILY PRN PRN Reason: Constipation Melatonin (Melatonin 3 Mg Tablet) 6 mg PO BEDTIME PRN PRN Reason: Insomnia Metoprolol Succinate (Metoprolol Succinate Er 50 Mg Tab.Er.24h) 50 mg PO DAILY [facility]; Protocol Last Admin: 07/08/24 07:56 Dose: 50 mg Ondansetron HCl (Ondansetron Hcl 4 Mg/2 Ml Vial) 4 mg IVPUSH Q8H PRN PRN Reason: Nausea and Vomiting Rivaroxaban (Rivaroxaban 20 Mg Tablet) 20 mg PO DAILY@1700 [facility] Last Admin: 07/07/24 16:33 Dose: 20 mg Sodium Chloride (0.9 % Sodium Chloride Flush 3 Ml Syringe) 3 ml IVFLUSH QSHIFT [facility] Last Admin: 07/07/24 20:37 Dose: 3 ml Spironolactone (Spironolactone 25 Mg Tablet) 25 mg PO BID [facility]; Protocol Last Admin: 07/07/24 20:34 Dose: 25 mg Valsartan (Valsartan 80 Mg Tablet) 80 mg PO BID [facility]; Protocol Last Admin: 07/07/24 20:34 Dose: 80 mg Home Medications ?Medication ?Instructions ?Recorded ?Confirmed ?Last Taken ?Type amlodipine 10 mg tablet 10 mg PO BEDTIME 07/03/24 07/03/24 07/02/24 History metoprolol succinate 25 mg 25 mg PO DAILY 07/03/24 07/03/24 07/03/24 History tablet,extended release 24 hr prednisone 10 mg tablet See Taper PO DIRECTED 07/03/24 07/03/24 07/02/24 History rivaroxaban 20 mg tablet (Xarelto) 20 mg PO DAILY@1700 07/03/24 07/03/24 07/02/24 History Exam Height,Weight and Vital Signs: Height 6 ft Weight 128 kg Last Vital Signs Temp 97.3 F 07/08/24 08:30 Pulse 70 07/08/24 08:30 Resp 16 07/08/24 08:30 BP 135/78 07/08/24 08:30 Pulse Ox 96 07/08/24 08:30 O2 Del Method Room Air 07/08/24 08:30 Pertinent Lab Results Pertinent Lab Results: Laboratory Tests 07/03/24 07/03/24 07/03/24 10:12 10:15 10:18 WBC 6.7 RBC 4.56 L Hgb 14.4 Hct 44.6 MCV 97.8 MCH 31.6 MCHC 32.3 RDW 15.1 Plt Count 144 L MPV 11.4 Immature Gran % (Auto) 0.3 Neut % (Auto) 86.9 H Lymph % (Auto) 7.8 L George % (Auto) 5.0 Eos % (Auto) 0.0 Baso % (Auto) 0.0 Lymph # (Auto) 0.5 L George # (Auto) 0.3 Eos # (Auto) 0.0 Baso # (Auto) 0.0 Abs Immat Gran (auto) 0.02 Absolute Neuts (auto) 5.8 Absolute Nucleated RBC 0.000 Nucleated RBC % (auto) 0.0 Hold Purple Top APTT 28.7 VBG pH 7.37 VBG pCO2 42 VBG pO2 60 VBG HCO3 25 VBG O2 Saturation 89.0 VBG Base Excess -0.2 Sodium 144 Potassium 3.8 D Chloride 111 H Carbon Dioxide 24 Anion Gap 13 BUN 29 H Creatinine 1.30 Estim Creat Clear Calc 79.4 Estimated GFR 55 Random Glucose 252 H Uric Acid Calcium 8.2 L D Magnesium 1.9 Total Bilirubin 0.9 AST 63 H ALT 97 H Alkaline Phosphatase 71 Troponin I Hi Sens Base 27.4 Troponin I Hi Sens 2 Hr B-Natriuretic Peptide 778 H Total Protein 5.4 L Albumin 3.6 Influenza Type A (PCR) NEGATIVE Influenza Type B (PCR) NEGATIVE RSV RNA Qual (PCR) NEGATIVE SARS-CoV-2 RNA (RT-PCR) NEGATIVE Blood Type B Negative Antibody Screen NEGATIVE 07/03/24 07/03/24 07/04/24 11:45 13:32 06:52 WBC RBC Hgb Hct MCV MCH MCHC RDW Plt Count MPV Immature Gran % (Auto) Neut % (Auto) Lymph % (Auto) George % (Auto) Eos % (Auto) Baso % (Auto) Lymph # (Auto) George # (Auto) Eos # (Auto) Baso # (Auto) Abs Immat Gran (auto) Absolute Neuts (auto) Absolute Nucleated RBC Nucleated RBC % (auto) Hold Purple Top SEE NOTE APTT VBG pH VBG pCO2 VBG pO2 VBG HCO3 VBG O2 Saturation VBG Base Excess Sodium 143 Potassium 3.5 Chloride 107 Carbon Dioxide 29 Anion Gap 11 L BUN 25 H Creatinine 0.78 Estim Creat Clear Calc 130.9 Estimated GFR > 60 Random Glucose 87 Uric Acid 5.0 Calcium 8.4 Magnesium Total Bilirubin AST ALT Alkaline Phosphatase Troponin I Hi Sens Base Troponin I Hi Sens 2 Hr 29.1 B-Natriuretic Peptide Total Protein Albumin Influenza Type A (PCR) Influenza Type B (PCR) RSV RNA Qual (PCR) SARS-CoV-2 RNA (RT-PCR) Blood Type Antibody Screen 07/05/24 07/06/24 07/07/24 06:47 07:01 09:03 WBC RBC Hgb Hct MCV MCH MCHC RDW Plt Count MPV Immature Gran % (Auto) Neut % (Auto) Lymph % (Auto) George % (Auto) Eos % (Auto) Baso % (Auto) Lymph # (Auto) George # (Auto) Eos # (Auto) Baso # (Auto) Abs Immat Gran (auto) Absolute Neuts (auto) Absolute Nucleated RBC Nucleated RBC % (auto) Hold Purple Top SEE NOTE APTT VBG pH VBG pCO2 VBG pO2 VBG HCO3 VBG O2 Saturation VBG Base Excess Sodium 143 140 141 Potassium 3.4 3.2 L 3.9 D Chloride 101 99 100 Carbon Dioxide 31 H 31 H 31 H Anion Gap 14 13 14 BUN 24 H 19 H 19 H Creatinine 1.03 0.97 1.18 Estim Creat Clear Calc 97.2 102.5 84.2 Estimated GFR > 60 > 60 > 60 Random Glucose 96 107 103 Uric Acid Calcium 8.5 8.5 9.3 D Magnesium Total Bilirubin AST ALT Alkaline Phosphatase Troponin I Hi Sens Base Troponin I Hi Sens 2 Hr B-Natriuretic Peptide 603 H 867 H Total Protein Albumin Influenza Type A (PCR) Influenza Type B (PCR) RSV RNA Qual (PCR) SARS-CoV-2 RNA (RT-PCR) Blood Type Antibody Screen Airway Mallampati Class: II TM Dist: >3cm Neck ROM: Full Heart: fast, irreg. Lungs: CTA Assessment and Plan Assessment Anesthesia Assessment: Anesthesia Plan Discussed and Chart Reviewed Final Anesthetic Review Family History of Problems with Anesthesia: No History of Problems with Anesthesia: No NPO: Yes ASA Class: III Final Preanesthetic Review: Meds/Allgs Chart Reviewed, Consent Obtained/Reviewed and Anes Risks/Benef Reviewed Patient Risk: Intermediate Procedure Risk: Intermediate Anesthetic Plan Anesthetic Plan: GA Disposition: Standard PACU
--- NOTE | 2024-07-08 09:11 | MHC.SHP ---
Pre-Procedural Eval Section A - 24 Hr Update-Section A only Date of Service: 07/08/24 The patient is an INPATIENT: Yes Section B - Complete if H&P > 30 days Chief Complaint: CHF Exacerbation Afib W/RVR Allergies: Allergies Allergy/AdvReac Type Severity Reaction Status Date / Time No Known Allergies Allergy Verified 07/03/24 10:03 Plan I have reviewed the history and physical and performed a pertinent physical examination on my patient. No changes have occurred unless specified. Time Spent With Patient Time: Total time managing care of this patient today ____ minutes.
--- NOTE | 2024-07-08 09:12 | HO.CARDIVERS ---
Cardioversion Procedure Note Cardioversion Date of Procedure: 07/08/2024 Pre-Op Diagnosis: Atrial fibrillation Post-Op Diagnosis: Sinus rhythm Consent: Informed consent obtained Procedure: After informed consent was obtained, patient was taken to the PACU. The patient was then positioned appropriately. The cardioversion pads were placed in anteroposterior position. Once under anesthesia, 120 joules of synchronized shock was administered. The rhythm converted from atrial fibrillation to sinus rhythm. Patient remained in sinus rhythm after the end of procedure. Complications: None. Impression: Successful cardioversion from atrial fibrillation to sinus rhythm. Recommendations: Continue amiodarone load followed by maintenance. Continue beta-blockers. On Xarelto.
--- NOTE | 2024-07-08 09:22 | ECG_ITS ---
Test Reason : S/P CARDIOVERSION Blood Pressure : */* mmHG Vent. Rate : 52 BPM Atrial Rate : 52 BPM P-R Int : 194 ms QRS Dur : 158 ms QT Int : 530 ms P-R-T Axes : * -66 -23 degrees QTcB Int : 492 ms Sinus bradycardia with Premature atrial complexes Right bundle branch block Left anterior fascicular block Bifascicular block Abnormal ECG When compared with ECG of 04-Jul-2024 08:58, rhythm change Referred By: Daniel Mota Electronically Signed By: DANIEL MOTA
--- NOTE | 2024-07-08 10:38 | PM.PNCARD ---
Subjective Subjective Date of Service: 07/08/24 Interval history: Patient was seen and examined. He states he feels okay. After appropriate consent, we did cardioversion today. He is back to normal sinus rhythm. Review of Systems Review of Systems Yes all other systems are reviewed and are negative Constitutional: Reports as per HPI and Reports no additional constitutional complaints Eyes: Reports as per HPI and Denies no additional eye complaints Denies system reviewed and no additional complaints, except as documented and Reports as per HPI Cardiovascular: Reports as per HPI, Reports no additional cardiovascular complaints, Denies acrocyanosis, Denies cool extremities, Denies chest pain, Denies leg edema, Denies lightheadedness, Denies palpitations and Denies dyspnea Respiratory: Reports as per HPI, Denies no additional respiratory complaints and Denies dyspnea Gastrointestinal: Reports as per HPI and Denies no additional gastrointestinal complaints Genitourinary: Reports no additional male genitourinary complaints and Reports as per HPI Musculoskeletal: Reports no additional musculoskeletal complaints and Reports as per HPI Skin/Breast: Reports system reviewed and no additional complaints, except as docu Reports system reviewed and no additional complaints, except as documented and Reports as per HPI Psychiatric: Reports no additional psychiatric complaints and Reports as per HPI Endocrine: Reports no additional endocrine complaints, Reports as per HPI and Denies palpitations Hematologic/Lymphatic: Reports no additional hematologic/lymphatic complaints and Reports as per HPI Allergic/Immunologic: Reports no additional allergic/immunologic complaints and Reports as per HPI Physical Exam Vital Signs: Last Vital Signs Temp 97.8 F 07/08/24 09:58 Pulse 53 07/08/24 09:58 Resp 17 07/08/24 09:58 BP 100/64 07/08/24 09:58 Pulse Ox 96 07/08/24 09:58 O2 Del Method Room Air 07/08/24 09:58 O2 Flow Rate 2 07/08/24 09:37 BMI result Body Mass Index 38.3 Const General: comfortable and no acute distress Orientation/consciousness: patient oriented x3 HEENT Other: Unremarkable Head: Yes normal to inspection Neck Neck: Yes normal visual inspection Chest Chest palpation & inspection: normal inspection of the chest Resp Auscultation: clear to auscultation bilaterally Cardio Palpation: normal PMI Heart sounds: S1 normal heart sound present, S2 normal heart sound present, no gallops, no murmurs and no rubs GI Palpation (GI): Soft to palpation Back/Spine/Pelvis Other: unremarkable Skin General skin exam: no rashes or lesions noted Neuro General: patient oriented x3 Extrem General: Yes normal to inspection Psych Mental Status: mental status grossly normal Objective Labs and Meds 07/03/24 10:12 07/07/24 09:03 Progress Note: A&P Assessment and plan (1) Atrial fibrillation with RVR: Status: Acute Assessment and Plan: He underwent cardioversion today. He is back to normal sinus rhythm. We can do amiodarone loading for 2 weeks followed by maintenance. Continue beta-blockers/Xarelto. (2) Acute exacerbation of CHF (congestive heart failure): Status: Acute Assessment and Plan: In the echocardiogram, LVEF is 15-20%. Last year, it was 60-65%. Not clear if it is all tachycardia mediated or not. He will need follow-up echocardiogram in a few weeks. For meds he is on Toprol-XL, valsartan, furosemide, spironolactone. Add Farxiga or Jardiance. Plan Discussed with Dr. Lopez. Time Spent With Patient Time: Total time managing care of this patient today ____ minutes. Progress Note: Quality Stroke Does the patient have a stroke diagnosis?: No Procedures Date of Service Date of Service: 07/08/24
[2024-07-08 11:09] LABS: Anion Gap 12 (12-20); Blood Urea Nitrogen 20 mg/dL (9-16); Calcium 9.4 mg/dL (8.4-10.2); Carbon Dioxide 35 mmol/L (22-29); Chloride 99 mmol/L (96-108); Creatinine Clr Calc Pharmacy 86.9; Estimated Glomerular Filt Rate > 60; Glucose Random 97 mg/dL (60-115); Potassium 4.3 mmol/L (3.3-5.1); Sodium 142 mmol/L (135-145)
[2024-07-08 12:09] LABS: Alanine Aminotransferase 56 U/L (0-40); Albumin Level 4.1 g/dL (3.5-5.0); Aspartate Amino Transferase 29 U/L (5-37); Bilirubin Direct 0.5 mg/dL (0.0-0.5); Bilirubin Total 1.6 mg/dL (0.0-1.0); Total Protein 6.4 g/dL (6.5-8.0)
[2024-07-08] MEDS: Lidocaine 4 % Patch ADH..PATCH 1 PATCH TRANSDERMA (13:52)
[2024-07-08] MEDS: Furosemide 40 MG TABLET PO (13:54)
[2024-07-08] MEDS: 0.9 % Sodium Chloride Flush 3 ML SYRINGE IVFLUSH ×3 (13:54→19:49)
[2024-07-08] MEDS: Empagliflozin 10 MG TABLET PO (14:02)
--- NOTE | 2024-07-08 16:23 | P.PNIM_ITS ---
Subjective Subjective Date of Service: 07/08/24 Interval History: chf excerebation Review of Systems Patient said that he gets short of breath with the minimal walking as well as when he talks for few minutes. Denies any chest pain Leg edema improving Review of Systems: Yes all other systems are reviewed and are negative Physical Exam 2 Vital Signs: Vital Signs: Last Vital Signs Temp 97.8 F 07/08/24 12:00 Pulse 67 07/08/24 12:00 Resp 18 07/08/24 12:00 BP 123/74 07/08/24 12:00 Pulse Ox 94 07/08/24 12:00 O2 Del Method Room Air 07/08/24 12:00 O2 Flow Rate 2 07/08/24 09:37 BMI result Body Mass Index 38.3 Appearance: Alert.? Oriented X3.? cvs: irregular rythem, [id number]. res: air entry diminshed ,has few rales at bases. abd: no rebound or guarding ,nt, bs present. ext pulses present , no cyanosis ,leg edema 2+. neuro: axo3 , nonfocal Objective Data Active Medications Acetaminophen (Acetaminophen 325 Mg Tablet) 650 mg PO Q6H [facility] Last Admin: 07/08/24 14:03 Dose: Not Given Documented By: GABBY Non-Admin Reason: Patient Refused Allopurinol (Allopurinol 100 Mg Tablet) 400 mg PO DAILY [facility] Last Admin: 07/08/24 07:56 Dose: 400 mg Documented By: GABBY Amiodarone HCl (Amiodarone Hcl 200 Mg Tablet) 400 mg PO BID [facility] Last Admin: 07/08/24 07:57 Dose: 400 mg Documented By: GABBY Calcium Carbonate (Calcium Carbonate 750 Mg Tab.Chew) 750 mg PO Q4H PRN PRN Reason: Heartburn Empagliflozin (Empagliflozin 10 Mg Tablet) 10 mg PO DAILY [facility] Last Admin: 07/08/24 14:02 Dose: 10 mg Documented By: GABBY Furosemide (Furosemide 20 Mg/2 Ml Vial) 20 mg IVPUSH Q12H [facility]; Protocol Lidocaine (Lidocaine 4 % Patch Adh..Patch) 1 patch TRANSDERMA DAILY [facility]; Protocol Last Admin: 07/08/24 13:52 Dose: 1 patch Documented By: GABBY Magnesium Hydroxide (Milk Of Magnesia 30 Ml Oral.Susp) 30 ml PO DAILY PRN PRN Reason: Constipation Melatonin (Melatonin 3 Mg Tablet) 6 mg PO BEDTIME PRN PRN Reason: Insomnia Metoprolol Succinate (Metoprolol Succinate Er 50 Mg Tab.Er.24h) 50 mg PO DAILY [facility]; Protocol Last Admin: 07/08/24 07:56 Dose: 50 mg Documented By: GABBY Naloxone HCl (Naloxone Hcl 0.4 Mg/Ml Vial) 0.04 mg IVPUSH Q5M PRN PRN Reason: Excessive sedation or RR < 8 Ondansetron HCl (Ondansetron Hcl 4 Mg/2 Ml Vial) 4 mg IVPUSH Q8H PRN PRN Reason: Nausea and Vomiting Rivaroxaban (Rivaroxaban 20 Mg Tablet) 20 mg PO DAILY@1700 [facility] Last Admin: 07/07/24 16:33 Dose: 20 mg Documented By: MARIANA Sodium Chloride (0.9 % Sodium Chloride Flush 3 Ml Syringe) 3 ml IVFLUSH QSHIFT [facility] Last Admin: 07/08/24 13:54 Dose: 3 ml Documented By: GABBY Spironolactone (Spironolactone 25 Mg Tablet) 25 mg PO BID [facility]; Protocol Last Admin: 07/07/24 20:34 Dose: 25 mg Documented By: YOKO Valsartan (Valsartan 80 Mg Tablet) 80 mg PO BID [facility]; Protocol Last Admin: 07/07/24 20:34 Dose: 80 mg Documented By: YOKO Labs 07/03/24 10:12 07/08/24 10:49 Labs: Laboratory Results - last 24 hr 07/08/24 10:49 Anion Gap 12 Estim Creat Clear Calc 86.9 Estimated GFR > 60 Random Glucose 97 Calcium 9.4 Total Bilirubin 1.6 H Direct Bilirubin 0.5 AST 29 ALT 56 H Total Protein 6.4 L Albumin 4.1 Assessment and Plan (1) Acute exacerbation of CHF (congestive heart failure): Status: Acute Assessment and Plan: 68-year-old male with a PMH significant for?paroxysmal AFib on Xarelto, CAD, HFpEF, HTN, osteoarthritis, and gout who presents to the ED with?increasing SOB, LLE, and HOFF x3-4 weeks. Pt is admitted to the hospital for treatment and further evaluation of acute CHF exacerbation. Acute HFpEF Pt with SOB, HOFF, orthopnea, 25-35 lb weight gain, LLE x 2-3 weeks Elevated BNP, CXR showing pulmonary edema Likely secondary to AFib with RVR ef: 15-20% plan: continue Lasix IV b.i.d.,Continue metoprolol,amiodarone. Follow lytes,I/O: 10.2 liter neg,daily weights,Low-salt diet continue -Toprol-XL, valsartan, furosemide, spironolactone. Added Jardiance. cardiology following AFib with RVR s/p cardioversion now nsr plan: continue amiodarone ,bb, Xarelto. Monitor on telemetry Cardiology following-amiodarone loading for 2 weeks followed by maintenance,beta-blockers/Xarelto. HTN stop amlodipine-leg swelling continue metoprolol, valsartan Hx of gout Pt started on prednisone taper by PCP last week for leg swelling attributed to gout flare No acute gout flare, will stop prednisone Continue allopurinol Obesity class III Encourage weight loss Full Code DVT Prophylaxis: On Xarelto ongoing need for treatment of?acute CHF exacerbation - need IV diuretics, monitor I&O, daily weights, renal function electrolytes, his respiratory status not optimal yet. Quality Stroke Does the patient have a stroke diagnosis?: No VTE Prior VTE?: No VTE Risk Level:: Medical - moderate - high VTE Device Contraindication: Treatment Not Indicated VTE Drug Contraindication: N/A - Med Ordered
[2024-07-08 17:10] LABS: Alkaline Phosphatase 78 U/L (39-117)
[2024-07-08] MEDS: Furosemide 20 MG/2 ML VIAL IVPUSH (18:39)
[2024-07-08] MEDS: Rivaroxaban 20 MG TABLET PO (18:39)
[2024-07-09 03:41] VITALS: BP 144/78; PULSE 95; RESP 18; TEMP 36.3; O2SAT 95
[2024-07-09 06:00] VITALS: BMI 35.6
[2024-07-09 06:50] LABS: Anion Gap 12 (12-20); Blood Urea Nitrogen 21 mg/dL (9-16); Calcium 9.4 mg/dL (8.4-10.2); Carbon Dioxide 34 mmol/L (22-29); Chloride 99 mmol/L (96-108); Creatinine Clr Calc Pharmacy 80.9; Estimated Glomerular Filt Rate > 60; Glucose Random 126 mg/dL (60-115); Potassium 3.9 mmol/L (3.3-5.1); Sodium 141 mmol/L (135-145)
[2024-07-09 06:54] LABS: B Type Natriuretic Peptide 456 pg/mL (<100)
[2024-07-09 07:49] VITALS: BP 176/78; PULSE 63; RESP 20; TEMP 36.1; O2SAT 92
--- NOTE | 2024-07-09 09:31 | PM.PNCARD ---
Subjective Subjective Date of Service: 07/09/24 Interval history: He states he feels well. He had cardioversion yesterday. Staying in sinus rhythm. Review of Systems Review of Systems Yes all other systems are reviewed and are negative Constitutional: Reports as per HPI and Reports no additional constitutional complaints Eyes: Reports as per HPI and Denies no additional eye complaints Denies system reviewed and no additional complaints, except as documented and Reports as per HPI Cardiovascular: Reports as per HPI, Reports no additional cardiovascular complaints, Denies acrocyanosis, Denies cool extremities, Denies chest pain, Denies leg edema, Denies lightheadedness, Denies palpitations and Denies dyspnea Respiratory: Reports as per HPI, Denies no additional respiratory complaints and Denies dyspnea Gastrointestinal: Reports as per HPI and Denies no additional gastrointestinal complaints Genitourinary: Reports no additional male genitourinary complaints and Reports as per HPI Musculoskeletal: Reports no additional musculoskeletal complaints and Reports as per HPI Skin/Breast: Reports system reviewed and no additional complaints, except as docu Reports system reviewed and no additional complaints, except as documented and Reports as per HPI Psychiatric: Reports no additional psychiatric complaints and Reports as per HPI Endocrine: Reports no additional endocrine complaints, Reports as per HPI and Denies palpitations Hematologic/Lymphatic: Reports no additional hematologic/lymphatic complaints and Reports as per HPI Allergic/Immunologic: Reports no additional allergic/immunologic complaints and Reports as per HPI Physical Exam Vital Signs: Last Vital Signs Temp 96.9 F 07/09/24 07:49 Pulse 63 07/09/24 07:49 Resp 20 07/09/24 07:49 BP 176/78 H 07/09/24 07:49 Pulse Ox 92 07/09/24 07:49 O2 Del Method Room Air 07/09/24 07:49 O2 Flow Rate 2 07/08/24 09:37 BMI result Body Mass Index 35.6 Const General: comfortable and no acute distress Orientation/consciousness: patient oriented x3 HEENT Other: Unremarkable Head: Yes normal to inspection Neck Neck: Yes normal visual inspection Chest Chest palpation & inspection: normal inspection of the chest Resp Auscultation: clear to auscultation bilaterally Cardio Palpation: normal PMI Heart sounds: S1 normal heart sound present, S2 normal heart sound present, no gallops, no murmurs and no rubs GI Palpation (GI): Soft to palpation Back/Spine/Pelvis Other: unremarkable Skin General skin exam: no rashes or lesions noted Neuro General: patient oriented x3 Extrem General: Yes normal to inspection Psych Mental Status: mental status grossly normal Objective Labs and Meds 07/03/24 10:12 07/09/24 06:08 Lab results: Laboratory Results - last 24 hr 07/08/24 07/09/24 10:49 06:08 Sodium 142 141 Potassium 4.3 3.9 Chloride 99 99 Carbon Dioxide 35 H 34 H Anion Gap 12 12 BUN 20 H 21 H Creatinine 1.14 1.18 Estim Creat Clear Calc 86.9 80.9 Estimated GFR > 60 > 60 Random Glucose 97 126 H Calcium 9.4 9.4 Total Bilirubin 1.6 H Direct Bilirubin 0.5 AST 29 ALT 56 H Alkaline Phosphatase 78 B-Natriuretic Peptide 456 H Total Protein 6.4 L Albumin 4.1 Imaging Radiologist's impression: Impressions Shoulder X-Ray 07/08/24 13:30 IMPRESSION: Possible rotator cuff calcification versus artifact. Otherwise unremarkable examination of the right shoulder. Electronically signed by: Baljinder Guzman MD 07/08/2024 01:45 PM EDT RP Progress Note: A&P Assessment and plan (1) Atrial fibrillation with RVR: Status: Acute Assessment and Plan: Status post cardioversion. Back to normal sinus rhythm. Amiodarone loading for 2 weeks followed by maintenance. Otherwise, on beta-blockers/Xarelto. (2) Acute exacerbation of CHF (congestive heart failure): Status: Acute Assessment and Plan: In the echocardiogram, LVEF is 15-20%. Last year, it was 60-65%. Not clear if it is all tachycardia mediated or not. He will need follow-up echocardiogram in a few weeks. For meds he is on Toprol-XL, valsartan, furosemide, spironolactone, Jardiance. Can change diuretics to oral. (3) HTN (hypertension): Status: Acute Assessment and Plan: Elevated today. Can resume the home amlodipine. Plan Discussed with Dr. De Anda. Discharge planning. Follow up in clinic. Time Spent With Patient Time: Total time managing care of this patient today ____ minutes. Progress Note: Quality Stroke Does the patient have a stroke diagnosis?: No Procedures Date of Service Date of Service: 07/09/24
--- NOTE | 2024-07-09 09:46 | HO.POSTANES ---
Post Anesthesia Evaluation Post Anesthesia Evaluation Date of Service: 07/09/24 Vital Signs: Vital Signs Temp Pulse Resp BP Pulse Ox O2 Del Method 07/09/24 07:49 96.9 F 63 20 176/78 H 92 Room Air 07/09/24 03:41 97.3 F 95 18 144/78 H 95 Room Air 07/08/24 23:29 98.5 F 80 18 148/90 H 95 Room Air Anesthesia: General Mental Status: Awake Pain Control: Satisfactory Nausea/Vomiting: None Hydration: Adequate Anesthesia-Related Issues: No Anes. Related Issues
[2024-07-09] MEDS: Metoprolol Succinate ER 50 MG TAB.ER.24H PO (09:53)
[2024-07-09] MEDS: Amiodarone HCL 200 MG TABLET 400 MG PO (09:54)
[2024-07-09] MEDS: Acetaminophen 325 MG TABLET 650 MG PO (09:54)
[2024-07-09] MEDS: Empagliflozin 10 MG TABLET PO (09:54)
[2024-07-09] MEDS: Lidocaine 4 % Patch ADH..PATCH 1 PATCH TRANSDERMA (09:55)
[2024-07-09] MEDS: allopurinoL 100 MG TABLET 400 MG PO (09:55)
[2024-07-09] MEDS: 0.9 % Sodium Chloride Flush 3 ML SYRINGE IVFLUSH (09:55)
[2024-07-09] MEDS: Furosemide 20 MG/2 ML VIAL IVPUSH (09:57)
--- NOTE | 2024-07-09 10:51 | P.DS_ITS ---
DS: Providers Provider Date of Service: 07/09/24 Date of admission: 07/03/24 12:42 Date of discharge: 07/09/24 Primary care physician: None Physician Consults: 07/03/24 15:09 Consult to Cardiology Routine Consulting Provider: [facility] Reason for consultation: CHF exacerbation DS: Diagnosis Discharge Diagnosis (1) Atrial fibrillation with RVR: Status: Acute (2) Acute exacerbation of CHF (congestive heart failure): Status: Acute (3) HTN (hypertension): Status: Acute DS: Summary Hospital Course Hospital Course: from initial hpi: 68-year-old male with a PMH significant for?paroxysmal AFib on Xarelto, CAD, HFpEF, HTN, osteoarthritis, and gout who presents to the ED with?increasing SOB, LLE, and HOFF x3-4 weeks. Pt reports has gained somewhere between 25-35 lbs during this time, and has felt like his whole body has become swollen, especially significant in his lower extremities where fluid has been seeping out of them. Also endorses orthopnea, cough occasionally productive of whitish sputum, and occasional palpitations. Denies chest pain. No back pain. Denies fever, chills, nausea, vomiting, abdominal pain. Pt states follows with Cardiology with Dr. Rowley. He is currently under rate control for AFib and HFpEF. Not on home diuretics. Denies hx of smoking, alcohol, or illicit substance use. Of note, pt initially thought swelling in his legs was due to a gout flare. pt called his PCP and was started on a prednisone taper. In the ED pt was tachycardic up to 143, tachypneic to 25 and hypertensive as as 157/70 satting 99% on RA. Labs were significant for BNP 778, AST 63, ALT 97, and random glucose 252. No leukocytosis. Stable H&H no significant electrolyte abnormalities. Renal function around baseline. Initial troponin 27.4. Tested negative for flu, COVID, RSV. CXR showed [id number] pulmonary edema with questionable right-sided pleural effusion, as well as widening mediastinum. EKG demonstrated AFib with RVR of 134 and RBBB without evidence of significant ST elevations or depressions. Pt was treated in the ED with potassium chloride 40 mEq p.o., metoprolol 25 mg p.o., diltiazem 20 mg IV, and furosemide 40 mg IV. Pt is admitted to the hospital for treatment and further evaluation of acute CHF exacerbation. hospital course: Patient was admitted for acute on chronic CHF with newly reduced ejection fraction possibly due to tachycardia induced cardiomyopathy due to paroxysmal AFib with rapid ventricular response. Was treated with IV Lasix and diuresed well. Seen by Cardiology who increase Toprol, added Jardiance, oral Lasix on discharge. Performed cardioversion successfully and will be discharged on amiodarone 400 mg b.i.d. for 2 weeks and then decrease to 200 mg daily maintenance. Patient is already on Xarelto. For hypertension continued on antihypertensives as mentioned. For obesity weight loss recommended. For history of gout continued on allopurinol. Patient is feeling better will be discharged home. Time Attestation Discharge Coordination Time (in mins): 33 Quality: Safe Use of Opioids Does Pt have an Active Cancer Diagnosis on the Problem List?: No Quality: Stroke Does the patient have a stroke diagnosis?: No Physical Exam Vital Signs: Vital Signs: Last Vital Signs Temp 96.9 F 07/09/24 07:49 Pulse 63 07/09/24 07:49 Resp 20 07/09/24 07:49 BP 176/78 H 07/09/24 07:49 Pulse Ox 92 07/09/24 07:49 O2 Del Method Room Air 07/09/24 07:49 O2 Flow Rate 2 07/08/24 09:37 BMI result Body Mass Index 35.6 Const: General: comfortable and no acute distress Orientation/consciousness: patient oriented x3 HEENT: Other: Unremarkable Head: Yes normal to inspection Neck: Neck: Yes normal visual inspection Chest: Chest palpation & inspection: normal inspection of the chest Resp: Auscultation: clear to auscultation bilaterally Cardio: Palpation: normal PMI Heart sounds: S1 normal heart sound present, S2 normal heart sound present, no gallops, no murmurs and no rubs GI: Palpation (GI): Soft to palpation Back/Spine/Pelvis: Other: unremarkable Skin: General skin exam: no rashes or lesions noted Neuro: General: patient oriented x3 Extrem: General: Yes normal to inspection Psych: Mental Status: mental status grossly normal DS: Data Data Completed and Pending Completed studies during hospitalization [Text1]: Procedures Excision of Esophagogastric Junction, Via Natural or Artificial Opening Endoscopic, Diagnostic (09/16/21) Excision of Stomach, Pylorus, Via Natural or Artificial Opening Endoscopic, Diagnostic (11/18/20) [employer]ab[employer]ist of Cardiac Rhythm, Single (11/08/20) Labs on day of discharge: Laboratory Results - last 24 hr 07/08/24 07/09/24 10:49 06:08 Sodium 142 141 Potassium 4.3 3.9 Chloride 99 99 Carbon Dioxide 35 H 34 H Anion Gap 12 12 BUN 20 H 21 H Creatinine 1.14 1.18 Estim Creat Clear Calc 86.9 80.9 Estimated GFR > 60 > 60 Random Glucose 97 126 H Calcium 9.4 9.4 Total Bilirubin 1.6 H Direct Bilirubin 0.5 AST 29 ALT 56 H Alkaline Phosphatase 78 B-Natriuretic Peptide 456 H Total Protein 6.4 L Albumin 4.1 Discharge Plan Discharge Anticipated Discharge Date/Time: 07/09/24 10:48 Patient Disposition: Home, Self-Care Discharge Diagnosis: afib, chf Referrals: Physician,None [Primary Care Provider] - 1 Week Discharge Medications: New amiodarone 200 mg Tablet 400 mg PO BID Qty: 120 0RF Rx Instructions: 400mg bid for 12 more days then decrease to 200mg daily metoprolol succinate 50 mg Tablet Extended Release 24 Hr 50 mg PO DAILY Qty: 90 0RF Protocol: Hold for SBP/HR < HOLD for SBP < : 90 HOLD for HR < : 60 Jardiance 10 mg Tablet 10 mg PO DAILY Qty: 90 0RF furosemide [Lasix] 40 mg tablet 40 mg PO DAILY Qty: 90 0RF Continued valsartan 80 mg tablet 80 mg PO BID Qty: 180 3RF allopurinol 100 mg tablet 400 mg PO DAILY Qty: 360 1RF prednisone 10 mg tablet See Taper PO DIRECTED Taper: Prednisone 30 mg daily for 5 Days and 0 Hour 20 mg daily for 5 Days and 0 Hour 10 mg daily for 5 Days and 0 Hour 5 mg daily for 5 Days and 0 Hour amlodipine 10 mg tablet 10 mg PO BEDTIME Xarelto 20 mg tablet 20 mg PO DAILY@1700 Discontinued metoprolol succinate 25 mg tablet extended release 24 hr 25 mg PO DAILY Discharge Orders: Discharge Order (Routine); Ordered 07/09/24 Ordered By: Alverto De Anda Diet: Advance to usual diet Activity on Discharge: As tolerated Stand Alone Forms: Patient Portal Discharge page Print Language: Vietnamese Care Plan Goals: recovery, manage afib and chf Health Concerns: chg, afib Plan of Treatment: Med changes as above, follow up with Cardiology Assessment: See above
--- NOTE | 2024-07-09 11:38 | MHC.CM.PN ---
Second IMM 07/09/24, Pt has been medically cleared for DC, he will go home via [facility] shuttle, plan is self care.
== END 2024-07-09 14:00 | disposition home or self-care (01) | DRG 308 ==
LOC: HO.ED 13:40 → HO.EDOVER 13:43 → HO.IMC 07-04 03:31
PROVIDERS: Internal Medicine; Admitting Provider Student in an Organized Health Care Education/Training Program; Emergency Provider Emergency Medicine; Visit Provider Internal Medicine
PROC: 5A2204Z Restoration of Cardiac Rhythm, Single (ICD-10-PCS; principal; 2024-07-08 09:00)
DX: I48.0 Paroxysmal atrial fibrillation (principal); I50.33 Acute on chronic diastolic (congestive) heart failure; I11.0 Hypertensive heart disease with heart failure; I42.8 Other cardiomyopathies; E66.813 Obesity, class 3; Z71.3 Dietary counseling and surveillance; Z68.35 Body mass index [BMI] 35.0-35.9, adult; I25.10 Atherosclerotic heart disease of native coronary artery without angina pectoris; M10.9 Gout, unspecified; Z20.822 Contact with and (suspected) exposure to COVID-19; Z79.01 Long term (current) use of anticoagulants; Z79.899 Other long term (current) drug therapy
CPT/HCPCS: 0241U; 36415; 71045; 73030; 80048; 80053; 80076; 82803; 83735; 83880; 84484; 84550; 85025; 85730; 86850; 86900; 86901; 92960; 93005; 93306; 99285; J1938; J2003; J2704; Q9957

== ENCOUNTER → 2024-07-03 09:58 | Outpatient (BNV) | payer MEDICARE, SELFPAY | PROVIDERS: Emergency Provider Emergency Medicine; Visit Provider Radiology Diagnostic Radiology | DX: R06.00 Dyspnea, unspecified (principal) | CPT/HCPCS: 71045 ==

== ENCOUNTER → 2024-07-03 10:04 | Outpatient (BNV) | payer MEDICARE, SELFPAY | PROVIDERS: Admitting Provider Student in an Organized Health Care Education/Training Program; Emergency Provider Emergency Medicine; Visit Provider Internal Medicine Cardiovascular Disease | DX: I48.91 Unspecified atrial fibrillation (principal); I45.10 Unspecified right bundle-branch block | CPT/HCPCS: 93010 ==

== ENCOUNTER 2024-07-03 12:42 | Outpatient (BNV) | payer MEDICARE, SELFPAY | END 2024-07-08 09:22 | PROVIDERS: Admitting Provider Student in an Organized Health Care Education/Training Program; Emergency Provider Emergency Medicine; Visit Provider Internal Medicine | DX: I45.2 Bifascicular block (principal) | CPT/HCPCS: 93010 ==

== ENCOUNTER 2024-07-03 12:42 | Outpatient (BNV) | payer MEDICARE, SELFPAY | END 2024-07-08 13:30 | PROVIDERS: Admitting Provider Student in an Organized Health Care Education/Training Program; Emergency Provider Emergency Medicine; Visit Provider Radiology Diagnostic Radiology | DX: M25.511 Pain in right shoulder (principal) | CPT/HCPCS: 73030 ==

== ENCOUNTER 2024-07-03 12:42 | Outpatient (BNV) | payer MEDICARE, SELFPAY | END 2024-07-04 07:00 | PROVIDERS: Admitting Provider Student in an Organized Health Care Education/Training Program; Emergency Provider Emergency Medicine; Visit Provider Internal Medicine Cardiovascular Disease | DX: I45.2 Bifascicular block (principal) | CPT/HCPCS: 93010 ==

== ENCOUNTER → 2024-07-03 12:42 | Outpatient (BNV) | payer MEDICARE, SELFPAY | PROVIDERS: Admitting Provider Student in an Organized Health Care Education/Training Program; Emergency Provider Emergency Medicine; Visit Provider Student in an Organized Health Care Education/Training Program | DX: I48.91 Unspecified atrial fibrillation (principal); I50.9 Heart failure, unspecified; I10 Essential (primary) hypertension | CPT/HCPCS: 99223; 99232; 99239 ==

== ENCOUNTER → 2024-07-03 12:42 | Outpatient (BNV) | payer MEDICARE, SELFPAY | PROVIDERS: Admitting Provider Student in an Organized Health Care Education/Training Program; Emergency Provider Emergency Medicine; Visit Provider Internal Medicine Cardiovascular Disease | DX: I48.0 Paroxysmal atrial fibrillation (principal); I50.20 Unspecified systolic (congestive) heart failure | CPT/HCPCS: 99223 ==